=== PATIENT | male | born 1950 | race Caucasian/White ===

== ENCOUNTER → 2016-08-04 | Outpatient (CLI) | payer BC ==
[~2016-08-04] MED LIST: AMLO-110 PO; ASPCH81X PO; ASPI81TA28 PO; ATEN50TA8 PO; ATOR-26 PO; CEPH500C2 PO; EZET10TA47 PO; HYDR-5688 PO; HYDR25TA5 PO; LOSA1TAB PO; NITR0.4S UT; OXYC7.5T65 PO; PANT40TA PO; PRED50TA PO; SULF-183 PO
[2016-08-04 12:58] LABS: BASO % 0.2 %; BASO ABS # 0.02 K/uL (0-0.2); COMPLETE YES; EOS % 2.7 %; HEMATOCRIT 41.7 % (42-52); IG% 0.2 %; LYMPH % 22.4 %; LYMPH ABS # 1.88 K/uL (1.2-3.4); MEAN CELL VOLUME 92.3 fL (80-100); MEAN CORPUSCULAR HEMOGLOBIN 31.4 pg (25-34); MEAN CORPUSCULAR HGB CONC 34.1 g/dl (32-36); MEAN PLATELET VOLUME 10.4 fL (7.4-10.4); MONO % 9.5 %; PLATELET COUNT 196 K/uL (130-400); RED BLOOD COUNT 4.52 M/uL (4.7-6.1); WHITE BLOOD COUNT 8.39 K/uL (4.8-10.8)
[2016-08-04 13:10] LABS: ALT/SGPT 59 U/L (12-78); AST/SGOT 28 U/L (15-37); BLOOD UREA NITROGEN 26 mg/dl (7-18); BUN/CREATININE RATIO 21.4 (10-20); CALCIUM 9.3 mg/dl (8.5-10.1); CARBON DIOXIDE 25 mmol/L (21-32); CHLORIDE 107 mmol/L (98-107); CHOLESTEROL 183 mg/dl (0-200); GLUCOSE 117 mg/dl (70-99); SODIUM 141 mmol/L (136-145)
[2016-08-04 13:12] LABS: ALB/GLOB RATIO 1.1 (0.9-2); ALKALINE PHOSPHATASE 95 U/L (45-117); CHOLESTEROL/HDL RATIO 3.7; HDL CHOLESTEROL 50 mg/dl; TRIGLYCERIDES 87 mg/dl (0-150); VERY LOW DENSITY LIPOPROT CALC 17 mg/dl
[2016-08-04 13:39] LABS: ESTIMATED AVERAGE GLUCOSE 131 mg/dl; HA1C FLAG Normal (Normal)
== END | disposition home or self-care (01) ==
LOC: C.LABSPEC 12:31
PROVIDERS: ATTEND Specialist
DX: I25.10 Atherosclerotic heart disease of native coronary artery without angina pectoris (principal); I10 Essential (primary) hypertension; E78.5 Hyperlipidemia, unspecified; R73.9 Hyperglycemia, unspecified; C67.9 Malignant neoplasm of bladder, unspecified

== ENCOUNTER → 2016-08-16 | Outpatient (CLI) | payer BC | END | disposition home or self-care (01) | LOC: C.LABSPEC 10:31 | PROVIDERS: ATTEND Urology | DX: N39.0 Urinary tract infection, site not specified (principal) ==

== ENCOUNTER → 2016-09-06 | Outpatient (CLI) | payer BC | END | disposition home or self-care (01) | LOC: C.LABSPEC 17:34 | PROVIDERS: ATTEND Nurse Practitioner Family | DX: N39.0 Urinary tract infection, site not specified (principal) ==

== ENCOUNTER 2016-09-11 08:31 | Emergency (ER) | payer BC ==
[~2016-09-11] VITALS: Ht 172.7 cm; Wt 105.5 kg
[~2016-09-11 08:31] MED LIST changes: -ASPCH81X PO; -CEPH500C2 PO; -EZET10TA47 PO; -HYDR-5688 PO; -HYDR25TA5 PO; -PRED50TA PO
[2016-09-11 08:46] VITALS: TEMP 37; Ht 172.7 cm; Wt 105.5 kg
[2016-09-11] MEDS ORDERED: DEXAMETHASONE SOD INJ 10 MG/ML VIAL IV ONE (09:45)
[2016-09-11] MEDS ORDERED: DiphenhydrAMINE HCL 50 MG/ML VIAL IV STA (09:45)
[2016-09-11] MEDS ORDERED: FAMOTIDINE 20MG/102 ML D5W IV STA (09:45)
[2016-09-11] MEDS ORDERED: SODIUM CHLORIDE 0.9% 1000ML 1,000 ML IV STA (09:45)
--- NOTE | 2016-09-11 09:45 | EMERGENCY ROOM VISIT NOTE ---
History Report prepared by Enrrique: Jacob Warner Under the Supervision of: Dr. Huey Szymanski M.D. First contact with patient: 09:21 Chief Complaint: RASH Stated Complaint: RASH History of Present Illness The patient is a 66 year old male who presents to the Emergency Room with complaints of a worsening rash starting last night around midnight. The patient states that he woke up last night after being very itchy. He states that he was scratching, and it got worse. He states that he then went to the bathroom, and took a hot shower and used soap, and it did not work. He additionally states that he put rubbing alcohol on it, and he put some Cortizone on it. The patient states that he has a history of bladder tumors, and he states that he took Bactrim for this, and he states that he has been on it multiple times before. He denies any history of urinary retention. The patient additionally states that he recently started amlodipine a few weeks ago. He additionally states that he is on a BCG treatment. Source of History: patient Onset: last night Position: other (global) Quality: other (rash) Timing: worsening Note: Associated symptoms: itchiness Review of Systems See HPI for pertinent positives & negatives. A total of 6 systems reviewed and were otherwise negative. Past Medical & Surgical Medical Problems: (1) DDD (degenerative disc disease) (2) HTN (hypertension) (3) Hx of renal calculi (4) OBST. L URETERAL STONE, ? BLAD. TUMOR Surgical Problems: (1) H/O knee surgery (2) H/O shoulder surgery (3) History of lumbar surgery (4) Hx of appendectomy (5) S/P wrist surgery Family History Diabetes mellitus Heart disease Hypertension Kidney disease Kidney stones Social History Smoking Status: Former Smoker Alcohol Use: occasionally Drug Use: none Marital Status: Housing Status: lives with family Occupation Status: retired Current/Historical Medications Scheduled Amlodipine (Norvasc), 5 MG PO QAM Aspirin (Aspirin Ec), 81 MG PO QAM Atenolol (Tenormin), 50 MG PO QAM Atorvastatin (Lipitor), 80 MG PO QAM Cephalexin Monohydrate (Keflex), 500 MG PO TID Losartan Potassium (Cozaar), 25 MG PO QAM Pantoprazole (Protonix), 40 MG PO QAM Prednisone (Prednisone), 50 MG PO DAILY Sulfamethoxazole-Trimethoprim (Smz-Tmp Ds), 1 TAB PO BID Scheduled PRN Nitroglycerin (Nitrostat), 0.4 MG UT UD PRN for Chest Pain Allergies Coded Allergies: No Known Allergies (Verified , 09/11/16) POSSIBLE NUT ALLERGY? Physical Exam Vital Signs Date Time Temp Pulse Resp B/P Pulse Ox O2 Delivery O2 Flow Rate FiO2 09/11/16 12:10 63 18 160/93 95 09/11/16 10:17 58 18 142/85 96 Room Air 09/11/16 08:46 37.0 95 17 155/93 94 Room Air Physical Exam GENERAL: Patient is in mild distress HEENT: No acute trauma, normocephalic atraumatic, mucous membranes moist, no nasal congestion, no scleral icterus. NECK: No stridor, no adenopathy, no meningismus, trachea is midline. LUNGS: No dyspnea. Clear to auscultation and equal bilaterally. No wheeze, no rhonchi. HEART: Regular rate and rhythm. No murmurs, rubs, gallops appreciated. EXTREMITIES: Normal motion all extremities, no cyanosis, no edema. NEUROLOGIC: Alert and oriented, no acute motor or sensory deficits, no focal weakness, cranial nerves grossly intact. SKIN: Blotchy, raised, red, lacy hives over the chest, back, and abdomen. Medical Decision & Procedures Laboratory Results 09/11/16 10:00 09/11/16 10:00 Test 09/11/16 10:00 Red Blood Count 4.52 M/uL (4.7-6.1) Mean Corpuscular Volume 90.7 fL (80-100) Mean Corpuscular Hemoglobin 31.4 pg (25-34) Mean Corpuscular Hemoglobin Concent 34.6 g/dl (32-36) RDW Standard Deviation 45.5 fL (36.4-46.3) RDW Coefficient of Variation 13.8 % (11.5-14.5) Mean Platelet Volume 9.7 fL (7.4-10.4) Anion Gap 6.0 mmol/L (3-11) Est Creatinine Clear Calc Drug Dose 69.4 ml/min Estimated GFR () 71.6 Estimated GFR (Non- 61.8 BUN/Creatinine Ratio 16.8 (10-20) Calcium Level 9.2 mg/dl (8.5-10.1) Laboratory results as reviewed by me. Medications Administered Medications (Trade) Dose Ordered Sig/Baljeet Route Start Time Stop Time Status Last Admin Dose Admin Famotidine (Pepcid 20mg/100 ml) 20 mg ONE STAT IV 09/11/16 09:45 09/11/16 09:47 DC 09/11/16 10:12 20 MG Diphenhydramine HCl (Benadryl Inj) 50 mg NOW STAT IV 09/11/16 09:45 09/11/16 09:47 DC 09/11/16 10:12 50 MG Dexamethasone Sodium Phosphate 10 mg 10 mg NOW ONCE IV 09/11/16 09:45 09/11/16 09:47 DC 09/11/16 10:12 10 MG Sodium Chloride (Nss 1000ml) 1,000 ml @ 999 mls/hr Q1H1M STAT IV 09/11/16 09:45 09/11/16 10:45 DC 09/11/16 10:05 999 MLS/HR ED Course 0934: The patient was evaluated in room B5. A complete history and physical exam was performed. 0945: Sodium Chloride 1000 ml @ 999 mls/hr IV, Decadron Inj 10mg IV, Benadryl Inj 50mg IV, Famotidine 20mg IV 1037: I reevaluated the patient, and the rash has mildly improved 1154: Reevaluated the patient. Discussed results and discharge instructions: He verbalized understanding and agreement. The patient is ready for discharge. Medical Decision Differential: Allergic Reaction, Urticaria, Anaphylaxis, Locke-Glen Syndrome, Toxic Epidermal Necrolysis, Erythema Multiforme, Cellulitis, amongst other etiologies entertained. 66 yr old male arrives with complaint of rash over chest/thorax/arms starting this evening after taking Bactrim yesterday for UTI. Denies other significant symptoms. No evidence of anaphylaxis. No skin sloughing and otherwise patient looks well. Feeling better after above with improving rash. Stressed no further scalding showers nor rubbing alcohol on rash as these will make worse. He was prescribed Keflex to take place of bactrim. Follow up with PCP/URO. I discussed fact that his other meds or treatments, or even something he ate might be causing this, but will need to go with most obvious cause to begin with. Stable throughout ED stay and in no distress. Impression Primary Impression: Allergic reaction caused by a drug Scribe Attestation The scribe's documentation has been prepared under my direction and personally reviewed by me in its entirety. I confirm that the note above accurately reflects all work, treatment, procedures, and medical decision making performed by me. Departure Information Dispostion Home / Self-Care Prescriptions Prednisone (PREDNISONE) 50 Mg Tab 50 MG PO DAILY for 4 Days, #4 TAB Prov: Huey Szymanski M.D. 09/11/16 Cephalexin Monohydrate (KEFLEX) 500 Mg Cap 500 MG PO TID, #21 CAP Prov: Huey Szymanski M.D. 09/11/16 Referrals Prabhjot Galaviz M.D. (PCP) Forms HOME CARE DOCUMENTATION FORM, IMPORTANT VISIT INFORMATION, WORK / SCHOOL INSTRUCTIONS Patient Instructions ED Allergic Reaction General Other, My [facility] Health Problem Qualifiers Primary Impression: Allergic reaction caused by a drug Encounter type: initial encounter Qualified Codes: T78.40XA - Allergy, unspecified, initial encounter
[2016-09-11 10:24] LABS: MEAN CELL VOLUME 90.7 fL (80-100); MEAN CORPUSCULAR HEMOGLOBIN 31.4 pg (25-34); MEAN CORPUSCULAR HGB CONC 34.6 g/dl (32-36); MEAN PLATELET VOLUME 9.7 fL (7.4-10.4); PLATELET COUNT 225 K/uL (130-400); RED BLOOD COUNT 4.52 M/uL (4.7-6.1); WHITE BLOOD COUNT 8.74 K/uL (4.8-10.8)
[2016-09-11 10:43] LABS: BUN/CREATININE RATIO 16.8 (10-20); CALCIUM 9.2 mg/dl (8.5-10.1); CREATININE 1.2 mg/dl (0.60-1.40); POTASSIUM 4.1 mmol/L (3.5-5.1)
[2016-09-11] MEDS ORDERED: CEPH500C2 PO (11:55)
[2016-09-11] MEDS ORDERED: PRED50TA PO (11:55)
[2016-09-11 12:10] VITALS: BP 160/93; PULSE 63; O2SAT 95
[2016-12-24] MEDS ORDERED: HYDR25TA5 PO (11:43)
[2016-12-24] MEDS ORDERED: EZET10TA47 PO (11:43)
[2016-12-24] MEDS ORDERED: PANT40TA PO (11:43)
[2016-12-24] MEDS ORDERED: ATOR-26 PO (11:43)
[2016-12-24] MEDS ORDERED: ASPCH81X PO (11:43)
[2017-04-12] MEDS ORDERED: HYDR-5688 PO (06:52)
[2017-04-12] MEDS ORDERED: CEPH500C2 PO (06:52)
== END 2016-09-11 12:10 | disposition home or self-care (01) ==
LOC: C.EDB 08:32
DX: T78.40XA Allergy, unspecified, initial encounter (principal); T37.0X5A Adverse effect of sulfonamides, initial encounter; X58.XXXA Exposure to other specified factors, initial encounter; I10 Essential (primary) hypertension; Z87.442 Personal history of urinary calculi; Z83.3 Family history of diabetes mellitus; Z82.49 Family history of ischemic heart disease and other diseases of the circulatory system; Z84.1 Family history of disorders of kidney and ureter; Z87.891 Personal history of nicotine dependence; Z79.82 Long term (current) use of aspirin; Z79.899 Other long term (current) drug therapy

== ENCOUNTER → 2016-10-21 | Outpatient (CLI) | payer BC ==
[~2016-10-21] MED LIST changes: +ASPCH81X PO; +CEPH500C2 PO; +EZET10TA47 PO; +HYDR-5688 PO; +HYDR25TA5 PO; +OPTIRAY 320 IV PRN; -OXYC7.5T65 PO
--- NOTE | 2016-10-21 10:17 | DIAGNOSTIC IMAGING REPORT ---
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 COMPARISON STUDY: Abdomen and pelvis CT 12/22/2015. FINDINGS: Mild dependent changes seen within the lung bases posteriorly. No suspicious lytic or blastic osseous lesions. Lumbar spine posterior decompression and fusion is again noted. The liver, gallbladder, spleen, adrenal glands, and pancreas are unremarkable. Bilateral nephrolithiasis. No hydronephrosis. Dominant stone is seen within the right kidney and measures 7 mm. Evaluation for a urothelial lesion is essentially nondiagnostic due to the lack of contrast within the urinary systems. There is mild right bladder wall thickening. The bladder is not well-distended. The right anterior aspect of the bladder remains within the right inguinal hernia. The prostate gland is normal in size. No retroperitoneal or pelvic lymphadenopathy. Colonic diverticulosis. No bowel wall thickening or obstruction. IMPRESSION: 1. No evidence for metastatic disease within the abdomen or pelvis. 2. Mild right bladder wall thickening. The right anterior aspect of the bladder remains within the right inguinal hernia. 3. Bilateral nephrolithiasis. No hydronephrosis. 4. Evaluation for a urothelial lesion is essentially nondiagnostic due to the lack of contrast within the urinary system. Electronically signed by: Patrick Cunha M.D. 10/21/2016 10:15 AM Dictated Date/Time: 10/21/2016 10:03 AM
== END | disposition home or self-care (01) ==
LOC: C.CTS 09:16
PROVIDERS: ATTEND Urology
DX: C67.9 Malignant neoplasm of bladder, unspecified (principal); N20.0 Calculus of kidney

== ENCOUNTER → 2016-11-03 | Outpatient (CLI) | payer BC ==
[~2016-11-03] MED LIST changes: -OPTIRAY 320 IV PRN
== END | disposition home or self-care (01) ==
LOC: C.LABSPEC 16:58
PROVIDERS: ATTEND Urology
DX: N39.0 Urinary tract infection, site not specified (principal)

== ENCOUNTER → 2016-12-16 | Outpatient (CLI) | payer BC ==
[2016-12-16 15:53] LABS: ALT/SGPT 50 U/L (12-78); AST/SGOT 32 U/L (15-37); BLOOD UREA NITROGEN 22 mg/dl (7-18); BUN/CREATININE RATIO 15.8 (10-20); CALCIUM 8.9 mg/dl (8.5-10.1); CARBON DIOXIDE 30 mmol/L (21-32); CHLORIDE 103 mmol/L (98-107); GLUCOSE 93 mg/dl (70-99); POTASSIUM 4.1 mmol/L (3.5-5.1); SODIUM 140 mmol/L (136-145)
[2016-12-16 16:04] LABS: ALB/GLOB RATIO 1.1 (0.9-2); ALKALINE PHOSPHATASE 95 U/L (45-117); CHOLESTEROL 114 mg/dl (0-200); CHOLESTEROL/HDL RATIO 3.1; HDL CHOLESTEROL 37 mg/dl; TRIGLYCERIDES 109 mg/dl (0-150); VERY LOW DENSITY LIPOPROT CALC 22 mg/dl
[2016-12-16 17:26] LABS: LYME DISEASE AB IGG NEG (NEG); LYME DISEASE AB IGM NEG (NEG)
[2016-12-17 06:16] LABS: ESTIMATED AVERAGE GLUCOSE 137 mg/dl; HA1C FLAG Normal (Normal)
== END | disposition home or self-care (01) ==
LOC: C.LABSPEC 15:10
PROVIDERS: ATTEND Internal Medicine
DX: I25.10 Atherosclerotic heart disease of native coronary artery without angina pectoris (principal); I10 Essential (primary) hypertension; E78.5 Hyperlipidemia, unspecified; R73.9 Hyperglycemia, unspecified; R53.83 Other fatigue; M25.50 Pain in unspecified joint

== ENCOUNTER → 2016-12-23 | Outpatient (CLI) | payer BC ==
[2016-12-23 10:44] LABS: BASO % 0.4 %; BASO ABS # 0.03 K/uL (0-0.2); COMPLETE YES; EOS % 4.7 %; HEMATOCRIT 45.1 % (42-52); IG% 0.1 %; LYMPH % 24.3 %; LYMPH ABS # 1.87 K/uL (1.2-3.4); MEAN CELL VOLUME 93.2 fL (80-100); MEAN CORPUSCULAR HEMOGLOBIN 30.6 pg (25-34); MEAN CORPUSCULAR HGB CONC 32.8 g/dl (32-36); MONO % 11.3 %; NEUT % 59.2 %; PLATELET COUNT 235 K/uL (130-400); RED BLOOD COUNT 4.84 M/uL (4.7-6.1)
== END ==
LOC: C.LAB 09:53
PROVIDERS: ATTEND Surgery
DX: K40.90 Unilateral inguinal hernia, without obstruction or gangrene, not specified as recurrent (principal); Z01.812 Encounter for preprocedural laboratory examination

== ENCOUNTER → 2016-12-31 | Day surgery (SDC) | payer BC ==
[2016-12-24 11:43] VITALS: Ht 170.2 cm; Wt 104.5 kg
[~2016-12-31] VITALS: Ht 170.2 cm; Wt 104.5 kg
[~2016-12-31] MED LIST changes: -AMLO-110 PO; -ASPI81TA28 PO; -NITR0.4S UT; -SULF-183 PO
== END | disposition home or self-care (01) ==
LOC: EDSTATUS 09:45 → C.PAT 13:41
PROVIDERS: ATTEND Surgery
DX: K40.90 Unilateral inguinal hernia, without obstruction or gangrene, not specified as recurrent (principal)

== ENCOUNTER → 2017-03-25 | Outpatient (CLI) | payer BC ==
[2017-03-25 12:14] LABS: BASO % 0.2 %; BASO ABS # 0.02 K/uL (0-0.2); COMPLETE YES; EOS % 5.1 %; HEMATOCRIT 44.8 % (42-52); IG% 0.2 %; LYMPH % 28.6 %; MEAN CELL VOLUME 93.3 fL (80-100); MEAN CORPUSCULAR HGB CONC 33.3 g/dl (32-36); MEAN PLATELET VOLUME 10.1 fL (7.4-10.4); MONO % 11.2 %; NEUT % 54.7 %; PLATELET COUNT 207 K/uL (130-400); WHITE BLOOD COUNT 8.38 K/uL (4.8-10.8)
[2017-03-25 12:49] LABS: BLOOD UREA NITROGEN 22 mg/dl (7-18); BUN/CREATININE RATIO 16.8 (10-20); CALCIUM 9.2 mg/dl (8.5-10.1); CARBON DIOXIDE 29 mmol/L (21-32); CHLORIDE 106 mmol/L (98-107); GLUCOSE 116 mg/dl (70-99); POTASSIUM 4.2 mmol/L (3.5-5.1); SODIUM 139 mmol/L (136-145)
== END | disposition home or self-care (01) ==
LOC: C.LAB 10:40
PROVIDERS: ATTEND Surgery
DX: Z01.812 Encounter for preprocedural laboratory examination (principal); K40.90 Unilateral inguinal hernia, without obstruction or gangrene, not specified as recurrent

== ENCOUNTER → 2017-04-12 | Day surgery (SDC) | payer BC ==
[2017-03-28 08:50] VITALS: Ht 170.2 cm; Wt 104.5 kg
[~2017-04-12] VITALS: Ht 170.2 cm; Wt 104.5 kg
[~2017-04-12] MED LIST changes: +ATROPINE SULFATE 0.1 MG/ML 5ML SYR IV PRN; +BUPIVACAINE 0.5 % 5 MG/1 ML MPF 30ML VIAL ONE; +CEFAZOLIN 2000 MG/60 ML D5W IV SCH; +CEFAZOLIN SOD 1 GM VIAL ONE; +DEXAMETHASONE SOD INJ 4 MG/ML VIAL ONE; +EpHEDrine SULFATE 50MG/5ML SYR ONE; +EpHEDrine SULFATE INJ 50 MG/ML AMP IV PRN; +FENTANYL CITRATE INJ 50 MCG/1 ML 2 ML VIAL ONE; +FLUMAZENIL 0.1 MG/1 ML 10 ML VIAL IV PRN; +HYDROCODONE/ACETAMOPHEN 5/325MG TAB PO PRN; +HYDROmorphone INJ 0.5 MG/0.5 ML SYR ONE; +LABETALOL HCL IV 5 MG/ML 20ML IV PRN; +LACTATED RINGER'S 1000ML 1,000 ML IV SCH; +LIDOCAINE HCL 2% 2 ML VIAL (20MG/ML) ONE; +MIDAZOLAM HCL 1 MG/ML 2ML VIAL ONE; +NALOXONE HCL 0.4 MG/1 ML VIAL/CARP IV PRN; +ONDANSETRON INJ 2 MG/ML 2 ML VIAL IV PRN; +ONDANSETRON INJ 2 MG/ML 2 ML VIAL ONE; +PROMETHAZINE HCL INJ 12.5 MG in SODIUM CHLORIDE 0.9% 50ML 50 ML IV PRN; +PROPOFOL IV EMULSION 10 MG/ML 20 ML VIAL IV ONE; +SODIUM CHLORIDE 0.9% 1000ML 1,000 ML IV SCH; +SODIUM CHLORIDE 0.9% INJ 10 ML VIAL ONE
--- NOTE | 2017-04-12 06:56 | Discharge Instructions-SurgCtr ---
Discharge Instructions Date of Service Apr 12, 2017. Visit Reason for Visit: Right Inguinal Hernia Discharge Discharge Diagnosis / Problem: inguinal hernia Discharge Goals Goal(s): Decrease discomfort, Improve function, Improve disease control Activity Recommendations Activity Limitations: as noted below Lifting Limitations: no more than 25 pounds (for 4 weeks) Exercise/Sports Limitations: until after follow-up appointment May Resume Sexual Activity: when tolerated Shower/Bathe: keep incision dry (may shower over incision in 2 days) Driving or Machine Use: resume 3 days after discharge SPECIAL CARE INSTRUCTIONS: * Cover incisions and change daily for comfort/drainage. * Leave steri strips in place avoid constipation- may use Senokot S and Milk of magnesia twice daily as directed on the package * May use ibuprofen for pain as tolerated. * Expect some swelling and bruising. Call your doctor if: * Temperature above 101 degrees * Pain not relieved by pain medicine ordered * There is increased drainage or redness from any incision * You have any unanswered questions or concerns [phone]. FOLLOW UP VISIT: If not already scheduled, please call the office for a follow-up visit. for next week- some suture removal OFFICE PHONE NUMBER: Dr. Zhu Office Anesthesia . Post Anesthesia Instructions: If you have had General Anesthesia or IV Sedation: * Do not drive today. * Resume driving when surgeon permits. * Do not make important decisions or sign legal documents today. * Call surgeon for: 1. Temperature elevations greater than 101 degrees F. 2. Uncontrollable pain. 3. Excessive bleeding. 4. Persistent nausea and vomiting. 5. Medication intolerance (nausea, vomiting or rash). * For nausea and vomiting use only clear liquids such as: tea, soda, bouillon until nausea subsides, then gradually increase diet as tolerated. * If you have any concerns or questions, call your surgeon's office. If physician is unavailable and it is an emergency, call 911 or go to the nearest emergency room. . Diet Recommendations Home Diet: resume previous diet Pending Studies Studies pending at discharge: no Medical Emergencies . Who to Call and When: Medical Emergencies: If at any time you feel your situation is an emergency, please call 911 immediately. . Non-Emergent Contact Non-Emergency issues call your: Primary Care Provider, Surgeon . . "Provider Documentation" section prepared by Ryan Zhu. .
--- NOTE | 2017-04-12 07:49 | History & Physical Bridge - SC ---
H&P Re-Evaluation Bridge Note: I have examined the patient, reviewed the History & Physical and in the interval since the performance of the History & Physical I have noted the following changes of clinical significance: No changes noted
--- NOTE | 2017-04-12 09:01 | [facility] Operative Report ---
Operative Report Operative Date Apr 12, 2017. Pre-Operative Diagnosis Right Inguinal Hernia Post-Operative Diagnosis Same Procedure(s) Performed Right Inguinal Hernia Repair with Mesh Surgeon Dr. Albert Zhu Trimming Machine Set Up Operator Surgeon(s) Wade Oden PA-C Findings very large lipoma associated with indirect hernia Anesthesia gen/ LMA Complication(s) None Disposition Recovery Room / PACU I attest to the content of the Intraoperative Record and any orders documented therein. Any exceptions are noted below.
--- NOTE | 2017-04-12 09:20 | OPERATIVE REPORT ---
DATE OF OPERATION: 04/12/2017 NAME OF OPERATION: Open right inguinal hernia repair. PREOPERATIVE DIAGNOSIS: Right inguinal hernia. POSTOPERATIVE DIAGNOSIS: Same with indirect defect and large lipoma. STAFF SURGEON: Ryan Zhu MD MATERIAL MAN: Carolynn Oden PA-C ANESTHESIA: General LMA. FINDINGS: The patient had a very large lipoma associated with indirect inguinal hernia. It was extremely difficult because of the patient's morbid obesity and the size of the hernia which took me almost 30 minutes extra. DESCRIPTION OF PROCEDURE: The patient was brought in the operating room and placed on the operating table in supine position. His right lower quadrant prepped and draped in usual fashion. Incision was made parallel to the inguinal ligament using 0.5% plain Marcaine to anesthetize the skin and subcutaneous tissue. Dissection was carried down through significant adipose tissue, identifying the external oblique fibers incising them along there length to the external ring mobilizing the cord structures. It was apparent that the patient had a very large lipoma associated with a smaller indirect hernia, both of which were dissected away from the cord structures and then reduced. The internal ring was then reinforced using a large mesh plug, secured to surrounding tissue using 2-0 Ethibond suture. Some of the tissue was partially reapproximated using 0 Ethibond suture. A large mesh patch was then placed into the floor of the canal around the cord structures over the plug, secured to surrounding tissue using 2-0 Ethibond suture. The external oblique fibers were then closed over the mesh around the cord structures using 2-0 Ethibond suture. The site was irrigated with antibiotic solution and then also anesthetized using 0.5% plain Marcaine. The deep tissue was reapproximated using 2-0 plain catgut suture and then the skin reapproximated using 4-0 nylon suture and Steri-Strips. The patient was transferred to recovery room in stable condition. I attest to the content of the Intraoperative Record and any orders documented therein. Any exception s are noted below.
[2017-04-12] MEDS: HYDROmorphone INJ 1 MG/ML SYR IV PRN ×4 (09:54→10:26)
--- NOTE | 2017-04-12 10:46 | Anesthesia Progress Nt - [facility] ---
Anesthesia Post Op Note Date & Time Apr 12, 2017 at 10:46 Vital Signs Pain Intensity: 3.0 Vital Signs Past 12 Hours Date Time Temp Pulse Resp B/P (MAP) Pulse Ox O2 Delivery O2 Flow Rate FiO2 04/12/17 10:26 68 18 04/12/17 10:26 69 18 134/90 97 04/12/17 10:21 68 15 134/88 96 04/12/17 10:21 68 15 04/12/17 10:16 69 14 136/90 95 04/12/17 10:16 68 14 04/12/17 10:13 36.7 69 14 136/90 96 Room Air 04/12/17 10:11 68 19 04/12/17 10:11 67 19 131/83 96 04/12/17 10:06 62 16 130/85 98 04/12/17 10:06 63 16 04/12/17 10:01 64 14 132/90 99 04/12/17 10:01 65 14 04/12/17 09:56 64 15 128/86 98 04/12/17 09:56 64 15 04/12/17 09:51 64 20 04/12/17 09:51 65 20 120/85 93 04/12/17 09:46 65 20 04/12/17 09:46 65 20 137/88 93 04/12/17 09:41 61 10 04/12/17 09:41 61 10 128/82 96 04/12/17 09:36 63 5 04/12/17 09:36 63 5 140/91 97 04/12/17 09:31 62 18 04/12/17 09:31 63 18 134/85 96 04/12/17 09:26 63 19 04/12/17 09:26 63 19 142/88 96 04/12/17 09:21 64 16 129/84 97 04/12/17 09:21 65 16 04/12/17 09:16 64 19 141/90 97 04/12/17 09:16 64 19 04/12/17 09:12 134/92 04/12/17 09:11 36.6 70 20 134/92 94 Mask 6 04/12/17 07:05 36.5 60 18 148/94 (112) 97 Notes Mental Status: alert / awake / arousable, participated in evaluation Pt Amnestic to Procedure: Yes Nausea / Vomiting: adequately controlled Pain: adequately controlled Airway Patency, RR, SpO2: stable & adequate BP & HR: stable & adequate Hydration State: stable & adequate Anesthetic Complications: no major complications apparent
[2017-04-12 10:54] VITALS: TEMP 36.6
[2017-04-12 11:38] VITALS: BP 141/80; PULSE 65; O2SAT 97
== END | disposition home or self-care (01) ==
LOC: X.SURG 06:58
PROVIDERS: ATTEND Surgery
DX: K40.90 Unilateral inguinal hernia, without obstruction or gangrene, not specified as recurrent (principal); D17.6 Benign lipomatous neoplasm of spermatic cord; I25.10 Atherosclerotic heart disease of native coronary artery without angina pectoris; I10 Essential (primary) hypertension; E78.5 Hyperlipidemia, unspecified; K21.9 Gastro-esophageal reflux disease without esophagitis; N52.9 Male erectile dysfunction, unspecified; C67.9 Malignant neoplasm of bladder, unspecified; G47.30 Sleep apnea, unspecified; Z79.82 Long term (current) use of aspirin; Z79.899 Other long term (current) drug therapy

== ENCOUNTER → 2017-04-26 | Outpatient (CLI) | payer BC ==
[~2017-04-26] MED LIST changes: -ATROPINE SULFATE 0.1 MG/ML 5ML SYR IV PRN; -BUPIVACAINE 0.5 % 5 MG/1 ML MPF 30ML VIAL ONE; -CEFAZOLIN 2000 MG/60 ML D5W IV SCH; -CEFAZOLIN SOD 1 GM VIAL ONE; -DEXAMETHASONE SOD INJ 4 MG/ML VIAL ONE; -EpHEDrine SULFATE 50MG/5ML SYR ONE; -EpHEDrine SULFATE INJ 50 MG/ML AMP IV PRN; -FENTANYL CITRATE INJ 50 MCG/1 ML 2 ML VIAL ONE; -FLUMAZENIL 0.1 MG/1 ML 10 ML VIAL IV PRN; -HYDROCODONE/ACETAMOPHEN 5/325MG TAB PO PRN; -HYDROmorphone INJ 0.5 MG/0.5 ML SYR ONE; -LABETALOL HCL IV 5 MG/ML 20ML IV PRN; -LACTATED RINGER'S 1000ML 1,000 ML IV SCH; -LIDOCAINE HCL 2% 2 ML VIAL (20MG/ML) ONE; -MIDAZOLAM HCL 1 MG/ML 2ML VIAL ONE; -NALOXONE HCL 0.4 MG/1 ML VIAL/CARP IV PRN; -ONDANSETRON INJ 2 MG/ML 2 ML VIAL IV PRN; -ONDANSETRON INJ 2 MG/ML 2 ML VIAL ONE; -PROMETHAZINE HCL INJ 12.5 MG in SODIUM CHLORIDE 0.9% 50ML 50 ML IV PRN; -PROPOFOL IV EMULSION 10 MG/ML 20 ML VIAL IV ONE; -SODIUM CHLORIDE 0.9% 1000ML 1,000 ML IV SCH; -SODIUM CHLORIDE 0.9% INJ 10 ML VIAL ONE
[2017-04-26 12:48] LABS: ESTIMATED AVERAGE GLUCOSE 146 mg/dl; HA1C FLAG Normal (Normal)
[2017-04-26 13:18] LABS: GLUCOSE,FASTING 119 mg/dl (70-99)
[2017-04-26 13:24] LABS: LYME DISEASE AB IGG NEG (NEG)
[2017-04-26 13:27] LABS: LYME DISEASE AB IGM NEG (NEG)
[2017-04-26 13:32] LABS: CHOLESTEROL 130 mg/dl (0-200); CHOLESTEROL/HDL RATIO 2.8; HDL CHOLESTEROL 47 mg/dl; TRIGLYCERIDES 105 mg/dl (0-150); VERY LOW DENSITY LIPOPROT CALC 21 mg/dl
== END | disposition home or self-care (01) ==
LOC: C.LABSPEC 12:03
PROVIDERS: ATTEND Internal Medicine
DX: R73.9 Hyperglycemia, unspecified (principal); I25.10 Atherosclerotic heart disease of native coronary artery without angina pectoris; E78.5 Hyperlipidemia, unspecified; R53.83 Other fatigue; M79.1 Myalgia

== ENCOUNTER 2017-05-31 08:58 | Emergency (ER) | payer BC ==
[~2017-05-31] VITALS: Ht 172.7 cm; Wt 110.0 kg
[2017-05-31 09:04] VITALS: TEMP 37; Ht 172.7 cm; Wt 110.0 kg
--- NOTE | 2017-05-31 10:20 | DIAGNOSTIC IMAGING REPORT ---
L RIBS UNILATERAL WITH PA CHEST CLINICAL HISTORY: fall. Left-sided rib pain. COMPARISON STUDY: Chest 12/22/2015. FINDINGS: No pneumothorax. No pleural effusions. The heart is normal in size. The lungs are clear. No change in the left lateral seventh through 11th rib deformities consistent with old, healed fractures. No acute rib fractures identified. IMPRESSION: 1. No acute rib fractures. No pneumothorax. 2. No change in the old left seventh through 11th rib fractures. Electronically signed by: Patrick Cunha M.D. 05/31/2017 10:19 AM Dictated Date/Time: 05/31/2017 10:16 AM
--- NOTE | 2017-05-31 10:49 | EMERGENCY ROOM VISIT NOTE ---
History Report prepared by Enrrique: Mary Coates Under the Supervision of: Dr. Skyler Portillo D.O. First contact with patient: 09:41 Chief Complaint: RIB PAIN Stated Complaint: FELL YESTERDAY POSSIBLE BROKEN RIBS History of Present Illness The patient is a 66 year old male who presents to the Emergency Room with complaints of constant left-sided rib pain secondary to a fall occurring yesterday afternoon. The patient was cleaning his garage and fell about 2.5 feet from standing on a "pile of junk." He fell over the wheelbarrow and landed on his left side. He has been experiencing pain since that time. He rates his current pain as a 9/10 in severity. His pain worsens with palpation. He describes his pain as "pinching" and "sore." Source of History: patient Onset: yesterday afternoon Position: other (left ribs) Symptom Intensity: 9/10 Quality: other (pinching; sore) Timing: constant Modifying Factors (Worsening): other (palpation) Review of Systems See HPI for pertinent positives & negatives. A total of 10 systems reviewed and were otherwise negative. Past Medical & Surgical Medical Problems: (1) DDD (degenerative disc disease) (2) HTN (hypertension) (3) Hx of renal calculi (4) OBST. L URETERAL STONE, ? BLAD. TUMOR Surgical Problems: (1) H/O knee surgery (2) H/O shoulder surgery (3) History of lumbar surgery (4) Hx of appendectomy (5) S/P wrist surgery Family History Diabetes mellitus Heart disease Hypertension Kidney disease Kidney stones Social History Smoking Status: Never Smoker Alcohol Use: occasionally Drug Use: none Marital Status: Housing Status: lives with family Occupation Status: retired Current/Historical Medications Scheduled Aspirin (Aspirin Chewable), 81 MG PO QAM Atenolol (Tenormin), 50 MG PO QAM Atorvastatin (Lipitor), 80 MG PO QAM Ezetimibe (Zetia), 10 MG PO QAM Hydrochlorothiazide (Hydrochlorothiazide), 1 TAB PO QAM Losartan Potassium (Cozaar), 25 MG PO QAM Pantoprazole (Protonix), 40 MG PO QAM Scheduled PRN Hydrocodone/Acetaminophen 5MG/325MG ([place] 5MG/325MG), 1-2 TABLET PO q 6 hrs PRN for Pain Allergies Coded Allergies: Sulfa Antibiotics (Verified Allergy, Unknown, RASH, 05/31/17) Physical Exam Vital Signs Date Time Temp Pulse Resp B/P (MAP) Pulse Ox O2 Delivery O2 Flow Rate FiO2 05/31/17 09:04 37.0 70 20 142/83 95 Room Air Physical Exam CONSTITUTIONAL/VITAL SIGNS: Reviewed / noted above. GENERAL: Non-toxic in appearance. INTEGUMENTARY: Warm, dry, and Mart[place]ll. HEAD: Normocephalic. EYES: without scleral icterus or trauma. ENT/OROPHARYNX: clear and moist. LYMPHADENOPATHY/NECK: Is supple without lymphadenopathy or meningismus. RESPIRATORY: Lungs clear and equal. CARDIOVASCULAR: Regular rate and rhythm. GI/ABDOMEN: Soft and nontender. No organomegaly or pulsatile mass. No rebound or guarding. Normal bowel sounds. EXTREMITIES: Warm and well perfused. BACK: No CVA tenderness. NEUROLOGICAL: Intact without focal deficits. PSYCHIATRIC: normal affect. MUSCULOSKELETAL: Normally developed with good muscle tone. Mild TTP of the left mid-thorax. Medical Decision & Procedures ER Provider Diagnostic Interpretation: Radiology results as stated below per my review and radiologist interpretation: L RIBS UNILATERAL WITH PA CHEST CLINICAL HISTORY: fall. Left-sided rib pain. COMPARISON STUDY: Chest 12/22/2015. FINDINGS: No pneumothorax. No pleural effusions. The heart is normal in size. The lungs are clear. No change in the left lateral seventh through 11th rib deformities consistent with old, healed fractures. No acute rib fractures identified. IMPRESSION: 1. No acute rib fractures. No pneumothorax. 2. No change in the old left seventh through 11th rib fractures. Electronically signed by: Patrick Cunha M.D. 05/31/2017 10:19 AM Dictated Date/Time: 05/31/2017 10:16 AM ED Course 0956: Previous medical records were reviewed. The patient was placed in room B9. He was then taken for x-rays. 1034: A complete history and physical examination was performed. At this time I discussed the results and treatment plan with the patient. I answered all pertaining questions that he had. He expressed understanding and verbalized agreement. The patient will be discharged home. Medical Decision Differential diagnoses includes rib fracture, contusion, strain, pulmonary injury. This is a 66-year-old male who presents to the ED with a chief complaint of left -sided rib pain. The patient was working in his garage and fell yesterday. This causes pain. This occurred around 2 PM yesterday. He came in for evaluation here today. Exam reveals some tenderness in the left lower lateral chest wall. X-ray reveals some old rib fractures but nothing new. Lungs were clear. The patient states that he does have hydrocodone at home but does not seem to work very well. He states that it does cause constipation. He will continue this as needed. He was told that symptoms should improve in the next week or so. He is felt to be stable for discharge. Medication Reconcilliation Current Medication List: was personally reviewed by me Blood Pressure Screening Patient's blood pressure: Elevated blood pressure Blood pressure disposition: Elevated BP felt to be situational Impression Primary Impression: Acute chest wall pain Scribe Attestation The scribe's documentation has been prepared under my direction and personally reviewed by me in its entirety. I confirm that the note above accurately reflects all work, treatment, procedures, and medical decision making performed by me. Departure Information Dispostion Home / Self-Care Referrals Prabhjot Galaviz M.D. (PCP) Patient Instructions My [facility] Additional Instructions Anticipate improvement of symptoms over the next 7 days. If symptoms persist, see your doctor for reevaluation. Take [id number] medications for pain or your hydrocodone as needed.
[2017-05-31 10:56] VITALS: BP 119/59; PULSE 61; O2SAT 94
== END 2017-05-31 10:53 | disposition home or self-care (01) ==
LOC: C.EDB 08:58
DX: R07.89 Other chest pain (principal); W17.89XA Other fall from one level to another, initial encounter; I10 Essential (primary) hypertension; Z87.442 Personal history of urinary calculi; Z79.82 Long term (current) use of aspirin; Z79.899 Other long term (current) drug therapy; Z88.2 Allergy status to sulfonamides; Z83.3 Family history of diabetes mellitus; Z82.49 Family history of ischemic heart disease and other diseases of the circulatory system; Z84.1 Family history of disorders of kidney and ureter

== ENCOUNTER → 2017-07-13 | Outpatient (CLI) | payer BC ==
[~2017-07-13] MED LIST changes: -CEPH500C2 PO
[2017-07-13 13:26] LABS: INFLUENZA B ANTIGEN Neg for Influ B (NEG)
== END | disposition home or self-care (01) ==
LOC: C.LAB 12:30
PROVIDERS: ATTEND Internal Medicine
DX: B34.9 Viral infection, unspecified (principal)

== ENCOUNTER → 2017-08-15 | Outpatient (CLI) | payer BC ==
--- NOTE | 2017-08-15 11:49 | DIAGNOSTIC IMAGING REPORT ---
KUB CLINICAL HISTORY: 67 years-old Male presenting with N20.0 Nephrolithiasis1. TECHNIQUE: Single supine view of the abdomen was obtained. COMPARISON: 06/07/[address] from 10/21/2016. FINDINGS: Nonobstructive bowel gas pattern. No gross pneumoperitoneum. Multiple bilateral renal calculi in a similar distribution as on prior exam. Multiple pelvic phleboliths also similar in distribution. Postsurgical changes of posterior lumbar fusion, laminectomies, and interbody spacer placement. Degenerative changes and scoliosis of the mid lumbar spine. IMPRESSION: 1. Bilateral nephrolithiasis unchanged from prior exam. Electronically signed by: Ganesh Wren M.D. 08/15/2017 11:48 AM Dictated Date/Time: 08/15/2017 11:46 AM
[2017-08-15 12:59] LABS: BLOOD UREA NITROGEN 26 mg/dl (7-18); CREATININE 1.27 mg/dl (0.60-1.40)
== END | disposition home or self-care (01) ==
LOC: C.RAD 10:48
PROVIDERS: ATTEND Urology
DX: N20.0 Calculus of kidney (principal)

== ENCOUNTER → 2017-08-19 | Outpatient (CLI) | payer BC ==
--- NOTE | 2017-08-19 14:11 | DIAGNOSTIC IMAGING REPORT ---
IV PYELOGRAM CLINICAL HISTORY: Nephrolithiasis. Reported history of bladder cancer. COMPARISON STUDY: Abdominal CT dated 10/21/2016. TECHNIQUE: An abdominal draw off worker radiograph is performed. IVP pyelogram was then performed following the IV administration of 100 cc of Optiray 300, tomographic images are acquired in the corticomedullary and excretory phases of enhancement. Overhead views of the renal collecting system and bladder were obtained in multiple obliquities both pre and post void. FINDINGS: An abdominal draw off worker radiograph shows a nonobstructed abdominal bowel gas pattern. There are numerous bilateral nonobstructing renal calculi identified. The largest on the left measures 10 mm and the largest on the right measures 9 mm. There is no radiographic evidence of ureteral stone. Numerous phleboliths are seen in the pelvis. The skeletal structures are osteopenic. Lumbosacral spondylosis and scoliosis are noted. There are postoperative changes from L4 -S1 spinal fusion. Following contrast administration there is symmetric renal cortical enhancement and contrast excretion. No hydronephrosis is seen. Ureters are well opacified. No filling defect is seen within the renal pelvis bilaterally or along the course of the ureters to suggest urothelial lesion. The bladder wall appears thickened and trabeculated suggesting chronic obstruction. Contrasted abnormality at the bladder dome may represent postoperative change. No significant post void residual is identified. IMPRESSION: 1. Nonobstructing renal calculi are seen bilaterally. 2. Otherwise unremarkable IV pyelogram. There is no evidence of urothelial lesion within the renal pelvis bilaterally or along the course of the ureters. 3. The appearance of the bladder suggests chronic outlet obstruction. Mild contour abnormality at the bladder dome may represent postoperative change. Clinical correlation will be required. Electronically signed by: Pradeep Wagner M.D. 08/19/2017 2:10 PM Dictated Date/Time: 08/19/2017 2:05 PM
== END | disposition home or self-care (01) ==
LOC: C.RAD 12:29
PROVIDERS: ATTEND Urology
DX: N20.0 Calculus of kidney (principal)

== ENCOUNTER → 2017-09-12 | Outpatient (CLI) | payer BC ==
[2017-09-12 10:03] LABS: BASO % 0.3 %; BASO ABS # 0.02 K/uL (0-0.2); EOS % 5.9 %; HEMATOCRIT 43.4 % (42-52); HEMOGLOBIN 14.6 g/dL (14.0-18.0); LYMPH % 31.2 %; LYMPH ABS # 2.12 K/uL (1.2-3.4); MEAN CELL VOLUME 93.3 fL (80-100); MEAN CORPUSCULAR HEMOGLOBIN 31.4 pg (25-34); MEAN CORPUSCULAR HGB CONC 33.6 g/dl (32-36); MEAN PLATELET VOLUME 10.1 fL (7.4-10.4); MONO % 12.5 %; MONO ABS # 0.85 K/uL (0.11-0.59); NEUT % 50.1 %; NEUT ABS # 3.41 K/uL (1.4-6.5); PLATELET COUNT 194 K/uL (130-400); RED CELL DISTRIBUTION WIDTH SD 47.5 fL (36.4-46.3)
[2017-09-12 10:33] LABS: BLOOD UREA NITROGEN 19 mg/dl (7-18); CARBON DIOXIDE 29 mmol/L (21-32); CREATININE 1.44 mg/dl (0.60-1.40); POTASSIUM 3.9 mmol/L (3.5-5.1); SODIUM 139 mmol/L (136-145)
== END | disposition home or self-care (01) ==
LOC: C.LAB 09:28
PROVIDERS: ATTEND Urology
DX: N20.0 Calculus of kidney (principal)

== ENCOUNTER → 2017-09-22 | Outpatient (CLI) | payer BC ==
--- NOTE | 2017-09-22 17:22 | DIAGNOSTIC IMAGING REPORT ---
KUB HISTORY: Follow-up study in a patient with nephrolithiasis N20.0 Nephrolithiasis COMPARISON: IVP 08/19/2017 FINDINGS: The bowel gas pattern is non-obstructive. There is no organomegaly. Bilateral nephrolithiasis redemonstrated which appears unchanged from comparison. Largest calculi on the left measure up to 9 mm in largest on the right measure up to approximate 7 mm. Renal shadows are partially obscured by bowel gas. No definite ureteral calculi are identified. Phleboliths of the pelvis. No pneumoperitoneum or pneumatosis. No fracture. Dextroscoliosis of the lumbar spine with fusion hardware of the lower lumbar levels. IMPRESSION: Unchanged appearance of bilateral nephrolithiasis without ureteral calculi identified. Electronically signed by: Vamshi Bah M.D. 09/22/2017 5:21 PM Dictated Date/Time: 09/22/2017 5:19 PM
== END | disposition home or self-care (01) ==
LOC: C.RAD 16:53
PROVIDERS: ATTEND Urology
DX: N20.0 Calculus of kidney (principal)

== ENCOUNTER → 2017-09-23 | Day surgery (SDC) | payer BC ==
[2017-09-14 07:57] VITALS: Ht 170.2 cm; Wt 104.5 kg
[~2017-09-23] VITALS: Ht 170.2 cm; Wt 104.5 kg
[~2017-09-23] MED LIST changes: +ACETAMINOPHEN 325 MG TAB PO PRN; +CIPROFLOXACIN 400MG / D5W IV SCH; +EpHEDrine SULFATE INJ 50 MG/ML AMP ONE; +FENTANYL CITRATE INJ 50 MCG/1 ML 2 ML VIAL ONE; +LACTATED RINGER'S 1000ML 1,000 ML IV SCH; +LIDOCAINE HCL 2% 2 ML VIAL (20MG/ML) ONE; +MIDAZOLAM HCL 1 MG/ML 2ML VIAL ONE; +ONDANSETRON INJ 2 MG/ML 2 ML VIAL ONE; +OXYCODONE/ACETAMINOPHEN 5-325 TAB PO PRN; +PROPOFOL IV EMULSION 10 MG/ML 20 ML VIAL IV ONE; +SODIUM CHLORIDE 0.9% 1000ML 1,000 ML IV SCH; +SODIUM CHLORIDE 0.9% INJ 10 ML VIAL ONE
--- NOTE | 2017-09-23 09:07 | Discharge Instructions-SurgCtr ---
Discharge Instructions Date of Service Sep 23, 2017. Visit Reason for Visit: Stones Discharge Discharge Diagnosis / Problem: stones Discharge Goals Goal(s): Decrease discomfort, Improve function, Increase independence, Improve disease control Medications Stopped Medications Name(s): D/C'D ASA x 10 days. Activity Recommendations Activity Limitations: resume your previous activity Lifting Limitations: none Exercise/Sports Limitations: none May Resume Sexual Activity: when tolerated Shower/Bathe: no limitations Driving or Machine Use: resume 1 day after discharge Anesthesia . Post Anesthesia Instructions: If you have had General Anesthesia or IV Sedation: * Do not drive today. * Resume driving when surgeon permits. * Do not make important decisions or sign legal documents today. * Call surgeon for: 1. Temperature elevations greater than 101 degrees F. 2. Uncontrollable pain. 3. Excessive bleeding. 4. Persistent nausea and vomiting. 5. Medication intolerance (nausea, vomiting or rash). * For nausea and vomiting use only clear liquids such as: tea, soda, bouillon until nausea subsides, then gradually increase diet as tolerated. * If you have any concerns or questions, call your surgeon's office. If physician is unavailable and it is an emergency, call 911 or go to the nearest emergency room. . Instructions / Follow-Up Instructions / Follow-Up Please keep your previously scheduled follow up appointment. Diet Recommendations Home Diet: no limitations, resume previous diet Pending Studies Studies pending at discharge: no Medical Emergencies . Who to Call and When: Medical Emergencies: If at any time you feel your situation is an emergency, please call 911 immediately. . Non-Emergent Contact Non-Emergency issues call your: Urologist Call Non-Emergent contact if: you have a fever, temperature is above 101.5, your pain is not controlled, your pain is worsening . . "Provider Documentation" section prepared by Jamaal Walker. . [place] Drug Monitoring Program Search Results: patient reviewed within database, no issues identified
--- NOTE | 2017-09-23 09:20 | [facility] Operative Report ---
Operative Report Operative Date Sep 23, 2017. Pre-Operative Diagnosis nephrolithiasis Post-Operative Diagnosis nephrolithiasis Procedure(s) Performed R ESWL Surgeon Danielle Carrera Estimated Blood Loss 0cc Findings R renal stone Specimens none Drains None Anesthesia Type General Complication(s) none Disposition yes Recovery Room / PACU Indications right renal stone Description of Procedure The patient was identified in the preoperative holding area, appropriate informed consent was reviewed and completed and the patient was transported to the operating suite. Upon arrival appropriate preoperative antibiotics were administered and general anesthesia induced. The patient was placed in supine position and the stone was localized under fluoroscopy. A total of 2500 shocks were delivered to the stone. There appeared to be good fragmentation of the stone. Details of this procedure can be found on the [facility] information sheet. At the conclusion of the case the patient was extubated and taken to the PACU in stable condition. There were no complications. I attest to the content of the Intraoperative Record and any orders documented therein. Any exceptions are noted below.
[2017-09-23 10:29] VITALS: TEMP 36.6
--- NOTE | 2017-09-23 10:43 | Anesthesia Progress Nt - [facility] ---
Anesthesia Post Op Note Date & Time Sep 23, 2017 at 10:43 Vital Signs Pain Intensity: 0 Vital Signs Past 12 Hours Date Time Temp Pulse Resp B/P (MAP) Pulse Ox O2 Delivery O2 Flow Rate FiO2 09/23/17 10:29 36.6 59 16 109/66 (80) 96 Room Air 09/23/17 10:22 36.8 60 14 121/74 95 Room Air 09/23/17 10:20 121/74 09/23/17 10:18 61 17 09/23/17 10:18 61 17 93 09/23/17 10:16 99/63 09/23/17 10:13 58 14 09/23/17 10:13 59 14 97 09/23/17 10:11 101/63 09/23/17 10:08 61 23 98 09/23/17 10:08 60 23 09/23/17 10:05 116/73 09/23/17 10:03 62 17 09/23/17 10:03 61 17 90 09/23/17 10:01 99/63 09/23/17 09:58 59 11 109/66 99 09/23/17 09:58 59 11 09/23/17 09:55 87/49 09/23/17 09:53 61 13 98 09/23/17 09:53 61 13 09/23/17 09:51 91/55 09/23/17 09:48 61 14 99 09/23/17 09:48 63 14 09/23/17 09:46 81/58 09/23/17 09:44 127/74 09/23/17 09:43 36.5 65 14 127/74 99 Mask 6 09/23/17 07:24 36.6 60 20 128/82 (97) 96 Room Air Notes Mental Status: alert / awake / arousable, participated in evaluation Pt Amnestic to Procedure: Yes Nausea / Vomiting: adequately controlled Pain: adequately controlled Airway Patency, RR, SpO2: stable & adequate BP & HR: stable & adequate Hydration State: stable & adequate Anesthetic Complications: no major complications apparent
[2017-09-23 10:49] VITALS: BP 111/73; PULSE 60; O2SAT 94
== END | disposition home or self-care (01) ==
LOC: X.SURG 07:05
PROVIDERS: ATTEND Urology
DX: N20.0 Calculus of kidney (principal); Z88.2 Allergy status to sulfonamides; Z90.89 Acquired absence of other organs; Z98.890 Other specified postprocedural states; G47.33 Obstructive sleep apnea (adult) (pediatric); I25.2 Old myocardial infarction; Z79.82 Long term (current) use of aspirin; Z79.899 Other long term (current) drug therapy

== ENCOUNTER → 2017-10-05 | Outpatient (CLI) | payer BC ==
[~2017-10-05] MED LIST changes: -ACETAMINOPHEN 325 MG TAB PO PRN; -CIPROFLOXACIN 400MG / D5W IV SCH; -EpHEDrine SULFATE INJ 50 MG/ML AMP ONE; -FENTANYL CITRATE INJ 50 MCG/1 ML 2 ML VIAL ONE; -LACTATED RINGER'S 1000ML 1,000 ML IV SCH; -LIDOCAINE HCL 2% 2 ML VIAL (20MG/ML) ONE; -MIDAZOLAM HCL 1 MG/ML 2ML VIAL ONE; -ONDANSETRON INJ 2 MG/ML 2 ML VIAL ONE; -OXYCODONE/ACETAMINOPHEN 5-325 TAB PO PRN; -PROPOFOL IV EMULSION 10 MG/ML 20 ML VIAL IV ONE; -SODIUM CHLORIDE 0.9% 1000ML 1,000 ML IV SCH; -SODIUM CHLORIDE 0.9% INJ 10 ML VIAL ONE
== END | disposition home or self-care (01) ==
LOC: C.LABSPEC 12:33
PROVIDERS: ATTEND Urology
DX: N20.0 Calculus of kidney (principal)

== ENCOUNTER → 2017-10-05 | Outpatient (CLI) | payer BC ==
--- NOTE | 2017-10-05 08:21 | DIAGNOSTIC IMAGING REPORT ---
KUB CLINICAL HISTORY: 67 years-old Male presenting with N20.0 Nephrolithiasis. TECHNIQUE: Single supine view of the abdomen was obtained. COMPARISON: CT from 10/21/2016 and plain radiograph from 09/22/2017. FINDINGS: Mild stool burden throughout the colon. No bowel obstruction. No gross pneumoperitoneum. Allowing for bowel gas and stool, calcifications projecting over the bilateral kidneys are unchanged. No convincing evidence of ureteral calculi. Stable distribution of pelvic phleboliths. Posterior lumbar fusion hardware and laminectomy defects with interbody spacer unchanged. IMPRESSION: 1. Bilateral nephrolithiasis. No radiographic evidence of ureteral calculi. Electronically signed by: Ganesh Wren M.D. 10/05/2017 8:20 AM Dictated Date/Time: 10/05/2017 8:18 AM
== END | disposition home or self-care (01) ==
LOC: C.RAD 08:00
PROVIDERS: ATTEND Urology
DX: N20.0 Calculus of kidney (principal)

== ENCOUNTER → 2017-10-06 | Outpatient (CLI) | payer BC ==
[2017-10-06 13:19] LABS: BASO % 0.3 %; BASO ABS # 0.03 K/uL (0-0.2); EOS % 4.3 %; EOS ABS # 0.37 K/uL (0-0.5); HEMATOCRIT 44.6 % (42-52); IG# 0.01 K/uL (0.00-0.02); LYMPH % 25.8 %; LYMPH ABS # 2.21 K/uL (1.2-3.4); MEAN CELL VOLUME 93.9 fL (80-100); MEAN CORPUSCULAR HEMOGLOBIN 31.6 pg (25-34); MEAN CORPUSCULAR HGB CONC 33.6 g/dl (32-36); MEAN PLATELET VOLUME 10.4 fL (7.4-10.4); MONO % 7.7 %; MONO ABS # 0.66 K/uL (0.11-0.59); NEUT % 61.8 %; PLATELET COUNT 212 K/uL (130-400); RED CELL DISTRIBUTION WIDTH CV 13.8 % (11.5-14.5); RED CELL DISTRIBUTION WIDTH SD 47.3 fL (36.4-46.3); WHITE BLOOD COUNT 8.58 K/uL (4.8-10.8)
[2017-10-06 14:03] LABS: BLOOD UREA NITROGEN 30 mg/dl (7-18); CREATININE 1.51 mg/dl (0.60-1.40)
== END | disposition home or self-care (01) ==
LOC: C.LAB 11:56
PROVIDERS: ATTEND Urology
DX: N20.0 Calculus of kidney (principal)

== ENCOUNTER → 2017-10-21 | Outpatient (CLI) | payer BC ==
[~2017-10-21] MED LIST changes: -HYDR-5688 PO
--- NOTE | 2017-10-21 08:12 | DIAGNOSTIC IMAGING REPORT ---
KUB CLINICAL HISTORY: Nephrolithiasis. COMPARISON STUDY: KUB October 05, 2017. FINDINGS: Pelvic calcifications are unchanged and favor phleboliths. There are multiple bilateral renal calculi, including a 7 mm calculus within the upper pole of the right kidney and a 6 mm calculus within the midpole of the left kidney. This are similar to prior exam. There are postoperative findings within the spine. The bowel gas pattern is normal. IMPRESSION: 1. No significant change in bilateral nephrolithiasis. 2. No ureteral calculi identified. Electronically signed by: Ant Ortega M.D. 10/21/2017 8:10 AM Dictated Date/Time: 10/21/2017 8:06 AM
== END | disposition home or self-care (01) ==
LOC: C.RAD 07:17
PROVIDERS: ATTEND Urology
DX: N20.0 Calculus of kidney (principal)

== ENCOUNTER → 2017-10-21 | Day surgery (SDC) | payer BC ==
[2017-10-07 07:57] VITALS: Ht 170.2 cm; Wt 104.5 kg
[~2017-10-21] VITALS: Ht 170.2 cm; Wt 104.5 kg
[~2017-10-21] MED LIST changes: +ATROPINE SULFATE 0.1 MG/ML 5ML SYR IV PRN; +CIPROFLOXACIN 400MG / D5W IV SCH; +DEXAMETHASONE SOD INJ 4 MG/ML VIAL ONE; +EpHEDrine SULFATE INJ 50 MG/ML AMP IV PRN; +EpHEDrine SULFATE INJ 50 MG/ML AMP ONE; +FENTANYL CITRATE INJ 50 MCG/1 ML 2 ML VIAL IV PRN; +FENTANYL CITRATE INJ 50 MCG/1 ML 2 ML VIAL ONE; +HYDROmorphone INJ 0.5 MG/0.5 ML SYR IV PRN; +LACTATED RINGER'S 1000ML 1,000 ML IV SCH; +LIDOCAINE HCL 2% 2 ML VIAL (20MG/ML) ONE; +MIDAZOLAM HCL 1 MG/ML 2ML VIAL ONE; +ONDANSETRON INJ 2 MG/ML 2 ML VIAL IV PRN; +ONDANSETRON INJ 2 MG/ML 2 ML VIAL ONE; +OXYCODONE/ACETAMINOPHEN 5-325 TAB PO PRN; +PHENYLEPHRINE 100MCG/ML 5ML SYR IV PRN; +PROPOFOL IV EMULSION 10 MG/ML 20 ML VIAL IV ONE
--- NOTE | 2017-10-21 09:26 | Discharge Instructions ---
Discharge Instructions Date of Service Oct 21, 2017. Admission Reason for Admission: Stones Discharge Discharge Diagnosis / Problem: L renal stone s/p ESWL Discharge Goals Goal(s): Improve function, Improve disease control Activity Recommendations Activity Limitations: as noted below Lifting Limitations: no more than 25 pounds, gradually increase as tolerated Exercise/Sports Limitations: rest today, gradually increase as tolerated May Resume Sexual Activity: when tolerated Shower/Bathe: no limitations Driving or Machine Use: resume 1 day after discharge . Instructions / Follow-Up Instructions / Follow-Up Follow-up in office with KUB Xray before visit as scheduled. Strain urine as instructed, bring fragments to postop visit. Current Hospital Diet Patient's current hospital diet: Discharge Diet Recommended Diet: Regular Diet (good fluid intake) Procedures Procedures Performed: Left renal ESWL Pending Studies Studies pending at discharge: yes List of pending studies: Follow-up K[facility] Medical Emergencies . Who to Call and When: Medical Emergencies: If at any time you feel your situation is an emergency, please call 911 immediately. . Non-Emergent Contact Non-Emergency issues call your: Urologist Call Non-Emergent contact if: you have a fever, temperature is above 101, your pain is not controlled, your pain is worsening, your pain is unusual for you, your pain is concerning you, you have any medication questions . . "Provider Documentation" section prepared by Robert Briscoe. .
--- NOTE | 2017-10-21 09:59 | [facility] Operative Report ---
Operative Report Operative Date Oct 21, 2017. Pre-Operative Diagnosis Left Renal Calculi Post-Operative Diagnosis None Procedure(s) Performed Left Extracorporeal Shock Wave Lithotripsy Surgeon Dr. Joanie Briscoe [employer] Equipment Operator Surgeon(s) None Estimated Blood Loss 0 cc Findings Good fragmentation of L [place] stones Specimens None Drains None Anesthesia Type General Complication(s) none Disposition no Recovery Room / PACU Indications 67 yo male with a stone history here for elective ESWL to address his larger left-sided stones. His past notes are reviewed, SCDs used for DVT prophylaxis and Cipro IV for perioperative antibiotics. Please see H&P for further details. Description of Procedure The patient was brought to the litho suite. He was correctly identified and the stone was visualized on her most recent x-rays. After the correct time out was performed the patient was positioned over the therapy head. An adequate level of anesthesia was administered. The extracorporeal shockwave lithotripsy treatment was then commenced. Please see the [facility] sheet for complete treatment summary. After completion of the procedure the patient was taken to the recovery room in stable condition. I attest to the content of the Intraoperative Record and any orders documented therein. Any exceptions are noted below.
[2017-10-21 10:59] VITALS: TEMP 36.4
[2017-10-21 11:32] VITALS: BP 128/84; PULSE 67; O2SAT 98
--- NOTE | 2017-10-21 11:38 | Anesthesia Progress Nt - [facility] ---
Anesthesia Post Op Note Date & Time Oct 21, 2017 at 11:37 Vital Signs Pain Intensity: 0 Vital Signs Past 12 Hours Date Time Temp Pulse Resp B/P (MAP) Pulse Ox O2 Delivery O2 Flow Rate FiO2 10/21/17 11:32 67 16 128/84 (99) 98 Room Air 10/21/17 10:59 36.4 66 18 115/72 (86) 94 Room Air 10/21/17 10:47 36.9 63 12 132/92 97 Room Air 10/21/17 10:47 66 10 92 10/21/17 10:47 66 10 10/21/17 10:46 132/92 10/21/17 10:42 66 19 10/21/17 10:42 67 19 90 10/21/17 10:41 131/87 10/21/17 10:37 69 21 92 10/21/17 10:37 69 21 10/21/17 10:36 149/86 10/21/17 10:32 65 12 10/21/17 10:32 65 12 97 10/21/17 10:31 133/82 10/21/17 10:27 63 18 97 10/21/17 10:27 63 18 10/21/17 10:26 133/84 10/21/17 10:22 65 17 10/21/17 10:22 64 17 96 10/21/17 10:21 140/86 10/21/17 10:17 68 20 96 10/21/17 10:17 68 20 10/21/17 10:16 136/75 10/21/17 10:12 70 16 10/21/17 10:12 70 16 95 10/21/17 10:11 137/79 10/21/17 10:08 123/82 10/21/17 10:07 69 93 10/21/17 10:07 69 10/21/17 10:07 36.4 72 16 123/82 95 Mask 10 10/21/17 07:57 36.7 59 22 125/78 (94) 95 Room Air Notes Mental Status: alert / awake / arousable, participated in evaluation Pt Amnestic to Procedure: Yes Nausea / Vomiting: adequately controlled Pain: adequately controlled Airway Patency, RR, SpO2: stable & adequate BP & HR: stable & adequate Hydration State: stable & adequate Anesthetic Complications: no major complications apparent
== END | disposition home or self-care (01) ==
LOC: X.SURG 07:54
PROVIDERS: ATTEND Urology
DX: N20.0 Calculus of kidney (principal); I10 Essential (primary) hypertension; E78.5 Hyperlipidemia, unspecified; G47.33 Obstructive sleep apnea (adult) (pediatric); I25.2 Old myocardial infarction; I25.10 Atherosclerotic heart disease of native coronary artery without angina pectoris; E66.9 Obesity, unspecified; Z68.36 Body mass index [BMI] 36.0-36.9, adult; Z88.1 Allergy status to other antibiotic agents; Z88.2 Allergy status to sulfonamides; Z90.89 Acquired absence of other organs; Z98.890 Other specified postprocedural states; Z79.899 Other long term (current) drug therapy; Z82.49 Family history of ischemic heart disease and other diseases of the circulatory system; Z84.1 Family history of disorders of kidney and ureter

== ENCOUNTER → 2017-10-31 | Outpatient (CLI) | payer BC ==
[~2017-10-31] MED LIST changes: -ATROPINE SULFATE 0.1 MG/ML 5ML SYR IV PRN; -CIPROFLOXACIN 400MG / D5W IV SCH; -DEXAMETHASONE SOD INJ 4 MG/ML VIAL ONE; -EpHEDrine SULFATE INJ 50 MG/ML AMP IV PRN; -EpHEDrine SULFATE INJ 50 MG/ML AMP ONE; -FENTANYL CITRATE INJ 50 MCG/1 ML 2 ML VIAL IV PRN; -FENTANYL CITRATE INJ 50 MCG/1 ML 2 ML VIAL ONE; -HYDROmorphone INJ 0.5 MG/0.5 ML SYR IV PRN; -LACTATED RINGER'S 1000ML 1,000 ML IV SCH; -LIDOCAINE HCL 2% 2 ML VIAL (20MG/ML) ONE; -MIDAZOLAM HCL 1 MG/ML 2ML VIAL ONE; -ONDANSETRON INJ 2 MG/ML 2 ML VIAL IV PRN; -ONDANSETRON INJ 2 MG/ML 2 ML VIAL ONE; -OXYCODONE/ACETAMINOPHEN 5-325 TAB PO PRN; -PHENYLEPHRINE 100MCG/ML 5ML SYR IV PRN; -PROPOFOL IV EMULSION 10 MG/ML 20 ML VIAL IV ONE
--- NOTE | 2017-10-31 13:13 | DIAGNOSTIC IMAGING REPORT ---
KUB HISTORY: Nephrolithiasis. COMPARISON: KUB 10/21/2017. FINDINGS: The bowel gas pattern is unremarkable. There are no dilated loops of small bowel to suggest an obstruction. Lumbar spinal fusion hardware is again noted. Multiple calcifications in the deep pelvis are not significant changed. These favor phleboliths. Multiple bilateral renal calculi are again noted. The dominant stone within the upper pole the left kidney appears to have been fragmented in the interval. No pneumoperitoneum or pneumatosis. IMPRESSION: 1. Bilateral nephrolithiasis. Dominant stone within the left kidney appears to have been fragmented in the interval. 2. No definite ureteral calculi. 3. Calcifications in the deep pelvis remain stable and likely represent phleboliths. Electronically signed by: Patrick Cunha M.D. 10/31/2017 1:12 PM Dictated Date/Time: 10/31/2017 1:09 PM
== END | disposition home or self-care (01) ==
LOC: C.RAD 12:45
PROVIDERS: ATTEND Internal Medicine
DX: N20.0 Calculus of kidney (principal)

== ENCOUNTER 2017-11-22 10:46 | Emergency (ER) | payer BC ==
[~2017-11-22] VITALS: Ht 172.7 cm; Wt 107.0 kg
[2017-11-22 10:50] VITALS: TEMP 36.7; Ht 172.7 cm; Wt 107.0 kg
--- NOTE | 2017-11-22 11:12 | EMERGENCY ROOM VISIT NOTE ---
ED Visit Note First contact with patient: 10:52 I have seen and examined this patient with Noman Bell and generally agree with the treatment plan as discussed. Problem List Medical Problems: (1) HTN (hypertension) Status: Chronic (2) Hx of renal calculi Status: Chronic Surgical Problems: (1) H/O knee surgery Status: Resolved (2) H/O shoulder surgery Status: Resolved (3) History of lumbar surgery Status: Chronic (4) Hx of appendectomy Status: Resolved (5) S/P wrist surgery Status: Resolved Current/Historical Medications Scheduled Aspirin (Aspirin Chewable), 81 MG PO QAM Atenolol (Tenormin), 50 MG PO QAM Atorvastatin (Lipitor), 80 MG PO QAM Ezetimibe (Zetia), 10 MG PO QAM Hydrochlorothiazide (Hydrochlorothiazide), 25 MG PO QAM Losartan Potassium (Cozaar), 25 MG PO QAM Pantoprazole (Protonix), 40 MG PO QAM Allergies Coded Allergies: Sulfa Antibiotics (Verified Allergy, Unknown, RASH, 10/21/17) Vital Signs Date Time Temp Pulse Resp B/P (MAP) Pulse Ox O2 Delivery O2 Flow Rate FiO2 11/22/17 10:50 36.7 72 18 129/64 96 Room Air Departure Information Referrals Prabhjot Galaviz M.D. (PCP) Patient Instructions My [facility]
--- NOTE | 2017-11-22 11:40 | DIAGNOSTIC IMAGING REPORT ---
R HAND MIN 3 VIEWS ROUTINE, R WRIST W/NAVICULAR MIN 3 VIEWS CLINICAL HISTORY: R thumb pain . Right wrist pain. Injury. COMPARISON STUDY: None. FINDINGS: 3 views the right hand and 5 views the right wrist were submitted. Soft tissue swelling within the base of the thumb and the wrist. Transverse nondisplaced fracture at the base of the first metacarpal. This is located at the proximal metaphysis. This does not clearly demonstrate intra-articular extension. No fracture or dislocation within the right wrist. The scaphoid appears intact. IMPRESSION: 1. Nondisplaced transverse fracture at the base of the first metacarpal. 2. No fracture or dislocation within the right wrist. Electronically signed by: Patrick Cunha M.D. 11/22/2017 11:39 AM Dictated Date/Time: 11/22/2017 11:35 AM
--- NOTE | 2017-11-22 12:06 | EMERGENCY ROOM VISIT NOTE ---
History First contact with patient: 10:52 Chief Complaint: FINGER PAIN Stated Complaint: RT THUMB INJURY History of Present Illness The patient is a 67 year old male who presents to the Emergency Room via private vehicle with complaints of "right thumb injury". The patient states that he torqued his right thumb Tuesday while using a drill. He states that the drill caught, causing the handle of this to move fast in one direction injuring his right thumb. He denies any numbness or tingling but notes pain rated as a 5/10 with movement in 11/10 if it is bumped. No pain at rest. No previous history of fracture or surgery. He is right-hand dominant. Review of Systems A complete 6-point Review of Systems was discussed with the patient, with pertinent positives and negatives listed in the History of Present Illness. All remaining Review of Systems questions can be considered negative unless otherwise specified. Past Medical/Surgical History Medical Problems: (1) DDD (degenerative disc disease) (2) HTN (hypertension) (3) Hx of renal calculi (4) OBST. L URETERAL STONE, ? BLAD. TUMOR Surgical Problems: (1) H/O knee surgery (2) H/O shoulder surgery (3) History of lumbar surgery (4) Hx of appendectomy (5) S/P wrist surgery Family History Diabetes mellitus Heart disease Hypertension Kidney disease Kidney stones Social History Smoking Status: Never Smoker Alcohol Use: occasionally Drug Use: none Marital Status: Housing Status: lives with family Occupation Status: retired Current/Historical Medications Scheduled Aspirin (Aspirin Chewable), 81 MG PO QAM Atenolol (Tenormin), 50 MG PO QAM Atorvastatin (Lipitor), 80 MG PO QAM Ezetimibe (Zetia), 10 MG PO QAM Hydrochlorothiazide (Hydrochlorothiazide), 25 MG PO QAM Losartan Potassium (Cozaar), 25 MG PO QAM Pantoprazole (Protonix), 40 MG PO QAM Physical Exam Vital Signs Date Time Temp Pulse Resp B/P (MAP) Pulse Ox O2 Delivery O2 Flow Rate FiO2 11/22/17 12:19 72 18 129/64 96 11/22/17 10:50 36.7 72 18 129/64 96 Room Air Physical Exam VITAL SIGNS - Vital signs and nursing notes were reviewed. Stable. GENERAL - 67-year-old male appearing his stated age who is in no acute distress. Communicates well with provider and answers questions appropriately. SKIN - there is edema overlying the patient's right thumb region and hand. EXTREMITIES -there is diffuse edema overlying the patient's right hand, greatest around the base of the right first digit. There is tenderness to palpation as well as eliciting range of motion of the right thumb. There is a crepitus at the base of the right thumb. He was neurovascularly intact in this region. Medical Decision & Procedures ER Provider Diagnostic Interpretation: R HAND MIN 3 VIEWS ROUTINE, R WRIST W/NAVICULAR MIN 3 VIEWS CLINICAL HISTORY: R thumb pain . Right wrist pain. Injury. COMPARISON STUDY: None. FINDINGS: 3 views the right hand and 5 views the right wrist were submitted. Soft tissue swelling within the base of the thumb and the wrist. Transverse nondisplaced fracture at the base of the first metacarpal. This is located at the proximal metaphysis. This does not clearly demonstrate intra-articular extension. No fracture or dislocation within the right wrist. The scaphoid appears intact. IMPRESSION: 1. Nondisplaced transverse fracture at the base of the first metacarpal. 2. No fracture or dislocation within the right wrist. Electronically signed by: Patrick Cunha M.D. 11/22/2017 11:39 AM Dictated Date/Time: 11/22/2017 11:35 AM Medical Decision Patient was seen and evaluated as above in room D5. Review was performed of nursing notes and vital signs. After obtaining a thorough history and physical examination the above work up was performed. X-rays as above. He does have a nondisplaced fracture of the right first digit proximally. This will be splinted with a thumb spica Ortho-Glass splint secondary to the amount of edema , as well as patient's presentation. The concern is that a simple metal splint will not provide adequate immobilization. He is to follow with orthopedics. He is to return with worsening. The patient was educated upon management, had questions answered prior to discharge, and was discharged home in good condition. Case was discussed with the attending physician. I attest that I have personally reviewed the patient medication list. I attest that I have reviewed the patient's blood pressure and it was found to be slightly elevated likely secondary to situation. In the evaluation and treatment of this patient, the following differential diagnoses were considered: Finger Fracture, Finger Dislocation, Finger Sprain, Finger Contusion, Jersey Finger, or Mallet Finger. Impression Primary Impression: Finger fracture, right Departure Information Dispostion Home / Self-Care Condition GOOD Referrals Prabhjot Galaviz M.D. (PCP) Zhen Darden MD Patient Instructions My [facility] Additional Instructions You have been treated in the Emergency Department for finger Pain. For pain control, you can use the following [id number] medicines (if >12 yo): - Regular strength (325mg/tab) Tylenol (acetaminophen) 2 tabs every 4-6 hours as needed. Do not exceed 12 tablets in a 24 hour period. Avoid taking more than 3 grams (3000 mg) of Tylenol per day. This includes any other sources of acetaminophen you may take on a regular basis. - Regular strength (200 mg/tab) Advil (ibuprofen) 1-2 tabs every 4-6 hours as needed. Do not exceed a dose of 3200 mg per day. If this is a recent injury (<24 hrs), ice can be applied to the area of pain for the first 3 days to help decrease pain and inflammation. You have been provided the number for an Orthopaedic Surgeon. You should call this number as soon as possible to establish a follow-up visit from today's Emergency Department visit. Keep the brace/splint in place until evaluated by Orthopedics. Return to the Emergency Department if your current symptoms worsen despite treatment course outlined above, or if you develop any of the following symptoms : intractable pain despite aforementioned treatment course or new onset of numbness or tingling of the fingers. R HAND MIN 3 VIEWS ROUTINE, R WRIST W/NAVICULAR MIN 3 VIEWS CLINICAL HISTORY: R thumb pain . Right wrist pain. Injury. COMPARISON STUDY: None. FINDINGS: 3 views the right hand and 5 views the right wrist were submitted. Soft tissue swelling within the base of the thumb and the wrist. Transverse nondisplaced fracture at the base of the first metacarpal. This is located at the proximal metaphysis. This does not clearly demonstrate intra-articular extension. No fracture or dislocation within the right wrist. The scaphoid appears intact.
[2017-11-22 12:19] VITALS: BP 129/64; PULSE 72; O2SAT 96
== END 2017-11-22 12:19 | disposition home or self-care (01) ==
LOC: C.EDD 11:07
DX: S62.234A Other nondisplaced fracture of base of first metacarpal bone, right hand, initial encounter for closed fracture (principal); W29.8XXA Contact with other powered hand tools and household machinery, initial encounter; I10 Essential (primary) hypertension; Z79.82 Long term (current) use of aspirin; Z79.899 Other long term (current) drug therapy

== ENCOUNTER 2022-11-30 13:59 | Inpatient (IN) ==
--- NOTE | 2022-11-30 14:13 | ED Triage Note ---
Date of Service November 30, 2022 History of Present Illness This patient was briefly evaluated while in triage. An abbreviated physical exam was performed. This patient is a 72-year-old Male who presents to the ED for evaluation of dizziness/lightheadedness for 1 month. Reports starting Ozempic in July as w ell as had increase in his BP medications. Denies chest pain, SOB, abdominal pain. States he had a syncopal episode earlier this afternoon. Denies injury. Physical Exam Vital signs demonstrate hypotensive 71/47 Constitutional: alert and oriented x3. no acute distress. HEENT: normocephalic, atraumatic. normal conjunctiva.EOM's grossly intact. Pharynx pink without exudate. Tonsils nonenlarged. Mucus membranes moist Respiratory: lungs are clear to auscultation without wheezes, rhonchi, or rales bilaterally. equal chest rise. normal respiratory effort, no accessory muscle use. Cardiovascular: normal heart sounds without murmur. regular rate and rhythm. GI: abdomen is soft, nontender. No palpable masses. No rebound tenderness or guarding. No CVA tenderness MSK: moves all 4 extremities spontaneously Peripheral vascular: extremities warm and well perfused Neuro: without focal neuro deficits. Speech clear, tongue midline, without fa cial droop. Strength equal throughout all for extremities. Psych:appropriate mood and affect. Initial orders for labs and / or imaging were placed and patient was placed in the waiting area until a bed is available. Please see further documentation for the full ED course.
[2022-11-30] MEDS ORDERED: SODIUM CHLORIDE 0.9% 1000ML 1,000 ML IV ONE ×2 (14:36→16:04)
--- NOTE | 2022-11-30 14:38 | Emergency Department Note ---
Impression & Plan Acute hypotension, PARKER (acute kidney injury) ED Provider Note NAME: POP MCRAE AGE: 72 SEX: M : 1950 ARRIVES VIA: Walk-In INFORMANT: Patient ED PROVIDER(S): Donte White DO CHIEF COMPLAINT: lightheaded HPI: Patient is a 72-year-old male who presents to the ER for lightheadedness and near syncope. He notes he has been getting these episodes off and on for past several months. They occur about once a week. He notes they are generally worse with changing in positions. Today he was getting the battery checked on his car and was lowered to the ground but does not remember it. He did not fall. He denies hitting his head or neck pain. No chest pain or shortness of breath preceding or following the incident. No belly pain, nausea, vomiting, or diarrhea. He notes he did have his right pupil dilated today as he had cataract surgery several weeks ago. Denies any dysuria urgency or frequency. PAST MEDICAL HISTORY:See Below PAST SURGICAL HISTORY:See Below FAMILY HISTORY:See Below SOCIAL HISTORY:See Below HOME MEDICATIONS:See Below ALLERGIES:See Below VITALS:See Below PHYSICAL EXAMINATION: GENERAL: Sitting up in bed, alert, well appearing, well nourished, no distress, non-toxic EYE EXAM: normal conjunctiva. Left pupil slightly larger than right but both are reactive (right eye was dilated today at office office ) and EOM's intact. OROPHARYNX: no exudate, no erythema, lips, buccal mucosa, and tongue normal and mucous membranes are moist NECK: supple, no nuchal rigidity, no adenopathy, non-tender LUNGS: Clear to auscultation. Normal chest wall mechanics HEART: no murmurs, S1 normal and S2 normal ABDOMEN: abdomen soft, non-tender, normo-active bowel sounds, no masses, no rebound or guarding. UPPER EXTREMITIES: upper extremities are grossly normal. LOWER EXTREMITIES: No pitting edema. NEURO EXAM: Normal sensorium, cranial nerves II-XII intact, normal speech, no weakness of arms, no weakness of legs. No drift. Finger to nose intact. Gross sensation intact. MEDICAL DECISION MAKING: Patient is a 72-year-old male who presents ER for above-stated complaint. IV was established blood work was obtained. External records were reviewed. He was found to be hypotensive with systolic pressures in the 60s. IVs were established and he was given 2 L of IV fluids. Labs show no significant leukocytosis or anemia. INR unremarkable. BMP with mild hypokalemia. Creatinine was elevated at 2 oh from baseline of 1 which I favor secondary to the hypotension. T. bili LFTs and troponin were negative. COVID was negative. No urinary symptoms. No chest pain or shortness of breath. Portable AP upright 1 view of the chest was unremarkable. Patient was updated bedside. Pressures improved to the 90s to low 100s. Discussed with the hospitalist for further evaluation management and treatment. No new changes to medications. Triage Nursing notes reviewed. Limited review of prior medical records performed Vital Signs: reviewed and remarkable for hypotension Differential diagnosis: Differential diagnosis includes etiologies such as benign positional vertigo, dehydration, hypovolemia, anemia, tumor, infection, hypoglycemia, electrolyte abnormalities, cardiac sources, intracerebral event, toxicologic, neurological, as well as others were entertained. ER treatment provided: See below Diagnostics interpreted by me include EKG and cardiac monitoring as listed below: -Cardiac Monitoring: An order was placed for continuous cardiac monitoring. The monitor shows a rate of 80 with sinus rhythm. -ECG: Sinus rhythm rate of 73 Normal axis No PVCs QTc 407 -Laboratory studies:Interpreted by me as stated above in MDM and shown below. Imaging studies: Xrays: As interpreted by me: Portable AP upright 1 view of the chest shows no pneumonia CTs show: none Consultation(s): As described in MDM Procedures:none Critical Care: None Past Med/Surg History Medical History (Updated 11/30/22 @ 19:58 by Donte White DO) Borderline diabetes CAD (coronary atherosclerotic disease) Chronic back pain Dyslipidemia Esophageal reflux History of colon polyps ? IN HX / MINOR THINGS History of malignant neoplasm of bladder HX REMOVED/NO PROBLEMS FOR YRS Hypertension Myocardial infarction 2014 - CATH/STENT X 1 - [facility] Nephrolithiasis HX Sleep apnea CPAP Syncope Surgical History H/O arthroscopic knee surgery H/O hernia repair H/O shoulder surgery History of cardiac cath STENT X1 /HX /2013 History of cataract surgery rt/left History of colonoscopy History of cystoscopy with resection of bladder tumor History of lumbar surgery Hx of appendectomy S/P wrist surgery Family History Mother Coronary heart disease Hypertension Nephrolithiasis Father Coronary heart disease Hypertension Social History Smoking Status: Never smoker Second Hand Exposure: No; Do You Dip or Chew Tobacco: No; Hx Alcohol Use: No Preferred Language: Lithuanian Communication Ability: Effective Talent Engineer Required: No Beliefs That Will Affect Care: None marital status: Current Living Situation: Spouse current occupational status: retired Feels Safe at Home: Yes Assistive Devices: CPAP and Glasses Allergies Allergies Allergy/AdvReac Type Severity Reaction Status Date / Time Sulfa (Sulfonamide Allergy Mild RASH Verified 11/17/22 06:06 Antibiotics) Home Meds Home Medications Medication Instructions Recorded Confirmed atorvastatin 80 mg tablet 80 mg PO QAM 03/13/19 11/30/22 aspirin 81 mg tablet,delayed 81 mg PO QAM 04/12/19 11/30/22 release atenolol 50 mg tablet 50 mg PO QAM #30 tabs 04/12/19 11/30/22 ezetimibe 10 mg tablet 10 mg PO QAM 04/12/19 11/30/22 hydrochlorothiazide 25 mg tablet 25 mg PO QAM 04/12/19 11/30/22 pantoprazole 40 mg tablet,delayed 40 mg PO QAM 04/12/19 11/30/22 release amlodipine 2.5 mg tablet 2.5 mg PO QAM 04/14/21 11/30/22 duloxetine 60 mg capsule,delayed 60 mg PO QAM 10/13/22 11/30/22 release empagliflozin 10 mg tablet 10 mg PO QAM 10/13/22 11/30/22 (Jardiance) terazosin 2 mg capsule 2 mg PO HS 10/13/22 11/30/22 dexamethasone 4 mg tablet 4 mg PO BID PRN pain,severe 11/30/22 11/30/22 losartan 50 mg tablet 50 mg PO AMHS 11/30/22 11/30/22 meclizine 25 mg tablet 25 mg PO TID PRN Dizziness 11/30/22 11/30/22 nitroglycerin 0.4 mg sublingual 0.4 mg sublingual UD PRN Chest Pain 11/30/22 11/30/22 tablet (Nitrostat) semaglutide 0.25 mg or 0.5 mg (2 0.5 mg subcut WK 11/30/22 11/30/22 mg/3 mL) subcutaneous pen injector (Ozempic) topiramate 25 mg tablet 25 mg PO AMHS 11/30/22 11/30/22 Results & Data (ED) Vital Signs Vital Signs - 24 hr 11/30/22 14:05 11/30/22 14:42 11/30/22 14:44 Temperature 36.5 C Temperature Source Skin Pulse Rate 81 75 71 Pulse Rate from SpO2 Sensor Respiratory Rate 18 12 16 Blood Pressure 68/47 L Blood Pressure Mean 54 Pulse Oximetry 96 Sepsis Recent Fever Within 48 Hours No Sepsis New/Unexplained Change in Mental Status No Sepsis Action Taken by Nursing No Action Required 11/30/22 14:44 11/30/22 14:45 11/30/22 14:45 Temperature Temperature Source Pulse Rate 75 Pulse Rate from SpO2 Sensor Respiratory Rate 13 Blood Pressure 68/43 L 73/56 L Blood Pressure Mean 51 61 Pulse Oximetry Sepsis Recent Fever Within 48 Hours Sepsis New/Unexplained Change in Mental Status Sepsis Action Taken by Nursing 11/30/22 15:08 11/30/22 15:00 11/30/22 15:00 Temperature Temperature Source Pulse Rate 86 70 Pulse Rate from SpO2 Sensor 70 Respiratory Rate 9 L Blood Pressure 91/57 L Blood Pressure Mean 68 Pulse Oximetry 95 Sepsis Recent Fever Within 48 Hours Sepsis New/Unexplained Change in Mental Status Sepsis Action Taken by Nursing 11/30/22 15:15 11/30/22 15:15 11/30/22 15:30 Temperature Temperature Source Pulse Rate 69 68 Pulse Rate from SpO2 Sensor 68 69 Respiratory Rate 12 14 Blood Pressure 97/55 L Blood Pressure Mean 69 Pulse Oximetry 97 Sepsis Recent Fever Within 48 Hours Sepsis New/Unexplained Change in Mental Status Sepsis Action Taken by Nursing 11/30/22 15:43 11/30/22 15:43 11/30/22 15:45 Temperature Temperature Source Pulse Rate 67 Pulse Rate from SpO2 Sensor 67 Respiratory Rate 13 Blood Pressure 90/54 L 102/59 L Blood Pressure Mean 66 73 Pulse Oximetry 94 Sepsis Recent Fever Within 48 Hours Sepsis New/Unexplained Change in Mental Status Sepsis Action Taken by Nursing 11/30/22 15:45 11/30/22 16:00 11/30/22 16:00 Temperature Temperature Source Pulse Rate 67 63 Pulse Rate from SpO2 Sensor 67 63 Respiratory Rate 15 16 Blood Pressure 97/63 L Blood Pressure Mean 74 Pulse Oximetry 96 Sepsis Recent Fever Within 48 Hours Sepsis New/Unexplained Change in Mental Status Sepsis Action Taken by Nursing 11/30/22 16:15 11/30/22 16:15 11/30/22 16:30 Temperature Temperature Source Pulse Rate 63 Pulse Rate from SpO2 Sensor 63 Respiratory Rate 14 Blood Pressure 93/61 L 99/68 L Blood Pressure Mean 71 78 Pulse Oximetry 96 Sepsis Recent Fever Within 48 Hours Sepsis New/Unexplained Change in Mental Status Sepsis Action Taken by Nursing 11/30/22 16:30 Temperature Temperature Source Pulse Rate 67 Pulse Rate from SpO2 Sensor 68 Respiratory Rate 19 Blood Pressure Blood Pressure Mean Pulse Oximetry 93 Sepsis Recent Fever Within 48 Hours Sepsis New/Unexplained Change in Mental Status Sepsis Action Taken by Nursing Laboratory Data 11/30/22 14:31 11/30/22 14:31 Lab Results 11/30/22 11/30/22 11/30/22 Range/Units 14:31 14:31 14:31 WBC 8.54 (4.8-10.8) K/ul RBC 4.93 (4.70-6.10) M/uL Hgb 15.3 (14.0-18.0) g/dl Hct 45.1 (42.0-52.0) % MCV 91.5 (80.0-100.0) fL MCH 31.0 (25.0-34.0) pg MCHC 33.9 (32.0-36.0) g/dL RDW Std Deviation 47.4 H (36.4-46.3) fL RDW Coeff of Jose 13.9 (11.5-14.5) % Plt Count 197 (130-400) K/uL MPV 10.8 (9.4-12.4) fL Immature Gran % (Auto) 0.2 % Neut % (Auto) 72.4 % Lymph % (Auto) 15.3 % [place] % (Auto) 8.2 % Eos % (Auto) 3.4 % Baso % (Auto) 0.5 % Neut # (Auto) 6.18 (1.40-6.50) K/uL Lymph # (Auto) 1.31 (1.2-3.4) K/uL [place] # (Auto) 0.70 H (0.11-0.59) K/uL Eos # (Auto) 0.29 (0-0.50) K/uL Baso # (Auto) 0.04 (0-0.2) K/uL Immature Gran # (Auto) 0.02 (0.01-0.20) K/uL PT 10.9 (9.0-12.0) Seconds INR 1.0 (0.9-1.1) APTT 22.6 (21.0-31.0) Seconds PTT Ratio 0.8 Sodium 135 L (136-145) mmol/L Potassium TNP Chloride 100 (98-107) mmol/L Carbon Dioxide 25 (21-32) mmol/L Anion Gap 10 (3-11) BUN 33 H (6-23) mg/dl Creatinine 2.05 H (0.6-1.4) mg/dl Est Cr Clr Drug Dosing 36.0 ml/min Est GFR ( Amer) 35.9 ml/min Est GFR (Non-Af Amer) 31.0 ml/min BUN/Creatinine Ratio 16.1 (10-20) Glucose 107 H (70-99(Fasting)) mg/dl Calcium 10.0 (8.6-10.3) mg/dl Total Bilirubin 1.4 H (0.2-1.0) mg/dl AST TNP ALT 37 (7-52) U/L Alkaline Phosphatase 68 (34-104) U/L Troponin I High Sens 13.4 (0-20) pg/ml Total Protein 7.4 (6.0-8.3) gm/dl Albumin 4.4 (3.4-5.0) gm/dl Globulin 3.0 (2.5-4.0) gm/dl Albumin/Globulin Ratio 1.5 (0.9-2) SARS-CoV-2, RNA, NAAT (NEGATIVE) 11/30/22 11/30/22 Range/Units 15:29 16:24 WBC (4.8-10.8) K/ul RBC (4.70-6.10) M/uL Hgb (14.0-18.0) g/dl Hct (42.0-52.0) % MCV (80.0-100.0) fL MCH (25.0-34.0) pg MCHC (32.0-36.0) g/dL RDW Std Deviation (36.4-46.3) fL RDW Coeff of Jose (11.5-14.5) % Plt Count (130-400) K/uL MPV (9.4-12.4) fL Immature Gran % (Auto) % Neut % (Auto) % Lymph % (Auto) % [place] % (Auto) % Eos % (Auto) % Baso % (Auto) % Neut # (Auto) (1.40-6.50) K/uL Lymph # (Auto) (1.2-3.4) K/uL [place] # (Auto) (0.11-0.59) K/uL Eos # (Auto) (0-0.50) K/uL Baso # (Auto) (0-0.2) K/uL Immature Gran # (Auto) (0.01-0.20) K/uL PT (9.0-12.0) Seconds INR (0.9-1.1) APTT (21.0-31.0) Seconds PTT Ratio Sodium (136-145) mmol/L Potassium 3.4 L Chloride (98-107) mmol/L Carbon Dioxide (21-32) mmol/L Anion Gap (3-11) BUN (6-23) mg/dl Creatinine (0.6-1.4) mg/dl Est Cr Clr Drug Dosing ml/min Est GFR ( Amer) ml/min Est GFR (Non-Af Amer) ml/min BUN/Creatinine Ratio (10-20) Glucose (70-99(Fasting)) mg/dl Calcium (8.6-10.3) mg/dl Total Bilirubin (0.2-1.0) mg/dl AST 22 ALT (7-52) U/L Alkaline Phosphatase (34-104) U/L Troponin I High Sens (0-20) pg/ml Total Protein (6.0-8.3) gm/dl Albumin (3.4-5.0) gm/dl Globulin (2.5-4.0) gm/dl Albumin/Globulin Ratio (0.9-2) SARS-CoV-2, RNA, NAAT NEGATIVE (NEGATIVE) Administered Medications Discontinued Medications Sodium Chloride (Nss 1000ml) 1,000 mls @ 999 mls/hr IV .Q1H1M ONE Stop: 11/30/22 15:36 Last Infusion: 11/30/22 15:44 Dose: 0 mls/hr Documented By: Admin: 11/30/22 14:40 Dose: 999 mls/hr Documented By: AY Sodium Chloride (Nss 1000ml) 1,000 mls @ 999 mls/hr IV .Q1H1M ONE Stop: 11/30/22 17:04 Last Infusion: 11/30/22 18:11 Dose: 0 mls/hr Documented By: Admin: 11/30/22 16:10 Dose: 999 mls/hr Documented By: HS Potassium Chloride (Potassium Chloride Crtab 20 Meq Tabcr) 20 meq PO NOW STA Stop: 11/30/22 17:37 Last Admin: 11/30/22 18:14 Dose: 20 meq Documented By: AMS Imaging Data Radiologist's Impression: Chest X-Ray 11/30/22 14:37 XR chest 1V portable CLINICAL HISTORY: cp TECHNIQUE: Single frontal radiograph of the chest was obtained. Comparison: Comparison is made to chest radiograph 05/31/2017 FINDINGS: No lines and tubes are seen. Calcified aortic knob is seen. The lungs are clear. No evidence of pleural effusion or pneumothorax. IMPRESSION: No acute chest disease. ACT 112: Negative or not required by law. Electronically signed by: Joao Andrade M.D. 11/30/2022 3:13 PM Discharge Plan Visit Data Chief Complaint: Syncope Stated Complaint: FAINTING SPELLS ED Provider: Donte White Discharge Problem: Acute hypotension, PARKER (acute kidney injury) Patient Disposition: Admitted As Inpatient Discharge Instructions Interventions: ED Discharge Assessment Last Done: 11/30/22 17:33
[2022-11-30 15:02] LABS: Basophils # (auto) 0.04 K/uL (0-0.2); Basophils % (auto) 0.5 %; Eosinophils # (auto) 0.29 K/uL (0-0.50); Eosinophils % (auto) 3.4 %; Hematocrit (blood only) 45.1 % (42.0-52.0); Hemoglobin 15.3 g/dl (14.0-18.0); Immature Granulocytes # (auto) 0.02 K/uL (0.01-0.20); Immature Granulocytes % (auto) 0.2 %; Lymphocytes # (auto) 1.31 K/uL (1.2-3.4); Lymphocytes % (auto) 15.3 %; Mean Corpuscular Hgb Conc 33.9 g/dL (32.0-36.0); Mean Corpuscular Volume 91.5 fL (80.0-100.0); Mean Platelet Volume 10.8 fL (9.4-12.4); Monocytes % (auto) 8.2 %; Neutrophils # (auto) 6.18 K/uL (1.40-6.50); Neutrophils % (auto) 72.4 %; Platelet Count 197 K/uL (130-400); RDW Coefficient of Variation 13.9 % (11.5-14.5); RDW Standard Deviation 47.4 fL (36.4-46.3); Red Blood Count 4.93 M/uL (4.70-6.10); White Blood Count 8.54 K/ul (4.8-10.8)
[2022-11-30 15:09] LABS: Alanine Aminotransferase 37 U/L (7-52); Albumin Globulin Ratio 1.5 (0.9-2); Albumin Level 4.4 gm/dl (3.4-5.0); Alkaline Phosphatase 68 U/L (34-104); Anion Gap 10 (3-11); BUN Creatinine Ratio 16.1 (10-20); Bilirubin,Total 1.4 mg/dl (0.2-1.0); Blood Urea Nitrogen 33 mg/dl (6-23); Carbon Dioxide 25 mmol/L (21-32); Chloride 100 mmol/L (98-107); Est GFR (African American) 35.9 ml/min; Glucose 107 mg/dl (70-99(Fasting)); Sodium 135 mmol/L (136-145); Total Protein 7.4 gm/dl (6.0-8.3)
--- NOTE | 2022-11-30 15:14 | XRay Report ---
XR chest 1V portable CLINICAL HISTORY: cp TECHNIQUE: Single frontal radiograph of the chest was obtained. Comparison: Comparison is made to chest radiograph 05/31/2017 FINDINGS: No lines and tubes are seen. Calcified aortic knob is seen. The lungs are clear. No evidence of pleur al effusion or pneumothorax. IMPRESSION: No acute chest disease. ACT 112: Negative or not required by law. Electronically signed by: Joao Andrade M.D. 11/30/2022 3:13 PM
[2022-11-30 15:22] LABS: Partial Thromboplastin Ratio 0.8; Partial Thromboplastin Time 22.6 Seconds (21.0-31.0); Prothrombin Time 10.9 Seconds (9.0-12.0)
[2022-11-30] MEDS ORDERED: ONDANSETRON INJ 2 MG/ML 2 ML VIAL IV PRN (16:33)
[2022-11-30] MEDS ORDERED: ACETAMINOPHEN 325 MG TAB PO PRN (16:33)
[2022-11-30] MEDS ORDERED: POLYETHYLENE (MIRALAX) 17 GM PACK PO PRN (16:33)
[2022-11-30] MEDS ORDERED: MAGNESIUM HYDROXIDE SUSP 30 ML UDC PO PRN (16:33)
[2022-11-30] MEDS ORDERED: ALUMINUM/MAGNESIUM SUSP 30 ML UDC PO PRN (16:33)
[2022-11-30 16:34] LABS: Troponin I High Sensitivity 13.4 pg/ml (0-20)
[2022-11-30 16:34] LABS: Potassium 3.4 mmol/L (3.5-5.1)
--- NOTE | 2022-11-30 16:47 | History & Physical Report ---
Date of Service November 30, 2022 Assessment & Plan (1) Syncope: (2) HTN (hypertension): (3) Coronary artery disease: (4) GERD (gastroesophageal reflux disease): (5) Diabetes mellitus: (6) Severe obstructive sleep apnea: Plan 72 year old presents with syncope that occured today. He has felt dizziness over past few weeks. Anti-HTN medications have been adjusted recently, along with starting Ozempic for diabetes management and weight loss. He has lost a total of 55 pounds over past few months. Syncope: CAD: HTN: Takes Amlodipine, HCTZ, Losartan, and Atenolol; hold for now due to hypotension; reassess in AM Check Ortho BP's Last ECHO: 07/2021: EF 55-59%. moderate aortic stenosis, LV wall thickness mildly increased; repeat ECHO pending PARKER: Baseline creatinine 1.2-1.3; today 2.05 Received 2L NSB in ED; SBP responded 98/71 Hypokalemia: K+3.4; replace with KcL 20mEq; recheck BMP in AM DM2: Takes jardiance, Ozempic, and Zetia; hold and place on SSI Last A1C: 08/09: 7.4; will recheck while here ACHS FSBS SSI while in patient HLD: Takes Atorvastatin; continue Last lipid panel 08/09: TG 110, HDL 45, LDL 73; recheck while here MINA: CPAP at home; will order for machine use here GERD: Takes Protonix; continue Depression: takes Duloxetine; continue Disposition: PCP: Dr. Karl Madrigal Code Status: Full Code VTE Prophylaxis: Heparin SQ I spent a total of 87 minutes coordinating, documenting, and providing care for this patient excluding time spent in the performance of separately billed services. All of the aforementioned completed while collaborating with the assigned attending physician for a full treatment plan. Please see their addendum for further details. History of Present Illness Chief Complaint: syncope Primary Care Provider: Karl Madrigal DO Mr. Ruiz presented to the [facility] today after experiencing dizziness over the past few months. He reports having medication changes with his anti-hypertensive and diabetic medications, including Ozempic. Today, he was with someone who was checking his car battery. He recalls hearing someone saying ' Did you call 911'. He realized that he nearly passed out. He was assisted down to the ground and skinned his knee. When he came to, he did not have any confusion and knew where he was. He has never had syncope before. His Losartan was recently increased. Patient reports weight loss over past few months. In July, when he was seen by his PCP, there was discussion regarding weight loss and he was started on Ozempic for which he then lost 20 pounds, then lost another 25 pounds. He took his medications this morning. He usually takes them all in the morning. Patient follows with Dr. Alvarez as an outpatient. Pt denies STANLEY, dizziness, chest pain, palpitations, N/V/D, recent falls or trauma. Patient sitting in his hospital bed in no apparent distress. Additional PMH includes COPD (wears CPAP at night), HTN, DM2, GERD, H/O NSTEMI s/p cath and stent 2014, malignant neoplasm of the bladder. Patient will be admitted for further evaluation and management. Please see A/P for further details. Allergies Allergy/AdvReac Type Severity Reaction Status Date / Time Sulfa (Sulfonamide Allergy Mild RASH Verified 11/17/22 06:06 Antibiotics) Home Medications Medication Instructions Recorded Confirmed Type atorvastatin 80 mg tablet 80 mg PO QAM 03/13/19 11/30/22 History aspirin 81 mg tablet,delayed 81 mg PO QAM 04/12/19 11/30/22 History release atenolol 50 mg tablet 50 mg PO QAM #30 tabs 04/12/19 11/30/22 History ezetimibe 10 mg tablet 10 mg PO QAM 04/12/19 11/30/22 History hydrochlorothiazide 25 mg tablet 25 mg PO QAM 04/12/19 11/30/22 History pantoprazole 40 mg tablet,delayed 40 mg PO QAM 04/12/19 11/30/22 History release amlodipine 2.5 mg tablet 2.5 mg PO QAM 04/14/21 11/30/22 History duloxetine 60 mg capsule,delayed 60 mg PO QAM 10/13/22 11/30/22 History release empagliflozin 10 mg tablet 10 mg PO QAM 10/13/22 11/30/22 History (Jardiance) terazosin 2 mg capsule 2 mg PO HS 10/13/22 11/30/22 History dexamethasone 4 mg tablet 4 mg PO BID PRN pain,severe 11/30/22 11/30/22 History losartan 50 mg tablet 50 mg PO AMHS 11/30/22 11/30/22 History meclizine 25 mg tablet 25 mg PO TID PRN Dizziness 11/30/22 11/30/22 History nitroglycerin 0.4 mg sublingual 0.4 mg sublingual UD PRN Chest Pain 11/30/22 11/30/22 History tablet (Nitrostat) semaglutide 0.25 mg or 0.5 mg (2 0.5 mg subcut WK 11/30/22 11/30/22 History mg/3 mL) subcutaneous pen injector (Ozempic) topiramate 25 mg tablet 25 mg PO AMHS 11/30/22 11/30/22 History Past Med/Surg History Medical History (Updated 11/30/22 @ 17:58 by OLEGARIO Campos) Borderline diabetes CAD (coronary atherosclerotic disease) Chronic back pain Dyslipidemia Esophageal reflux History of colon polyps ? IN HX / MINOR THINGS History of malignant neoplasm of bladder HX REMOVED/NO PROBLEMS FOR YRS Hypertension Myocardial infarction 2014 - CATH/STENT X 1 - [facility] Nephrolithiasis HX Sleep apnea CPAP Syncope Surgical History H/O arthroscopic knee surgery H/O hernia repair H/O shoulder surgery History of cardiac cath STENT X1 /HX /2013 History of cataract surgery rt/left History of colonoscopy History of cystoscopy with resection of bladder tumor History of lumbar surgery Hx of appendectomy S/P wrist surgery Family History Mother Coronary heart disease Hypertension Nephrolithiasis Father Coronary heart disease Hypertension Social History Smoking Status: Never smoker Second Hand Exposure: No; Do You Dip or Chew Tobacco: No; Hx Alcohol Use: No Preferred Language: Ukrainian Communication Ability: Effective Director Diversity Required: No Beliefs That Will Affect Care: None marital status: Current Living Situation: Spouse current occupational status: retired Feels Safe at Home: Yes Assistive Devices: CPAP and Glasses Review of Systems Review of Systems: Neuro: (-) Falls, trauma, slurred speech HEENT: (-) STANLEY, dizziness, dysphagia, visual or auditory changes CV: (-) CP, palpitations, swelling Resp: (-) SOB GI: (-) appetite changes, N/V/D, bowel changes (+) weight loss : (-) urinary changes Skin: (-) rashes Psych: (-) anxiety, depression Physical Exam Physical Exam: See Dr. Suarez's addendum for physical examination Results & Data Results & Data Vital Signs (Past 12 Hours) Vital Signs Temp Pulse Resp BP Pulse Ox 11/30/22 15:43 67 13 94 11/30/22 15:43 90/54 L 11/30/22 15:30 68 14 97 11/30/22 15:15 69 12 11/30/22 15:15 97/55 L 11/30/22 15:00 70 9 L 95 11/30/22 15:00 91/57 L 11/30/22 15:08 86 11/30/22 14:45 75 13 11/30/22 14:45 73/56 L 11/30/22 14:44 68/43 L 11/30/22 14:44 71 16 11/30/22 14:42 75 12 11/30/22 14:05 36.5 C 81 18 68/47 L 96 Laboratory Results Short CBC 11/30/22 Range/Units 14:31 WBC 8.54 (4.8-10.8) K/ul Hgb 15.3 (14.0-18.0) g/dl Hct 45.1 (42.0-52.0) % Plt Count 197 (130-400) K/uL BMP 11/30/22 11/30/22 14:31 15:29 Sodium 135 L Potassium TNP 3.4 L Chloride 100 Carbon Dioxide 25 BUN 33 H Creatinine 2.05 H Glucose 107 H Calcium 10.0 Liver Function 11/30/22 11/30/22 Range/Units 14:31 15:29 Total Bilirubin 1.4 H (0.2-1.0) mg/dl AST TNP 22 ALT 37 (7-52) U/L Alkaline Phosphatase 68 (34-104) U/L Albumin 4.4 (3.4-5.0) gm/dl Diagnostic Findings Chest X-Ray 11/30/22 14:37 XR chest 1V portable CLINICAL HISTORY: cp TECHNIQUE: Single frontal radiograph of the chest was obtained. Comparison: Comparison is made to chest radiograph 05/31/2017 FINDINGS: No lines and tubes are seen. Calcified aortic knob is seen. The lungs are clear. No evidence of pleural effusion or pneumothorax. IMPRESSION: No acute chest disease. ACT 112: Negative or not required by law. Electronically signed by: Joao Andrade M.D. 11/30/2022 3:13 PM Code Status & VTE Plan Code Status Full Code in the event of cardiac or respiratory arrest VTE Prophylaxis Plan VTE Prophylaxis will be ordered: Yes Supervising Physician Co-Signing Physician Notes Pt is a 72 y/o M with hx of DMII, CAD s/p stent, HTN, HLD, BPH, MINA on CPAP admitted for syncope and hypotension. 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
[2022-11-30] MEDS ORDERED: GLUCAGON FOR INJ 1 MG VIAL SQ PRN (17:04)
[2022-11-30] MEDS ORDERED: CARBOHYDRATES FOR HYPOGLYCEMIA PO PRN (17:04)
[2022-11-30] MEDS ORDERED: GLUCOSE 40% GEL 15 GM TUBE PO PRN (17:04)
[2022-11-30] MEDS ORDERED: GLUCOSE 10 TAB/TUBE PO PRN (17:04)
[2022-11-30] MEDS ORDERED: DEXTROSE 50% 50 ML SYRINGE IV PRN (17:04)
[2022-11-30] MEDS ORDERED: PHARMACY GLYCEMIC MGMT CONSULT PRN (17:04)
[2022-11-30] MEDS ORDERED: POTASSIUM CHLORIDE CRTAB 20 MEQ TABCR PO STA (17:36)
--- NOTE | 2022-11-30 20:31 | Electrocardiogram Report ---
Test Reason : Blood Pressure : / mmHG Vent. Rate : 073 BPM Atrial Rate : 073 BPM P-R Int : 198 ms QRS Dur : 090 ms QT Int : 370 ms P-R-T Axes : 003 012 018 degrees QTc Int : 407 ms Normal sinus rhythm Low voltage QRS possible old inferior IL Abnormal ECG When compared with ECG of 02-AUG-2018 10:21, No significant change was found Confirmed by Zhen Allen ([id number]) on 11/30/2022 8:30:25 PM Referred By: Confirmed By:Ricky Allen
[2022-11-30] MEDS ORDERED: TERAZOSIN HCL 1 MG CAP PO SCH (21:00)
[2022-11-30] MEDS ORDERED: LANTUS PER UNIT CHARGE SQ SCH (21:00)
[2022-11-30] MEDS: INSULIN ASPART PER UNIT CHARGE SC SCH (22:14)
[2022-11-30] MEDS: TOPIRAMATE 25 MG TAB PO SCH (22:18)
[2022-11-30 22:59] LABS: Appearance Urine Clear (Clear); Bacteria Urine Automated Negative (Negative); Bilirubin Urine Negative (Negative); Blood Urine Negative (Negative); Cast Urine Automated 0 /lpf (0-5); Color Urine Yellow; Epithelial Cell Urine Auto 20-30 /lpf (0-5); Glucose Urine UA 2+ (Negative); Ketones Urine Negative (Negative); Leukocyte Esterase Urine Negative (Negative); Nitrite Urine Negative (Negative); Protein Urine Trace (Negative); RBC Urine Automated 0-4 /hpf (0-4); Specific Gravity Urine 1.012 (1.000-1.030); Urobilinogen Urine Negative (Negative); pH Urine 5.5 (4.5-7.5)
[2022-12-01 08:10] LABS: Hematocrit (blood only) 40.7 % (42.0-52.0); Hemoglobin 13.7 g/dl (14.0-18.0); Mean Corpuscular Hgb Conc 33.7 g/dL (32.0-36.0); Mean Corpuscular Volume 92.1 fL (80.0-100.0); Mean Platelet Volume 9.7 fL (9.4-12.4); Platelet Count 160 K/uL (130-400); RDW Coefficient of Variation 13.8 % (11.5-14.5); RDW Standard Deviation 46.7 fL (36.4-46.3); Red Blood Count 4.42 M/uL (4.70-6.10); White Blood Count 6.97 K/ul (4.8-10.8)
--- NOTE | 2022-12-01 08:19 | Pharmacy Report ---
Pharmacy Glycemic Short Note 2 - Date of Service December 01, 2022 - Glycemic Short BSG Results (Last 24 hours): 11/30/22 11/30/22 11/30/22 14:31 17:53 22:12 Glucose 107 H POC Glucose 95 94 12/01/22 07:26 Glucose POC Glucose 103 H OUTPATIENT ANTIDIABETIC REGIMEN: * Jardiance 10 mg PO daily * Ozempic 0.5 mg SC weekly () HbA1c: pending (12/01/22) ASSESSMENT: * AR is a 72 year old male presented to ED yesterday following syncopal episode w/ several months of dizziness reported * Pharmacy consulted for glycemic management, patient with seemingly good outpatient glycemic control on Jardiance and Ozempic * BSGs well-controlled so far while inpatient with no insulin administered - will be conservative with initial insulin doses * Diet ordered PLAN FOR INPATIENT GLYCEMIC CONTROL: * Hold outpatient oral diabetes medications * Basal insulin * Lantus 0-5 units SC HS (see EHR for details) * Bolus insulin * NovoLog per scale ACHS or Q6hrs while NPO * Goal Range: Low 120 mg/dL - High 150 mg/dL * Correction Factor: 30 mg/dL/unit * Nutritional / Prandial insulin per carb ratio of 1 unit per 10 grams CHO consumed
[2022-12-01 08:20] LABS: Albumin Globulin Ratio 1.5 (0.9-2); Albumin Level 3.8 gm/dl (3.4-5.0); BUN Creatinine Ratio 19.3 (10-20); Bilirubin,Total 1.2 mg/dl (0.2-1.0); Calcium 9.6 mg/dl (8.6-10.3); Creatinine Clr Calc Pharmacy 45.3 ml/min; Est GFR (African American) 48.1 ml/min; Est GFR (Non-African American) 41.5 ml/min; Globulin 2.5 gm/dl (2.5-4.0); Phosphorus 3.2 mg/dl (2.5-4.9); Potassium 3.7 mmol/L (3.5-5.1); Total Protein 6.3 gm/dl (6.0-8.3)
[2022-12-01] MEDS: INSULIN ASPART PER UNIT CHARGE SC SCH ×2 (08:27→12:25)
[2022-12-01] MEDS: TOPIRAMATE 25 MG TAB PO SCH (08:28)
[2022-12-01 08:38] LABS: Estimated Average Glucose 134 mg/dl; Hemoglobin A1C 6.3 % (4.5-5.6)
[2022-12-01] MEDS ORDERED: PANTOprazole 40 MG TAB PO SCH (09:00)
[2022-12-01] MEDS ORDERED: ATORVASTATIN 40 MG TAB PO SCH (09:00)
[2022-12-01] MEDS ORDERED: ASPIRIN 81 MG ECTAB PO SCH (09:00)
[2022-12-01] MEDS ORDERED: DULoxetine HCL 60 MG CAP PO SCH (09:00)
--- NOTE | 2022-12-01 09:03 | Hospitalist Progress Note ---
Date of Service December 01, 2022 Assessment & Plan (1) Syncope: (2) HTN (hypertension): (3) Coronary artery disease: (4) GERD (gastroesophageal reflux disease): (5) Diabetes mellitus: (6) Severe obstructive sleep apnea: Plan 72 year old presents with syncope that occured today. He has felt dizziness over past few weeks. Anti-HTN medications have been adjusted recently, along with starting Ozempic for diabetes management and weight loss. He has lost a total of 55 pounds over past few months. Syncope: CAD: HTN: Takes Amlodipine, HCTZ, Losartan, and Atenolol; hold for now due to hypotension; reassess in AM Check Ortho BP's Last ECHO: 07/2021: EF 55-59%. moderate aortic stenosis, LV wall thickness mildly increased; repeat ECHO pending PARKER: Baseline creatinine 1.2-1.3; today 2.05 Received 2L NSB in ED; SBP responded 98/71 Hypokalemia: K+3.4; replace with KcL 20mEq; recheck BMP in AM DM2: Takes jardiance, Ozempic, and Zetia; hold and place on SSI Last A1C: 08/09: 7.4; will recheck while here ACHS FSBS SSI while in patient HLD: Takes Atorvastatin; continue Last lipid panel 08/09: TG 110, HDL 45, LDL 73; recheck while here MINA: CPAP at home; will order for machine use here GERD: Takes Protonix; continue Depression: takes Duloxetine; continue Disposition: PCP: Dr. Karl Madrigal Code Status: Full Code VTE Prophylaxis: Heparin SQ I spent a total of 87 minutes coordinating, documenting, and providing care for this patient excluding time spent in the performance of separately billed services. All of the aforementioned completed while collaborating with the assigned attending physician for a full treatment plan. Please see their addendum for further details. Admission and Anticipated Discharge Date Admission Date: November 30, 2022 Results & Data Results & Data Vital Signs (Past 12 Hours) Vital Signs Temp Pulse Pulse Resp BP Pulse Ox O2 Del Method 12/01/22 08:00 37.1 C 75 20 87/58 L 94 11/30/22 22:00 58 L 12/01/22 03:55 37.0 C 69 18 87/56 L 93 Room Air Laboratory Results Short CBC 11/30/22 12/01/22 Range/Units 14:31 07:48 WBC 8.54 6.97 (4.8-10.8) K/ul Hgb 15.3 13.7 L (14.0-18.0) g/dl Hct 45.1 40.7 L (42.0-52.0) % Plt Count 197 160 (130-400) K/uL BMP 11/30/22 11/30/22 12/01/22 14:31 15:29 07:48 Sodium 135 L 140 Potassium TNP 3.4 L 3.7 Chloride 100 104 Carbon Dioxide 25 28 BUN 33 H 31 H Creatinine 2.05 H 1.61 H D Glucose 107 H 111 H Calcium 10.0 9.6 Liver Function 11/30/22 11/30/22 12/01/22 Range/Units 14:31 15:29 07:48 Total Bilirubin 1.4 H 1.2 H (0.2-1.0) mg/dl AST TNP 22 23 ALT 37 29 (7-52) U/L Alkaline Phosphatase 68 64 (34-104) U/L Albumin 4.4 3.8 (3.4-5.0) gm/dl Urine 11/30/22 Range/Units 22:30 Urine Color Yellow Urine Appearance Clear (Clear) Urine pH 5.5 (4.5-7.5) Ur Specific [place] 1.012 (1.000-1.030) Urine Protein Trace H (Negative) Urine Glucose (UA) 2+ H (Negative) Medications Administered Current Inpatient Medications Acetaminophen (Acetaminophen 325 Mg Tab) 650 mg PO Q4H PRN PRN Reason: Pain or Fever Stop: 12/30/22 16:32 Al Hydrox/Mg Hydrox/Simethicone (Aluminum/Magnesium Susp 30 Ml Udc) 15 ml PO Q4H PRN PRN Reason: Dyspepsia Stop: 12/30/22 16:32 Aspirin (Aspirin 81 Mg Ectab) 81 mg PO [facility] Stop: 12/31/22 08:59 Last Admin: 12/01/22 08:28 Dose: 81 mg Atorvastatin Calcium (Atorvastatin 40 Mg Tab) 80 mg PO [facility] Stop: 12/31/22 08:59 Last Admin: 12/01/22 08:28 Dose: 80 mg Dextrose (Dextrose 50% 50 Ml Syringe) 25 - 50 ml IV UD PRN; Protocol PRN Reason: Hypoglycemia Protocol Stop: 12/30/22 17:03 Duloxetine HCl (Duloxetine Hcl 60 Mg Cap) 60 mg PO QAM [facility] Stop: 12/31/22 08:59 Last Admin: 12/01/22 08:28 Dose: 60 mg Glucagon (Glucagon For Inj 1 Mg Vial) 1 mg SQ UD PRN; Protocol PRN Reason: Hypoglycemia Protocol Stop: 12/30/22 17:03 Glucose (Glucose 10 Tab/Tube) 4 - 8 tab PO UD PRN; Protocol PRN Reason: Hypoglycemia Treatment Stop: 12/30/22 17:03 Glucose (Glucose 40% Gel 15 Gm Tube) 15 - 30 gm PO UD PRN; Protocol PRN Reason: Hypoglycemia Protocol Stop: 12/30/22 17:03 Insulin Aspart (Insulin Aspart Per Unit Charge) 0 units SC [facility] Stop: 12/30/22 20:59 Last Admin: 12/01/22 08:27 Dose: 2 units Magnesium Hydroxide (Magnesium Hydroxide Susp 30 Ml Udc) 30 ml PO Q12H PRN PRN Reason: Constipation Stop: 12/30/22 16:32 Miscellaneous (Carbohydrates For Hypoglycemia ) 15 - 30 gm PO UD PRN PRN Reason: Hypoglycemia Protocol Stop: 12/30/22 17:03 Miscellaneous Information (Pharmacy Glycemic Mgmt Consult) 1 each N/A UD PRN PRN Reason: Consult Stop: 12/30/22 17:03 Ondansetron HCl (Ondansetron Inj 2 Mg/Ml 2 Ml Vial) 4 mg IV Q6H PRN PRN Reason: Nausea Stop: 12/30/22 16:32 Pantoprazole Sodium (Pantoprazole 40 Mg Tab) 40 mg PO QAM [facility] Stop: 12/31/22 08:59 Last Admin: 12/01/22 08:28 Dose: 40 mg Polyethylene Glycol (Polyethylene (Miralax) 17 Gm Pack) 17 gm PO DAILY PRN PRN Reason: Constipation Stop: 12/30/22 16:32 Terazosin HCl (Terazosin Hcl 1 Mg Cap) 2 mg PO HS [facility] Stop: 12/30/22 20:59 Last Admin: 11/30/22 22:19 Dose: 2 mg Topiramate (Topiramate 25 Mg Tab) 25 mg PO AMHS [facility] Stop: 12/30/22 20:59 Last Admin: 12/01/22 08:28 Dose: 25 mg
[2022-12-01] MEDS ORDERED: LANTUS PER UNIT CHARGE SC SCH (21:00)
--- NOTE | 2022-12-03 13:57 | Discharge Summary ---
Discharge Summary Date of Service December 01, 2022 Notes For Next Care Provider Repeat blood pressure measurement and titrate medications Repeat BMP at followup-discharge Creat was 1.6 with normal baseline. Medication Changes From Visit STOP amlodipine 2.5mg daily CHANGE Atenolol to 25mg daily STOP HCTZ 25mg Po daily STOP Losartan 50mg PO daily Admission HPI Per Admitting Provider Mr. Ruiz presented to the [facility] today after experiencing dizziness over the past few months. He reports having medication changes with his anti-hypertensive and diabetic medications, including Ozempic. Today, he was with someone who was checking his car battery. He recalls hearing someone saying ' Did you call 911'. He realized that he nearly passed out. He was assisted down to the ground and skinned his knee. When he came to, he did not have any confusion and knew where he was. He has never had syncope before. His Losartan was recently increased. Patient reports weight loss over past few months. In July, when he was seen by his PCP, there was discussion regarding weight loss and he was started on Ozempic for which he then lost 20 pounds, then lost another 25 pounds. He took his medications this morning. He usually takes them all in the morning. Patient follows with Dr. Alvarez as an outpatient. Pt denies STANLEY, dizziness, chest pain, palpitations, N/V/D, recent falls or trauma. Patient sitting in his hospital bed in no apparent distress. Additional PMH includes COPD (wears CPAP at night), HTN, DM2, GERD, H/O NSTEMI s/p cath and stent 2014, malignant neoplasm of the bladder. Patient will be admitted for further evaluation and management. Please see A/P for further details. Principal Dx & Hospital Course #1 = Principal Diagnosis (1) Syncope: (2) PARKER (acute kidney injury): (3) HTN (hypertension): (4) Coronary artery disease: (5) GERD (gastroesophageal reflux disease): (6) Diabetes mellitus: (7) Severe obstructive sleep apnea: Plan 72 yo M presented to the ER for lightheadedness and syncope. In the ER he was given 2L of IVF. Labs revealed no significant leukocytosis or anemia, and INR was unremarkable. BMP with mild hypokalemia. Creatinine was elevated at 2.0 from a baseline of 1.0. Total bilirubin, LFTs, and troponin were negative. COVID screen was negative. He had no urinary symptoms, denied chest pain or shortness of breath. A portable AP upright one view of the chest was unremarkable. His blood pressure improved with the intravenous fluids from the 60s systolic to the low 100s. He was admitted to the medicine team on telemetry overnight. Through the history, it became apparent that he had recently lost a significant amount of weight in the past few months, however, his regular antihypertensive medications had not been adjusted. Along with starting Ozempic for diabetes management and weight loss, he had lost 55 pounds. He typically takes amlodipine, HCTZ, losartan and atenolol which were held for hypotension. Creatinine improved to 1.6 the following day and his blood pressure remained stable with original symptoms resolved. Echo revealed an EF 60-65%, mild LVH, aortic valve sclerosis that is mild, without significant aortic valve stenosis. Grade I diastolic dysfunction noted. He was eager to be discharged home, and his creatinine was expected to make a complete recovery with improvement of blood pressure and continuing to hold some of his antihypertensives at discharge. He was discharged in stable condition with close primary care visit recommended. Discharge Exam hemodynamically stable and afebrile and tolerating PO ambulating and mentating at baseline. Updated Medication List Medication Instructions Recorded Confirmed Type atorvastatin 80 mg tablet 80 mg PO QAM 03/13/19 11/30/22 History aspirin 81 mg tablet,delayed 81 mg PO QAM 04/12/19 11/30/22 History release ezetimibe 10 mg tablet 10 mg PO QAM 04/12/19 11/30/22 History pantoprazole 40 mg tablet,delayed 40 mg PO QAM 04/12/19 11/30/22 History release duloxetine 60 mg capsule,delayed 60 mg PO QAM 10/13/22 11/30/22 History release empagliflozin 10 mg tablet 10 mg PO QAM 10/13/22 11/30/22 History (Jardiance) terazosin 2 mg capsule 2 mg PO HS 10/13/22 11/30/22 History dexamethasone 4 mg tablet 4 mg PO BID PRN pain,severe 11/30/22 11/30/22 History meclizine 25 mg tablet 25 mg PO TID PRN Dizziness 11/30/22 11/30/22 History nitroglycerin 0.4 mg sublingual 0.4 mg sublingual UD PRN Chest Pain 11/30/22 11/30/22 History tablet (Nitrostat) semaglutide 0.25 mg or 0.5 mg (2 0.5 mg subcut WK 11/30/22 11/30/22 History mg/3 mL) subcutaneous pen injector (Ozempic) topiramate 25 mg tablet 25 mg PO AMHS 11/30/22 11/30/22 History atenolol 25 mg tablet 25 mg PO DAILY #30 tabs 12/01/22 Rx Hospital Stay Data Consultations 11/30/22 16:15 ED Decision to Admit Stat Pending Results Patient Have Any Pending Studies at Discharge: No Discharge Instructions Given to Patient (Per Discharging Provider) You had persistently low blood pressure during this hospital stay, which is likely what lead to you losing consciousness prior to arrival. With your weight loss, and new medications, you may be overmedicated. Please change medications as noted on discharge list below. A close follow-up in one week is recommended with your primary care provider to recheck your blood pressure. Please stay hydrated and bring all pill bottles to your followup visit wtih your primary care physician. It was a pleasure taking care of you! Please call if you have any questions or problems. You can reach a [facility] hospitalist on duty at [facility] 24 hours a day by calling [phone]. Take care of yourself. Martita Bradford DO [facility] Hospitalist Total Time Total Time Spent Total Time Spent (In Minutes): 60
--- NOTE | 2022-12-15 14:22 | Coding Query ---
CODING QUERY To promote full compliance with coding requirements relating to patient care, provider participation is requested in all cases of foxing painter uncertainty. Please assist us with the question(s) below: Coding Question(s): Pt admitted with syncope prior to arrival. Discharge Summary mentions persistent low blood pressures during this brief Inpatient stay. Please document below, if known or suspected, the etiology of the patient's syncope. Thanks for your help! Chucho Crooks [facility] Physician's Response(s): Hypotension is the suspected etiology of the syncope ,thanks. sms Principal Diagnosis: "that condition established after study, to be chiefly responsible for occasioning the admission of the patient to the hospital for care." Co-Existing Principal Diagnosis: "when two or more diagnoses equally meet the criteria for principal diagnosis as determined by the circumstances of admission, diagnostic work up, and/or therapy provided, and the Alphabetic Index, Tabular List, or another coding guideline does not provide sequencing direction, any one of the diagnoses may be sequenced first." "When the physician has documented what appears to be a current diagnosis in the body of the record, but has not included the diagnosis in the final diagnostic statement, the physician should be asked whether the diagnosis should be added." (Source Coding Clinic 2 QTR90. p3-4) CYRUS
== END 2022-12-01 16:30 | disposition home or self-care (01) | DRG 315 ==
LOC: ED 13:59 → 2N 16:33 → SUATTDRO 16:33 → 2N 17:33

== ENCOUNTER 2024-06-06 10:44 | Inpatient (IN) ==
[2024-06-06] MEDS: MoRPHine SULFATE 4 MG/ML 1 ML CARP\\VIAL IV STA (11:25)
[2024-06-06] MEDS: ONDANSETRON INJ 2 MG/ML 2 ML VIAL IV STA (11:27)
--- NOTE | 2024-06-06 12:15 | XRay Report ---
XR lumbar spine 2-3V CLINICAL HISTORY: lumbar back pain COMPARISON STUDY: Lumbar spine MRI May 30, 2024. Lumbar spine CT July 21, 2022. Lumbar spine radiographs March 26, 2024. FINDINGS: Right hip arthroplasty and intracanalicular stimulator devices are partially imaged. L4-L5 discectomy with L3-L5 decompression and fusion is noted. The hardware is intact. There are no acute l umbar spine fractures. There is moderate multilevel disc space narrowing with endplate osteophytosis and facet arthrosis. IMPRESSION: 1. No acute lumbar spine fractures. 2. Stable postoperative findings following L3-L5 decompression and fusion. 3. Multilevel degenerative disc disease and facet arthrosis, as described above. ACT 112: Negative or not required by law. Electronically signed by: Ant Ortega M.D. 06/06/2024 12:14 PM
[2024-06-06] MEDS: fentaNYL citrate PF 100 MCG/2 ML VIAL IV ONE (12:46)
[2024-06-06] MEDS: fentaNYL citrate PF 100 MCG/2 ML VIAL IV STA (13:57)
[2024-06-06] MEDS: CYCLOBENZAPRINE HCL 10 MG TAB PO STA (14:41)
[2024-06-06 14:47] LABS: Albumin Globulin Ratio 1.3 (0.9-2); Albumin Level 3.7 gm/dl (3.4-5.0); BUN Creatinine Ratio 13.7 (10-20); Bilirubin,Total 1.1 mg/dl (0.2-1.0); Calcium 9.2 mg/dl (8.6-10.3); Globulin 2.8 gm/dl (2.5-4.0); Potassium 4.3 mmol/L (3.5-5.1); Total Protein 6.5 gm/dl (6.0-8.3)
[2024-06-06 15:03] LABS: Basophils # (auto) 0.03 K/uL (0.00-0.20); Basophils % (auto) 0.3 %; Eosinophils # (auto) 0.27 K/uL (0.00-0.50); Eosinophils % (auto) 3.1 %; Hematocrit (blood only) 35.6 % (42.0-52.0); Hemoglobin 11.7 g/dl (14.0-18.0); Immature Granulocytes # (auto) 0.02 K/uL (0.01-0.20); Immature Granulocytes % (auto) 0.2 %; Lymphocytes # (auto) 1.38 K/uL (1.20-3.40); Lymphocytes % (auto) 15.8 %; Mean Corpuscular Hemoglobin 30.2 pg (25.0-34.0); Mean Corpuscular Hgb Conc 32.9 g/dL (32.0-36.0); Mean Platelet Volume 9.9 fL (9.4-12.4); Monocytes # (auto) 0.56 K/uL (0.11-0.59); Monocytes % (auto) 6.4 %; Neutrophils % (auto) 74.2 %; Platelet Count 242 K/uL (130-400); Polychromasia 1+; RDW Coefficient of Variation 13.5 % (11.5-14.5); RDW Standard Deviation 45.7 fL (36.4-46.3); Red Blood Count 3.87 M/uL (4.70-6.10); White Blood Count 8.76 K/ul (4.8-10.8)
--- NOTE | 2024-06-06 15:29 | XRay Report ---
XR hip LT 2V w pelvis CLINICAL HISTORY: Left hip pain. COMPARISON: CT of the abdomen and pelvis September 24, 2021. Pelvis radiograph May 08, 2024. FINDINGS: Postoperative findings within the spine are partially imaged. Right hip arthroplasty is in tact. Alignment of the left hip is anatomic. There is no fracture or lesion within the left hip. Ther e is mild joint space narrowing and osteophytosis of the left hip. There is no evidence for avascular necrosis of the left femoral head. IMPRESSION: 1. No fractures within the left hip. 2. Mild left hip osteoarthritis. 3. Intact right hip arthroplasty. ACT 112: Negative or not required by law. Electronically signed by: Ant Ortega M.D. 06/06/2024 3:28 PM
--- NOTE | 2024-06-06 17:37 | History & Physical Report ---
Date of Service June 06, 2024 Assessment & Plan (1) Lumbosacral radiculopathy: (2) Ambulatory dysfunction: Plan: Patient is 73-year-old male with PMH HTN, HLD, GERD, DM II, CAD, MINA, obesity, lumbar disc disease presented to ER with complaint of ongoing low back pain with radiation to left buttock and down left leg. Most recent MRI L-spine reported 05/30/2024 at [facility] 04/19/2024 lumbar spine: s/p L3-L5 decompression and fusion. Stable postoperative findings. No significant change in appearance of the lumbar spine since MRI of August 06, 2022. Moderate to severe central canal stenosis at L1-L2 and severe left neural foraminal stenosis at L2-L3. No lumbar spine fractures. Mild lumbar spine dextroscoliosis. In ER given Total fentanyl 100 mcg, morphine 4 mg, Zofran, p.o. Flexeril with continued reported pain with ambulation and difficulty ambulating Pain control with scheduled Tylenol, lidocaine patch, oxycodone, Dilaudid as needed Continue home baclofen, meloxicam Fall precautions Will hold on steroids as pt with recent hip replacement surgery Orthospine consult PT/OT eval CBC, BMP in am (3) Diabetes mellitus, type II: Plan: A1c: 6.2 on 05/15/24 Hold home Jardiance, Ozempic Novolog sliding scale per protocol (4) HTN (hypertension): (5) Dyslipidemia: (6) CAD (coronary atherosclerotic disease): Plan: Continue atenolol, atorvastatin, zetia (7) BPH associated with nocturia: Plan: Continue tamsulosin, terazosin (8) GERD (gastroesophageal reflux disease): Plan: Continue PPI DVT Prophylaxis Lovenox SQ Admit med surg Follows with Dr Madrigal for routine care Pt was seen and care coordinated with Dr Baker. See addendum I spent a total of 75 minutes reviewing notes, outpatient records, labs, medication, coordinating, documenting and providing care for this patient excluding time spent in the performance of separately billed services. History of Present Illness Chief Complaint: back pain Primary Care Provider: Karl Madrigal DO Patient is 73-year-old male with PMH HTN, HLD, GERD, DM II, CAD, MINA, obesity, lumbar disc disease presented to ER with complaint of low back pain with radiation to left buttock and down left leg. States has been ongoing issue and following with ortho spine. Denies any new injury or trauma. Last seen by orthospine, Dr. Salas yesterday 06/05/2024. States taking tramadol, oxycodone without relief. Pain aggravated with movement and states is having trouble ambulating secondary to pain. Has some tingling to left upper leg intermittently. Patient reports recent hip replacement by Dr. Iniguez on . He reports following with Ortho this week and they did not want him on any steroids given his recent surgery. Denies fever/chills, diaphoresis, N/V/D/C, STANLEY, dizziness, CP, SOB, palpitations, cough, rhinorrhea, abdominal pain, extremity weakness, extremity edema, loss control of bowel or bladder, saddle paresthesias, rashes, urinary symptoms. Allergies Allergy/AdvReac Type Severity Reaction Status Date / Time Sulfa (Sulfonamide Allergy Mild RASH Verified 05/17/24 10:46 Antibiotics) Home Medications Medication Instructions Recorded Confirmed Type atorvastatin 80 mg tablet 80 mg PO QAM 03/13/19 06/06/24 History ezetimibe 10 mg tablet 10 mg PO QAM 04/12/19 06/06/24 History pantoprazole 40 mg tablet,delayed 40 mg PO QAM 04/12/19 06/06/24 History release empagliflozin 10 mg tablet 10 mg PO QAM 10/13/22 06/06/24 History (Jardiance) nitroglycerin 0.4 mg sublingual 0.4 mg sublingual UD PRN Chest Pain 11/30/22 06/06/24 History tablet (Nitrostat) tizanidine 4 mg tablet 4 mg PO BID PRN muscle spasticity 06/05/24 06/06/24 Rx #30 tabs aspirin 81 mg tablet,delayed 81 mg PO BID 06/06/24 06/06/24 History release atenolol 25 mg tablet 25 mg PO QAM 06/06/24 06/06/24 History baclofen 10 mg tablet 10 mg PO Q8 06/06/24 06/06/24 History meloxicam 7.5 mg tablet 7.5 mg PO QAM 06/06/24 06/06/24 History oxycodone 5 mg tablet 10 mg PO Q6 PRN Pain 06/06/24 06/06/24 History pregabalin 100 mg capsule 100 mg PO BID 06/06/24 06/06/24 History semaglutide 2 mg/dose (8 mg/3 mL) 2 mg subcut WK 06/06/24 06/06/24 History subcutaneous pen injector (Ozempic) tamsulosin 0.4 mg capsule 0.4 mg PO QAM 06/06/24 06/06/24 History terazosin 2 mg capsule 2 mg PO HS 06/06/24 06/06/24 History tramadol 50 mg tablet 100 mg PO Q8 06/06/24 06/06/24 History Past Med/Surg History Problem List (Updated 06/06/24 @ 19:15 by Jennifer Solis PA-C) CAD (coronary atherosclerotic disease) Dyslipidemia Diabetes mellitus, type II Ambulatory dysfunction Lumbosacral radiculopathy Adjacent segment disease of lumbar spine with history of fusion procedure Scoliosis of lumbar region due to degenerative disease of spine in adult Obesity, Class II, BMI 35-39.9 Osteoarthritis of right hip Right hip pain Low back pain History of lumbar spinal fusion BPH associated with nocturia PARKER (acute kidney injury) (Acute) Syncope HTN (hypertension) (Chronic) Hx of renal calculi (Chronic) Coronary artery disease (Chronic) Non-ST elevated myocardial infarction (non-STEMI) (Acute) Impotence (Chronic) Malignant neoplasm of bladder Diabetes mellitus (Acute) GERD (gastroesophageal reflux disease) (Acute) Rash Nocturnal hypoxemia Urinary symptom or sign Nocturia Severe obstructive sleep apnea Encounter for pre-operative examination Medical History Acute hypotension Borderline diabetes History of colon polyps ? IN HX / MINOR THINGS History of malignant neoplasm of bladder HX REMOVED/NO PROBLEMS FOR YRS Sleep apnea CPAP Myocardial infarction 2014 - CATH/STENT X 1 - [facility] Chronic back pain Nephrolithiasis HX Hypertension Dyslipidemia Esophageal reflux CAD (coronary atherosclerotic disease) Surgical History History of cataract surgery rt/left History of colonoscopy History of cardiac cath STENT X1 /HX /2013 History of cystoscopy with resection of bladder tumor H/O hernia repair H/O arthroscopic knee surgery H/O shoulder surgery Hx of appendectomy History of lumbar surgery S/P wrist surgery Family History Mother Coronary heart disease Hypertension Nephrolithiasis Father Coronary heart disease Hypertension Social History Smoking Status: Never smoker Second Hand Exposure: No; Do You Dip or Chew Tobacco: No; Hx Alcohol Use: No Hx Substance Use: No Preferred Language: Mexican Communication Ability: Effective Disease Case Manager Rn Required: No Beliefs That Will Affect Care: None marital status: Current Living Situation: Spouse current occupational status: retired Feels Safe at Home: Yes Assistive Devices: Glasses Review of Systems Review of Systems: All systems reviewed & are unremarkable except as noted in HPI & below Physical Exam Physical Exam: General: mild distress secondary to buttock discomfort, obese elderly male Head: normocephalic, atraumatic Eyes: conjunctiva non-injected, anicteric ENT: normal inspection external ears, nose, mucous membranes moist Neck: supple, trachea midline Lungs: clear, no respiratory distress, no wheezing/rhonchi/rales CV: RRR, no murmur, no pretibial edema Abd: normal BS, soft, non-tender Back: +left lower back and left buttock tenderness to palpation, +straight leg raise to approx 45 degrees, sensation to light touch intact Ext: no cyanosis, no calf tenderness Neuro: A&O x 3, no focal deficits noted, normal affect Skin: warm, dry Results & Data Results & Data Vital Signs (Past 12 Hours) Vital Signs Temp Pulse Pulse Resp BP BP Pulse Ox 06/06/24 15:53 65 18 150/95 H 94 06/06/24 14:40 66 20 107/70 94 06/06/24 10:58 73 22 97 06/06/24 10:48 36.1 C L 76 18 159/72 H 97 O2 Del Method 06/06/24 15:53 Room Air 06/06/24 14:40 Room Air 06/06/24 10:58 Room Air 06/06/24 10:48 Room Air Laboratory Results Short CBC 06/06/24 Range/Units 14:15 WBC 8.76 (4.8-10.8) K/ul Hgb 11.7 L (14.0-18.0) g/dl Hct 35.6 L (42.0-52.0) % Plt Count 242 (130-400) K/uL BMP 06/06/24 14:15 Sodium 138 Potassium 4.3 Chloride 107 Carbon Dioxide 25 BUN 14 Creatinine 1.02 Glucose 108 H Calcium 9.2 Liver Function 06/06/24 Range/Units 14:15 Total Bilirubin 1.1 H (0.2-1.0) mg/dl AST 17 (13-39) U/L ALT 17 (7-52) U/L Alkaline Phosphatase 115 H (34-104) U/L Albumin 3.7 (3.4-5.0) gm/dl Diagnostic Findings Lumbar Spine X-Ray 06/06/24 11:13 XR lumbar spine 2-3V CLINICAL HISTORY: lumbar back pain COMPARISON STUDY: Lumbar spine MRI May 30, 2024. Lumbar spine CT July 21, 2022. Lumbar spine radiographs March 26, 2024. FINDINGS: Right hip arthroplasty and intracanalicular stimulator devices are partially imaged. L4-L5 discectomy with L3-L5 decompression and fusion is noted. The hardware is intact. There are no acute lumbar spine fractures. There is moderate multilevel disc space narrowing with endplate osteophytosis and facet arthrosis. IMPRESSION: 1. No acute lumbar spine fractures. 2. Stable postoperative findings following L3-L5 decompression and fusion. 3. Multilevel degenerative disc disease and facet arthrosis, as described above. ACT 112: Negative or not required by law. Electronically signed by: Ant Ortega M.D. 06/06/2024 12:14 PM Hip/Pelvis X-Ray 06/06/24 14:34 XR hip LT 2V w pelvis CLINICAL HISTORY: Left hip pain. COMPARISON: CT of the abdomen and pelvis September 24, 2021. Pelvis radiograph May 08, 2024. FINDINGS: Postoperative findings within the spine are partially imaged. Right hip arthroplasty is intact. Alignment of the left hip is anatomic. There is no fracture or lesion within the left hip. There is mild joint space narrowing and osteophytosis of the left hip. There is no evidence for avascular necrosis of the left femoral head. IMPRESSION: 1. No fractures within the left hip. 2. Mild left hip osteoarthritis. 3. Intact right hip arthroplasty. ACT 112: Negative or not required by law. Electronically signed by: Atn Ortega M.D. 06/06/2024 3:28 PM Supervising Physician Co-Signing Physician Notes 06/06/2024 Attending addendum: The patient was seen and examined in the emergency room He has been complaining of severe low back pain with radiation to the left leg for some time Denies any problem with urine or bowel habit He denies any other significant symptoms On examination Remains stable hemodynamically with some pain at the back which is exacerbated with certain movements Chestclear to auscultate bilaterally HeartS1-S2, regular Abdomenbenign Extremities no edema CNSalert, awake and oriented x 3 and no focal sensory or motor deficit appreciated His admission labs, EKG and imaging studies reviewed X-ray showed stable postoperative changes involving L3 L5 decompression and fusion with multilevel degenerative disc disease and facet arthrosis Will be seen by orthospine tomorrow for further management of the problem Agree with assessment and plan as outlined above by Jennifer Solis PA-C and tach the full responsibility of care in the hospital DR Nik Baker
[2024-06-06] MEDS: HYDROmorphone INJ 0.5 MG/0.5 ML SYR IV STA (18:56)
--- NOTE | 2024-06-06 19:04 | Emergency Department Note ---
ED Provider Note History of Present Illness Chief Complaint: Back Injury/Pain Stated Complaint: LT BACK/FLANK PAIN, RECENT HIP REPLACEMENT Time Seen by Provider: 06/06/24 10:58 Source: patient Mode of arrival: ambulatory Limitations: no limitations Patient is a 73-year-old male who presents to the emergency department with complaints of back pain. Patient states that he has been having left-sided back pain chronically for quite some time now. Patient states that he has episodes where he has a flareup of his pain and typically he is able to take steroids for it however he recently had his right hip replaced and was told that he could not take steroids for 2 weeks. Patient presented to the emergency room writhing in pain stating that the p.o. medications that he was given for home is not helping with his pain. Patient was seen by Dr. Morgan yesterday. Home Medications Medication Instructions Recorded Confirmed Type atorvastatin 80 mg tablet 80 mg PO QAM 03/13/19 06/06/24 History ezetimibe 10 mg tablet 10 mg PO QAM 04/12/19 06/06/24 History pantoprazole 40 mg tablet,delayed 40 mg PO QAM 04/12/19 06/06/24 History release empagliflozin 10 mg tablet 10 mg PO QAM 10/13/22 06/06/24 History (Jardiance) nitroglycerin 0.4 mg sublingual 0.4 mg sublingual UD PRN Chest Pain 11/30/22 06/06/24 History tablet (Nitrostat) tizanidine 4 mg tablet 4 mg PO BID PRN muscle spasticity 06/05/24 06/06/24 Rx #30 tabs aspirin 81 mg tablet,delayed 81 mg PO BID 06/06/24 06/06/24 History release atenolol 25 mg tablet 25 mg PO QAM 06/06/24 06/06/24 History baclofen 10 mg tablet 10 mg PO Q8 06/06/24 06/06/24 History meloxicam 7.5 mg tablet 7.5 mg PO QAM 06/06/24 06/06/24 History oxycodone 5 mg tablet 10 mg PO Q6 PRN Pain 06/06/24 06/06/24 History pregabalin 100 mg capsule 100 mg PO BID 06/06/24 06/06/24 History semaglutide 2 mg/dose (8 mg/3 mL) 2 mg subcut WK 06/06/24 06/06/24 History subcutaneous pen injector (Ozempic) tamsulosin 0.4 mg capsule 0.4 mg PO QAM 06/06/24 06/06/24 History terazosin 2 mg capsule 2 mg PO HS 06/06/24 06/06/24 History tramadol 50 mg tablet 100 mg PO Q8 06/06/24 06/06/24 History Allergies Allergy/AdvReac Type Severity Reaction Status Date / Time Sulfa (Sulfonamide Allergy Mild RASH Verified 05/17/24 10:46 Antibiotics) Past Med/Surg History Problem List (Updated 06/07/24 @ 11:36 by OLEGARIO Alcaraz) Lumbar radiculopathy (Acute) CAD (coronary atherosclerotic disease) Dyslipidemia Diabetes mellitus, type II Ambulatory dysfunction Lumbosacral radiculopathy Adjacent segment disease of lumbar spine with history of fusion procedure Scoliosis of lumbar region due to degenerative disease of spine in adult Obesity, Class II, BMI 35-39.9 Osteoarthritis of right hip Right hip pain Low back pain (Acute) History of lumbar spinal fusion BPH associated with nocturia PARKER (acute kidney injury) (Acute) Syncope HTN (hypertension) (Chronic) Hx of renal calculi (Chronic) Coronary artery disease (Chronic) Non-ST elevated myocardial infarction (non-STEMI) (Acute) Impotence (Chronic) Malignant neoplasm of bladder Diabetes mellitus (Acute) GERD (gastroesophageal reflux disease) (Acute) Rash Nocturnal hypoxemia Urinary symptom or sign Nocturia Severe obstructive sleep apnea Encounter for pre-operative examination Medical History Acute hypotension Borderline diabetes History of colon polyps ? IN HX / MINOR THINGS History of malignant neoplasm of bladder HX REMOVED/NO PROBLEMS FOR YRS Sleep apnea CPAP Myocardial infarction 2014 - CATH/STENT X 1 - [facility] Chronic back pain Nephrolithiasis HX Hypertension Dyslipidemia Esophageal reflux CAD (coronary atherosclerotic disease) Surgical History History of cataract surgery rt/left History of colonoscopy History of cardiac cath STENT X1 /HX /2013 History of cystoscopy with resection of bladder tumor H/O hernia repair H/O arthroscopic knee surgery H/O shoulder surgery Hx of appendectomy History of lumbar surgery S/P wrist surgery Family History Mother Coronary heart disease Hypertension Nephrolithiasis Father Coronary heart disease Hypertension Social History Smoking Status: Former smoker Tobacco Type: Cigarettes Second Hand Exposure: No; Do You Dip or Chew Tobacco: No; Tobacco Cessation Education Requested by Patient: No Hx Alcohol Use: Yes Hx Substance Use: No Preferred Language: Kazakh Communication Ability: Effective Supervisor Coating Required: No Beliefs That Will Affect Care: None marital status: Current Living Situation: Spouse current occupational status: retired Other Information That Helps Us Care for You: No Feels Safe at Home: Yes Assistive Devices: None Physical Exam Vital Signs Vital Signs - 24 hr 06/06/24 14:40 06/06/24 15:53 Temperature Source Axillary Pulse Rate [Finger] 66 65 Pulse Strength [Finger] Normal Respiratory Rate 20 18 Respiratory Effort / Characteristics Non-Labored Spontaneous Respiratory Depth Normal Normal Respiratory Pattern Regular Blood Pressure [Left Arm] 107/70 150/95 H Blood Pressure Mean [Left Arm] 82 113 Blood Pressure Position [Left Arm] Semi-fowlers Pulse Oximetry 94 94 Oxygen Delivery Method Room Air Room Air VITAL SIGNS - Vital signs and nursing notes were reviewed. GENERAL -73-year-old male appearing his stated age and in noticeable discomfort throughout the exam. Patient is writhing in bed upon presentation to the ED. NECK - FROM of the cervical spine. ABDOMEN - Abdominal contour without pulsations or visible masses. BS normoactive all four quadrants. MUSCULOSKELETAL - ROM of the lumbar spine region was limited due to the patient's discomfort. No step-off deformities were palpated down the cervical, thoracic, or lumbar spines. Increased tenderness to Palpation experienced at the level of the lumbar spine and paraspinal muscle distribution. NEUROLOGIC - REFLEXES: +3/4 patellar reflexes B/L, +3/4 Achilles reflexes B/L. SENSORY: Spinothalamic tract was found to be intact with ability to discriminate sharp versus dull sensation at the level of hip joint down do the great toe. No sensory defects of the dorsal column were appreciated utilizing light touch for evaluation. CEREBELLAR: Pt able to perform rapid alternating movements of the feet. VASCULAR - Capillary refill of the great toe was brisk. No mottling or blanching of the extremities present. +3/5 dorsalis pedis pulses palpated bilaterally. Course Administered Medications Acetaminophen (Acetaminophen 500 Mg Tab) 1,000 mg PO Q8H [facility] Stop: 07/06/24 22:59 Last Admin: 06/07/24 08:18 Dose: 1,000 mg Documented By: Admin: 06/06/24 23:47 Dose: 1,000 mg Documented By: DALY Atenolol (Atenolol 25 Mg Tablet) [address] [facility] Stop: 07/07/24 08:59 Last Admin: 06/07/24 08:15 Dose: 25 mg Documented By: INA Atorvastatin Calcium (Atorvastatin 40 Mg Tab) [address] [facility] Stop: 07/07/24 08:59 Last Admin: 06/07/24 08:15 Dose: 80 mg Documented By: INA Baclofen (Baclofen 10 Mg Tab) 10 mg PO Q8 [facility] Stop: 07/06/24 22:56 Last Admin: 06/07/24 08:14 Dose: 10 mg Documented By: Admin: 06/06/24 23:47 Dose: 10 mg Documented By: DALY Ezetimibe (Ezetimibe 10 Mg Tab) [address] [facility] Stop: 07/07/24 08:59 Last Admin: 06/07/24 08:14 Dose: 10 mg Documented By: INA Enoxaparin Sodium (Enoxaparin Inj 40 Mg/0.4 Ml Syr) 40 mg SQ PM [facility] Stop: 07/06/24 22:56 Last Admin: 06/07/24 00:26 Dose: 40 mg Documented By: DALY Hydromorphone HCl (Hydromorphone Inj 0.5 Mg/0.5 Ml Syr) 0.5 mg IV Q6H PRN PRN Reason: Severe Pain (Scale 7, 8, 9,10) Stop: 06/20/24 22:56 Last Admin: 06/07/24 09:27 Dose: 0.5 mg Documented By: Admin: 06/06/24 23:50 Dose: 0.5 mg Documented By: DALY Insulin Aspart (Insulin Aspart Per Unit Charge) 0 units SC ACHS [facility] Stop: 07/06/24 22:56 Last Admin: 06/07/24 09:09 Dose: Not Given Documented By: Admin: 06/06/24 23:55 Dose: Not Given Documented By: DALY Co-signed By: WANG Meloxicam (Meloxicam 7.5 Mg Tab) 7.[address] [facility] Stop: 07/07/24 08:59 Last Admin: 06/07/24 08:14 Dose: 7.5 mg Documented By: INA Miscellaneous (Remove Lidoderm Patch) 1 each N/A DAILY@2100 [facility] Stop: 07/06/24 22:56 Last Admin: 06/07/24 00:31 Dose: Not Given Documented By: DALY Oxycodone HCl (Oxycodone Hcl Ir 5 Mg Tab (Immediate Release)) 5 mg PO Q4H PRN PRN Reason: Moderate Pain (Scale 4, 5, 6) Stop: 06/20/24 22:56 Last Admin: 06/07/24 10:48 Dose: 5 mg Documented By: INA Pantoprazole Sodium (Pantoprazole 40 Mg Tab) [address] [facility] Stop: 07/07/24 08:59 Last Admin: 06/07/24 08:14 Dose: 40 mg Documented By: INA Pregabalin (Pregabalin 100 Mg Cap) 100 mg PO BID [facility] Stop: 07/06/24 22:56 Last Admin: 06/07/24 09:24 Dose: 100 mg Documented By: Admin: 06/06/24 23:47 Dose: 100 mg Documented By: DALY Tamsulosin HCl (Tamsulosin Hcl 0.4 Mg Cap) 0.[address] [facility] Stop: 07/07/24 08:59 Last Admin: 06/07/24 08:15 Dose: 0.4 mg Documented By: INA Terazosin HCl (Terazosin Hcl 1 Mg Cap) 2 mg PO [facility] Stop: 07/06/24 22:56 Last Admin: 06/07/24 00:22 Dose: 2 mg Documented By: DALY Discontinued Medications Cyclobenzaprine HCl (Cyclobenzaprine Hcl 10 Mg Tab) 10 mg PO NOW STA Stop: 06/06/24 14:35 Last Admin: 06/06/24 14:41 Dose: 10 mg Documented By: WING Fentanyl Citrate (Fentanyl Citrate Pf 100 Mcg/2 Ml Vial) 50 mcg IV NOW ONE Stop: 06/06/24 12:22 Last Admin: 06/06/24 12:46 Dose: 50 mcg Documented By: MYKE Fentanyl Citrate (Fentanyl Citrate Pf 100 Mcg/2 Ml Vial) 50 mcg IV NOW STA Stop: 06/06/24 13:45 Last Admin: 06/06/24 13:57 Dose: 50 mcg Documented By: MYKE Hydromorphone HCl (Hydromorphone Inj 0.5 Mg/0.5 Ml Syr) 0.5 mg IV NOW STA Stop: 06/06/24 17:59 Last Admin: 06/06/24 18:56 Dose: 0.5 mg Documented By: MARCELLE Lidocaine (Lidocaine 5% 1 Patch) 1 patch TD NOW STA Stop: 06/06/24 22:58 Last Admin: 06/07/24 00:25 Dose: 1 patch Documented By: DALY Morphine Sulfate (Morphine Sulfate 4 Mg/Ml 1 Ml Carp\Vial) 4 mg IV NOW STA Stop: 06/06/24 11:14 Last Admin: 06/06/24 11:25 Dose: 4 mg Documented By: WING Ondansetron HCl (Ondansetron Inj 2 Mg/Ml 2 Ml Vial) 4 mg IV NOW STA Stop: 06/06/24 11:14 Last Admin: 06/06/24 11:27 Dose: 4 mg Documented By: WING Medical Decision Making Differential Diagnosis In the evaluation and treatment of this patient the following differential diagnoses were considered: Cauda equina syndrome, discitis, HNP, sciatica, epidural abscess, psoas abscess, musculoskeletal strain, lumbar fracture, lumbar dislocation, lumbar subluxation, spondylolisthesis, spondylosis, or compression fracture. Medical Records Attestation: I reviewed the patient's medical records. Home Medications was personally reviewed by me Laboratory Data Attestation: I reviewed the patient's lab results. 06/07/24 07:09 06/07/24 07:09 Lab Results 06/06/24 Range/Units 14:15 WBC 8.76 (4.8-10.8) K/ul RBC 3.87 L (4.70-6.10) M/uL Hgb 11.7 L (14.0-18.0) g/dl Hct 35.6 L (42.0-52.0) % MCV 92.0 (80.0-100.0) fL MCH 30.2 (25.0-34.0) pg MCHC 32.9 (32.0-36.0) g/dL RDW Std Deviation 45.7 (36.4-46.3) fL RDW Coeff of Jose 13.5 (11.5-14.5) % Plt Count 242 (130-400) K/uL MPV 9.9 (9.4-12.4) fL Immature Gran % (Auto) 0.2 % Neut % (Auto) 74.2 % Lymph % (Auto) 15.8 % [place] % (Auto) 6.4 % Eos % (Auto) 3.1 % Baso % (Auto) 0.3 % Neut # (Auto) 6.50 (1.40-6.50) K/uL Lymph # (Auto) 1.38 (1.20-3.40) K/uL [place] # (Auto) 0.56 (0.11-0.59) K/uL Eos # (Auto) 0.27 (0.00-0.50) K/uL Baso # (Auto) 0.03 (0.00-0.20) K/uL Immature Gran # (Auto) 0.02 (0.01-0.20) K/uL Polychromasia 1+ Sodium 138 (136-145) mmol/L Potassium 4.3 (3.5-5.1) mmol/L Chloride 107 (98-107) mmol/L Carbon Dioxide 25 (21-32) mmol/L Anion Gap 6 (3-11) BUN 14 (6-23) mg/dl Creatinine 1.02 (0.6-1.4) mg/dl Est Cr Clr Drug Dosing 74.0 ml/min eGFR 76.65 BUN/Creatinine Ratio 13.7 (10-20) Glucose 108 H (70-99(Fasting)) mg/dl Calcium 9.2 (8.6-10.3) mg/dl Total Bilirubin 1.1 H (0.2-1.0) mg/dl AST 17 (13-39) U/L ALT 17 (7-52) U/L Alkaline Phosphatase 115 H (34-104) U/L Total Protein 6.5 (6.0-8.3) gm/dl Albumin 3.7 (3.4-5.0) gm/dl Globulin 2.8 (2.5-4.0) gm/dl Albumin/Globulin Ratio 1.3 (0.9-2) Imaging Data Radiologist's Impression: Lumbar Spine X-Ray 06/06/24 11:13 XR lumbar spine 2-3V CLINICAL HISTORY: lumbar back pain COMPARISON STUDY: Lumbar spine MRI May 30, 2024. Lumbar spine CT July 21, 2022. Lumbar spine radiographs March 26, 2024. FINDINGS: Right hip arthroplasty and intracanalicular stimulator devices are partially imaged. L4-L5 discectomy with L3-L5 decompression and fusion is noted. The hardware is intact. There are no acute lumbar spine fractures. There is moderate multilevel disc space narrowing with endplate osteophytosis and facet arthrosis. IMPRESSION: 1. No acute lumbar spine fractures. 2. Stable postoperative findings following L3-L5 decompression and fusion. 3. Multilevel degenerative disc disease and facet arthrosis, as described above. ACT 112: Negative or not required by law. Electronically signed by: Atn Ortega M.D. 06/06/2024 12:14 PM Hip/Pelvis X-Ray 06/06/24 14:34 XR hip LT 2V w pelvis CLINICAL HISTORY: Left hip pain. COMPARISON: CT of the abdomen and pelvis September 24, 2021. Pelvis radiograph May 08, 2024. FINDINGS: Postoperative findings within the spine are partially imaged. Right hip arthroplasty is intact. Alignment of the left hip is anatomic. There is no fracture or lesion within the left hip. There is mild joint space narrowing and osteophytosis of the left hip. There is no evidence for avascular necrosis of the left femoral head. IMPRESSION: 1. No fractures within the left hip. 2. Mild left hip osteoarthritis. 3. Intact right hip arthroplasty. ACT 112: Negative or not required by law. Electronically signed by: Ant Ortega M.D. 06/06/2024 3:28 PM MDM Narrative Patient is a 73-year-old male who presents to the emergency department with complaints of back pain. Patient states that he has been having left-sided back pain chronically for quite some time now. Patient states that he has episodes where he has a flareup of his pain and typically he is able to take steroids for it however he recently had his right hip replaced and was told that he could not take steroids for 2 weeks. Patient presented to the emergency room writhing in pain stating that the p.o. medications that he was given for home is not helping with his pain. Patient was seen by Dr. Morgan yesterday. Patient was evaluated by myself and findings were noted in the physical exam above. Patient was ordered a lumbar spine x-ray as well as IV placement and morphine and Zofran for his symptoms. Upon reevaluation the patient states that the morphine did not help with his pain and was ordered a dose of fentanyl. Patient's x-ray resulted and was interpreted by radiology to show no acute lumbar spine fractures and some postop findings after a fusion of L3-L5. I discussed these findings with the patient and the patient states that his pain was still significant and he was unable to ambulate to the bathroom without significant discomfort. The patient was ordered a second dose of IV morphine as well as a dose of Flexeril and a hip and pelvis x-ray. Patient's hip and pelvis x-ray were interpreted by radiology to show no acute fractures within the left hip and intact right hip arthroplasty and no significant acute bony findings. Because the patient saw Dr. Salas yesterday I attempted to reach out to Dr. Salas but was unsuccessful. So I reached out to Dr. Coy who is client solutions specialist for orthospine. Dr. Coy stated that the patient's back pain is chronic and surgical intervention is not recommended in this case, the patient needs to follow-up with pain management however with the patient's inability to ambulate without significant pain it would be reasonable to keep the patient in the hospital. I told Dr. Coy that I would reach out to the hospitalist group to have him admitted under the medical service, which she agreed to. I spoke with the [facility] hospitalist group and gave them a full report on the patient's chief complaint, current status, current vitals and results. The [facility] hospitalist group agreed to admit the patient under their service. Please refer to the [facility] hospitalist group documentation for further management evaluation of this patient. Impression Lumbar radiculopathy, Low back pain Discharge Plan Visit Data Chief Complaint: Back Injury/Pain Stated Complaint: LT BACK/FLANK PAIN, RECENT HIP REPLACEMENT ED Provider: Juan Herring ED Midlevel Provider: Saba Nick Discharge Problem: Lumbar radiculopathy, Low back pain Patient Disposition: Admitted As Inpatient Discharge Instructions Interventions: ED Discharge Assessment Last Done: 06/06/24 22:46 Discharge Problem: Low back pain Qualifiers: Chronicity: chronic Back pain laterality: unspecified Sciatica presence: with sciatica Sciatica laterality: sciatica of left side Qualified Code(s): M54.42 - Lumbago with sciatica, left side; G89.29 - Other chronic pain
[2024-06-06] MEDS ORDERED: GLUCOSE 40% GEL 15 GM TUBE PO PRN (22:57)
[2024-06-06] MEDS ORDERED: GLUCAGON FOR INJ 1 MG VIAL SQ PRN (22:57)
[2024-06-06] MEDS ORDERED: GLUCOSE 10 TAB/TUBE PO PRN (22:57)
[2024-06-06] MEDS ORDERED: CARBOHYDRATES FOR HYPOGLYCEMIA PO PRN (22:57)
[2024-06-06] MEDS ORDERED: ONDANSETRON INJ 2 MG/ML 2 ML VIAL IV PRN (22:57)
[2024-06-06] MEDS ORDERED: DEXTROSE 50% 50 ML SYRINGE IV PRN (22:57)
[2024-06-06 23:28] LABS: Hematocrit (blood only) 36.7 % (42.0-52.0); Mean Corpuscular Hemoglobin 30.5 pg (25.0-34.0); Mean Corpuscular Hgb Conc 32.7 g/dL (32.0-36.0); Mean Corpuscular Volume 93.1 fL (80.0-100.0); Mean Platelet Volume 9.4 fL (9.4-12.4); Platelet Count 266 K/uL (130-400); RDW Coefficient of Variation 13.5 % (11.5-14.5); RDW Standard Deviation 46.1 fL (36.4-46.3); Red Blood Count 3.94 M/uL (4.70-6.10); White Blood Count 7.35 K/ul (4.8-10.8)
[2024-06-06] MEDS: ACETAMINOPHEN 500 MG TAB PO SCH (23:47)
[2024-06-06] MEDS: PREGABALIN 100 MG CAP PO SCH (23:47)
[2024-06-06] MEDS: BACLOFEN 10 MG TAB PO SCH (23:47)
[2024-06-06] MEDS: HYDROmorphone INJ 0.5 MG/0.5 ML SYR IV PRN (23:50)
[2024-06-06] MEDS: INSULIN ASPART PER UNIT CHARGE SC SCH (23:55)
[2024-06-07] MEDS: TERAZOSIN HCL 1 MG CAP PO SCH (00:22)
[2024-06-07] MEDS: LIDOCAINE 5% 1 PATCH TD STA (00:25)
[2024-06-07] MEDS: ENOXAPARIN INJ 40 MG/0.4 ML SYR SQ SCH (00:26)
[2024-06-07 08:04] LABS: Hemoglobin 10.9 g/dl (14.0-18.0); Mean Corpuscular Hemoglobin 29.9 pg (25.0-34.0); Mean Corpuscular Hgb Conc 32.1 g/dL (32.0-36.0); Mean Corpuscular Volume 93.4 fL (80.0-100.0); Mean Platelet Volume 9.6 fL (9.4-12.4); Platelet Count 247 K/uL (130-400); RDW Coefficient of Variation 13.6 % (11.5-14.5); RDW Standard Deviation 46.5 fL (36.4-46.3); Red Blood Count 3.64 M/uL (4.70-6.10); White Blood Count 6.89 K/ul (4.8-10.8)
[2024-06-07] MEDS: PANTOprazole 40 MG TAB PO SCH (08:14)
[2024-06-07] MEDS: MELOXICAM 7.5 MG TAB PO SCH (08:14)
[2024-06-07] MEDS: EZETIMIBE 10 MG TAB PO SCH (08:14)
[2024-06-07] MEDS: ATORVASTATIN 40 MG TAB PO SCH (08:15)
[2024-06-07] MEDS: ATENOLOL 25 MG TABLET PO SCH (08:15)
[2024-06-07] MEDS: TAMSULOSIN HCL 0.4 MG CAP PO SCH (08:15)
--- NOTE | 2024-06-07 08:22 | Hospitalist Progress Note ---
Date of Service June 07, 2024 Assessment & Plan (1) Lumbosacral radiculopathy: (2) Ambulatory dysfunction: (3) Diabetes mellitus, type II: (4) HTN (hypertension): (5) Dyslipidemia: (6) CAD (coronary atherosclerotic disease): (7) BPH associated with nocturia: (8) GERD (gastroesophageal reflux disease): Plan: Lumbosacral radiculopathy: Ambulatory dysfunction: Acute -Most recent MRI L-spine reported 05/30/2024 at [facility] -04/19/2024 lumbar spine: s/p L3-L5 decompression and fusion. Stable postoperative findings. No significant change in appearance of the lumbar spine since MRI of August 06, 2022. Moderate to severe central canal stenosis at L1- L2 and severe left neural foraminal stenosis at L2-L3. No lumbar spine fractures. Mild lumbar spine dextroscoliosis. -Patient reports worsening sciatic type pain after his hip was replaced on May [address] Iniguez. Patient also has a history of L3-L5 decompression and fusion surgery was performed on 04/19/2024 under the care of Dr. Salas -He was seen as an outpatient on June 05 and previously has had relief with steroid injections however this is not recommended given his recent hip replacement surgery. -Patient in the ER was given a total of fentanyl 100 mcg, morphine 4 mg, and Flexeril with continued reported pain while ambulating. -He was started on scheduled Tylenol, lidocaine patch, oxycodone (utilized ONE dose/24 hour period), Dilaudid PRN (He utilized ONE dose/24 hour period) -He is home pain medication regimen includes: * Meloxicam 7.5 mg p.o. every morning; will hold this while trialing ketorolac * Baclofen 10 mg p.o. Q8 * Oxycodone 10 mg p.o. every 6 as needed * Tramadol 100 mg p.o. Q8 * Lyrica 100 mg p.o. twice daily -Will ADD the following medications to his pain regimen: * Lidocaine patch * Scheduled Tylenol 1G Q8 * Voltaren gel * Ketorolac 15 mg Q6h PRN -On examination patient with no difficulty with SLR, tenderness at upper aspect of lateral piriformis muscle. He continues to deny loss of bowel or bladder function. He was up ambulating with physical therapy which went well however as he continues to ambulate his main complaint is that he stiffens up -During the examination it appeared that some of his pain was inflammatory. Will consult pain management for further guidance. In the meantime we will continue lidocaine patch, scheduled Tylenol, add Voltaren gel and trial ketorolac Appreciate Orthospine consult Will await further guidance from PT/OT evaluation Monitor labs in a.m. Diabetes mellitus, type II: Chronic A1c: 6.2 on 05/15/24 Hold home Jardiance, Ozempic Novolog sliding scale per protocol CAD: HTN: HLD: chronic Continue atenolol, atorvastatin, zetia BPH: chronic Continue tamsulosin, terazosin Disposition: DVT Prophylaxis: Lovenox SQ Admit med surg Follows with Dr Madrigal for routine care I spent a total of 62 minutes coordinating, documenting, and providing care for this patient excluding time spent in the performance of separately billed services. All of the aforementioned completed while collaborating with the assigned attending physician for a full treatment plan. Please see their addendum for further details. Admission and Anticipated Discharge Date Admission Date: June 06, 2024 Supervising Physician Co-Signing Physician Notes Patient seen and examined Agree with findings and plans as detailed by Riri MELVIN Subjective Pt lying in his hospital bed on his right side. Review of Systems Review of Systems: Neuro: (-) Falls, trauma, slurred speech HEENT: (-) [place], dizziness, dysphagia, visual or auditory changes CV: (-) CP, palpitations, swelling Resp: (-) SOB GI: (-) appetite changes, N/V/D, bowel changes : (-) urinary changes Skin: (-) rashes Psych: (-) anxiety, depression Physical Exam Physical Exam: Neuro: AAOx4, PERRLA, no aphagia, memory changes, CNII-XII grossly intact HEENT: head normocephalic, moist mucus membranes CV: S1/S2, (-) M/G/R, (-) edema, cap refill < 3 seconds Resp: Lungs CTA in all yan. On RA GI: Abdomen S/NT/ND, Ax4 bowel sounds, (-) CVA tenderness Musculoskeletal: 5/5 B/L UE strength, 5/5 B/L LE strength. No gait disturbance Skin: (-) rashes , (-) erythema. Psych: euthymic mood Results & Data Results & Data Vital Signs (Past 12 Hours) Vital Signs Temp Pulse Pulse Resp BP BP Pulse Ox 06/07/24 07:46 36.5 C 68 18 114/67 95 06/06/24 23:15 06/06/24 22:57 36.4 C L 85 20 138/77 95 06/06/24 22:46 36.5 C 06/06/24 22:33 69 15 180/95 H 94 06/06/24 22:30 74 17 180/95 H 95 06/06/24 22:02 95 06/06/24 22:00 72 19 166/130 H 87 L 06/06/24 21:30 72 21 153/90 H 91 06/06/24 20:33 68 16 92 06/06/24 20:30 67 18 175/95 H 96 O2 Del Method O2 Flow Rate 06/07/24 07:46 CPAP 06/06/24 23:15 Room Air 06/06/24 22:57 Room Air 06/06/24 22:46 06/06/24 22:33 Nasal Cannula 2 06/06/24 22:30 Nasal Cannula 2 06/06/24 22:02 Nasal Cannula 2 06/06/24 22:00 Room Air 06/06/24 21:30 Room Air 06/06/24 20:33 06/06/24 20:30 Room Air Laboratory Results Short CBC 06/06/24 06/06/24 06/07/24 Range/Units 14:15 23:08 07:09 WBC 8.76 7.35 6.89 (4.8-10.8) K/ul Hgb 11.7 L 12.0 L 10.9 L (14.0-18.0) g/dl Hct 35.6 L 36.7 L 34.0 L (42.0-52.0) % Plt Count 242 266 247 (130-400) K/uL BMP 06/06/24 14:15 Sodium 138 Potassium 4.3 Chloride 107 Carbon Dioxide 25 BUN 14 Creatinine 1.02 Glucose 108 H Calcium 9.2 Liver Function 06/06/24 Range/Units 14:15 Total Bilirubin 1.1 H (0.2-1.0) mg/dl AST 17 (13-39) U/L ALT 17 (7-52) U/L Alkaline Phosphatase 115 H (34-104) U/L Albumin 3.7 (3.4-5.0) gm/dl
[2024-06-07 08:23] LABS: BUN Creatinine Ratio 15.1 (10-20); Calcium 8.8 mg/dl (8.6-10.3); Creatinine Clr Calc Pharmacy 70.4 ml/min
[2024-06-07] MEDS: oxyCODONE HCL IR 5 MG TAB (IMMEDIATE RELEASE) PO PRN (10:48)
[2024-06-07] MEDS: KETOROLAC TROMETHAMINE 15 MG/ML VIAL IV PRN (13:54)
[2024-06-07] MEDS: DICLOFENAC SOD 1% GEL 100 GM TUBE EXT SCH (14:26)
--- NOTE | 2024-06-07 16:45 | Orthopedic Consultation ---
Date of Service June 07, 2024 History of Present Illness Reason for Consultation: Low back pain Requesting Physician: . Attending Physician: Anahy Wells MD 73-year-old gentleman known to me, was in the office 2 days previous. He is status post right hip replacement on May 22 at [facility] with improvement of his right hip pain. He is complete his physical therapy and is now ambulating using a cane. He notes that shortly after the procedure and the subsequent days he was having a fair amount of pain, first indicating this was more in the mid lumbar spine but then also noting it was more in the lumbosacral spine on either side. He will get spasms that would wrap around the sides in the lower abdomen. The symptoms were intermittent, he was evaluated in the emergency room and underwent a new lumbar MRI on May 30, 2024. He was also treated with some baclofen and tramadol. Yesterday he had similar episodes of back pain only, as it was not relieved by him riding in the car which has worked for him in the past, he presented to the emergency room for additional medication. Exam reveals and indicate pain in the mid lumbar spine more so on the left, and also lumbosacral junction. He has intact strength in lower extremities, no other new findings. Review of MRI images of the lumbar spine from [facility] from May 30, 2024, this my separate interpretation and was also compared to the previous MRI from April 20,, this reveals the patient to have similar findings with notable degenerative changes involving L2-3 and L1-2 then slightly less degenerative changes moving into the thoracolumbar junction, he has moderate canal stenosis at L1-2, the foramina and are narrowed on the left at L2-3 severe, and to a lesser degree at L1-2. Prior CT scan evaluation in 2022 reveals the patient not to have a fusion extending from L5-S1. Impression: Recent flareup of back pain after total hip replacement from 2 weeks previous, previous surgery L3-L5 with adjacent segment degeneration both at L5- S1 and also cephalad going into the lower thoracolumbar junction. Plan: I discussed with the patient the conversation that we had on June 05, 2 days ago relative to the overall plan of him continuing with conservative measures including injections as he does not have any findings relative to jess nges in the MRIs, he does have multilevel degenerative changes going into the thoracic spine, but operative intervention is not indicated at this time. I recommended the patient continue working with pain management, he notes that he is improved this morning, and continue with mobilization and weight reduction. Physical therapy should be employed along with pain management but the patient has been able to mobilize with some additional time as it seems his operative intervention for his hip is aggravated some of his axial symptoms, he is in agreement to this plan. Allergies Allergy/AdvReac Type Severity Reaction Status Date / Time Sulfa (Sulfonamide Allergy Mild RASH Verified 05/17/24 10:46 Antibiotics) Home Medications Medication Instructions Recorded Confirmed Type atorvastatin 80 mg tablet 80 mg PO QAM 03/13/19 06/06/24 History ezetimibe 10 mg tablet 10 mg PO QAM 04/12/19 06/06/24 History pantoprazole 40 mg tablet,delayed 40 mg PO QAM 04/12/19 06/06/24 History release empagliflozin 10 mg tablet 10 mg PO QAM 10/13/22 06/06/24 History (Jardiance) nitroglycerin 0.4 mg sublingual 0.4 mg sublingual UD PRN Chest Pain 11/30/22 06/06/24 History tablet (Nitrostat) tizanidine 4 mg tablet 4 mg PO BID PRN muscle spasticity 06/05/24 06/06/24 Rx #30 tabs aspirin 81 mg tablet,delayed 81 mg PO BID 06/06/24 06/06/24 History release atenolol 25 mg tablet 25 mg PO QAM 06/06/24 06/06/24 History baclofen 10 mg tablet 10 mg PO Q8 06/06/24 06/06/24 History meloxicam 7.5 mg tablet 7.5 mg PO QAM 06/06/24 06/06/24 History oxycodone 5 mg tablet 10 mg PO Q6 PRN Pain 06/06/24 06/06/24 History pregabalin 100 mg capsule 100 mg PO BID 06/06/24 06/06/24 History semaglutide 2 mg/dose (8 mg/3 mL) 2 mg subcut WK 06/06/24 06/06/24 History subcutaneous pen injector (Ozempic) tamsulosin 0.4 mg capsule 0.4 mg PO QAM 06/06/24 06/06/24 History terazosin 2 mg capsule 2 mg PO HS 06/06/24 06/06/24 History tramadol 50 mg tablet 100 mg PO Q8 06/06/24 06/06/24 History Past Med/Surg History Problem List (Updated 06/07/24 @ 11:36 by OLEGARIO Alcaraz) Lumbar radiculopathy (Acute) CAD (coronary atherosclerotic disease) Dyslipidemia Diabetes mellitus, type II Ambulatory dysfunction Lumbosacral radiculopathy Adjacent segment disease of lumbar spine with history of fusion procedure Scoliosis of lumbar region due to degenerative disease of spine in adult Obesity, Class II, BMI 35-39.9 Osteoarthritis of right hip Right hip pain Low back pain (Acute) History of lumbar spinal fusion BPH associated with nocturia PARKER (acute kidney injury) (Acute) Syncope HTN (hypertension) (Chronic) Hx of renal calculi (Chronic) Coronary artery disease (Chronic) Non-ST elevated myocardial infarction (non-STEMI) (Acute) Impotence (Chronic) Malignant neoplasm of bladder Diabetes mellitus (Acute) GERD (gastroesophageal reflux disease) (Acute) Rash Nocturnal hypoxemia Urinary symptom or sign Nocturia Severe obstructive sleep apnea Encounter for pre-operative examination Medical History Acute hypotension Borderline diabetes History of colon polyps ? IN HX / MINOR THINGS History of malignant neoplasm of bladder HX REMOVED/NO PROBLEMS FOR YRS Sleep apnea CPAP Myocardial infarction 2013 - CATH/STENT X 1 - [facility] Chronic back pain Nephrolithiasis HX Hypertension Dyslipidemia Esophageal reflux CAD (coronary atherosclerotic disease) Surgical History History of cataract surgery rt/left History of colonoscopy History of cardiac cath STENT X1 /HX /2013 History of cystoscopy with resection of bladder tumor H/O hernia repair H/O arthroscopic knee surgery H/O shoulder surgery Hx of appendectomy History of lumbar surgery S/P wrist surgery Family History Mother Coronary heart disease Hypertension Nephrolithiasis Father Coronary heart disease Hypertension Social History Smoking Status: Former smoker Tobacco Type: Cigarettes Second Hand Exposure: No; Do You Dip or Chew Tobacco: No; Tobacco Cessation Education Requested by Patient: No Hx Alcohol Use: Yes Hx Substance Use: No Preferred Language: Iranian Communication Ability: Effective Cotton 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 Physical Exam . Results & Data Results & Data Laboratory Results . Diagnostic Findings . PG Care Time/CCT Total # of Minutes Spent Total Time Spent with Patient: Total time spent is greater than 50% in coordination of care (as documented) at patient's floor/unit and/or counseling patient: Coding Level of Care Code 42561 IN/OBS CONSULT LVL 2,35M
[2024-06-08] MEDS: bisacodyL 5 MG TABEC PO PRN (06:01)
--- NOTE | 2024-06-08 07:30 | Hospitalist Progress Note ---
Date of Service June 08, 2024 Assessment & Plan (1) Lumbosacral radiculopathy: (2) Ambulatory dysfunction: (3) Diabetes mellitus, type II: (4) HTN (hypertension): (5) Dyslipidemia: (6) CAD (coronary atherosclerotic disease): (7) BPH associated with nocturia: (8) GERD (gastroesophageal reflux disease): Plan: Lumbosacral radiculopathy: Ambulatory dysfunction: Acute -Most recent MRI L-spine reported 05/30/2024 at [facility] -04/19/2024 lumbar spine: s/p L3-L5 decompression and fusion. Stable postoperative findings. No significant change in appearance of the lumbar spine since MRI of August 06, 2022. Moderate to severe central canal stenosis at L1- L2 and severe left neural foraminal stenosis at L2-L3. No lumbar spine fractures. Mild lumbar spine dextroscoliosis. -Patient reports worsening sciatic type pain after his hip was replaced on May [address] Iniguez. Patient also has a history of L3-L5 decompression and fusion surgery was performed on 04/19/2024 under the care of Dr. Salas -He was seen as an outpatient on June 05 and previously has had relief with steroid injections however this is not recommended given his recent hip replacement surgery. -Patient in the ER was given a total of fentanyl 100 mcg, morphine 4 mg, and Flexeril with continued reported pain while ambulating. -He was started on scheduled Tylenol, lidocaine patch, oxycodone (utilized ONE dose/24 hour period), Dilaudid PRN (He utilized ONE dose/24 hour period) -He is home pain medication regimen includes: * Meloxicam 7.5 mg p.o. every morning; will hold this while trialing ketorolac * Baclofen 10 mg p.o. Q8 * Oxycodone 10 mg p.o. every 6 as needed * Tramadol 100 mg p.o. Q8 * Lyrica 100 mg p.o. twice daily -Will ADD the following medications to his pain regimen: * Lidocaine patch * Scheduled Tylenol 1G Q8 * Voltaren gel * Ketorolac 15 mg Q6h PRN -On examination patient with no difficulty with SLR, tenderness at upper aspect of lateral piriformis muscle. He continues to deny loss of bowel or bladder function. He was up ambulating with physical therapy which went well however as he continues to ambulate his main complaint is that he stiffens up -During the examination it appeared that some of his pain was inflammatory. Will consult pain management for further guidance. In the meantime we will continue lidocaine patch, scheduled Tylenol, add Voltaren gel and trial ketorolac Appreciate [facility] consult Will await further guidance from PT/OT evaluation Monitor labs in a.m. Constipation: Acute Likely secondary to sedentary state and opioid use Started Senna and Colace (+) flatulance Monitor Diabetes mellitus, type II: Chronic A1c: 6.2 on 05/15/24 Hold home Jardiance, Ozempic Novolog sliding scale per protocol CAD: HTN: HLD: chronic Continue atenolol, atorvastatin, zetia BPH: chronic Continue tamsulosin, terazosin Disposition: DVT Prophylaxis: Lovenox SQ Admit med surg Follows with Dr Madrigal for routine care I spent a total of 62 minutes coordinating, documenting, and providing care for this patient excluding time spent in the performance of separately billed services. All of the aforementioned completed while collaborating with the assigned attending physician for a full treatment plan. Please see their addendum for further details. Admission and Anticipated Discharge Date Admission Date: June 06, 2024 Subjective Pt sitting upright in his hospital bed in no apparent distress. Pt c/o sciatic type pain in LLE; worse with prolonged ambulation/getting into bed. Has been working with PT - see below for note Pt denies STANLEY, dizziness, chest pain, SOB, palpitations, N/V/D C/o constipation; LBM 06/04; ordered Colace Review of Systems Review of Systems: Neuro: (-) Falls, trauma, slurred speech HEENT: (-) STANLEY, dizziness, dysphagia, visual or auditory changes CV: (-) CP, palpitations, swelling Resp: (-) SOB GI: (-) appetite changes, N/V/D, bowel changes : (-) urinary changes Skin: (-) rashes Psych: (-) anxiety, depression Physical Exam Physical Exam: Neuro: AAOx4, PERRLA, no aphagia, memory changes, CNII-XII grossly intact HEENT: head normocephalic, moist mucus membranes CV: S1/S2, (-) M/G/R, (-) edema, cap refill < 3 seconds Resp: Lungs CTA in all yan. On RA GI: Abdomen S/NT/ND, Ax4 bowel sounds, (-) CVA tenderness Musculoskeletal: 5/5 B/L UE strength, 5/5 B/L LE strength. (+) tenderness at left periformis muscle. No gait disturbance; uses a walker with PT. Skin: (-) rashes , (-) erythema. Psych: euthymic mood Results & Data Results & Data Vital Signs (Past 12 Hours) Vital Signs Temp Pulse Resp BP Pulse Ox O2 Del Method 06/07/24 23:53 36.4 C L 66 18 154/80 H 95 Room Air
[2024-06-08 07:51] VITALS: PULSE 75
[2024-06-08] MEDS: POLYETHYLENE (MIRALAX) 17 GM PACK PO PRN (07:52)
[2024-06-08] MEDS: DOCUSATE SODIUM 100 MG CAP PO SCH (08:34)
[2024-06-08] MEDS: SENNA 8.6 MG TAB PO SCH (08:34)
--- NOTE | 2024-06-08 13:46 | Pain Management Consultation ---
Date of Consultation June 08, 2024 Assessment & Plan (1) Lumbar radiculopathy: (2) Obesity, Class II, BMI 35-39.9: (3) History of lumbar spinal fusion: Plan 1. When patient has a typical flareup of pain he typically uses oral dexamethasone which helps alleviate the pain. As the patient is not allowed to take oral dexamethasone due to recent right hip replacement, we have discussed alternatives. I have ordered ketorolac pills that he can take on days that he does have the pain. He is not to take meloxicam on the days he takes this medication. 2. Recommend continuation of Lyrica 100 mg twice daily. 3. Recommend discontinuation of oral narcotics and oral muscle relaxers due to lack of efficacy. 4. Nothing to offer interventionally. Patient states that he is pain-free currently and exam is unremarkable. 5. He does consider discharge to home today. He can discuss this with hospitalist. 6. Continue the use of spinal cord stimulator as he does find it moderately efficacious towards diminishing his chronic back pain. History of Present Illness Reason for Consultation: back pain Attending Physician: Anahy Wells MD History of Present Illness This is a 73-year-old male with a significant history of lumbar postlaminectomy syndrome, chronic low back pain. He does have a significant history of an L3-L5 fusion by Dr. Ba. He does have chronic low back pain for which he has previously received greater trochanteric bursa injections, lumbar GALLITO's, L5-S1 medial branch radiofrequency ablations with [facility] pain management without any significant improvement. He is scheduled for a right SI joint injection on 08/03/[address] Lamar. This pain along the right low back/hip pain that he was experiencing was found to be of the right hip so he underwent a replacement by Dr. Iniguze on 05/22/2024 which did alleviate the pain in the right hip. He states that there is an intermittent sharp jabbing pain along the left low back typically with prolonged standing, twisting. Sitting and driving in a car typically alleviate the pain. Typically whenever he has this flareup he will take oral dexamethasone to prevent him from going to the emergency department for treatment which typically works. Since he has had the right hip replaced he was told to avoid oral steroids, unsure on how long to avoid them for. Pain is located along the left low back/buttock region and there is intermittent pains down the left leg and nondermatomal pattern. Currently he is receiving Lyrica 100 mg twice daily and baclofen 10 mg every 8 hours. He does not find oxycodone effective towards diminishing his pain. IV Dilaudid 0.5 mg sparingly does provide mild relief. He is also tried tramadol, tizanidine. No bowel/bladder incontinence, saddle anesthesia, foot drop, falls. He does have a [place] [employer] spinal cord stimulator that was implanted in October 2023 but he does find moderately efficacious towards diminishing his pain. Case discussed with Dr. Jania Orozco Allergies Allergy/AdvReac Type Severity Reaction Status Date / Time Sulfa (Sulfonamide Allergy Mild RASH Verified 05/17/24 10:46 Antibiotics) Home Medications Medication Instructions Recorded Confirmed Type atorvastatin 80 mg tablet 80 mg PO QAM 03/13/19 06/06/24 History ezetimibe 10 mg tablet 10 mg PO QAM 04/12/19 06/06/24 History pantoprazole 40 mg tablet,delayed 40 mg PO QAM 04/12/19 06/06/24 History release empagliflozin 10 mg tablet 10 mg PO QAM 10/13/22 06/06/24 History (Jardiance) nitroglycerin 0.4 mg sublingual 0.4 mg sublingual UD PRN Chest Pain 11/30/22 06/06/24 History tablet (Nitrostat) tizanidine 4 mg tablet 4 mg PO BID PRN muscle spasticity 06/05/24 06/06/24 Rx #30 tabs aspirin 81 mg tablet,delayed 81 mg PO BID 06/06/24 06/06/24 History release atenolol 25 mg tablet 25 mg PO QAM 06/06/24 06/06/24 History baclofen 10 mg tablet 10 mg PO Q8 06/06/24 06/06/24 History meloxicam 7.5 mg tablet 7.5 mg PO QAM 06/06/24 06/06/24 History oxycodone 5 mg tablet 10 mg PO Q6 PRN Pain 06/06/24 06/06/24 History pregabalin 100 mg capsule 100 mg PO BID 06/06/24 06/06/24 History semaglutide 2 mg/dose (8 mg/3 mL) 2 mg subcut WK 06/06/24 06/06/24 History subcutaneous pen injector (Ozempic) tamsulosin 0.4 mg capsule 0.4 mg PO QAM 06/06/24 06/06/24 History terazosin 2 mg capsule 2 mg PO HS 06/06/24 06/06/24 History tramadol 50 mg tablet 100 mg PO Q8 06/06/24 06/06/24 History Patient History Medical History Acute hypotension Borderline diabetes History of colon polyps ? IN HX / MINOR THINGS History of malignant neoplasm of bladder HX REMOVED/NO PROBLEMS FOR YRS Sleep apnea CPAP Myocardial infarction 2014 - CATH/STENT X 1 - [facility] Chronic back pain Nephrolithiasis HX Hypertension Esophageal reflux Surgical History History of cataract surgery rt/left History of colonoscopy History of cardiac cath STENT X1 /HX /2013 History of cystoscopy with resection of bladder tumor H/O hernia repair H/O arthroscopic knee surgery H/O shoulder surgery Hx of appendectomy History of lumbar surgery S/P wrist surgery Family History Mother Coronary heart disease Hypertension Nephrolithiasis Father Coronary heart disease Hypertension Social History Smoking Status: Former smoker Tobacco Type: Cigarettes Second Hand Exposure: No; Do You Dip or Chew Tobacco: No; Tobacco Cessation Education Requested by Patient: No Hx Alcohol Use: Yes Hx Substance Use: No Preferred Language: Arabic Communication Ability: Effective Tube Tester Required: No Beliefs That Will Affect Care: None marital status: Current Living Situation: Spouse current occupational status: retired Other Information That Helps Us Care for You: No Feels Safe at Home: Yes Assistive Devices: Cane, CPAP and Walker Physical Exam Physical Exam: GENERAL: This is a 73-year-old male but does not appear in any acute distress. HEAD/FACE: Normocephalic and atraumatic. EYES: No drainage or conjunctival injection. ENT: Nose without bleeding or discharge. Oral mucosa moist. NECK: Full ROM without apparent pain. No swelling or masses noted. RESPIRATORY: Patient with unlabored breathing. No signs of respiratory distress. CHEST/AXILLA: Chest movement symmetrical. No deformities noted. ABDOMEN well-healed surgical incision along the lumbar midline. Mild diffuse lumbosacral tenderness. No SI joint tenderness. No myofascial spasm or trigger points noted. SKIN: [place], warm and dry. No rash noted. MS/EXTREMITY: Bilateral 3+ pitting edema of the feet. 4/5 strength of the bilateral lower extremities. NEURO: Alert and appears oriented. Speech is fluent. Cranial Nerves are grossly intact. PSYCH: Alert, pleasant, affect is calm Results (Pain Clinic) Diagnostic Review MRI Findings: MRI OF THE LUMBAR SPINE WITHOUT CONTRAST CLINICAL HISTORY: Back pain. COMPARISON STUDY: Lumbar spine radiographs April 05, 2024. Lumbar spine MRI August 06, 2022. Lumbar spine CT July 21, 2022. TECHNIQUE: Utilizing a 1.5 Roz magnet and dedicated coil, multiplanar, multiecho imaging of the lumbar spine was performed without IV contrast. FINDINGS: For purposes of numbering on this exam, the L5-S1 disc space is assigned to axial image 23 of 25. There is mild dextroscoliosis of the lumbar spine. Vertebral body heights are maintained. There are no fractures. Discogenic changes are noted at multiple levels. There are several hemangiomas within the lower thoracic spine. There is no intracanalicular mass or fluid collection. Conus terminates at the mid L1 level. A small laminectomy bed fluid collection is unchanged. There are postoperative findings consistent with L3-L5 decompression and fusion. There is an L4-L5 spacer. Postoperative appearance is unchanged since MRI August 06, 2022. T12-L1: There is disc bulge. This results in mild to moderate central canal stenosis, unchanged L1-2: Severe disc space narrowing is noted with facet arthrosis and ligamentous hypertrophy. There is disc bulge. The findings result in moderate to severe central canal stenosis, unchanged. Patent AP diameter canal is 5.8 mm. There is moderate bilateral neural foraminal stenosis. L2-3: Severe disc space narrowing is noted. There is no separate central canal stenosis. Severe left neural foraminal stenosis due to osteophyte formation and facet arthrosis is unchanged. Moderate right neural foraminal stenosis is also unchanged. L3-4: No central canal stenosis is present. Neural foramen are patent. Postoperative findings are unchanged. L4-5: No central canal stenosis is noted. There is mild to moderate bilateral neural foraminal stenosis which is unchanged. L5-S1: Central canal and neural foramen are patent. IMPRESSION: 1. Status post L3-L5 decompression and fusion. Stable postoperative findings. 2. No significant change in appearance of the lumbar spine since MRI of August 06, 2022. Moderate to severe central canal stenosis at L1-L2 and severe left neural foraminal stenosis at L2-L3. 3. No lumbar spine fractures. 4. Mild lumbar spine dextroscoliosis. ACT 112: Negative or not required by law. Electronically signed by: Ant Ortega M.D. 04/20/2024 7:35 AM
--- NOTE | 2024-06-08 14:46 | Discharge Summary ---
Date of Service June 08, 2024 Admission HPI Per Admitting Provider Patient is 73-year-old male with PMH HTN, HLD, GERD, DM II, CAD, MINA, obesity, lumbar disc disease presented to ER with complaint of low back pain with radiation to left buttock and down left leg. States has been ongoing issue and following with ortho spine. Denies any new injury or trauma. Last seen by orthospine, Dr. Salas yesterday 06/05/2024. States taking tramadol, oxycodone without relief. Pain aggravated with movement and states is having trouble ambulating secondary to pain. Has some tingling to left upper leg intermittently. Patient reports recent hip replacement by Dr. Iniguez on 05/22/2024. He reports following with Ortho this week and they did not want him on any steroids given his recent surgery. Denies fever/chills, diaphoresis, N/V/D/C, STANLEY, dizziness, CP, SOB, palpitations, cough, rhinorrhea, abdominal pain, extremity weakness, extremity edema, loss control of bowel or bladder, saddle paresthesias, rashes, urinary symptoms. No leukocytosis was noted during admission and two imaging studies were performed: 06/06: Lumbar spine x-ray: 1. No acute lumbar spine fractures. 2. Stable postoperative findings following L3-L5 decompression and fusion. 06/06: Hip/pelvis x-ray: 1. No fractures within the left hip. 2. Mild left hip osteoarthritis. 3. Intact right hip arthroplasty. At home he was given a Lidocaine patch, scheduled Tylenol, Voltaren gel, and Ketorolac as needed. Prior to coming into the hospital you were prescribed Meloxicam, Baclofen, Oxycodone, Lyrica and Tramadol. Pain management evaluated the patient and recommended the followin. When patient has a typical flareup of pain he typically uses oral dexamethasone which helps alleviate the pain. As the patient is not allowed to take oral dexamethasone due to recent right hip replacement, we have discussed alternatives. I have ordered ketorolac pills that he can take on days that he does have the pain. He is not to take meloxicam on the days he takes this medication. 2. Recommend continuation of Lyrica 100 mg twice daily. 3. Recommend discontinuation of oral narcotics and oral muscle relaxers due to lack of efficacy. 4. Nothing to offer interventionally. Patient states that he is pain-free currently and exam is unremarkable. 5. He does consider discharge to home today. He can discuss this with hospitalist. 6. Continue the use of spinal cord stimulator as he does find it moderately efficacious towards diminishing his chronic back pain. Patient stable upon discharge after attending discussion with the patient. Admission Exam Per Admitting Provider General: mild distress secondary to buttock discomfort, obese elderly male Head: normocephalic, atraumatic Eyes: conjunctiva non-injected, anicteric ENT: normal inspection external ears, nose, mucous membranes moist Neck: supple, trachea midline Lungs: clear, no respiratory distress, no wheezing/rhonchi/rales CV: RRR, no murmur, no pretibial edema Abd: normal BS, soft, non-tender Back: +left lower back and left buttock tenderness to palpation, +straight leg raise to approx 45 degrees, sensation to light touch intact Ext: no cyanosis, no calf tenderness Neuro: A&O x 3, no focal deficits noted, normal affect Skin: warm, dry Principal Diagnosis back pain Discharge Exam Neuro: AAOx4, PERRLA, no aphagia, memory changes, CNII-XII grossly intact HEENT: head normocephalic, moist mucus membranes CV: S1/S2, (-) M/G/R, (-) edema, cap refill < 3 seconds Resp: Lungs CTA in all yan. On RA GI: Abdomen S/NT/ND, Ax4 bowel sounds, (-) CVA tenderness Musculoskeletal: 5/5 B/L UE strength, 5/5 B/L LE strength. uses a walker for ambulation intermittently Skin: (-) rashes , (-) erythema. Psych: euthymic mood Discharge Data Allergies Allergy/AdvReac Type Severity Reaction Status Date / Time Sulfa (Sulfonamide Allergy Mild RASH Verified 05/17/24 10:46 Antibiotics) Consultations 06/06/24 16:33 ED Decision to Admit Stat 06/07/24 08:00 Consult Orthopedic Spine Surgery Routine 06/07/24 08:52 Consult Pain Management Routine Hospital Course (1) Lumbar radiculopathy: (2) Ambulatory dysfunction: (3) Dyslipidemia: (4) CAD (coronary atherosclerotic disease): Plan Patient is 73-year-old male with PMH HTN, HLD, GERD, DM II, CAD, MINA, obesity, lumbar disc disease presented to ER with complaint of low back pain with radiation to left buttock and down left leg. States has been ongoing issue and following with ortho spine. Denies any new injury or trauma. Last seen by orthospine, Dr. Salas yesterday 06/05/2024. States taking tramadol, oxycodone without relief. Pain aggravated with movement and states is having trouble ambulating secondary to pain. Has some tingling to left upper leg intermittently. Patient reports recent hip replacement by Dr. Iniguez on 05/22/2024. He reports following with Ortho this week and they did not want him on any steroids given his recent surgery. Denies fever/chills, diaphoresis, N/V/D/C, STANLEY, dizziness, CP, SOB, palpitations, cough, rhinorrhea, abdominal pain, extremity weakness, extremity edema, loss control of bowel or bladder, saddle paresthesias, rashes, urinary symptoms. Total Time Total Time Spent Total Time Spent (In Minutes): I spent a total of 56 minutes coordinating, documenting, and providing care for this patient excluding time spent in the performance of separately billed services. All of the aforementioned completed while collaborating with the assigned attending physician for a full treatment plan. Please see their addendum for further details. Discharge Plan Discharge Items Patient Disposition: Home - Self-Care Reason For Visit: BACK PAIN Discharge Diagnosis: back pain Condition on Discharge: Good Activity: Resume your previous activity Non-emergency contact: Primary Care Provider Call non-emergency contact if: you have any medication questions, your pain is worsening, your pain is unusual for you and your temperature is above 101 Follow-up/Referrals: Karl Madrigal DO [Primary Care Provider] - 06/12/24 7:00 am ([address] in [facility] ) Diet: Heart Healthy Addtl Attending Provider Instructions: Paolo, Ruiz were admitted to the [facility] with back pain. You have explained to us about your history of an L3-L5 fusion with Dr. Ortega Robbins and your recurrent joint injections that have given you relief. You explained that you did have a right hip replacement on 05/22/2024 which has helped however now you are unable to receive your steroid injections postop. At home you were given a Lidocaine patch, scheduled Tylenol, Voltaren gel, and Ketorolac as needed. Prior to coming into the hospital you were prescribed Meloxicam, Baclofen, Oxycodone, Lyrica and Tramadol. MEDICATION CHANGES: Your evaluated by pain management who prescribed you with ketorolac to use as prescribed, this is anew prescription. Continue taking your previously prescribed Lyrica 100 mg by mouth twice daily. STOP taking oxycodone, tramadol, meloxicam, and Baclofen that you were prescribed prior to admission as they appear not to be effective. Continue the use of your spinal cord stimulator SUMMARY OF TEST RESULTS: 06/06: Lumbar spine x-ray: 1. No acute lumbar spine fractures. 2. Stable postoperative findings following L3-L5 decompression and fusion. 06/06: Hip/pelvis x-ray: 1. No fractures within the left hip. 2. Mild left hip osteoarthritis. 3. Intact right hip arthroplasty. RECOMMENDATIONS FOR FOLLOW-UP: 1. Follow up with your PCP office Dr. Jeevan Mckenzie on Tuesday 06/12 @ 7:00 AM at [address] [facility] in [facility]. This is the same office as Karl Madrigal PA-C 2. Arrange for outpatient PT/OT with the script provided OTHER INSTRUCTIONS: Seek medical attention if you have: * temperature above 101 * chest pain or trouble breathing * abdominal pain, nausea, vomiting * diarrhea, dark stools or bloody stools * any unanswered questions or concerns Call 911 if symptoms are severe. Please take good care of yourself. It has been a pleasure taking care of you. Please take care of yourself. If you have any questions regarding your recent hospitalization please contact [facility] and [facility] @ [phone]. History of Present Illness Reason for Consultation: back pain Attending Physician: Anahy Wells MD History of Present Illness This is a 73-year-old male with a significant history of lumbar postlaminectomy syndrome, chronic low back pain. He does have a significant history of an L3-L5 fusion by Dr. Ba. He does have chronic low back pain for which he has previously received greater trochanteric bursa injections, lumbar GALLITO's, L5-S1 medial branch radiofrequency ablations with [facility] pain management without any significant improvement. He is scheduled for a right SI joint injection on 08/03/[address] Lamar. This pain along the right low back/hip pain that he was experiencing was found to be of the right hip so he underwent a replacement by Dr. Iniguez on 05/22/2024 which did alleviate the pain in the right hip. He states that there is an intermittent sharp jabbing pain along the left low back typically with prolonged standing, twisting. Sitting and driving in a car typically alleviate the pain. Typically whenever he has this flareup he will take oral dexamethasone to prevent him from going to the emergency department for treatment which typically works. Since he has had the right hip replaced he was told to avoid oral steroids, unsure on how long to avoid them for. Pain is located along the left low back/buttock region and there is intermittent pains down the left leg and nondermatomal pattern. Currently he is receiving Lyrica 100 mg twice daily and baclofen 10 mg every 8 hours. He does not find oxycodone effective towards diminishing his pain. IV Dilaudid 0.5 mg sparingly does provide mild relief. He is also tried tramadol, tizanidine. No bowel/bladder incontinence, saddle anesthesia, foot drop, falls. Pending Studies at Discharge: No Stand-Alone Forms: My [facility], Smoking Cessation Medications and DC Order Prescriptions: New docusate sodium 100 mg Capsule 100 mg PO BID Qty: 7 0RF diclofenac sodium [Voltaren Arthritis Pain] 1 % Gel 2 g EXT Q8H Qty: 100 0RF ketorolac 10 mg tablet 10 mg PO Q6H PRN (Reason: pain) 5 Days Qty: 20 0RF Continued atorvastatin 80 mg tablet 80 mg PO QAM ezetimibe 10 mg tablet 10 mg PO QAM pantoprazole 40 mg tablet,delayed release (DR/EC) 40 mg PO QAM Jardiance 10 mg Tablet 10 mg PO QAM nitroglycerin [Nitrostat] 0.4 mg Tablet, Sublingual 0.4 mg sublingual UD PRN (Reason: Chest Pain) Rx Instructions: take 1 tablet under tongue every 5 minutes as needed for chest pain for 3 doses. call 911 ig chest pain not relieved after 1st dose Ozempic 2 mg/dose (8 mg/3 mL) pen injector 2 mg SUBCUT WK Rx Instructions: THURSDAYS aspirin 81 mg tablet,delayed release (DR/EC) 81 mg PO BID pregabalin 100 mg capsule 100 mg PO BID atenolol 25 mg tablet 25 mg PO QAM terazosin 2 mg capsule 2 mg PO HS tamsulosin 0.4 mg capsule 0.4 mg PO QAM Discontinued tizanidine 4 mg tablet 4 mg PO BID PRN (Reason: muscle spasticity) Qty: 30 1RF tramadol 50 mg tablet 100 mg PO Q8 Rx Instructions: TAKE FOR 7 DAYS meloxicam 7.5 mg tablet 7.5 mg PO QAM baclofen 10 mg tablet 10 mg PO Q8 Rx Instructions: TAKE FOR 14 DAYS oxycodone 5 mg tablet 10 mg PO Q6 PRN (Reason: Pain) Discharge Orders: Discharge Order (Routine); Ordered 06/08/24 Ordered By: Riri Ortiz/Other Patient Handouts: Anatomy of a Normal Spine Admission Data Admit Date/Time: 06/06/24 17:42 Attending Provider: Anahy Wells I. Admit Provider: Mary Lou Baker Primary Care Provider: Karl Madrigal Other Providers: Mary Lou Baker; Donte Dahl; Cliff Salas; Mohsen Boyd; Aye Levine; Blayne Ash; Pradeep Coy; Jania Orozco Other Interventions: Discharge Summary Assessment (RN) Last Done: 06/08/24 15:35 Supervising Physician Co-Signing Physician Notes Patient seen and examined Agree with plans as detailed by Riri MELVIN
[2024-06-08 15:45] VITALS: BP 111/73; RESP 18; TEMP 97.9; O2SAT 96
[2024-06-08] MEDS: KETOROLAC TROMETHAMINE 10 MG TABLET PO PRN (15:45)
== END 2024-06-08 16:17 | disposition home or self-care (01) | DRG 552 ==
LOC: ED 10:44 → 3N 17:42 → SUATTDRO 17:42 → 3N 22:46
DX: R35.1 Nocturia; Z98.890 Other specified postprocedural states; E78.5 Hyperlipidemia, unspecified; Z79.85 Long-term (current) use of injectable non-insulin antidiabetic drugs; M54.17 Radiculopathy, lumbosacral region; I25.10 Atherosclerotic heart disease of native coronary artery without angina pectoris; N40.0 Benign prostatic hyperplasia without lower urinary tract symptoms; Z87.891 Personal history of nicotine dependence; Z88.2 Allergy status to sulfonamides; E11.9 Type 2 diabetes mellitus without complications; M41.9 Scoliosis, unspecified; K21.9 Gastro-esophageal reflux disease without esophagitis; G47.33 Obstructive sleep apnea (adult) (pediatric); I10 Essential (primary) hypertension

== ENCOUNTER 2024-08-15 06:58 | Inpatient (IN) ==
--- NOTE | 2024-07-30 14:41 | PAT Medication Instructions ---
Medication Instructions Date of Service July 30, 2024 Home Medications atorvastatin 80 mg tablet 80 mg PO QAM ezetimibe 10 mg tablet 10 mg PO QAM pantoprazole 40 mg tablet,delayed release 40 mg PO QAM empagliflozin 10 mg tablet (Jardiance) 10 mg PO QAM nitroglycerin 0.4 mg sublingual tablet (Nitrostat) 0.4 mg sublingual UD PRN Chest Pain aspirin 81 mg tablet,delayed release 81 mg PO QAM atenolol 25 mg tablet 25 mg PO QAM semaglutide 2 mg/dose (8 mg/3 mL) subcutaneous pen injector (Ozempic) 2 mg subcut Q7D tamsulosin 0.4 mg capsule 0.4 mg PO QAM terazosin 2 mg capsule 2 mg PO QAM dexamethasone 4 mg tablet 4 mg PO UD PRN Pain diclofenac sodium 1 % topical gel (Voltaren Arthritis Pain) 2 g EXT Q8H PRN Pain pregabalin 150 mg capsule 150 mg PO BID MEDICATION INSTRUCTIONS: Continue as directed nitroglycerin 0.4 mg sublingual tablet (Nitrostat) 0.4 mg sublingual UD PRN Chest Pain diclofenac sodium 1 % topical gel (Voltaren Arthritis Pain) 2 g EXT Q8H PRN Pain (do not apply after bathing prior to surgery) ASK your prescriber and surgeon aspirin 81 mg tablet,delayed release 81 mg PO QAM Take morning of surgery With a small sip of water, OTHERWISE NOTHING TO EAT OR DRINK AFTER MIDNIGHT: atorvastatin 80 mg tablet 80 mg PO QAM ezetimibe 10 mg tablet 10 mg PO QAM pantoprazole 40 mg tablet,delayed release 40 mg PO QAM atenolol 25 mg tablet 25 mg PO QAM tamsulosin 0.4 mg capsule 0.4 mg PO QAM terazosin 2 mg capsule 2 mg PO QAM dexamethasone 4 mg tablet 4 mg PO UD PRN Pain pregabalin 150 mg capsule 150 mg PO BID Take evening before surgery pregabalin 150 mg capsule 150 mg PO BID Other Notes As per RN phone call, last dose to be 08/02/24 of: semaglutide 2 mg/dose (8 mg/3 mL) subcutaneous pen injector (Ozempic) 2 mg subcut Q7D STOP 3 DAYS BEFORE SURGERY: empagliflozin 10 mg tablet (Jardiance) 10 mg PO QAM If you have any questions please call us at [phone] or [phone] or [phone] or [phone]
--- NOTE | 2024-08-02 10:44 | Anesthesiology Consultation ---
Date of Service August 02, 2024 Assessment & Plan (1) Encounter for pre-operative examination: - Check BSG DOS - Infectious disease screening: Per assessment on 08/02/24- No known recent infectious disease contacts or current infectious disease symptoms. - Semaglutide instructions: Patient informed by PAT to stop 7 days prior to surgery- voiced understanding. DOS 08/15/24. Advised last dose to be 08/02/24. - Cardiology visit (05/17/24): "Coronary artery disease.. Stable, no anginal symptoms.. Blood pressure mildly elevated today, will monitor.. Patient scheduled for right hip replacement.. He is asymptomatic and euvolemic on exam.. Stable cardiac symptoms, no further cardiac testing indicated at this time.. He is low risk for perioperative cardiac complications per [facility]CRI.." - Patient acceptable risk for surgery pending surgeon-ordered PCP preop evaluation (MONIE Morgan, appt 08/02). Chart Review Chart Review: Patient seen in Pre Admission Testing Teaching & Discussion Pre-Anesthesia Teaching/Discussion Notes: Instructed NPO after midnight before surgery,except medications with 15 cc of water. Medication instructions provided according to the PAT guidelines. History Surgery Operation Date: 08/15/24 13:15 Proposed Procedures p L2-L3 Decompression and Fusion, L3-L5 Hardware Removal, with Spinal Cord Monitoring - Walter Reyes, Height/Weight Height: 5 ft 7 in Weight: 110.9 kg Allergies Allergy/AdvReac Type Severity Reaction Status Date / Time Sulfa (Sulfonamide Allergy Mild Rash Verified 07/30/24 14:49 Antibiotics) Medications Home Medications Medication Instructions Recorded Confirmed Last Taken atorvastatin 80 mg tablet 80 mg PO QAM 03/13/19 07/30/24 11/17/22 04:00 ezetimibe 10 mg tablet 10 mg PO QAM 04/12/19 07/30/24 11/17/22 04:00 pantoprazole 40 mg tablet,delayed 40 mg PO QAM 04/12/19 07/30/24 11/17/22 04:00 release empagliflozin 10 mg tablet 10 mg PO QAM 10/13/22 07/30/24 10/19/22 (Jardiance) nitroglycerin 0.4 mg sublingual 0.4 mg sublingual UD PRN Chest Pain 11/30/22 07/30/24 Unknown tablet (Nitrostat) aspirin 81 mg tablet,delayed 81 mg PO QAM 06/06/24 07/30/24 Unknown release atenolol 25 mg tablet 25 mg PO QAM 06/06/24 07/30/24 Unknown semaglutide 2 mg/dose (8 mg/3 mL) 2 mg subcut Q7D 06/06/24 07/30/24 Unknown subcutaneous pen injector (Ozempic) tamsulosin 0.4 mg capsule 0.4 mg PO QAM 06/06/24 07/30/24 Unknown terazosin 2 mg capsule 2 mg PO QAM 06/06/24 07/30/24 Unknown dexamethasone 4 mg tablet 4 mg PO UD PRN Pain 07/30/24 07/30/24 Unknown diclofenac sodium 1 % topical gel 2 g EXT Q8H PRN Pain 07/30/24 07/30/24 Unknown (Voltaren Arthritis Pain) pregabalin 150 mg capsule 150 mg PO BID 07/30/24 07/30/24 Unknown Past Medical History Medical History Ambulatory dysfunction R/t back pain Bladder cancer Hx "years ago" Continues to have follow-up cystos BPH associated with nocturia CAD (coronary artery disease) 2013 > stent x1 Chronic back pain Diabetes mellitus, type 2 NIDDM Dyslipidemia Esophageal reflux History of colon polyps Hypertension Lumbar radiculopathy Myocardial infarction 2013 > stent x1 Follows with Dr. Alvarez Nephrolithiasis Hx Nocturnal hypoxemia Per records Obesity, Class II, BMI 35-39.9 Sleep apnea CPAP (compliant) Exercise / Class Metabolic Activity III < 4 Walking/Shop/Light housework Past Family History Family History Mother Coronary heart disease Hypertension Nephrolithiasis Father Coronary heart disease Hypertension Past Surgical History Surgical History H/O arthroscopic knee surgery R/L H/O hernia repair Umbilical H/O shoulder surgery Arthroscopic, right History of cardiac cath 2013 > stent x1 History of carpal tunnel release of both wrists History of cataract surgery R/L History of colonoscopy History of cystoscopy with resection of bladder tumor History of lumbar spinal fusion History of lumbar surgery ~2016, L3-L5 History of total right hip arthroplasty [facility], Dr. Iniguez (05/22/24) Hx of appendectomy ~age 10 Hx of lithotripsy Multiple Nausea and vomiting after administration of anesthetic agent Single episode years ago Past Anesthesia History No Hx of Anesthesia Complications and No Family Hx of Anesthesia Complications History of PONV No Hx of Motion Sickness and History of PONV (Single episode) Social History Smoking Status: Never smoker Do You Dip or Chew Tobacco: No Hx Alcohol Use: Yes (very rare) Hx Substance Use: No substance use type: does not use Review of Systems Patient denies chest pain, shortness of breath, fever, chills, cough, wheezing, palpitations. Physical Exam Vital Signs BP 129/77 P 77 TEMP 98.4 SP02 94%RA RESP 16 Physical Full cervical extension range of motion. Full TMJ range of motion. TMD > 3.5 finger breaths Mallampati Score II Dentition: intact, + cap/crowns Lungs: clear throughout to auscultation Cardiac: regular rate and rhythm, no murmurs noted Spine: normal Carotid arteries: negative bruit Extremities: no LE edema Short, thick neck Lab Results Anesthesia Preop Results Results Anesthesia Widget: Glucose Level 79 mg/dl (70-99(Fasting)) 06/07/24 PT 9.8 Seconds (9.0-12.0) 08/02/24 PTT 23 Seconds (21-31) 08/02/24 INR 0.9 (0.9-1.1) 08/02/24 Urine Color Yellow 08/02/24 Urine Appearance Clear (Clear) 08/02/24 Urine pH 5.0 (4.5-7.5) 08/02/24 Urine Specific [place] 1.040 (1.000-1.030) H 08/02/24 Urine Protein Negative (Negative) 08/02/24 Urine Glucose (UA) 2+ (Negative) H 08/02/24 Urine Ketones Trace (Negative) H 08/02/24 Urine Blood Negative (Negative) 08/02/24 Urine Nitrite Negative (Negative) 08/02/24 Urine Bilirubin Negative (Negative) 08/02/24 Urine Urobilinogen Negative (Negative) 08/02/24 Urine Leukocyte Esterase Negative (Negative) 08/02/24 Blood Type O Positive 08/02/24 Antibody Screen NEGATIVE 08/02/24 Testing Laboratory Results 07/26/24 WBC 13.82 H/H 14.2/44.8 PLATELETS 206 SODIUM 139 POTASSIUM 4.0 CHLORIDE 99 CO2 28 BUN 27 CREATININE 1.0 GLUCOSE 116 HGBA1C 6.6% Electrocardiogram Date: 05/17/24 Findings: + NSR @ (67) Chest X-Ray Date: 10/10/23 FINDINGS: No lines and tubes are seen. Calcified aortic knob is seen. The lungs are clear. No evidence of pleural effusion or pneumothorax. IMPRESSION: No acute chest disease. Echocardiogram Date: 12/01/22 EF 60-65%. LV wall motion is normal. Mild concentric LVH. Mild AV sclerosis. Grade 1 diastolic dysfunction. Trace MR/TR. Stress Test Date: 07/23/21 Type: DSE Stress echo negative for inducible ischemia. Occasional PVCs. LVEF 55-59%. Mild AV sclerosis. Mildly enlarged aortic root and proximal ascending aorta (4.0/4.0 cm).
--- OUTSIDE RECORDS SUMMARY | 2024-08-15 07:13 | External Medical Summary | Summary of Care ---
Author Name Unknown Organization [facility] Address [address] [facility] [place] [address] Phone [phone] Care Team Providers Care Rod Buster Name Role Phone Wilmer Mckenzie MD Primary Care Provider Encounter Details Date Type Department Care Team (Late st Contact Info) Description 08/04/2024 Orders Only PATIENT PORTAL DO NOT DELETE THIS DEPT USED BY [place] [phone] Allergies Active Allergy Reactions Criticality Noted Date Comments Sulfa Antibiotics Rash 10/08/2016 Severe, itching rash, arms and torso documented as of this encounter (statuses as of 08/04/2024) Medications NASIM CHILDRENS ASPIRIN 81 MG PO CHEW daily Active ONETOUCH DELICA LANCETS FINE MISC 10/25/19 19 Active ONETOUCH VERIO STRP 10/25/19 19 Active Sildenafil Citrate 100 MG Oral Tablet TAKE 1 TABLET BY MOUTH ONCE DAILY NEEDED FOR SEXUAL ACTIVITY, TAKE 30 MINUTES TO 4 HOURS BEFORE ACTIVITY, DO NOT TAKE NITROGLYCERIN AFTER TAKING THIS MEDICATION 06/20/20 22 Active Tamsulosin HCl 0.4 MG Oral Capsule (Flomax) Take 1 Capsule by mouth in the morning. Active Nitroglycerin 0.4 MG Sublingual Tablet Sublingual (Nitrostat)Indica tions:Chest pain Place 1 Tablet under the tongue every 5 minutes as needed for Pain, Chest. Max dose 3 tablets in 15 minutes. Do not take within 48 hours of sildenafil. 25 Tablet 11 06/07/20 23 Active Additional Information Patient not taking.Reported on 08/02/2024 CPAP every night at bedtime. Active Ezetimibe 10 MG Oral Tablet (Zetia)Indication s:Dyslipidemia, goal LDL below 70 Take 1 Tablet by mouth in the morning. 90 Tablet 3 09/22/19 24 Active Atorvastatin Calcium 80 MG Oral Tablet (Lipitor)Indicati ons:Dyslipidemia, goal LDL below 70,ST elevation myocardial infarction (STEMI) involving other coronary artery (HCC),Encounter for management of intra-aortic balloon pump Take 1 Tablet by mouth in the morning. 90 Tablet 2 11/14/19 24 Active Terazosin HCl 2 MG Oral CapsuleIndication s:Essential hypertension with goal blood pressure less than 130/80 Take 1 Capsule by mouth at bedtime. 90 Capsule 3 11/14/19 24 Active Fluticasone Propionate 50 MCG/ACT Nasal Suspension (Flonase)Indicati ons:Non-seasonal allergic rhinitis due to pollen Administer 2 Sprays into each nostril in the morning. 48 g 3 01/31/20 24 Active Additional Information Patient not taking.Reported on 08/02/2024 Pantoprazole Sodium 40 MG Oral Tablet Delayed Release (Protonix)Indicat ions:GERD (gastroesophageal reflux disease) Take 1 Tablet by mouth in the morning. 90 Tablet 3 05/11/20 24 Active Ozempic (2 MG/DOSE) 8 MG/3ML Subcutaneous Solution Pen-injector (Semaglutide (2 MG/DOSE))Indicati ons:Diabetes mellitus due to underlying condition with stage 3a chronic kidney disease, without long-term current use of insulin ([facility]) Inject 2 mg subcutaneously once a week 3 mL 5 05/24/20 24 Active Atenolol 25 MG Oral Tablet (Tenormin) TAKE 1 TABLET BY MOUTH IN THE MORNING 90 Tablet 2 06/10/20 24 Active Diclofenac Sodium 1 % External Gel (Voltaren) Apply 2 g topically to affected area 3 times a day as needed. 06/08/20 24 Active Docusate Sodium 100 MG Oral Capsule (Colace) Take 1 Capsule by mouth in the morning and 1 Capsule before bedtime. 06/08/20 24 Active Jardiance 10 MG Oral Tablet (Empagliflozin) TAKE 1 TABLET BY MOUTH IN THE MORNING 90 Tablet 3 06/18/20 24 Active Pregabalin 150 MG Oral Capsule (Lyrica) Take 1 Capsule by mouth in the morning and 1 Capsule before bedtime. 60 Capsule 5 06/25/20 24 Active Amoxicillin 500 MG Oral Tablet Take 1 Tablet by mouth. 07/04/20 24 Active dexAMETHasone 4 MG Oral Tablet (Decadron)Indicat ions:Lumbar radiculopathy Take 2.5 Tablets by mouth 3 times a day as needed for Pain, Severe. 20 Tablet 3 07/31/19 25 Active documented as of this encounter (statuses as of 08/04/2024) Active Problems Problem Noted Date Diagnosed Date Severe obesity with body mas s index (BMI) of 35.0 to 39.9 with serious comorbidity 08/02/2023 Benign hypertension with stage 3a chronic kidney disease 02/22/2022 Overview: Per CKD protocol Sacroiliitis 01/14/2022 Diabetes mellitus without complication 2 Diabetes mellitus due to und erlying condition with stage 3a chronic kidney disease, without long-term current use of insulin 01/14/2022 Lumbar radiculopathy 01/14/2022 BPH without obstruction/lower urinary tract symp toms 01/14/2022 HTN, goal below 130/80 01/14/2022 MINA on CPAP 01/14/2022 Coronary artery disease invo lving [place] coronary artery of [place] heart without angina pectoris 04/24/2015 GERD (gastroesophageal reflux disease) 4 Dry cough 10/08/2013 Headache 09/24/2013 Overview (10/08/2015): ICD-10 update of inactive term ST elevation myocardial infarction (STEMI) of in ferior wall 09/23/2013 CAD S/P percutaneous coronary angioplasty 2013 Essential hypertension with goal blood pressure less than 130/80 09/23/2013 Dyslipidemia, goal LDL below 70 09/23/2013 documented as of this encounter (statuses as of 08/04/2024) Resolved Problems Problem Noted Date Diagnosed Date Resolved Date Chronic kidney disease, stage 3a 02/22/2022 07/26/2022 Overview: Per CKD protocol Benign hypertension with CKD (chronic kidney disease) stage III 01/14/2022 02/25/2022 Overview: Per CKD protocol Coronary atherosclerosis of [place] coronary artery 05/14/2014 04/24/2015 Right ventricular systolic dysfunction 05/14/2014 02/18/2016 Encounter for management of intra-aortic balloon pump 09/23/2013 04/24/2015 ADVANCE DIRECTIVE INFORMATION 03/14/2008 05/21/2024 Overview (03/14/2008): No, Advance Directive brochure offered , patient declined. documented as of this encounter (statuses as of 08/04/2024) Immunizations Name Administration Dates Next Due COVID-19 mRNA, LNP-s, No Pre serve, 2-Dose Series (Pfizer) 10/31/2020,10/10/2020 DTaP Dipth/Tet/Acell Pertussis (Infanrix), Peds 03/19/2014 Pneumococcal Conjugate Vacci ne, 20-valent ([id number]) 02/15/2023 Seasonal Influenza Vac., MDV , IM, 0.5 mL (Fluzone) 04/17/2015,04/17/2013 Seasonal Influenza Virus Vac cine, Unspecified Formulation 04/17/2015,04/03/2015,05/22/2014,2012 Seasonal Influenza, High Dos e, Trivalent, PF, IM (Fluzone HD) 04/03/2024 Seasonal Influenza, Quadriva lent Hd (Fluzone Hd) 04/25/2023,04/16/2022 TDAP (age 10 and older)(Boostrix) 03/19/2014 TDAP, Age 7 and older, IM (Adacel) 06/12/2024 Zoster Vaccine Recombinant (Shingrix) 04/26/2023 ,02/15/2023 documented as of this encounter Social History Tobacco Use Types Packs/Day Years Used Date Smoking Tobacco: Former Cigars Passive Smoke Exposure: Never Smokeless Tobacco: Never Comments:rare cigar, once ye sam Alcohol Use Standard Drinks/Week Comments Yes 0 (1 standard drink = 0.6 oz pure alcohol) occ beer, 1 beer every few months PHQ-2 Answer Date Recorded PHQ Adult Total Score 1 01/31/2024 Hunger Vital Sign Answer Date Recorded Within the past 12 months, y ou worried that your food would run out before you got the money to buy more. Never true 05/17/20 24 Within the past 12 months, t he food you bought just didn't last and you didn't have money to get more. Never true 05/17/2024 Childcare Answer Date Recorded Do you feel overwhelmed with taking care of a child, family member or friend? No 05/17/2024 Does your family need help f inding childcare? (Household - for ages 0-17 years) Not on file 05/17/2024 Clothing Answer Date Recorded Have you been unable to get clothing when it was really needed? No 05/17/2024 Is your family able to get c lothes or diapers when needed? (Household - for ages 0-17 years) Not on file 05/17/2024 Personal Safety Answer Date Recorded Do you feel unsafe or have concerns for your saf ety? No 05/17/2024 Do you have concerns for you r family's safety? (Household - for ages 0-17 years) Not on file 05/17/2024 Utilities Answer Date Recorded Do you have trouble paying y our heating, water, or electric bill? No 05/17/2024 Is your family able to pay t he heat, water, or electric bill? (Household - for ages 0-17 years) Not on file 05/17/2024 Does your family have access to good internet? (Household - for ages 0-17 years) Not on file 05/17/2024 Employment Status Answer Date Recorded Are you unemployed or without regular income? No 05/17/2024 Does the household have a re gular source of income? (Household - for ages 0-17 years) Not on file 05/17/2024 Social Connections Answer Date Recorded How often do you feel lonely or isolated from th ose around you? Never 05/17/2024 Financial Resource Strain Answer Date R ecorded Do you have any trouble payi ng for your medications, or do you think you might in the future? No 05/17/2024 Does your family have troubl e paying for medicine? (Household - for ages 0-17 years) Not on file 05/17/2024 Transportation Needs Answer Date Record ed Do you have trouble getting a ride to medical visits or work? (Adult - for ages 18 years and over) Not on file 05/17/2024 Does your family have a hard time getting a ride to doctors visits? (Household - for ages 0-17 years) Not on file 05/17/2024 Has lack of transportation k ept you from medical appointments, meetings, work, or from getting things needed for daily living? Check all that apply. No 05/17/2024 Do you (or your family) have trouble finding or paying for a ride (transportation)? (Household - for ages 0-17 years) Not on file 05/17/2024 Housing Stability Answer Date Recorded Do you currently live in a s helter or have no steady place to sleep at night? No 05/17/2024 Do you think you are at risk of becoming homeless? (Adult - for ages 18 years and over) Not on file 05/17/2024 Does your family worry about paying for your home or becoming homeless? (Household - for ages 0-17 years) Not on file 1 Are you homeless or worried that you might be in the future? No 05/17/2024 Are you (or your family) brad eless or worried that you might be in the future? (Household - for ages 0-17 years) Not on file Food Insecurity Answer Date Recorded Do you need food for this week? No 05/17/2024 Are you able to get enough f ood for your family? (Household - for ages 0-17 years) Not on file 05/17/2024 Does your family need food t his week? (Household - for ages 0-17 years) Not on file 05/17/2024 Do you always have enough fo od for your family? (Household - for ages 0-17 years) Not on file 05/17/2024 Sex and Gender Information Value Date Recorded Sex Assigned at Male 12/29/2021 6:34 AM EDT Legal Sex Male 5:05 AM EST Gender Identity Male 12/29/2021 6:34 AM EDT Sexual Orientation Straight 12/29/2021 6: 34 AM EDT documented as of this encounter Functional Status * Are you deaf or do you have serious difficulty hearing? Answer Date of Assessment Author No 09/23/2013 4:21 PM EDT Nia Robbins RN * Are you blind or do you have serious difficulty seeing, even when wearing glasses? Answer Date of Assessment Author No 09/23/2013 4:21 PM EDT Nia Robbins RN * Do you have serious difficulty walking or climbing stairs? (5 years old or older) Answer Date of Assessment Author No 09/23/2013 4:21 PM EDT Nia Robbins RN * Do you have difficulty dressing or bathing? (5 years old or older) Answer Date of Assessment Author No 09/23/2013 4:21 PM EDT Nia Robbins RN * Because of a physical, mental, or emotional condition, do you have difficulty doing errands alone such as visiting a doctors office or shopping? (15 years old or older) Answer Date of Assessment Author No 09/23/2013 4:21 PM EDT Nia Robbins RN documented as of this encounter Mental Status * Because of a physical, mental, or emotional condition, do you have serious difficulty concentrating, remembering, or making decisions? (5 years old or older) Answer Entry Date Author No 09/23/2013 4:21 PM EDT Nia Robbins RN documented in this encounter Plan of Treatment Upcoming Encounters Date Type Department Care Team (Late st Contact Info) Description 09/04/2024 8:00 AM EST Office Visit Pharmacy, [facility] [address] [place] [id number] [facility] [address] [place] [phone] 09/11/2024 9:00 AM EST Office Visit Family Practice [facility] [address] [place] [phone] Karl Madrigal, DO [address] [place] [phone] 10/09/2024 3:00 PM EDT Office Visit Interventional Pain Center [facility] [address] [place] [phone] Pedro Lamar, DO [address] [place] [phone] 11/07/2024 9:00 AM EDT Office Visit Nutrition & Weight Management, [facility] [address] [place] [address] Izabel Wilde PA-C [address] [place] [address] 11/21/2024 8:00 AM EDT Office Visit Cardiology, [facility] [address] [place] [address] Matilde Valerio PA-C [address] [place] [address] 02/04/2025 8:00 AM EDT Office Visit Family Practice [facility] [address] [place] [address] Karl Madrigal DO [address] [place] [address] Scheduled Procedures Name Priority Associated Diagnoses Date/Ti me COLONOSCOPY FLEXIBLE PROXIMA L DIAGNOSTIC Recall History of colonic polyps Health Maintenance Due Date Last Done Comments Adult Wellness Visit 2014 GFR 01/23/2025 07/26/2024, 04/18, 01/23/2024, Additional history exists HbA1c 01/23/2025 07/26/2024, 04/18, 01/23/2024, Additional history exists Depression Screening 01/30/2025 01/31/2024 Diabetic Eye Exam 04/04/2025 04/04/2024, , 03/30/2023, Additional history exists Albumin/Creatinine Ratio 07/26/2025 025, 08/02/2023, 07/28/2022, Additional history exists CKD HGB USE SMARTSET 88200 07/26/202507/26, 07/26/2024, 05/15/2024, Additional history exists CKD PHOS USE SMARTSET 53781 07/26/2025 01/0 03/2025, 08/02/2023, 01/19/2023, Additional history exists Diabetic Foot Exam 08/02/2025 08/02/2024, 0 08/02/2023, 02/18/2022 Colonoscopy 12/06/2025 12/06/2022, 12/06/2022 DTap/Tdap Vaccines (4 - Td or Tdap) 06/12/2034 06/12/2024, 03/19/2014, 03/19/2014 Fecal Occult Blood Test Discontinued 2019 COVID-19 Vaccine Discontinued 10/31/2020, 10/10/2020 Pneumococcal Vaccine: 50+ Years Completed 02/15/2023 Zoster Vaccines Completed 04/26/2023, 02/15/2023 Influenza Vaccine (FLU shot) Completed 04/03/2024, 04/25/2023, 04/16/2022, Additional history exists HPV (Gardasil) Vaccine Aged Out No lo nger eligible based on patient's age to complete this topic Hepatitis B Vaccine Aged Out No longe r eligible based on patient's age to complete this topic MENINGOCOCCAL (MENACTRA/MENVEO) Aged Out No longer eligible based on patient's age to complete this topic documented as of this encounter Medical Devices Implanted Type Area Payroll Bookkeeper Device Identifier Shelf Expiration Date Model / Serial / Lot Lead Kit Trial [id number] 50cm - [id number] - [id number] Implanted:Qty: 1 on 09/15/2023 by Pedro Lamar DO at [facility] N/A: Back Trendslide : PAIN MGMT 08/02/2025 [id number] / [id number] / Lead Kit Trial [id number] 50cm - [id number] - [id number] Implanted:Qty: 1 on 09/15/2023 by Pedro Lamar DO at OR [facility] N/A: Back Trendslide : PAIN MGMT 08/02/2025 [id number] / [id number] / documented as of this encounter Advance Directives * Full Code (Latest Code Status on File) Date Activated Date Inactivated Comments 09/23/2013 3:51 PM 09/25/2013 5:04 PM This order re flects the patients wishes and were consensually agreed upon. Question Answer Comments Discussion of Advance Directives occurred with: Patient Does the patient have a Living Will? No Does the patient have Health Care Power of Attor pato? No Care Teams Rod Buster Relationship Specialty Start Date End Date Wilmer Mckenzie MD [address] [place] [phone] PCP - General Family Medicine 07/25/24 documented as of this encounter
--- OUTSIDE RECORDS SUMMARY | 2024-08-15 07:13 | External Medical Summary | Summary of Care ---
Author Name Unknown Organization [facility] Address [address] [place] [address] Phone [phone] Care Team Providers Care Final Touch Up Painter Name Role Phone Wilmer Mckenzie MD Primary Care Provider Reason for Referral * Evaluate & Treat - Unlimited Visits (Within 30 days (routine)) - Authorized Specialty Diagnoses / Procedures Referred By Christina marmolejo Referred To Contact Podiatry Diagnoses Type 2 diabetes mellitus with other specified complication, without long-term current use of insulin (HCC) Keturah Wilson CRNP [address] [place] [address] Phone: tel: fax: Referral ID Status Reason Start Date Expiration Date Visits Requested Visits Authorized [id number] Authorized Specialty Services Required 08/02/[phone] Question Answer Referral Priority Within 30 days (routine) Where should this appointment be scheduled? [facility] Which condition are you referring this patient for? Diabetic foot care/pain Specific condition? Diabetic Nail trimming Medicare Patient? Yes Can Patient perform routine footcare without assistance? No Does patient have a chronic condition? Yes Has patient been seen in the past 6 months? Yes Date last seen for chronic condition: 07/31/2024 Who saw patient for chronic condition? Dr. Karl Madrigal Reason for Visit * Reason Comments pre-op exam Pre-op for lumbar mehta rgery 08/15. Encounter Details Date Type Department Care Team ([facility] st Contact Info) Description 08/02/2024 1:40 PM EST Office Visit Family Practice [facility] [address] [place] [address] Keturah Wilson CRNP [address] [place] [address] Preop examination*; Lumbar radiculopathy; Type 2 diabetes mellitus with other specified complication, without long-term current use of insulin (HCC); CAD S/P percutaneous coronary angioplasty; Sacroiliitis (HCC); MINA on CPAP; Severe obesity with body mass index (BMI) of 35.0 to 39.9 with serious comorbidity (HCC); Dyslipidemia, goal LDL below 100; BPH without obstruction/lower urinary tract symptoms; HTN, goal below 130/80; History of total hip replacement, unspecified laterality Allergies Active Allergy Reactions Criticality Noted Date Comments Sulfa Antibiotics Rash 10/08/2016 Severe, itching rash, arms and torso documented as of this encounter (statuses as of 08/02/2024) Medications NASIM CHILDRENS ASPIRIN 81 MG PO [...] disease, without long-term current use of insulin ([facility]) Inject 2 mg subcutaneously once a week [...] as of this encounter (statuses as of 08/02/2024) Active Problems Problem Noted Date Diagnosed Date [...] CPAP 01/14/2022 Coronary artery disease invo lving [place] coronary artery of [place] heart without angina pectoris 04/24/2015 GERD (gastroesophageal reflux disease) 4 Dry cough 10/08/2013 Headache 09/24/2013 Overview (10/08/2015): ICD-10 update of inactive term ST elevation myocardial infarction (STEMI) of in [place] wall 09/23/2013 CAD S/P percutaneous coronary angioplasty 2013 Essential hypertension with goal blood pressure less than 130/80 09/23/2013 Dyslipidemia, goal LDL below 70 09/23/2013 documented as of this encounter (statuses as of 08/02/2024) Resolved Problems Problem Noted Date Diagnosed Date Resolved Date Chronic kidney disease, stage 3a 02/22/2022 07/26/2022 Overview: Per CKD protocol Benign hypertension with CKD (chronic kidney disease) stage III 01/14/2022 02/25/2022 Overview: Per CKD protocol Coronary atherosclerosis of [place] coronary artery 05/14/2014 04/24/2015 Right ventricular systolic dysfunction 05/14/2014 02/18/2016 Encounter for management of intra-aortic balloon pump 09/23/2013 04/24/2015 ADVANCE DIRECTIVE INFORMATION 03/14/2008 05/21/2024 Overview (03/14/2008): No, Advance Directive brochure offered , patient declined. documented as of this encounter (statuses as of 08/02/2024) Immunizations Name Administration Dates Next Due COVID-19 mRNA, LNP-s, No Pre serve, 2-Dose Series (Pfizer) 10/31/2020,10/10/2020 DTaP Dipth/Tet/Acell Pertussis (Infanrix), Peds 03/19/2014 Pneumococcal Conjugate Vacci ne, 20-valent ([id number]) 02/15/2023 Seasonal Influenza Vac., MDV , IM, [...] No 05/17/2024 Does the household have a [facility] source of income? (Household - for ages [...] AM EDT documented as of this encounter Last Filed Vital Signs Vital Sign Reading Time Taken Comments Blood Pressure 110/64 08/02/2024 1:04 PM EST Pulse 80 08/02/2024 1:04 PM EST Temperature - - Respiratory Rate - - Oxygen Saturation 95% 08/02/2024 1:04 PM EST Inhaled Oxygen Concentration - - Weight 110.3 kg (243 lb 3.2 oz) 08/02/2024 1:04 PM EST Height 170.2 cm (5' 7.01") 08/02/2024 1:04 PM ES T Body Mass Index 38.08 08/02/2024 1:04 PM EST documented in this encounter Functional Status * Are you deaf or do you have serious difficulty hearing? Answer Date of Assessment Author No 09/23/2013 4:21 PM Nia Urban RN * Are you blind or do you have serious difficulty seeing, even when wearing glasses? Answer Date of Assessment Author No 09/23/2013 4:21 PM Nia Urban RN * Do you have serious difficulty walking or climbing stairs? (5 years old or older) Answer Date of Assessment Author No 09/23/2013 4:21 PM Nia Urban RN * Do you have difficulty dressing or bathing? (5 years old or older) Answer Date of Assessment Author No 09/23/2013 4:21 PM Nia Urban RN * Because of a physical, mental, or emotional condition, do you have difficulty doing errands alone such as visiting a doctors office or shopping? (15 years old or older) Answer Date of Assessment Author No 09/23/2013 4:21 PM Nia Urban RN documented as of this encounter Mental Status * Because of a physical, mental, or emotional condition, do you have serious difficulty concentrating, remembering, or making decisions? (5 years old or older) Answer Entry Date Author No 09/23/2013 4:21 PM Nia Urban RN documented in this encounter Patient Instructions * Patient Instructions* Kelsey Briseno, WELLNESS RN - 08/02/2024 1:07 PM EST Diabetes: Keeping Feet Healthy Inspect your feet every day for signs of a problem. Diabetes can damage nerves in your feet and cause neuropathy. This condition makes it hard for you to feel injuries or sore spots. Diabetes can also change blood flow, making it harder for small problems, like a blister, to heal properly. In fact, minor injuries can quickly become serious infections that send you to the hospital. Practice self-care to protect your feet and keep them healthy. Take Special Care Inspect your feet daily for problems such as redness, blisters, cracks, dry skin, or numbness. Use a mirror to see the bottoms of your feet. Or, ask for help. Manage your diabetes. Monitor and control your blood sugar. Take all your medications as prescribed. Avoid walking barefoot, even indoors. Wash your feet with warm water and mild soap. Dry well, especially between toes. Dont treat corns or calluses yourself. Talk to your doctor or director process (a doctor who specializes in foot care) if you need assistance trimming your toenails. Use moisturizing cream or lotion if you have dry skin, but dont use it between toes. Dont use heating pads on your feet. If you have neuropathy, you could get a burn and not feel it. Stop smoking. Smoking restricts blood flow and can make it harder for wounds to heal. Have Regular Checkups Foot problems can develop quickly. So be sure to follow your healthcare teams schedule for regular checkups. During office visits, take off your shoes and socks as soon as you get in the exam room. Ask your healthcare provider to examine your feet for problems. This will make it easier to find and treat small skin irritations before they get worse. Regular checkups can also help keep track of the blood flow and feeling in your feet. If you have neuropathy, you may need to have checkups more often. Wear Proper Footwear Wearing proper footwear is very important. If areas of your feet have been damaged by too much pressure, your healthcare provider may recommend changing your footwear. In some cases, avoiding high heels or tight work boots may be all thats needed. Or, your healthcare provider may recommend special shoes or custom inserts. These help protect your feet and keep existing irritations from getting worse. If you need special footwear, ask your healthcare provider if you qualify for [employer] diabetic shoe program. Make Sure Shoes and Socks Fit Any pair of shoes--new or old--should feel comfortable as soon as you put them on. There shouldnt be any rubbing when you walk. Wear the right shoe for any activity. For instance, a running shoe is designed to keep your feet injury-free while jogging. Buy shoes at the end of the day, when your feet are larger. Make sure they provide support without feeling too loose. Make sure your socks fit, t oo. Wear soft, seamless, well-padded socks for activity. Cotton or microfiber socks are best to help to absorb sweat. To protect your feet, avoid shoes that are open-toed or open-heeled. If you have questions about what kinds of shoes and socks are best, talk to your healthcare team. Get Regular Exercise Regular exercise improves blood flow in your feet. It also increases foot strength and flexibility.Gentle exercises, like walking or riding a stationary bicycle, are best. You can also do special foot exercises. Just be sure to talk with your healthcare provider before starting any exercise program. Also mention if any exercise causes pain, redness, or other signs of foot problems. Note: If you have any kind of break in the skin of your foot or ankle, keep the area clean. Then call your doctor--especially if the area doesnt appear to be healing. [id number] [employer], [address] [place] [address], [place] [id number]. All rights reserved. This information is not intended as a substitute for professional medical care. Always follow your healthcare professional's instructions. documented in this encounter Progress Notes * Kelsey Briseno CMA - 08/02/2024 1:07 PM EST Socks and Shoes Removed for Annual Diabetic Foot Screening RIGHT FOOT: No Reddened, Cracking, Or Open Areas Noted. RIGHT Dorsalis Pedis Pulse: Palpable RIGHT Posterior Tibial Pulse: Palpable RIGHT Monofilament:Patient reports feeling monofilament pressure on plantar surface of foot LEFT FOOT: No Reddened, Cracking or Open Areas Noted. LEFT Dorsalis Pedis Pulse: Palpable LEFT Posterior Tibial Pulse: Palpable LEFT Monofilament:Patient reports feeling monofilament pressure on plantar surface of foot Do you need diabetic shoes: No DM Foot Exam completed today. Provider aware. Kelsey Briseno CMA documented in this encounter Nursing Notes * Kelsey Briseno CMA - 08/02/2024 1:04 PM EST The patient has been properly identified by confirmation of name and date of . Chief Complaint Patient presents with pre-op exam Pre-op for lumbar surgery 08/15. documented in this encounter Plan of Treatment Upcoming Encounters Date Type Department Care Team (Late st Contact Info) Description 09/04/2024 8:00 AM EST Office Visit Pharmacy, [facility] [address] [place] [address] [facility] [address] [place] [address] 09/11/2024 9:00 AM EST Office Visit Family Practice [facility] [address] [place] [address] Karl Madrigal, DO [address] [place] [address] 10/09/2024 3:00 PM EDT Office Visit Interventional Pain Center [facility] [address] [place] [id number] Pedro Lamar, DO [address] [place] [phone] 11/07/2024 9:00 AM EDT Office Visit Nutrition & Weight Management, [facility] [address] [place] [address] Izabel Wilde PA-C [address] [place] [address] 11/21/2024 8:00 AM EDT Office Visit Cardiology, [facility] [address] [place] [address] Matilde Valerio PA-C [address] [place] [address] 02/04/2025 8:00 AM EDT Office Visit Family Practice [facility] [address] [place] [address] Karl Madrigal DO [address] [place] [address] Scheduled Procedures Name Priority Associated Diagnoses Date/Ti me COLONOSCOPY FLEXIBLE PROXIMA L DIAGNOSTIC Recall History of colonic polyps Scheduled Referrals Name Type Priority Associated Diagnoses Orde r Schedule PODIATRY REFERRAL OP Referral Within 30 days (routine) Type 2 diabetes mellitus with other specified complication, without long-term current use of insulin (HCC) Ordered: 08/02/2024 Health Maintenance Due Date Last Done Comments Adult Wellness Visit 2014 GFR 01/23/2025 07/26/2024, 04/18, 01/23/2024, Additional history exists HbA1c 01/23/2025 07/26/2024, 04/18, 01/23/2024, Additional history exists Depression Screening 01/30/2025 01/31/2024 Diabetic Eye Exam 04/04/2025 04/04/2024, , 03/30/2023, Additional history exists Albumin/Creatinine Ratio 07/26/2025 025, 08/02/2023, 07/28/2022, Additional history exists CKD HGB USE SMARTSET 42223 07/26/202507/26, 07/26/2024, 05/15/2024, Additional history exists CKD PHOS USE SMARTSET 82500 07/26/202503/2025, 08/02/2023, 01/19/2023, Additional history exists Diabetic Foot [...] this encounter Medical Devices Implanted Type Area Transportation Associate Device Identifier Shelf Expiration Date Model / Serial / Lot Lead Kit Trial [id number] 50cm - [id number] - [id number] Implanted:Qty: 1 on 09/15/2023 by Pedro Lamar DO at [facility] N/A: Back Rosterbot : PAIN MGMT 08/02/2025 [id number] / [id number] / Lead Kit Trial [id number] 50cm - [id number] - [id number] Implanted:Qty: 1 on 09/15/2023 by Pedro Lamar DO at [facility] N/A: Back Plix [employer]IFIC : PAIN MGMT 08/02/2025 [id number] / [id number] / documented as of this encounter Visit Diagnoses Diagnosis Preop examination- Primary Preoperative examination, unspecified Lumbar radiculopathy Thoracic or lumbosacral neuritis or radiculitis, unspecified Type 2 diabetes mellitus with other specified complication, without long-term current use of insulin (HCC) CAD S/P percutaneous coronary angioplasty Coronary atherosclerosis of [place] coronary artery Sacroiliitis (HCC) Sacroiliitis, not elsewhere classified MINA on CPAP Obstructive sleep apnea (adult) (pediatric) Severe obesity with body mass index (BMI) of 35.0 to 39.9 with serious comorbidity (HCC) Dyslipidemia, goal LDL below 100 Other and unspecified hyperlipidemia BPH without obstruction/lower urinary tract symptoms Hypertrophy of prostate without urinary obstruction and other lower urinary tract symptoms (LUTS) HTN, goal below 130/80 Unspecified essential hypertension History of total hip replacement, unspecified laterality documented in this encounter Advance Directives * Full Code [...] Power of Attor pato? No Care Teams Final Touch Up Painter Relationship Specialty Start Date End Date Wilmer Mckenzie MD [address] [facility] [place] [address] PCP - General Family Medicine 07/25/24 documented as of this encounter
[2024-08-15] MEDS ORDERED: ONDANSETRON INJ 2 MG/ML 2 ML VIAL ONE (07:15)
[2024-08-15] MEDS ORDERED: fentaNYL citrate PF 100 MCG/2 ML VIAL ONE ×2 (07:15→10:07)
[2024-08-15] MEDS ORDERED: DEXAMETHASONE SOD INJ 4 MG/ML VIAL ONE (07:15)
[2024-08-15] MEDS ORDERED: GLYCOPYRROLATE 0.2 MG/ML VIAL ONE (07:15)
[2024-08-15] MEDS ORDERED: PROPOFOL IV EMULSION 10 MG/ML 20 ML VIAL IV ONE (07:15)
[2024-08-15] MEDS ORDERED: MIDAZOLAM HCL 1 MG/ML 2ML VIAL ONE (07:15)
[2024-08-15] MEDS ORDERED: ROCURONIUM BROMIDE 10 MG/ML 5 ML VIAL IV ONE (07:15)
[2024-08-15] MEDS ORDERED: LIDOCAINE 2% 2 ML VIAL/AMP(20MG/ML) INFIL ONE (07:15)
[2024-08-15] MEDS ORDERED: SUGAMMADEX SODIUM 200 MG/2 ML VIAL IV ONE (07:18)
[2024-08-15] MEDS: LR 15ML/HR IV SCH (07:40)
[2024-08-15] MEDS: VANCOMYCIN IV SCH (07:41)
[2024-08-15] MEDS: SODIUM CHLORIDE IV SCH (07:41)
[2024-08-15] MEDS: ACETAMINOPHEN 500 MG TAB PO SCH (07:50)
[2024-08-15] MEDS: GABAPENTIN 300 MG CAP PO SCH (07:50)
[2024-08-15] MEDS: CeleBREX 200 MG CAP PO SCH (07:51)
[2024-08-15] MEDS: LR 60ML/HR IV SCH (07:53)
--- NOTE | 2024-08-15 09:28 | History & Physical Bridge Note ---
Date of Service August 15, 2024 History & Physical Bridge Note I have examined the patient, reviewed the History & Physical and in the interval since the performance of the History & Physical I have noted the following changes of clinical significance: no changes noted
--- NOTE | 2024-08-15 09:29 | History & Physical Report ---
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 Allergies Allergy/AdvReac Type Severity Reaction Status Date / Time Sulfa (Sulfonamide Allergy Mild Rash Verified 08/15/24 07:36 Antibiotics) Home Medications Medication Instructions Recorded Confirmed Type atorvastatin 80 mg tablet 80 mg PO QAM 03/13/19 08/15/24 History ezetimibe 10 mg tablet 10 mg PO QAM 04/12/19 08/15/24 History pantoprazole 40 mg tablet,delayed 40 mg PO QAM 04/12/19 08/15/24 History release empagliflozin 10 mg tablet 10 mg PO QAM 10/13/22 08/15/24 History (Jardiance) nitroglycerin 0.4 mg sublingual 0.4 mg sublingual UD PRN Chest Pain 11/30/22 08/15/24 History tablet (Nitrostat) aspirin 81 mg tablet,delayed 81 mg PO QAM 06/06/24 08/15/24 History release atenolol 25 mg tablet 25 mg PO QAM 06/06/24 08/15/24 History semaglutide 2 mg/dose (8 mg/3 mL) 2 mg subcut Q7D 06/06/24 08/15/24 History subcutaneous pen injector (Ozempic) tamsulosin 0.4 mg capsule 0.4 mg PO QAM 06/06/24 08/15/24 History terazosin 2 mg capsule 2 mg PO QAM 06/06/24 08/15/24 History dexamethasone 4 mg tablet 4 mg PO UD PRN Pain 07/30/24 08/15/24 History diclofenac sodium 1 % topical gel 2 g EXT Q8H PRN Pain 07/30/24 08/15/24 History (Voltaren Arthritis Pain) pregabalin 150 mg capsule 150 mg PO BID 07/30/24 08/15/24 History Past Med/Surg History Problem List (Updated 08/15/24 @ 09:29 by Walter M Amy, DO) 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 Lumbar radiculopathy (Acute) Diabetes mellitus, type II Ambulatory dysfunction Lumbosacral radiculopathy Adjacent segment disease of lumbar spine with history of fusion procedure Scoliosis of lumbar region due to degenerative disease of spine in adult BPH associated with nocturia Encounter for pre-operative examination Nocturia GERD (gastroesophageal reflux disease) (Acute) Dyslipidemia CAD (coronary atherosclerotic disease) Impotence (Chronic) HTN (hypertension) (Chronic) Medical History Ambulatory dysfunction R/t back pain Bladder cancer Hx "years ago" Continues to have follow-up cystos BPH associated with nocturia CAD (coronary artery disease) 2013 > stent x1 Chronic back pain Diabetes mellitus, type 2 NIDDM Dyslipidemia Esophageal reflux History of colon polyps Hypertension Lumbar radiculopathy Myocardial infarction 2013 > stent x1 Follows with Dr. Alvarez Nephrolithiasis Hx Nocturnal hypoxemia Per records Obesity, Class II, BMI 35-39.9 Sleep apnea CPAP (compliant) Surgical History H/O arthroscopic knee surgery R/L H/O hernia repair Umbilical H/O shoulder surgery Arthroscopic, right History of cardiac cath 2013 > stent x1 History of carpal tunnel release of both wrists History of cataract surgery R/L History of colonoscopy History of cystoscopy with resection of bladder tumor History of lumbar spinal fusion History of lumbar surgery ~2016, L3-L5 History of total right hip arthroplasty [facility], Dr. Iniguez (05/22/24) Hx of appendectomy ~age 10 Hx of lithotripsy Multiple Nausea and vomiting after administration of anesthetic agent Single episode years ago Family History Mother Coronary heart disease Hypertension Nephrolithiasis Father Coronary heart disease Hypertension Social History Smoking Status: Never smoker Tobacco Type: Cigarettes Second Hand Exposure: Yes (hx growing up); Do You Dip or Chew Tobacco: No; Tobacco Cessation Education Requested by Patient: No Hx Alcohol Use: Yes (very rare) Hx Substance Use: No Preferred Language: Ugandan Communication Ability: Effective District Court Justice Required: No Beliefs That Will Affect Care: None marital status: Current Living Situation: Spouse current occupational status: retired Other Information That Helps Us Care for You: No Feels Safe at Home: Yes Safety Concerns: Feels Safe At This Time Assistive Devices: None Physical Exam Physical Exam: Patient is alert and oriented heart regular rhythm lungs clear Results & Data Results & Data Vital Signs (Past 12 Hours) Vital Signs Temp Pulse Resp BP Pulse Ox O2 Del Method 08/15/24 07:53 Room Air 08/15/24 07:28 37.3 C 72 20 144/80 H 96 Room Air
[2024-08-15] MEDS ORDERED: ATROPINE SULFATE 0.1 MG/ML 10ML SYR IV PRN (09:35)
[2024-08-15] MEDS ORDERED: HYDROmorphone INJ 1 MG/ML SYRINGE IV PRN ×2 (09:35→14:34)
[2024-08-15] MEDS ORDERED: ONDANSETRON INJ 2 MG/ML 2 ML VIAL IV PRN ×2 (09:35→14:34)
[2024-08-15] MEDS: BUPIVACAINE/EPINEPHRINE 0.25% 1:200,000 30 ML VIAL ONE (10:28)
[2024-08-15] MEDS: ceFAZolin 330 MG/ML 1 GM VIAL ONE (10:29)
[2024-08-15] MEDS ORDERED: PHENYLEPHRINE HCL 10 MG/ML VIAL ONE (10:41)
[2024-08-15] MEDS: FLOSEAL HEMOSTATIC MATRIX 10ML TOP ONE (11:39)
--- NOTE | 2024-08-15 11:58 | Operative Report ---
Post Operative Report Pre & Post Diagnosis Operation Date: 08/15/24 09:55 Pre-Op Diagnosis: Spondylosis of Lumbosacral Spine at Single Level with Radiculopathy Post-Op Diagnosis: Spondylosis of Lumbosacral Spine at Single Level with Radiculopathy I identified the patient and participated in the time-out.: Yes Procedure Operation Date: 08/15/24 09:55 Actual Procedures #1 removal of instrumentation L3-L5 and Rods. #2 Exploration of Fusion L3-L5. #3 Revision Decompression with Bilateral Medial Facetectomies and Foraminotomies L1-L2 L2-L3. #4 Posterior Spinal Fusion L2-L3. #5 Placed Posterior Instrumentation L2-L5. #6 Interbody Fusion L2-L3. #7 Placement of Spira 12 x 26 Mm at L2-L3. #8 Placement Infuse Collagen Sponge, with Koros in the Bridge Manager ior Lateral Gutters and Os Design Interbody Space. #9 Application of Versa Wrap of the Exposed Dura. Surgeon Walter Reyes, DO Network Pricing Consultant Kristen Lebron Estimated Blood Loss 450 Findings See Below The patient is 5 foot 7 weighing over 113 kg with a BMI in excess of 39. Patient's body was did contribute to significant technical difficulty with positioning and exposure and requiring our deepest retractors longer instruments in order perform his procedure. This at least 50% increased operative time. Specimens None Indications This is a 74-year-old male who presents with severe spinal stenosis foraminal disease and radiculopathy. Failing course of nonoperative care is here for surgical invention. Description of Procedure Patient was met with identified informed consent obtained. Patient was then taken to the operative suite underwent intubation placed in prone position on the Johnnie table atop the Tommy frame. All bony promises well-padded eyes inspected to ensure no external precipice spinal. This point lumbar spine was prepped and draped no sterile fashion. Sharp dissection with the assistance of Bovie cautery performed down to and exposing the lamina and transverse processes of L2 and instrumentation at L3 L4-5 bilaterally. Then proceeded with that end caps and rods bilaterally explored the fusion mass at 3 4 and 5 but noting it to be mature and intact. And then performed a complete laminectomy of L2 with bilateral male facetectomies and foraminotomies addressing severe foraminal disease. Followed by partial laminectomy of L1 with bilateral medial facetectomies. Pedicle screws were then placed in L2. Pro size thierno was then placed connecting L2 to the previous instrumentation. By way of a transforaminal approach on the left a discectomy of L to L3 was performed endplates guarded to subcortical being bone and a 12 x 26 mm Spira cage filled with os design bone graft tapped in position. The rods then locked in final position bilaterally. The transverse processes of L2-L3 burred to subcortical bleeding bone. Infuse collagen sponge, with Koros and local autograft placed in the posterior gutters. Versa wrap placed with exposed dura. 15 round ROBERTO drain inserted. The incision was then closed with 1 Vicryl the fascia 2-0 Vicryl subcutaneously and 4 Monocryl for final skin closure. Steri-Strips sterile dressing placed. Patient waken taken to PACU stable condition. Please note spinal cord monitoring was utilized at the procedure no changes noted. Kristen Lebron was present out the entire surgery involved the patient positioning complex portion of the surgery and final skin closure. I attest to the content of the Intraoperative Record and any orders documented therein. Any exceptions are noted below.
--- NOTE | 2024-08-15 12:29 | Fluoroscopy Report ---
FL lumbar spine 2-3V CLINICAL HISTORY: L2-L3 DECOMPRESSION AND FUSION L3-L5 HW REMOVAL COMPARISON STUDY: None FLUOROSCOPY TIME: 16.2 seconds FLUOROSCOPY IMAGES: 2 EXPOSURE DOSE: 12.61 mGy FINDINGS: Fluoroscopic image guidance was provided to the surgeon for a multisegmental lumbar spine f usion. Please refer to the fluoroscopic guidance and operative report. 2 C-arm images were submitted demonstrating a multilevel lower lumbar fusion with pedicle screws and posterior rods. IMPRESSION: As above ACT 112: Negative or not required by law. Electronically signed by: Ciera Rodriguez M.D. 08/15/2024 12:28 PM
[2024-08-15] MEDS: fentaNYL citrate PF 100 MCG/2 ML VIAL IV PRN (12:34)
[2024-08-15] MEDS: ePHEDrine sulfate 50 MG/ML AMP IV PRN (13:40)
[2024-08-15] MEDS ORDERED: NITROGLYCERIN SL 0.4 MG/TAB TAB SL PRN (14:34)
[2024-08-15] MEDS ORDERED: diphenhydrAMINE Capsule 25 MG CAP PO PRN (14:34)
[2024-08-15] MEDS ORDERED: oxyCODONE HCL IR 5 MG TAB (IMMEDIATE RELEASE) PO PRN (14:34)
[2024-08-15] MEDS ORDERED: hydrOXYzine HCl 25 MG TAB PO PRN (14:34)
[2024-08-15] MEDS ORDERED: ONDANSETRON 4 MG OD TAB PO PRN (14:34)
[2024-08-15] MEDS ORDERED: MAGNESIUM HYDROXIDE SUSP 30 ML UDC PO PRN (14:34)
[2024-08-15] MEDS ORDERED: bisacodyL 10 MG SUPP PR PRN (14:34)
[2024-08-15] MEDS ORDERED: SOD PHOSPHATE/SOD BIPHOSPHATE ENEMA 132 ML BTL PR PRN (14:34)
[2024-08-15] MEDS ORDERED: FAMOTIDINE 20 MG TAB PO PRN (14:34)
[2024-08-15] MEDS ORDERED: LORazepam 0.5 MG TAB PO PRN (14:34)
[2024-08-15] MEDS ORDERED: PROMETHAZINE 12.5 MG/50.5 ML BAG IV PRN (14:34)
[2024-08-15] MEDS ORDERED: HYDROmorphone INJ 0.5 MG/0.5 ML SYR IV PRN (14:34)
[2024-08-15] MEDS ORDERED: DO NOT ADMINISTER FLU VACCINE PRN (14:34)
[2024-08-15] MEDS ORDERED: LORazepam 2 MG/1 ML VIAL IV PRN (14:34)
[2024-08-15] MEDS ORDERED: DO NOT ADMINISTER PNEUMOCOCCAL VACCINE PRN (14:34)
[2024-08-15] MEDS ORDERED: NALOXONE HCL 0.4 MG/1 ML VIAL/CARP IV PRN (14:34)
[2024-08-15] MEDS ORDERED: ACETAMINOPHEN 1,000 MG/100 ML VIAL IV PRN (14:34)
[2024-08-15] MEDS ORDERED: ALUMINUM/MAGNESIUM SUSP 30 ML UDC PO PRN (14:34)
[2024-08-15] MEDS ORDERED: METOCLOPRAMIDE HCL INJ 5 MG/ML 2 ML VIAL IV PRN (14:34)
[2024-08-15] MEDS ORDERED: ACETAMINOPHEN 500 MG TAB PO PRN (14:34)
[2024-08-15] MEDS ORDERED: PHARMACY GLYCEMIC MGMT CONSULT PRN (14:34)
--- NOTE | 2024-08-15 14:47 | Anesthesiology Progress Note ---
Date of Service August 15, 2024 Anesthesia Post Procedure Vital Signs Vital Signs: Temp Pulse Pulse Resp BP Pulse Ox O2 Del Method 08/15/24 14:10 70 12 101/63 96 Nasal Cannula 08/15/24 14:00 68 17 105/60 96 Nasal Cannula 08/15/24 13:50 70 18 95/58 L 94 Nasal Cannula 08/15/24 13:40 63 14 94/56 L 94 Nasal Cannula 08/15/24 13:30 36.4 C L 68 12 86/55 L 92 Oxymask 08/15/24 13:20 65 14 88/55 L 94 Oxymask 08/15/24 13:10 64 12 88/58 L 96 Oxymask 08/15/24 13:00 64 14 88/54 L 96 Oxymask 08/15/24 12:50 64 13 100/60 96 Oxymask 08/15/24 12:40 65 12 99/69 L 98 Oxymask 08/15/24 12:30 68 12 93/59 L 97 Oxymask 08/15/24 12:20 67 15 103/64 92 Oxymask 08/15/24 12:12 36.5 C 67 16 105/63 93 Oxymask 08/15/24 07:53 Room Air 08/15/24 07:28 37.3 C 72 20 144/80 H 96 Room Air O2 Flow Rate 08/15/24 14:10 3 08/15/24 14:00 4 08/15/24 13:50 4 08/15/24 13:40 4 08/15/24 13:30 3 08/15/24 13:20 3 08/15/24 13:10 5 08/15/24 13:00 5 08/15/24 12:50 5 08/15/24 12:40 5 08/15/24 12:30 5 08/15/24 12:20 5 08/15/24 12:12 5 08/15/24 07:53 08/15/24 07:28 Pain Intensity Right Hip: Pain Intensity: 5 Back: Pain Intensity: 4 Transfer of Care Handoff Completed per policy Notes Mental Status: alert / awake / arousable Patient Amnestic to Procedure: Yes Nausea / Vomiting: adequately controlled Pain: adequately controlled Airway Patency, RR, SpO2: stable & adequate BP & HR: stable & adequate Hydration State: stable & adequate Anesthetic Complications: no major complications apparent and Pt Satisfied with anesthetic care
--- NOTE | 2024-08-15 15:02 | Consultation ---
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: (2) S/P spinal surgery: (3) Diabetes mellitus, type II: (4) HTN (hypertension): (5) CAD (coronary atherosclerotic disease): (6) Dyslipidemia: (7) GERD (gastroesophageal reflux disease): (8) BPH associated with nocturia: (9) Sleep apnea: S/P Spinal surgery Radicuopathy Post op day# 0 S/P revision decompression fusion L2-L5 by Dr Reyes EBL#450ml Pain management per ortho Wound management per ortho PT/OT as appropriate DVT prophylaxis per ortho Incentive spirometry Monitor H&H for acute blood loss anemia, pre-op Hgb: 14 per outpatient chart review Diabetes mellitus, type II: A1c: 6.6 on 07/26/24 per outpatient chart review Hold home Jardiance, Ozempic Basal bolus insulin per glycemic pharmacist HTN: Dyslipidemia: CAD (coronary atherosclerotic disease): Continue atenolol, atorvastatin, Zetia Resume aspirin when ortho spine comfortable BPH associated with nocturia: Continue tamsulosin, terazosin GERD: Continue PPI MINA: CPAP HS DVT Prophylaxis SCDs Disposition per primary service Follows with Dr Mckenzie for routine care Pt was seen and care coordinated with Dr Eid. See addendum Thank you for this consultation. We will follow the patient with you during their hospital stay. You can reach a member of the [facility] Team 07/02 via [facility] Supervising Physician Co-Signing Physician Notes Patient seen and examined independently. Discussed with above provider. Patient underwent L2-L3 decompression and fusion today. He is awake, alert oriented x 3. He denies any discomfort or pain. Continue pain control, PT OT eval tomorrow. I have reviewed the advanced practitioner's documentation, and I agree with, and take responsibility for the plan of care I spent a total of 20 minutes coordinating, documenting, and providing care for this patient excluding time spent in the performance of separately billed services. All of the aforementioned completed while collaborating with the assigned advanced practitioner for a full treatment plan History of Present Illness Requesting Physician: Dr Reyes Reason for Consultation: Post op medical management Attending Physician: Walter Reyes, DO History of Present Illness Patient is 74 year old male with PMH PMH HTN, HLD, GERD, DM II, CAD, MINA, obesity, lumbar disc disease seen in medical consultation s/p revision decompression fusion L2-L5 today by Dr Reyes. Post op patient reports back pain is controlled. He reports ongoing pain with his right hip that he has been dealing with for couple of months. Last BM this morning. Has Pope cath in place. Denies nausea or vomiting. Ate liquid diet without issues. Denies fever/ chills, diaphoresis, N/V/D/C, STANLEY, dizziness, CP, SOB, cough, abdominal pain, paresthesias, extremity edema, rashes, urinary symptoms. Allergies Allergy/AdvReac Type Severity Reaction Status Date / Time Sulfa (Sulfonamide Allergy Mild Rash Verified 08/15/24 07:36 Antibiotics) Home Medications Medication Instructions Recorded Confirmed Type atorvastatin 80 mg tablet 80 mg PO QAM 03/13/19 08/15/24 History ezetimibe 10 mg tablet 10 mg PO QAM 04/12/19 08/15/24 History pantoprazole 40 mg tablet,delayed 40 mg PO QAM 04/12/19 08/15/24 History release empagliflozin 10 mg tablet 10 mg PO QAM 10/13/22 08/15/24 History (Jardiance) nitroglycerin 0.4 mg sublingual 0.4 mg sublingual UD PRN Chest Pain 11/30/22 08/15/24 History tablet (Nitrostat) aspirin 81 mg tablet,delayed 81 mg PO QAM 06/06/24 08/15/24 History release atenolol 25 mg tablet 25 mg PO QAM 06/06/24 08/15/24 History semaglutide 2 mg/dose (8 mg/3 mL) 2 mg subcut Q7D 06/06/24 08/15/24 History subcutaneous pen injector (Ozempic) tamsulosin 0.4 mg capsule 0.4 mg PO QAM 06/06/24 08/15/24 History terazosin 2 mg capsule 2 mg PO QAM 06/06/24 08/15/24 History dexamethasone 4 mg tablet 4 mg PO UD PRN Pain 07/30/24 08/15/24 History diclofenac sodium 1 % topical gel 2 g EXT Q8H PRN Pain 07/30/24 08/15/24 History (Voltaren Arthritis Pain) pregabalin 150 mg capsule 150 mg PO BID 07/30/24 08/15/24 History oxycodone 5 mg tablet 5 mg PO Q6H PRN pain #30 tabs 08/15/24 08/15/24 Rx tramadol 50 mg tablet 50 mg PO Q6H PRN pain, moderate 08/15/24 08/15/24 Rx #30 tabs Patient History Medical History Obesity, Class II, BMI 35-39.9 Nocturnal hypoxemia Per records Lumbar radiculopathy Dyslipidemia CAD (coronary artery disease) 2013 > stent x1 Ambulatory dysfunction R/t back pain BPH associated with nocturia Bladder cancer Hx "years ago" Continues to have follow-up cystos Diabetes mellitus, type 2 NIDDM History of colon polyps Sleep apnea CPAP (compliant) Myocardial infarction 2013 > stent x1 Follows with Dr. Alvarez Chronic back pain Nephrolithiasis Hx Hypertension Esophageal reflux Surgical History Nausea and vomiting after administration of anesthetic agent Single episode years ago History of lumbar spinal fusion History of carpal tunnel release of both wrists Hx of lithotripsy Multiple History of total right hip arthroplasty [facility], Dr. Iniguez (05/22/24) History of cataract surgery R/L History of colonoscopy History of cardiac cath 2013 > stent x1 History of cystoscopy with resection of bladder tumor H/O hernia repair Umbilical H/O arthroscopic knee surgery R/L H/O shoulder surgery Arthroscopic, right Hx of appendectomy ~age 10 History of lumbar surgery ~2016, L3-L5 Family History Mother Coronary heart disease Hypertension Nephrolithiasis Father Coronary heart disease Hypertension Social History Smoking Status: Never smoker Tobacco Type: Cigarettes Second Hand Exposure: Yes (hx growing up); Do You Dip or Chew Tobacco: No; Tobacco Cessation Education Requested by Patient: No Hx Alcohol Use: Yes (very rare) Hx Substance Use: No Preferred Language: Samoan Communication Ability: Effective Criminal Profiler Required: No Beliefs That Will Affect Care: None marital status: Current Living Situation: Spouse current occupational status: retired Other Information That Helps Us Care for You: No Feels Safe at Home: Yes Safety Concerns: Feels Safe At This Time Assistive Devices: None Review of Systems Review of Systems: All systems reviewed & are unremarkable except as noted in HPI & below Physical Exam Physical Exam: General: no distress, obese Head: normocephalic, atraumatic Eyes: conjunctiva non-injected, anicteric ENT: normal inspection external ears, nose, mucous membranes moist Neck: supple, trachea midline Lungs: clear, no respiratory distress, no wheezing/rhonchi/rales CV: RRR, no pretibial edema Abd: normal BS, soft, non-tender Back: ROBERTO drain with serosanguineous drainage, bilateral pedal pushes and pulls intact Ext: no cyanosis, no calf tenderness Neuro: A&O x 3, no focal deficits noted, normal affect Skin: warm, dry Results & Data Vital Signs (Past 12 Hours) Vital Signs Temp Pulse Pulse Resp BP Pulse Ox O2 Del Method 08/15/24 14:50 36.3 C L 71 16 125/75 94 Room Air 08/15/24 14:34 36.4 C L 72 16 109/69 95 Nasal Cannula 08/15/24 14:10 70 12 101/63 96 Nasal Cannula 08/15/24 14:00 68 17 105/60 96 Nasal Cannula 08/15/24 13:50 70 18 95/58 L 94 Nasal Cannula 08/15/24 13:40 63 14 94/56 L 94 Nasal Cannula 08/15/24 13:30 36.4 C L 68 12 86/55 L 92 Oxymask 08/15/24 13:20 65 14 88/55 L 94 Oxymask 08/15/24 13:10 64 12 88/58 L 96 Oxymask 08/15/24 13:00 64 14 88/54 L 96 Oxymask 08/15/24 12:50 64 13 100/60 96 Oxymask 08/15/24 12:40 65 12 99/69 L 98 Oxymask 08/15/24 12:30 68 12 93/59 L 97 Oxymask 08/15/24 12:20 67 15 103/64 92 Oxymask 08/15/24 12:12 36.5 C 67 16 105/63 93 Oxymask 08/15/24 07:53 Room Air 08/15/24 07:28 37.3 C 72 20 144/80 H 96 Room Air O2 Flow Rate 08/15/24 14:50 2 08/15/24 14:34 2 08/15/24 14:10 3 08/15/24 14:00 4 08/15/24 13:50 4 08/15/24 13:40 4 08/15/24 13:30 3 08/15/24 13:20 3 08/15/24 13:10 5 08/15/24 13:00 5 08/15/24 12:50 5 08/15/24 12:40 5 08/15/24 12:30 5 08/15/24 12:20 5 08/15/24 12:12 5 08/15/24 07:53 08/15/24 07:28
[2024-08-15] MEDS: INSULIN ASPART PER UNIT CHARGE SC SCH (17:12)
[2024-08-15] MEDS: traMADol HCL 50 MG TABLET PO PRN (17:13)
[2024-08-15] MEDS: LANTUS PER UNIT CHARGE SC SCH (17:18)
[2024-08-15] MEDS: ceFAZolin 2000MG 2,000 MG/15 ML SYR IV SCH (17:53)
[2024-08-15] MEDS: PREGABALIN 150 MG CAP PO SCH (20:11)
[2024-08-15] MEDS: DOCUSATE SODIUM/SENNA 50/8.6MG TAB PO SCH (20:11)
[2024-08-16] MEDS: POLYETHYLENE (MIRALAX) 17 GM PACK PO SCH (05:40)
[2024-08-16 07:13] LABS: Basophils # (auto) 0.01 K/uL (0.00-0.20); Basophils % (auto) 0.1 %; Eosinophils # (auto) 0.03 K/uL (0.00-0.50); Eosinophils % (auto) 0.3 %; Hematocrit (blood only) 34.8 % (42.0-52.0); Hemoglobin 11.4 g/dl (14.0-18.0); Immature Granulocytes # (auto) 0.04 K/uL (0.01-0.20); Immature Granulocytes % (auto) 0.4 %; Lymphocytes # (auto) 1.06 K/uL (1.20-3.40); Lymphocytes % (auto) 11.9 %; Mean Corpuscular Hemoglobin 27.7 pg (25.0-34.0); Mean Corpuscular Hgb Conc 32.8 g/dL (32.0-36.0); Mean Corpuscular Volume 84.7 fL (80.0-100.0); Mean Platelet Volume 10.2 fL (9.4-12.4); Monocytes # (auto) 0.99 K/uL (0.11-0.59); Monocytes % (auto) 11.1 %; Neutrophils % (auto) 76.2 %; Platelet Count 265 K/uL (130-400); RDW Standard Deviation 45.7 fL (36.4-46.3); Red Blood Count 4.11 M/uL (4.70-6.10); White Blood Count 8.93 K/ul (4.8-10.8)
[2024-08-16 07:28] LABS: BUN Creatinine Ratio 23.7 (10-20); Calcium 8.9 mg/dl (8.6-10.3); Creatinine Clr Calc Pharmacy 81.5 ml/min; Potassium 4.1 mmol/L (3.5-5.1)
--- NOTE | 2024-08-16 07:38 | Hospitalist Progress Note ---
<Statement entered by Chandler Casiano DO - 08/16/24 16:28> I have seen and examined the patient and have discussed the case with the advance practice provider. I have reviewed the advanced practitioner's documentation, and I agree with, and take responsibility for that plan of care. Suspect patient's right hip pain may be related to his back and recent surgery. Defer pain management to attending Medical issues stable continue current plan of care As outlined below I spent a total of 15 minutes coordinating, documenting, and providing care for this patient excluding time spent by another provider/QHP. 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 Reyes on 08/15/2024. Spondylosis of Lumbosacral Spine with Radiculopathy S/P Surgery: POD #1 s/p L2-L3 decompression and fusion + L3-L5 hardware removal with Dr. Reyes. EBL: 450mL & Preoperative Hgb: 14.2 [as of 07/26/2024] Per ortho for pain control, wound care, anticoagulation and activities. Monitor ROBERTO drain output. Continue incentive spirometry, PT/OT when appropriate as per ortho team. Remove Pope catheter as able. Acute Blood Loss Anemia: Preoperative Hgb 14.2 --> Hgb 11.4 today 2/2 surgical blood loss + dilutional component. No indication to transfuse at this time, continue to monitor Hgb. R Hip Pain S/P Total Hip Arthroplasty in 05/2024: Patient endorsing worsening R hip pain over the past few weeks. Recently underwent R PORSCHE performed by Dr. Iniguez in 05/2024. R hip CT obtained and reviewed - no acute findings. Pain management consulted to assist with better pain control given negative hip CT. Encouraged patient to utilize lidocaine patches, topical Voltaren gel and K-pad over R hip region. Can continue PRN pain control as directed by primary service. DMII: Hgb A1c 6.6% on 07/26/2024. Hold home medications. Basal/bolus insulin regimen while inpatient - glycemic pharmacy assisting with management. HTN, HLD & CAD: BP stable. Continue atenolol, atorvastatin and Zetia. Resume ASA as directed per primary service. Other Chronic Medical Conditions: BPH/GERD --> Continue home meds for these conditions. Continue CPAP HS for MINA. DVT Prophylaxis: SCDs/TEDs as per primary service. Code Status: FULL CODE PCP: Karl Madrigal, Disposition: Plans to return home on discharge according to CM. Discharge planning as per primary service. Thank you for this consultation. We will follow the patient with you during their hospital stay. You can reach a member of the [facility]ist Team 07/02 via [employer]. Patient seen in collaboration with Dr. Casiano. Please see addendum. I spent a total of 45 minutes coordinating, documenting, and providing care for this patient excluding time spent in the performance of separately billed services or time spent by another provider/QHP. This included personally reviewing all current laboratories and imaging studies, medical reconciliation, outpatient chart review and discussion with specialists. This chart was completed in part utilizing Speech Voice Recognition Software. Grammatical errors, random word insertions, pronoun errors, and incomplete sentences are an occasional consequence of this system due to software limitations, ambient noise, and hardware issues. Any formal questions or concerns about the content, text, or information contained within the body of this dictation should be directly addressed to the provider for clarification. Admission and Anticipated Discharge Date Admission Date: August 15, 2024 Subjective Patient seen and examined at bedside this morning in room E301-1. Endorses good pain control in his back/surgical site. ROBERTO drain x 1 intact with serosanguineous output. He has not yet been out of bed although expect PT to see him shortly. He mentions that his mobility has been limited over the past few weeks secondary to pain in his R hip. Had R hip replacement back in May [address] Iniguez. He uses a walker and cane as needed to help with ambulation. No recent falls or trauma. Otherwise he offers no additional complaints. Denies any chest pain or SOB. Ate breakfast this morning without issue. Review of Systems Review of Systems: At least ten systems reviewed and negative, except as noted in the subjective section. Physical Exam Physical Exam: General: Obese M, NAD, sitting up in bed, very pleasant, conversing appropriately. A+Ox3, euthymic affect. HEENT: Normocephalic, atraumatic. Conjunctivae normal. External ear and nose normal, oropharynx normal. Respiratory: Normal respiratory effort, lungs clear to auscultation bilaterally. No accessory muscle use. Cardiovascular: Regular rate/rhythm, normal peripheral pulses, no BLE edema. : Pope catheter intact and draining clear yellow urine without issue. Extremities/Musculoskeletal: ROBERTO drain x 1 intact and draining serosanguineous output. Surgical bandaging C/D/I. Results & Data Results & Data Vital Signs (Past 12 Hours) Vital Signs Temp Pulse Resp BP Pulse Ox O2 Del Method O2 Flow Rate 08/16/24 07:23 36.7 C 85 16 122/69 92 Room Air 08/16/24 03:00 36.5 C 80 16 101/64 93 Room Air 08/15/24 23:05 36.5 C 76 16 95/59 L 93 Room Air 08/15/24 20:00 Nasal Cannula 2 Laboratory Results Short CBC 08/16/24 Range/Units 05:35 WBC 8.93 (4.8-10.8) K/ul Hgb 11.4 L (14.0-18.0) g/dl Hct 34.8 L (42.0-52.0) % Plt Count 265 (130-400) K/uL BMP 08/16/24 05:35 Sodium 138 Potassium 4.1 Chloride 105 Carbon Dioxide 27 BUN 22 Creatinine 0.93 Glucose 122 H Calcium 8.9 Diagnostic Findings Lumbar Spine X-Ray 08/15/24 09:55 FL lumbar spine 2-3V CLINICAL HISTORY: L2-L3 DECOMPRESSION AND FUSION L3-L5 HW REMOVAL COMPARISON STUDY: None FLUOROSCOPY TIME: 16.2 seconds FLUOROSCOPY IMAGES: 2 EXPOSURE DOSE: 12.61 mGy FINDINGS: Fluoroscopic image guidance was provided to the surgeon for a multisegmental lumbar spine fusion. Please refer to the fluoroscopic guidance and operative report. 2 C-arm images were submitted demonstrating a multilevel lower lumbar fusion with pedicle screws and posterior rods. IMPRESSION: As above ACT 112: Negative or not required by law. Electronically signed by: Ciera Rodriguez M.D. 08/15/2024 12:[address] 08/16/24 09:48 CT hip RT wo con CLINICAL HISTORY: R hip pain s/p previous PORSCHE COMPARISON STUDY: X-ray of 06/06/2024 FINDINGS: There is interval right hip prosthesis. No hardware complications seen. There is metallic spray artifact. There is a small amount of mild heterotopic ossification anterior to the proximal femur. There is a small chronic calcification posterior to the proximal femur, likely heterotopic ossification or old calcified hematoma. There is a small vascular channel at the medial cortex near the tip of the prosthesis. No acute fracture or dislocation seen. No soft tissue hematoma seen. No evidence of osteomyelitis seen. IMPRESSION: No acute findings seen. ACT 112: Negative or not required by law. Electronically signed by: Cruz Monique M.D. 08/16/2024 12:11 PM
[2024-08-16] MEDS: dexAMETHasone 6 MG in SYRINGE 0 ML IV SCH (08:12)
[2024-08-16] MEDS: TERAZOSIN HCL 1 MG CAP PO SCH (08:13)
[2024-08-16] MEDS: TAMSULOSIN HCL 0.4 MG CAP PO SCH (08:13)
[2024-08-16] MEDS: ATORVASTATIN 40 MG TAB PO SCH (08:13)
[2024-08-16] MEDS: EZETIMIBE 10 MG TAB PO SCH (08:13)
[2024-08-16] MEDS: ASPIRIN 81 MG ECTAB PO SCH (08:13)
[2024-08-16] MEDS: PANTOprazole 40 MG TAB PO SCH (08:13)
[2024-08-16] MEDS: ATENOLOL 25 MG TABLET PO SCH (08:13)
--- NOTE | 2024-08-16 08:35 | Orthopedic Progress Note ---
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 Will monitor his ROBERTO output. Hopefully discharge home next few days. Admission and Anticipated Discharge Date Admission Date: August 15, 2024 Subjective Back pain controlled leg pain improved Physical Exam Physical Exam: Patient is currently bed. Is comfortable. Good strength testing. Results & Data Vital Signs (Past 12 Hours) Vital Signs Temp Pulse Resp BP Pulse Ox O2 Del Method 08/16/24 07:23 36.7 C 85 16 122/69 92 Room Air 08/16/24 03:00 36.5 C 80 16 101/64 93 Room Air 08/15/24 23:05 36.5 C 76 16 95/59 L 93 Room Air Queries Orthopedic Spine Obesity: Yes
[2024-08-16 09:23] LABS: Estimated Average Glucose 148 mg/dl; Hemoglobin A1C 6.8 % (4.5-5.6)
--- NOTE | 2024-08-16 12:03 | Pharmacy Report ---
Pharmacy Glycemic Short Note 2 - Date of Service August 16, 2024 - Glycemic Short BSG Results (Last 24 hours): 08/15/24 08/15/24 08/15/24 12:13 16:42 20:04 Glucose POC Glucose 127 H 143 H 130 H 08/16/24 08/16/24 08/16/24 05:35 07:27 11:53 Glucose 122 H POC Glucose 110 H 146 H OUTPATIENT ANTIDIABETIC REGIMEN: * Jardiance * Ozempic * A1c = 6.8% ASSESSMENT: * Paolo is a 74 yo T2DM POD # 1 s/p spine surgery * Patient required no basal insulin yesterday and fasting BSG is at goal today, 110 mg/dL. Will hold basal insulin. * Post prandial BSGs are near goal with Novolog based on weight + stress 2. Will continue this as patient remains on dexamethasone 6 mg IV daily. PLAN FOR INPATIENT GLYCEMIC CONTROL: * Hold outpatient oral diabetes medications * Basal insulin * none * Bolus insulin * NovoLog per scale ACHS or Q6hrs while NPO * Goal Range: Low 110 mg/dL - High 140 mg/dL * Correction Factor: 20 mg/dL/unit * Nutritional / Prandial insulin per carb ratio of 1 unit per 7 grams CHO consumed
--- NOTE | 2024-08-16 12:13 | CT Scan Report ---
CT hip RT wo con CLINICAL HISTORY: R hip pain s/p previous PORSCHE COMPARISON STUDY: X-ray of 06/06/2024 FINDINGS: There is interval right hip prosthesis. No hardware complications seen. There is metallic s pray artifact. There is a small amount of mild heterotopic ossification anterior to the proximal femu r. There is a small chronic calcification posterior to the proximal femur, likely heterotopic ossific ation or old calcified hematoma. There is a small vascular channel at the medial cortex near the tip of the prosthesis. No acute fracture or dislocation seen. No soft tissue hematoma seen. No evidence o f osteomyelitis seen. IMPRESSION: No acute findings seen. ACT 112: Negative or not required by law. Electronically signed by: Cruz Monique M.D. 08/16/2024 12:11 PM
[2024-08-16] MEDS: LIDOCAINE 5% 1 PATCH TD SCH (14:30)
[2024-08-16] MEDS: DICLOFENAC SOD 1% GEL 100 GM TUBE EXT SCH (14:30)
[2024-08-16 19:28] VITALS: O2SAT 94
--- NOTE | 2024-08-17 07:05 | Hospitalist Progress Note ---
<Statement entered by Chandler Casiano DO - 08/17/24 11:29> I have seen and examined the patient and have discussed the case with the advance practice provider. I have reviewed the advanced practitioner's documentation, and I agree with, and take responsibility for that plan of care. Patient reported that he was told that he might have some intermittent right hip and leg pain after his hip replacement due to the fact that they really had to pull his leg muscle over to reattach to the hip. His pain really is described as muscle spasm and tension. Imaging was unremarkable for acute findings Patient can follow-up with orthopedics outpatient, no need for inpatient orthopedic evaluation. Discharge plans as coordinated by attending. I spent a total of 20 minutes coordinating, documenting, and providing care for this patient excluding time spent by another provider/QHP. 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 Reyes on 08/15/2024. Spondylosis of Lumbosacral Spine with Radiculopathy S/P Surgery: POD #2 s/p L2-L3 decompression and fusion + L3-L5 hardware removal with Dr. Reyes. EBL: 450mL & Preoperative Hgb: 14.2 [as of 07/26/2024] Per ortho for pain control, wound care, anticoagulation and activities. Continue incentive spirometry. Anticipate patient to be discharged home today. Acute Blood Loss Anemia: Noted drop in Hgb to ~11 postoperatively 2/2 expected surgical blood loss + dilutional component. No indication to transfuse. R Hip Pain S/P Total Hip Arthroplasty in 05/2024: Patient endorsing intermittent R hip pain over the past few weeks. Recently underwent R PORSCHE performed by Dr. Iniguez in 05/2024. No an acute issue however R hip CT obtained to further assess this which ultimately came back unremarkable. Patient previously educated by Dr. Iniguez that he is expected to have some intermittent pain in R hip 2/2 how his muscles were manipulated during his PORSCHE. No indication for inpatient orthopedic surgery consult; patient initially wanted inpatient evaluation but is agreeable now with doing this as an outpatient. Encouraged patient to utilize lidocaine patches, topical Voltaren gel and K-pad over R hip region. Can continue PRN pain control as directed by primary service. DMII: Hgb A1c 6.6% on 07/26/2024. Holding home medications. Basal/bolus insulin regimen while inpatient - glycemic pharmacy assisting with management. HTN, HLD & CAD: BP stable. Continue atenolol, atorvastatin and Zetia. Resume ASA as directed per primary service. Other Chronic Medical Conditions: BPH/GERD --> Continue home meds for these conditions. Continue CPAP HS for MINA. DVT Prophylaxis: SCDs/TEDs as per primary service. Code Status: FULL CODE PCP: Karl Madrigal, Disposition: Plans to return home on discharge according to CM. Discharge planning as per primary service. Thank you for this consultation. We will follow the patient with you during their hospital stay. You can reach a member of the [facility]ist Team 07/02 via [employer]. Patient seen in collaboration with Dr. Casiano. Please see addendum. I spent a total of 40 minutes coordinating, documenting, and providing care for this patient excluding time spent in the performance of separately billed services or time spent by another provider/QHP. This included personally reviewing all current laboratories and imaging studies, medical reconciliation, outpatient chart review and discussion with specialists. This chart was completed in part utilizing Speech Voice Recognition Software. Grammatical errors, random word insertions, pronoun errors, and incomplete sentences are an occasional consequence of this system due to software limitations, ambient noise, and hardware issues. Any formal questions or concerns about the content, text, or information contained within the body of this dictation should be directly addressed to the provider for clarification. Admission and Anticipated Discharge Date Admission Date: August 15, 2024 Subjective Patient seen and examined at bedside this morning in room E301-1. Endorses good pain control in his back/surgical site. ROBERTO drain x 1 intact with serosanguineous output. Surgical dressing C/D/I. Patient initially wanted to have orthopedic surgery evaluate him while he was inpatient regarding his R hip pain however he is now agreeable to having this addressed as an outpatient. This is not an acute issue. CT R hip reassuring. Patient has been dealing with R hip pain for past several weeks. Recently underwent R PORSCHE in May last year performed by Dr. Iniguez. Was told he'd have residual R hip pain for a few months after surgery due to how his muscles were manipulated during the procedure. R hip pain is actually somewhat improved today. Encouraged patient to continue with topical pain control/management in addition to oral narcotic pain medications PRN. Review of Systems Review of Systems: At least ten systems reviewed and negative, except as noted in the subjective section. Physical Exam Physical Exam: General: Obese M, NAD, sitting up in chair at bedside, very pleasant, conversing appropriately. A+Ox3, euthymic affect. HEENT: Normocephalic, atraumatic. Conjunctivae normal. External ear and nose normal, oropharynx normal. Respiratory: Normal respiratory effort, lungs clear to auscultation bilaterally. No accessory muscle use. Cardiovascular: Regular rate/rhythm, normal peripheral pulses, no BLE edema. Extremities/Musculoskeletal: ROBERTO drain x 1 intact and draining serosanguineous output. Surgical bandaging C/D/I. Results & Data Results & Data Vital Signs (Past 12 Hours) Vital Signs Temp Pulse Resp BP Pulse Ox O2 Del Method 08/16/24 21:30 Room Air 08/16/24 19:27 36.8 C 80 18 105/69 94 Room Air Laboratory Results Short CBC 08/17/24 Range/Units 05:46 WBC 9.40 (4.8-10.8) K/ul Hgb 11.7 L (14.0-18.0) g/dl Hct 35.9 L (42.0-52.0) % Plt Count 285 (130-400) K/uL BMP 08/17/24 05:46 Sodium 141 Potassium 4.2 Chloride 105 Carbon Dioxide 31 BUN 29 H Creatinine 1.05 Glucose 103 H Calcium 9.2
[2024-08-17 07:26] LABS: BUN Creatinine Ratio 27.6 (10-20); Calcium 9.2 mg/dl (8.6-10.3); Creatinine Clr Calc Pharmacy 72.1 ml/min; Magnesium 2.3 mg/dl (1.7-2.4); Potassium 4.2 mmol/L (3.5-5.1)
[2024-08-17 07:32] LABS: Hematocrit (blood only) 35.9 % (42.0-52.0); Hemoglobin 11.7 g/dl (14.0-18.0); Mean Corpuscular Hemoglobin 28.2 pg (25.0-34.0); Mean Corpuscular Hgb Conc 32.6 g/dL (32.0-36.0); Mean Corpuscular Volume 86.5 fL (80.0-100.0); Mean Platelet Volume 10.3 fL (9.4-12.4); Platelet Count 285 K/uL (130-400); RDW Coefficient of Variation 15.3 % (11.5-14.5); RDW Standard Deviation 48.3 fL (36.4-46.3); Red Blood Count 4.15 M/uL (4.70-6.10)
[2024-08-17 07:59] VITALS: BP 170/82; PULSE 75; RESP 17; TEMP 98.1
--- NOTE | 2024-08-17 09:36 | Discharge Summary ---
Date of Service August 17, 2024 Admission HPI Per Admitting Provider This is a 74-year-old male presents for chronic persistent back and leg pain after failing course of nonoperative care is here for surgical invention. Principal Diagnosis Lumbar spondylosis with radiculopathy Discharge Data Allergies Allergy/AdvReac Type Severity Reaction Status Date / Time Sulfa (Sulfonamide Allergy Mild Rash Verified 08/15/24 07:36 Antibiotics) Consultations 08/15/24 14:34 Consult Hospitalist Routine 08/16/24 15:35 Consult Pain Management Routine 08/17/24 08:11 Consult Orthopedic Surgery Routine Procedures Performed Operation Date: 08/15/24 09:55 Actual Procedures p L2-L3 Decompression and Fusion, Spinal Cord Monitoring(Not Applicable) - Walter Reyes DO s L3-L5 Hardware Removal,(Not Applicable) - Walter Reyes DO Ordered Studies 08/15/24 09:55 FL lumbar spine 2-3V Routine 08/16/24 09:48 CT hip RT wo con Routine Hospital Course (1) 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 Marked improvement of his left leg pain. Tolerating physical therapy. ROBERTO drain decreasing. Extra strength testing. Subsidy discharged home. Discharge orders instructions from the chart for further review. Total Time Total Time Spent Total Time Spent (In Minutes): 20 minutes Discharge Plan Discharge Items Patient Disposition: Home - Self-Care Reason For Visit: Lumbar Radicular Pain, Lumbar Disc Herniation with Discharge Diagnosis: Lumbar spondylosis with radiculopathy Activity: As commented below Non-emergency contact: Primary Care Provider Call non-emergency contact if: you have any medication questions Follow-up/Referrals: Karl Madrigal DO [Primary Care Provider] - Diet: Regular Addtl Attending Provider Instructions: ACTIVITY RECOMMENDATIONS: SELF CARE INSTRUCTIONS AFTER THORACIC/LUMBAR FUSIONS 1. You may walk to your tolerance. It is good exercise for your legs and back. Expect some back and intermittent leg aches and pains. 2. You may perform "counter-top" level activities (make a sandwich, sasha with a project, etc.). 3. No bending or lifting of more than 10 pounds or back twisting of any nature (roll like a log when turning in bed). 4. You may ride in a car for 20-30 minutes at a time. No driving until after your first visit with your doctor. 5. Frequent changes of position and restricting sitting to 30 minutes at a time will help limit the amount of back spasms and stiffness you may experience. 6. You may discontinue the use of ambulatory aids (cane, crutches, etc.) once your strength and confidence allow. 7. You may vinyl installer the shower and let water strike your incision when you arrive home at least once daily. Do not take a tub bath, sit in a hot tub or go into a swimming pool until after your first recheck in the office. 8. You may resume previous diet. SPECIAL CARE INSTRUCTIONS: VERY IMPORTANT TO READ AND REVIEW A. Your surgical incision has been closed with a cosmetic suture under the skin that will dissolve in about 6 weeks. In 14 days, you can use a pair of clean scissors and cut the suture that is left outside of the skin at the ends of your incision. 1. The small skin tapes can be removed 7 days after surgery if they have not fallen off by that point. 2. You may keep the wound open to air as much as possible to promote healing after post-op day number 5 unless told otherwise by your doctor. 3. If you think the wound looks like it is becoming infected (redness or worsening drainage) and/or you are experiencing fever, chill or worsening back pain and muscle spasms, contact the office so that we may evaluate you as soon as possible. B. Complications are uncommon, but please contact us if you have any signs or symptoms of: 1. wound infection (fever higher than 102.5 degrees F, redness, separation of wound, drainage, or increasing pain from the incision) 2. blood clots in legs (pain, swelling, redness and warmth in legs) 3. urinary tract infection (fever higher than 102.5 degrees F, burning upon urination or increased frequency of urination) 4. nerve problems (inability to walk on your toes or heels, numbness, loss of bowel or bladder control) 5. any other symptoms that concern you C. Please call the office at if you have any concerns or questions about your operation or recovery. D. No smoking! Smoking drastically decreases the chance of a solid fusion. E. Do not take any anti-inflammatory medications (Indocin, Advil, Motrin, Aspirin, Naprosyn, etc.) as these may inhibit the chance of a solid fusion. Tylenol is okay to take for pain. MANAGING PAIN AFTER SPINAL SURGERY 1. Narcotic medication is intended for short-term use and will be provided for surgical pain. Surgical pain usually lasts for a period of 4-6 weeks. Narcotic medication includes Percocet, Vicodin, Darvocet, Tylenol #3 or Lortab. 2. Longer-term pain is more appropriately treated with non-narcotic medication such as Tylenol ES. 3. Muscle spasm is not appropriately treated with narcotics. Muscle relaxers such as Soma, Flexeril or Skelaxin can be used along with Tylenol ES. 4. Remember that we all live with some "aches and pains". This is not unusual or uncommon after an injury or as we get older. a. Back pain is expected and may include muscle spasms for 4 to 6 weeks after surgery. The pain should gradually improve. If the pain worsens for no apparent reason, please contact the office. b. Intermittent leg pain may also be experienced and should not be concerned about unless it worsens for no apparent reason. If so, please contact the office. 5. We will provide appropriate medication within the normal guidelines of their prescribed use. We will also be very cautious and aware of potential abuse and extended duration of patients' medication needs. a. Pain medications are for your comfort and to assist with sleep and rest so that the tissue can heal. They are not provided in order to return to normal activity and should not be used through the day. To do so or worsening pain at night can result from ongoing tissue damage and development of tolerance to the prescribed medicine. 6. Please allow 2-3 days to process refills. Prescriptions will not be mailed but must be picked up at the office. FOLLOW UP VISIT: Keep your scheduled follow-up appointment. Any questions, please call the office at . Pending Studies at Discharge: No Stand-Alone Forms: [employer], Smoking Cessation Medications and DC Order Prescriptions: New tramadol 50 mg tablet 50 mg PO Q6H PRN (Reason: pain, moderate) Qty: 30 0RF oxycodone 5 mg tablet 5 mg PO Q6H PRN (Reason: pain) Qty: 30 0RF Continued atorvastatin 80 mg tablet 80 mg PO QAM ezetimibe 10 mg tablet 10 mg PO QAM pantoprazole 40 mg tablet,delayed release (DR/EC) 40 mg PO QAM Jardiance 10 mg Tablet 10 mg PO QAM nitroglycerin [Nitrostat] 0.4 mg Tablet, Sublingual 0.4 mg sublingual UD PRN (Reason: Chest Pain) Rx Instructions: take 1 tablet under tongue every 5 minutes as needed for chest pain for 3 doses. call 911 ig chest pain not relieved after 1st dose Ozempic 2 mg/dose (8 mg/3 mL) pen injector 2 mg SUBCUT Q7D Rx Instructions: THURSDAYS aspirin 81 mg tablet,delayed release (DR/EC) 81 mg PO QAM atenolol 25 mg tablet 25 mg PO QAM terazosin 2 mg capsule 2 mg PO QAM tamsulosin 0.4 mg capsule 0.4 mg PO QAM dexamethasone 4 mg tablet 4 mg PO UD PRN (Reason: Pain) Patient Comments: only takes if his pain is severe pregabalin 150 mg Capsule 150 mg PO BID diclofenac sodium [Voltaren Arthritis Pain] 1 % gel 2 g EXT Q8H PRN (Reason: Pain) Discharge Orders: Discharge Order (Routine); Ordered 08/17/24 Ordered By: Walter Ortiz/Other Patient Handouts: Managing Type 2 Diabetes Admission Data Admit Date/Time: 08/15/24 12:02 Attending Provider: Walter Reyes Admit Provider: Walter Reyes Primary Care Provider: Karl Madrigal Other Providers: Martita Bradford; Chandler Casiano; Randal Noel; Walter Reyes; Bharat Moya; Luis Iniguez; Cesar Ponce Thomas J; Kristen Howard; Jamie Carson; Zhen Darden; Gato Patterson Andrew J.; Zhen Brewster; Stan Davenport; Matt Mcfadden; Adam Easley; Gianni Locke; Kristen Batres; Ajay Giraldo; Chris Walton; Dexter Guillermo; Carmela Ritchie; Nicanor Schrader; Pedro Salazar; Keely Murrieta; Blayne Banuelos; Melissa Paz; Dexter Pineda
== END 2024-08-17 12:52 | disposition home or self-care (01) | DRG 402 ==
LOC: ASU 06:58 → 3E 12:02
DX: I25.10 Atherosclerotic heart disease of native coronary artery without angina pectoris; I12.9 Hypertensive chronic kidney disease with stage 1 through stage 4 chronic kidney disease, or unspecified chronic kidney disease; E66.812 Obesity, class 2; E11.9 Type 2 diabetes mellitus without complications; E78.5 Hyperlipidemia, unspecified; Z95.5 Presence of coronary angioplasty implant and graft; Z98.1 Arthrodesis status; Z79.82 Long term (current) use of aspirin; D62 Acute posthemorrhagic anemia; R35.1 Nocturia; Z68.39 Body mass index [BMI] 39.0-39.9, adult; Z96.641 Presence of right artificial hip joint; Z79.84 Long term (current) use of oral hypoglycemic drugs; G47.33 Obstructive sleep apnea (adult) (pediatric); K21.9 Gastro-esophageal reflux disease without esophagitis; M25.551 Pain in right hip; N18.31 Chronic kidney disease, stage 3a; Z88.2 Allergy status to sulfonamides; M47.27 Other spondylosis with radiculopathy, lumbosacral region; Z79.85 Long-term (current) use of injectable non-insulin antidiabetic drugs; I25.2 Old myocardial infarction; N40.1 Benign prostatic hyperplasia with lower urinary tract symptoms; M54.9 Dorsalgia, unspecified

== ENCOUNTER 2024-09-10 11:32 | Inpatient (IN) ==
[2024-09-10 13:07] LABS: Basophils # (auto) 0.01 K/uL (0.00-0.20); Basophils % (auto) 0.1 %; Eosinophils # (auto) 0.17 K/uL (0.00-0.50); Eosinophils % (auto) 1.3 %; Hematocrit (blood only) 38.8 % (42.0-52.0); Hemoglobin 12.6 g/dl (14.0-18.0); Immature Granulocytes # (auto) 0.07 K/uL (0.01-0.20); Immature Granulocytes % (auto) 0.5 %; Lymphocytes # (auto) 1.26 K/uL (1.20-3.40); Lymphocytes % (auto) 9.7 %; Mean Corpuscular Hemoglobin 27.5 pg (25.0-34.0); Mean Corpuscular Hgb Conc 32.5 g/dL (32.0-36.0); Mean Corpuscular Volume 84.7 fL (80.0-100.0); Mean Platelet Volume 10.6 fL (9.4-12.4); Monocytes # (auto) 0.62 K/uL (0.11-0.59); Monocytes % (auto) 4.8 %; Neutrophils # (auto) 10.92 K/uL (1.40-6.50); Neutrophils % (auto) 83.6 %; Platelet Count 132 K/uL (130-400); RDW Coefficient of Variation 17.6 % (11.5-14.5); RDW Standard Deviation 52.9 fL (36.4-46.3); Red Blood Count 4.58 M/uL (4.70-6.10); White Blood Count 13.05 K/ul (4.8-10.8)
[2024-09-10 13:30] LABS: Albumin Globulin Ratio 1.1 (0.9-2); Albumin Level 3.3 gm/dl (3.4-5.0); BUN Creatinine Ratio 17.7 (10-20); Calcium 8.8 mg/dl (8.6-10.3); Creatinine Clr Calc Pharmacy 56.1 ml/min; Potassium 3.7 mmol/L (3.5-5.1); Total Protein 6.3 gm/dl (6.0-8.3)
--- NOTE | 2024-09-10 13:51 | Emergency Department Note ---
Impression & Plan Intractable back pain, Urinary tract infection, Hip pain ED Provider Note CHIEF COMPLAINT: Back pain, hip pain HISTORY OF PRESENTING ILLNESS: The patient is a 74-year-old male who arrives to the emergency department for evaluation of mid to low back pain, with right hip pain. The patient reports he was seen by Dr. Reyes, a few months ago and had an L2-L3 spinal fusion, which resolved the pain in his left lower extremity. He states since that time he has noted increasing pain in his right hip, and right leg with worsening pain in the mid to low back. He reports pain is worse upon sitting. He states he initially had no pain for weeks after the procedure, now however pain is severe. He states pain is so severe at this time that he "needs help, and is really considering ending his own life." He reports the pain in the right hip, has been since the right hip replacement performed by Dr. Iniguez. He states the pain is at the lateral aspect of the hip, radiating down the right lateral leg and terminating at the right anterior thigh. He reports he did receive multiple injections into the right hip joint, with minimal relief, and return of severe pain. He reports he is currently only taking Lyrica at home for pain, and is in need of more pain control. He denies loss of bowel or bladder, loss of strength, or numbness or tingling of the groin. He is neurovascularly intact. REVIEW OF SYSTEMS: See HPI for pertinent positives and pertinent negatives. ALLERGIES: Sulfa MEDICATIONS: See below PAST MEDICAL HISTORY: See below PHYSICAL EXAM: VITALS: Vitals are noted on the nurse's note and reviewed by myself. Vital signs stable. GENERAL: 74-year-old male, in no acute distress, nondiaphoretic, well-developed well-nourished. SKIN: The skin was without rashes, erythema, edema, or bruising. HEAD: Normocephalic atraumatic. HEART: Regular rate and rhythm without murmurs gallops or rubs. LUNGS: Clear to auscultation bilaterally without wheezes, rales or rhonchi. No retractions or accessory muscle use. ABDOMEN: Positive bowel sounds x 4. Soft, nontender, without masses or organomegaly. Faustin sign negative. No guarding or rebound tenderness. MUSCULOSKELETAL: TTP, right hip, lateral aspect. Full ROM, right hip, right knee, right ankle. DP pulse intact. Sensation intact to dull and sharp bilateral lower extremities. TTP, right upper lumbar paraspinous region, no palpable spasm present. NEURO: Patient was alert and oriented to person place and time. No focal neurological deficits. DIFFERENTIAL DIAGNOSIS: Musculoskeletal, disc herniation, fracture, metastatic disease, cord compression, discitis, sciatica, cauda equina, infection, aortic disease, renal colic, gastrointestinal, as well as other pathologies. MEDICATIONS GIVEN: 15 mg IV Toradol, 2 doses of 4 mg IV morphine, 10 mg IV dexamethasone, 2 g IV Rocephin, 1 L normal saline. MONITOR: Continuous youth nutritional monitor: Order was placed for continuous youth nutritional monitor. Patient was placed on the youth nutritional monitor and continuous pulse ox. Patient was noted to be in normal sinus rhythm at an initial rate of 79 bpm per my interpretation. EKG: EKG was interpreted by myself as sinus rhythm with premature supraventricular complexes, no concerning signs of ischemia present. Previous for comparison from September 2023 shows new premature supraventricular complexes. INTERPRETATION OF LABS: I interpreted the labs with full lab results as below in the lab section of this note. Pertinent lab results discussed in the MDM section below. INTERPRETATION OF IMAGING: Imaging studies were interpreted by myself and read by radiology as per the imaging section of this note. CONSULTATIONS: I spoke with Dr. Reyes, from orthopedic spine, who stated he will review CT imaging, and we will evaluate a plan of care from that point. MDM SUMMARY: The patient is a pleasant 74-year-old male who arrives to the emergency department for evaluation of the above-stated complaint. The patient arrived during a time of high acuity, and high-volume. Initial workup was performed in triage including a saline lock, CBC, CMP, troponin, urinalysis were obtained. CBC showed leukocytosis 13.05, with a stable anemia. CMP shows elevated alkaline phosphatase at 122, initial troponin 30.0, with repeat 24.4. Urinalysis shows 2+ blood, 1+ ketones, 3+ glucose, positive nitrites,. 1+ bilirubin, 2+ leukocyte esterase, greater than 50 WBCs, 4+ bacteria. The patient was provided 2 g of IV Rocephin. He was also provided 1 L normal saline, 15 mg IV Toradol, 10 mg of IV dexamethasone, and 2 doses of [address] imaging of the thoracic spine, lumbar spine, and hip shows moderate to severe multilevel postoperative and degenerative changes of the lumbar spine and diffuse moderate thoracic degenerative changes. No acute spinal abnormality. There also dependent patchy infiltrates in both lung bases which could reflect atelectasis versus pneumonia, no pleural effusion is present. Hip CT shows increasing heterotopic bone formation anterior to the proximal right femoral shaft, with satisfactory appearance of right hip arthroplasty. Chest x-ray imaging was obtained which per my interpretation shows no acute cardiopulmonary process. Based on the patient's positive urinalysis for infection, and concern for pyelonephritis as the patient's cause of pain, CT imaging of the abdomen and pelvis with IV contrast was obtained. CT imaging per my interpretation shows no evidence of pyelonephritis, with no other concerning intra-abdominal findings. I spoke with Dr. Reyes, from orthopedic spine who agreed to evaluate the patient and recommended admission for pain control to medicine. Contact was made with the disability case manager [facility] with Dr[facility] Casiano, from the [facility] hospitalist group, who agreed to evaluate the patient and admit him under his care with orthopedic spine consult. Orders were placed by myself for routine orthopedic spine consultation by Dr. Reyes. Please refer to Dr. Casiano and Dr. Reyes's documentation for further patient workup and care. DIAGNOSIS: Low back pain, right hip pain, urinary tract infection The patient's case was discussed with Dr. Blevins, who agreed with my evaluation and treatment plan. The chart was completed utilizing [employer] Speech voice recognition software. Grammatical errors, random word insertions, pronoun errors, and incomplete sentences are an occasional consequence of this system due to software limitations, ambient noise, and hardware issues. Any formal questions or concerns about the content, text, or information contained within the body of this dictation should be directly addressed to the provider for clarification. 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 Lumbar radiculopathy (Acute) Diabetes mellitus, type II Ambulatory dysfunction Lumbosacral radiculopathy Adjacent segment disease of lumbar spine with history of fusion procedure Scoliosis of lumbar region due to degenerative disease of spine in adult BPH associated with nocturia Encounter for pre-operative examination Nocturia GERD (gastroesophageal reflux disease) (Acute) Dyslipidemia CAD (coronary atherosclerotic disease) Impotence (Chronic) HTN (hypertension) (Chronic) Medical History Obesity, Class II, BMI 35-39.9 Nocturnal hypoxemia Per records Lumbar radiculopathy Dyslipidemia CAD (coronary artery disease) 2013 > stent x1 Ambulatory dysfunction R/t back pain BPH associated with nocturia Bladder cancer Hx "years ago" Continues to have follow-up cystos Diabetes mellitus, type 2 NIDDM History of colon polyps Sleep apnea CPAP (compliant) Myocardial infarction 2013 > stent x1 Follows with Dr. Alvarez Chronic back pain Nephrolithiasis Hx Hypertension Esophageal reflux Surgical History Nausea and vomiting after administration of anesthetic agent Single episode years ago History of lumbar spinal fusion History of carpal tunnel release of both wrists Hx of lithotripsy Multiple History of total right hip arthroplasty [facility], Dr. Iniguez (05/22/24) History of cataract surgery R/L History of colonoscopy History of cardiac cath 2013 > stent x1 History of cystoscopy with resection of bladder tumor H/O hernia repair Umbilical H/O arthroscopic knee surgery R/L H/O shoulder surgery Arthroscopic, right Hx of appendectomy ~age 10 History of lumbar surgery ~2016, L3-L5 Family History Mother Coronary heart disease Hypertension Nephrolithiasis Father Coronary heart disease Hypertension Social History Smoking Status: Never smoker Tobacco Type: Cigarettes Second Hand Exposure: Yes (hx growing up); Do You Dip or Chew Tobacco: No; Hx Alcohol Use: Yes (very rare) Hx Substance Use: No Preferred Language: Yi Communication Ability: Effective C 40A Crew Chief Required: No Beliefs That Will Affect Care: None marital status: Current Living Situation: Spouse current occupational status: retired Feels Safe at Home: Yes Assistive Devices: Walker Allergies Allergies Allergy/AdvReac Type Severity Reaction Status Date / Time Sulfa (Sulfonamide Allergy Mild Rash Verified 08/15/24 07:36 Antibiotics) Home Meds Home Medications Medication Instructions Recorded Confirmed atorvastatin 80 mg tablet 80 mg PO QAM 03/13/19 09/10/24 ezetimibe 10 mg tablet 10 mg PO QAM 04/12/19 09/10/24 pantoprazole 40 mg tablet,delayed 40 mg PO QAM 04/12/19 09/10/24 release empagliflozin 10 mg tablet 10 mg PO QAM 10/13/22 09/10/24 (Jardiance) nitroglycerin 0.4 mg sublingual 0.4 mg sublingual UD PRN Chest Pain 11/30/22 09/10/24 tablet (Nitrostat) aspirin 81 mg tablet,delayed 81 mg PO QAM 06/06/24 09/10/24 release atenolol 25 mg tablet 25 mg PO QAM 06/06/24 09/10/24 semaglutide 2 mg/dose (8 mg/3 mL) 2 mg subcut Q7D 06/06/24 09/10/24 subcutaneous pen injector (Ozempic) tamsulosin 0.4 mg capsule 0.4 mg PO QAM 06/06/24 09/10/24 terazosin 2 mg capsule 2 mg PO QAM 06/06/24 09/10/24 dexamethasone 4 mg tablet 4 mg PO UD PRN Pain 07/30/24 09/10/24 diclofenac sodium 1 % topical gel 2 g EXT Q8H PRN Pain 07/30/24 09/10/24 (Voltaren Arthritis Pain) pregabalin 150 mg capsule 150 mg PO BID 07/30/24 09/10/24 Previous Rx's Medication Instructions Recorded oxycodone 5 mg tablet 5 mg PO Q6H PRN pain #30 tabs 08/15/24 tramadol 50 mg tablet 50 mg PO Q6H PRN pain, moderate 08/15/24 #30 tabs Results & Data (ED) Vital Signs Vital Signs - 24 hr 09/10/24 11:45 09/10/24 15:21 09/10/24 17:00 Temperature 36.1 C L Temperature Source Temporal Artery Scan Pulse Rate 88 Pulse Rate [Apical] 79 81 Pulse Rhythm [Apical] Regular Pulse Strength [Apical] Normal Respiratory Rate 18 20 20 Respiratory Effort / Characteristics Non-Labored Respiratory Depth Normal Normal Respiratory Pattern Regular Blood Pressure 94/58 L Blood Pressure [Right Arm] 126/81 174/107 H Blood Pressure Mean 70 Blood Pressure Mean [Right Arm] 96 129 Blood Pressure Position [Right Arm] Lying Pulse Oximetry 95 96 97 Oxygen Delivery Method Room Air Room Air Room Air Sepsis Recent Fever Within 48 Hours No Sepsis New/Unexplained Change in Mental Status N/A Sepsis Action Taken by Nursing No Action Required 09/10/24 18:14 Temperature Temperature Source Pulse Rate 83 Pulse Rate [Apical] Pulse Rhythm [Apical] Pulse Strength [Apical] Respiratory Rate Respiratory Effort / Characteristics Respiratory Depth Respiratory Pattern Blood Pressure Blood Pressure [Right Arm] Blood Pressure Mean Blood Pressure Mean [Right Arm] Blood Pressure Position [Right Arm] Pulse Oximetry Oxygen Delivery Method Sepsis Recent Fever Within 48 Hours Sepsis New/Unexplained Change in Mental Status Sepsis Action Taken by [facility] Medications Current Medication List: was personally reviewed by me Laboratory Data Attestation: I reviewed the patient's lab results. 09/10/24 12:30 09/10/24 12:30 Lab Results 09/10/24 09/10/24 09/10/24 Range/Units 12:30 15:14 15:20 WBC 13.05 H (4.8-10.8) K/ul RBC 4.58 L (4.70-6.10) M/uL Hgb 12.6 L (14.0-18.0) g/dl Hct 38.8 L (42.0-52.0) % MCV 84.7 (80.0-100.0) fL MCH 27.5 (25.0-34.0) pg MCHC 32.5 (32.0-36.0) g/dL RDW Std Deviation 52.9 H (36.4-46.3) fL RDW Coeff of Jose 17.6 H (11.5-14.5) % Plt Count 132 (130-400) K/uL MPV 10.6 (9.4-12.4) fL Immature Gran % (Auto) 0.5 % Neut % (Auto) 83.6 % Lymph % (Auto) 9.7 % [place] % (Auto) 4.8 % Eos % (Auto) 1.3 % Baso % (Auto) 0.1 % Neut # (Auto) 10.92 H (1.40-6.50) K/uL Lymph # (Auto) 1.26 (1.20-3.40) K/uL [place] # (Auto) 0.62 H (0.11-0.59) K/uL Eos # (Auto) 0.17 (0.00-0.50) K/uL Baso # (Auto) 0.01 (0.00-0.20) K/uL Immature Gran # (Auto) 0.07 (0.01-0.20) K/uL Sodium 137 (136-145) mmol/L Potassium 3.7 (3.5-5.1) mmol/L Chloride 106 (98-107) mmol/L Carbon Dioxide 23 (21-32) mmol/L Anion Gap 8 (3-11) BUN 23 (6-23) mg/dl Creatinine 1.30 (0.6-1.4) mg/dl Est Cr Clr Drug Dosing 56.1 ml/min eGFR 56.93 BUN/Creatinine Ratio 17.7 (10-20) Glucose 162 H (70-99(Fasting)) mg/dl Calcium 8.8 (8.6-10.3) mg/dl Total Bilirubin 2.0 H (0.2-1.0) mg/dl AST 14 (13-39) U/L ALT 21 (7-52) U/L Alkaline Phosphatase 122 H (34-104) U/L Troponin I High Sens 30.0 H 24.4 H (0-20) pg/ml Total Protein 6.3 (6.0-8.3) gm/dl Albumin 3.3 L (3.4-5.0) gm/dl Globulin 3.0 (2.5-4.0) gm/dl Albumin/Globulin Ratio 1.1 (0.9-2) Urine Color Dark Yellow Urine Appearance Turbid A (Clear) Urine pH 5.0 (4.5-7.5) Ur Specific [place] 1.028 (1.000-1.030) Urine Protein 2+ H (Negative) Urine Glucose (UA) 3+ H (Negative) Urine Ketones 1+ H (Negative) Urine Blood 2+ H (Negative) Urine Nitrite Positive A (Negative) Urine Bilirubin 1+ H (Negative) Urine Urobilinogen Negative (Negative) Ur Leukocyte Esterase 2+ H (Negative) Urine WBC (Auto) >50 H (0-5) /hpf Urine RBC (Auto) 3-5 H (0-2) /hpf U Hyaline Cast (Auto) >20 H (0-2) /lpf U Epithel Cells (Auto) 3-5 H (0-2) /hpf Urine Bacteria (Auto) 4+ H (None Seen) Administered Medications Acetaminophen (Acetaminophen 500 Mg Tab) 1,000 mg PO TID LASHON Stop: 10/10/24 20:59 Last Admin: 09/10/24 20:45 Dose: 1,000 mg Documented By: ZACHERY Dexamethasone (Dexamethasone 1 Mg Tab) 6 mg PO BID LASHON Stop: 10/10/24 20:59 Last Admin: 09/10/24 21:12 Dose: 6 mg Documented By: ZACHERY Insulin Aspart (Insulin Aspart Per Unit Charge) 0 units SC ACHS LASHON Stop: 10/10/24 20:59 Last Admin: 09/10/24 21:10 Dose: 6 units Documented By: ZACHERY Co-signed By: ALICE Miscellaneous (Empagliflozin 10 Mg Tab - Order Awaiting Action) 1 each N/A QS LASHON Stop: 10/11/24 00:00 Last Admin: 09/10/24 23:23 Dose: Not Given Documented By: PIERCE Pregabalin (Pregabalin 150 Mg Cap) 150 mg PO TID LASHON Stop: 10/10/24 19:58 Last Admin: 09/10/24 22:23 Dose: Not Given Documented By: Admin: 09/10/24 20:45 Dose: 150 mg Documented By: ZACHERY Discontinued Medications Dexamethasone Sodium Phosphate (DexamethasonePf 10 Mg/Ml Vial) 10 mg IV NOW ONE Stop: 09/10/24 14:05 Last Admin: 09/10/24 15:22 Dose: 10 mg Documented By: KAUSHIK Ceftriaxone Sodium (Rocephin) 2,000 mg in 50 mls @ 100 mls/hr IV NOW STA Stop: 09/10/24 16:43 Last Infusion: 09/10/24 16:57 Dose: Infused Documented By: Admin: 09/10/24 16:27 Dose: 100 mls/hr Documented By: ZACHERY Sodium Chloride (Nss) 1,000 mls @ 999 mls/hr IV .Q1H1M ONE Stop: 09/10/24 17:20 Last Infusion: 09/10/24 17:28 Dose: Infused Documented By: Admin: 09/10/24 16:27 Dose: 999 mls/hr Documented By: ZACHERY Ioversol (Optiray 320 100ml) 90 ml IV ONCE ONE Stop: 09/10/24 16:59 Last Admin: 09/10/24 16:59 Dose: 90 ml Documented By: TIARA Ketorolac Tromethamine (Ketorolac Tromethamine 15 Mg/Ml Vial) 15 mg IV NOW ONE Stop: 09/10/24 14:05 Last Admin: 09/10/24 15:22 Dose: 15 mg Documented By: KAUSHIK Morphine Sulfate (Morphine Sulfate 4 Mg/Ml 1 Ml Carp\\Vial) 4 mg IV NOW STA Stop: 09/10/24 14:05 Last Admin: 09/10/24 15:22 Dose: 4 mg Documented By: KAUSHIK Morphine Sulfate (Morphine Sulfate 4 Mg/Ml 1 Ml Carp\\Vial) 4 mg IV NOW STA Stop: 09/10/24 17:28 Last Admin: 09/10/24 17:32 Dose: 4 mg Documented By: ZACHERY Imaging Data Attestation: I personally reviewed and interpreted this imaging study as follows: Radiologist's Impression: Hip CT 09/10/24 14:46 EXAM: CT Right Hip without Intravenous Contrast INDICATION: Chronic pain. TECHNIQUE: Axial computed tomography images of the right hip without intravenous contrast. Sagittal and coronal reformatted images were created and reviewed. This CT exam was performed using one or more of the following dose reduction techniques: automated exposure control, adjustment of the mA and/or kV according to patient size, and/or use of iterative reconstruction technique. COMPARISON: 08/16/2024. FINDINGS: Limitations: Metallic artifact from right hip prosthesis limits assessment of surrounding structures. Bones/joints: Noncemented hip arthroplasty well-seated and intact. No fracture, subluxation or dislocation. Increased heterotopic bone formation anterior to the proximal femoral shaft. Stable arthritic change of the included right sacroiliac joint. Soft tissues: No significant abnormality noted. Bladder: Appears normal for the degree of filling. No stones or inflammation. No large mass. Masses may not be detected in the absence of opacification. IMPRESSION: Increasing heterotopic bone formation anterior to the proximal right femoral shaft. Satisfactory appearance of hip arthroplasty. No acute change. ACT 112: Negative or not required by law. Electronically signed by Jen Asif 09-10-2024 4:[address] 09/10/24 14:46 EXAM: CT Thoracic and Lumbar Spine Without Intravenous Contrast INDICATION: Chronic pain. TECHNIQUE: Axial computed tomography images of the thoracic and lumbar spine without intravenous contrast. Sagittal and coronal reformatted images were created and reviewed. This CT exam was performed using one or more of the following dose reduction techniques: automated exposure control, adjustment of the mA and/or kV according to patient size, and/or use of iterative reconstruction technique. COMPARISON: No relevant prior studies available. FINDINGS: Vertebrae: There are 12 rib-bearing thoracic and. There is transitional first sacral vertebra. Diffuse moderate thoracic spondylosis. There is moderate to severe L2-L3 with large L2-L3 uncal spurs and grade 1 retrolisthesis of L2 on L3. No acute thoracolumbar fracture. No traumatic subluxation noted. Discs/spinal canal/neural foramina: Posterior L3-S1 fusion hardware with bilateral pedicle screws and posterior rods. Hardware intact and well-seated. Symmetrical degenerative change of the sacroiliac joints without erosion. There is diffuse mild to moderate thoracic disc space narrowing. There is severe narrowing at L2-L3. Moderate narrowing L3-L4. Metallic intervertebral disc spacer L2-L3 well-contained. Moderate narrowing L1-L2. Th there is diffuse disc bulge with mild to moderate ventral and bilateral foraminal stenosis at L1-L2. Slightly greater stenoses noted at L2-L3 with subarticular bilateral nerve root impingement. Limited assessment of the canal at the fusion levels due to metallic streak artifact. Widely patent laminectomy defects L3 and L4. There is canal and bilateral foraminal stenosis L5-S1 with bilateral S1 central nerve root impingement. Soft tissues: No significant abnormality noted. Vasculature: Atherosclerotic calcification of the aorta and branches. No aneurysm. Lungs and pleural spaces: Patchy parenchymal opacities present in the dependent portion of each lung. Kidneys and ureters: Multiple stones noted in the right kidney measuring up to 7 mm. Tubes, lines and devices: There is an intrathecal catheter in the posterior canal tip at T7-T8. Other findings: Postoperative scarring noted at the lumbar operative levels. IMPRESSION: 1. Moderate to severe multilevel postoperative and degenerative changes of the lumbar spine and diffuse moderate thoracic degenerative change. No acute spinal abnormality. 2. Dependent patchy infiltrates in both lung bases could reflect atelectasis or pneumonia. No pleural effusion. ACT 112: Negative or not required by law. Electronically signed by Jen Asif 09-10-2024 4:[address] 09/10/24 14:46 EXAM: CT Thoracic and Lumbar Spine Without Intravenous Contrast INDICATION: Chronic pain. TECHNIQUE: Axial computed tomography images of the thoracic and lumbar spine without intravenous contrast. Sagittal and coronal reformatted images were created and reviewed. This CT exam was performed using one or more of the following dose reduction techniques: automated exposure control, adjustment of the mA and/or kV according to patient size, and/or use of iterative reconstruction technique. COMPARISON: No relevant prior studies available. FINDINGS: Vertebrae: There are 12 rib-bearing thoracic and. There is transitional first sacral vertebra. Diffuse moderate thoracic spondylosis. There is moderate to severe L2-L3 with large L2-L3 uncal spurs and grade 1 retrolisthesis of L2 on L3. No acute thoracolumbar fracture. No traumatic subluxation noted. Discs/spinal canal/neural foramina: Posterior L3-S1 fusion hardware with bilateral pedicle screws and posterior rods. Hardware intact and well-seated. Symmetrical degenerative change of the sacroiliac joints without erosion. There is diffuse mild to moderate thoracic disc space narrowing. There is severe narrowing at L2-L3. Moderate narrowing L3-L4. Metallic intervertebral disc spacer L2-L3 well-contained. Moderate narrowing L1-L2. Th there is diffuse disc bulge with mild to moderate ventral and bilateral foraminal stenosis at L1-L2. Slightly greater stenoses noted at L2-L3 with subarticular bilateral nerve root impingement. Limited assessment of the canal at the fusion levels due to metallic streak artifact. Widely patent laminectomy defects L3 and L4. There is canal and bilateral foraminal stenosis L5-S1 with bilateral S1 central nerve root impingement. Soft tissues: No significant abnormality noted. Vasculature: Atherosclerotic calcification of the aorta and branches. No aneurysm. Lungs and pleural spaces: Patchy parenchymal opacities present in the dependent portion of each lung. Kidneys and ureters: Multiple stones noted in the right kidney measuring up to 7 mm. Tubes, lines and devices: There is an intrathecal catheter in the posterior canal tip at T7-T8. Other findings: Postoperative scarring noted at the lumbar operative levels. IMPRESSION: 1. Moderate to severe multilevel postoperative and degenerative changes of the lumbar spine and diffuse moderate thoracic degenerative change. No acute spinal abnormality. 2. Dependent patchy infiltrates in both lung bases could reflect atelectasis or pneumonia. No pleural effusion. ACT 112: Negative or not required by law. Electronically signed by Jen Asif 09-10-2024 4:39 PM Chest X-Ray 09/10/24 14:47 XR chest 1V portable CLINICAL HISTORY: elevated troponin COMPARISON STUDY: 11/30/2022 FINDINGS: Lower thoracic neurostimulator is present. There is mild cardiomegaly without pulmonary vascular congestion. No effusion, consolidation, or pneumothorax. IMPRESSION: No acute findings. ACT 112: Negative or not required by law. Electronically signed by: Cruz Monique M.D. 09/10/2024 3:19 PM Abdomen/Pelvis CT 09/10/24 16:20 INDICATION: Abdominal pain. Concern for pyelonephritis. COMPARISON: CT from 09/24/2021. TECHNIQUE: Axial CT images of the abdomen and pelvis were obtained following IV contrast administration. Coronal and sagittal reformations were reviewed. FINDINGS: Subsegmental atelectasis in the lung bases. The liver, gallbladder, spleen, pancreas and adrenal glands appear unremarkable. The kidneys enhance symmetrically. Nonobstructing bilateral renal calculi measuring up to 6 mm in the right kidney and 4 mm in the left kidney. No hydronephrosis. No evidence of bowel obstruction/colitis/appendicitis. Colonic diverticula noted. No free air. No drainable fluid collection. Atheromatous plaquing of the abdominal aorta without evidence of aneurysm. The urinary bladder is not completely distended. Phleboliths in the pelvis. Right hip prosthesis. Degenerative changes in the spine. No acute osseous abnormality evident. IMPRESSION: Nonobstructing bilateral renal calculi. No evidence of pyelonephritis. Electronically signed by Justino Encarnacion 09-10-2024 5:37 PM Discharge Plan Visit Data Chief Complaint: Pain (Generalized) Stated Complaint: BACK OF LEGS/BACK/SOME CHEST PAIN ED Provider: Pradeep Blevins ED Midlevel Provider: Erin Springer Discharge Problem: Intractable back pain, Urinary tract infection, Hip pain Patient Disposition: Admitted As Inpatient Discharge Instructions Interventions: ED Discharge Assessment Last Done: 09/10/24 19:59
--- NOTE | 2024-09-10 15:21 | XRay Report ---
XR chest 1V portable CLINICAL HISTORY: elevated troponin COMPARISON STUDY: 11/30/2022 FINDINGS: Lower thoracic neurostimulator is present. There is mild cardiomegaly without pulmonary vas cular congestion. No effusion, consolidation, or pneumothorax. IMPRESSION: No acute findings. ACT 112: Negative or not required by law. Electronically signed by: Cruz Monique M.D. 09/10/2024 3:19 PM
[2024-09-10] MEDS: KETOROLAC TROMETHAMINE 15 MG/ML VIAL IV ONE (15:22)
[2024-09-10] MEDS: dexAMETHasone**PF** 10 MG/ML VIAL IV ONE (15:22)
[2024-09-10] MEDS: MoRPHine SULFATE 4 MG/ML 1 ML CARP\\VIAL IV STA ×2 (15:22→17:32)
[2024-09-10 15:46] LABS: Appearance Urine Turbid (Clear); Bacteria Urine Automated 4+ (None Seen); Bilirubin Urine 1+ (Negative); Blood Urine 2+ (Negative); Cast Urine Automated >20 /lpf (0-2); Color Urine Dark Yellow; Glucose Urine UA 3+ (Negative); Ketones Urine 1+ (Negative); Leukocyte Esterase Urine 2+ (Negative); Nitrite Urine Positive (Negative); Protein Urine 2+ (Negative); Specific Gravity Urine 1.028 (1.000-1.030); Urobilinogen Urine Negative (Negative); WBC Urine Automated >50 /hpf (0-5)
--- NOTE | 2024-09-10 15:49 | Electrocardiogram Report ---
Test Reason : Blood Pressure : */* mmHG Vent. Rate : 86 BPM Atrial Rate : 86 BPM P-R Int : 170 ms QRS Dur : 88 ms QT Int : 342 ms P-R-T Axes : 10 19 31 degrees QTcB Int : 409 ms Sinus rhythm with Premature supraventricular complexes Poor R wave progression, consider anterior OR vs. lead placement vs. LVH Abnormal ECG When compared with ECG of 10-Oct-2023 12:35, Premature supraventricular complexes are now Present Confirmed by Goran Pineda ([id number]) on 09/10/2024 3:49:05 PM Referred By: Confirmed By: Goran Pineda
[2024-09-10] MEDS: SODIUM CHLORIDE 0.9% 1,000 ML IV ONE (16:27)
[2024-09-10] MEDS: cefTRIAXone SODIUM 2,000 MG/50 ML BAG IV STA (16:27)
--- NOTE | 2024-09-10 16:31 | CT Scan Report ---
EXAM: CT Right Hip without Intravenous Contrast INDICATION: Chronic pain. TECHNIQUE: Axial computed tomography images of the right hip without intravenous contrast. Sagittal and coronal reformatted images were created and reviewed. This CT exam was performed using one or more of the following dose reduction techniques: automated exposure control, adjustment of the mA and/or kV according to patient size, and/or use of iterative reconstruction technique. COMPARISON: 08/16/2024. FINDINGS: Limitations: Metallic artifact from right hip prosthesis limits assessment of surrounding structures. Bones/joints: Noncemented hip arthroplasty well-seated and intact. No fracture, subluxation or dislocation. Increased heterotopic bone formation anterior to the proximal femoral shaft. Stable arthritic change of the included right sacroiliac joint. Soft tissues: No significant abnormality noted. Bladder: Appears normal for the degree of filling. No stones or inflammation. No large mass. Masses may not be detected in the absence of opacification. IMPRESSION: Increasing heterotopic bone formation anterior to the proximal right femoral shaft. Satisfactory appearance of hip arthroplasty. No acute change. ACT 112: Negative or not required by law. Electronically signed by Jen Asfi 09-10-2024 4:30 PM
--- NOTE | 2024-09-10 16:39 | CT Scan Report ---
EXAM: CT Thoracic and Lumbar Spine Without Intravenous Contrast INDICATION: Chronic pain. TECHNIQUE: Axial computed tomography images of the thoracic and lumbar spine without intravenous contrast. Sagittal and coronal reformatted images were created and reviewed. This CT exam was performed using one or more of the following dose reduction techniques: automated exposure control, adjustment of the mA and/or kV according to patient size, and/or use of iterative reconstruction technique. COMPARISON: No relevant prior studies available. FINDINGS: Vertebrae: There are 12 rib-bearing thoracic and. There is transitional first sacral vertebra. Diffuse moderate thoracic spondylosis. There is moderate to severe L2-L3 with large L2-L3 uncal spurs and grade 1 retrolisthesis of L2 on L3. No acute thoracolumbar fracture. No traumatic subluxation noted. Discs/spinal canal/neural foramina: Posterior L3-S1 fusion hardware with bilateral pedicle screws and posterior rods. Hardware intact and well-seated. Symmetrical degenerative change of the sacroiliac joints without erosion. There is diffuse mild to moderate thoracic disc space narrowing. There is severe narrowing at L2-L3. Moderate narrowing L3-L4. Metallic intervertebral disc spacer L2-L3 well-contained. Moderate narrowing L1-L2. Th there is diffuse disc bulge with mild to moderate ventral and bilateral foraminal stenosis at L1-L2. Slightly greater stenoses noted at L2-L3 with subarticular bilateral nerve root impingement. Limited assessment of the canal at the fusion levels due to metallic streak artifact. Widely patent laminectomy defects L3 and L4. There is canal and bilateral foraminal stenosis L5-S1 with bilateral S1 central nerve root impingement. Soft tissues: No significant abnormality noted. Vasculature: Atherosclerotic calcification of the aorta and branches. No aneurysm. Lungs and pleural spaces: Patchy parenchymal opacities present in the dependent portion of each lung. Kidneys and ureters: Multiple stones noted in the right kidney measuring up to 7 mm. Tubes, lines and devices: There is an intrathecal catheter in the posterior canal tip at T7-T8. Other findings: Postoperative scarring noted at the lumbar operative levels. IMPRESSION: 1. Moderate to severe multilevel postoperative and degenerative changes of the lumbar spine and diffuse moderate thoracic degenerative change. No acute spinal abnormality. 2. Dependent patchy infiltrates in both lung bases could reflect atelectasis or pneumonia. No pleural effusion. ACT 112: Negative or not required by law. Electronically signed by Jen Asif 09-10-2024 4:39 PM
[2024-09-10] MEDS: OPTIRAY 320 100ml IV ONE (16:59)
--- NOTE | 2024-09-10 17:39 | CT Scan Report ---
INDICATION: Abdominal pain. Concern for pyelonephritis. COMPARISON: CT from 09/24/2021. TECHNIQUE: Axial CT images of the abdomen and pelvis were obtained following IV contrast administration. Coronal and sagittal reformations were reviewed. FINDINGS: Subsegmental atelectasis in the lung bases. The liver, gallbladder, spleen, pancreas and adrenal glands appear unremarkable. The kidneys enhance symmetrically. Nonobstructing bilateral renal calculi measuring up to 6 mm in the right kidney and 4 mm in the left kidney. No hydronephrosis. No evidence of bowel obstruction/colitis/appendicitis. Colonic diverticula noted. No free air. No drainable fluid collection. Atheromatous plaquing of the abdominal aorta without evidence of aneurysm. The urinary bladder is not completely distended. Phleboliths in the pelvis. Right hip prosthesis. Degenerative changes in the spine. No acute osseous abnormality evident. IMPRESSION: Nonobstructing bilateral renal calculi. No evidence of pyelonephritis. Electronically signed by Justino Encarnacion 09-10-2024 5:37 PM
--- NOTE | 2024-09-10 18:46 | History & Physical Report ---
Date of Service September 10, 2024 Assessment & Plan (1) Intractable back pain: (2) Ambulatory dysfunction: (3) Lumbosacral radiculopathy: (4) Adjacent segment disease of lumbar spine with history of fusion procedure: (5) S/P lumbar spine operation: (6) UTI (urinary tract infection): (7) BPH associated with nocturia: (8) Diabetes mellitus, type II: Plan Patient 74-year-old gentleman who can intractable back pain, hip pain and ambulatory dysfunction despite hip replacement and lumbar spine surgery. Requires hospital level care to manage his pain and evaluation by orthopedic spine. Admit to the hospital Scheduled Tylenol for pain control, increase his Lyrica to 3 times daily for neuropathic pain. As needed oxycodone and morphine for pain Consult orthopedic spine PT/OT Rocephin for suspected UTI, follow urine culture Monitor glucose with insulin coverage for his diabetes Home medications as ordered Case management History of Present Illness Chief Complaint: Severe buttock and hip pain. Primary Care Provider: Karl Madrigal DO Patient is a 74-year-old gentleman who has undergone extensive lumbar spine surgery as well as recent hip surgery. He continues to have significant jelly of pain in his pelvic area, lumbar area and lateral thigh/hip area. Came to the emergency room with this pain essentially at the point where he cannot ambulate without severe discomfort. In the emergency room required multiple doses of IV medications for any type of pain control. Patient not feel like he could return home. Imaging did not show any acute abnormalities other than what was supposedly expected to be seen postoperatively. Was referred for evaluation and care in the hospital so he could not get further specialty evaluation by orthopedic spine. Patient is been seen by Dr. Reyes and [facility] for his spine and hip respectively. Patient was actually in [facility] office a week ago. Thought he had a significant right hip bursitis and had an injection in the bursa last week it lasted a couple days but then pain returned and seem to even flare more so over the week. Also here in the emergency room, urinalysis concerning for possible UTI. Imaging shows some nonobstructing renal calculi but no evidence of pyelonephritis. Patient did not really even report significant urinary symptoms. He is more concerned about back and hip pain. Denies any fever or chills. No cough or cold symptoms. No chest pain or shortness of breath. Patient has also been to [facility] [place] since his back surgery the end of July. They stated that they would have done the same procedure as he had already received and recommended him to follow up locally here with Dr. Reyes. Allergies Allergy/AdvReac Type Severity Reaction Status Date / Time Sulfa (Sulfonamide Allergy Mild Rash Verified 08/15/24 07:36 Antibiotics) Home Medications Medication Instructions Recorded Confirmed Type atorvastatin 80 mg tablet 80 mg PO QAM 03/13/19 09/10/24 History ezetimibe 10 mg tablet 10 mg PO QAM 04/12/19 09/10/24 History pantoprazole 40 mg tablet,delayed 40 mg PO QAM 04/12/19 09/10/24 History release empagliflozin 10 mg tablet 10 mg PO QAM 10/13/22 09/10/24 History (Jardiance) nitroglycerin 0.4 mg sublingual 0.4 mg sublingual UD PRN Chest Pain 11/30/22 09/10/24 History tablet (Nitrostat) aspirin 81 mg tablet,delayed 81 mg PO QAM 06/06/24 09/10/24 History release atenolol 25 mg tablet 25 mg PO QAM 06/06/24 09/10/24 History semaglutide 2 mg/dose (8 mg/3 mL) 2 mg subcut Q7D 06/06/24 09/10/24 History subcutaneous pen injector (Ozempic) tamsulosin 0.4 mg capsule 0.4 mg PO QAM 06/06/24 09/10/24 History terazosin 2 mg capsule 2 mg PO QAM 06/06/24 09/10/24 History dexamethasone 4 mg tablet 4 mg PO UD PRN Pain 07/30/24 09/10/24 History diclofenac sodium 1 % topical gel 2 g EXT Q8H PRN Pain 07/30/24 09/10/24 History (Voltaren Arthritis Pain) pregabalin 150 mg capsule 150 mg PO BID 07/30/24 09/10/24 History oxycodone 5 mg tablet 5 mg PO Q6H PRN pain #30 tabs 08/15/24 09/10/24 Rx tramadol 50 mg tablet 50 mg PO Q6H PRN pain, moderate 08/15/24 09/10/24 Rx #30 tabs Past Med/Surg History Problem List (Updated 09/10/24 @ 18:44 by Chandler Casiano DO) Intractable back pain UTI (urinary tract infection) Acute blood loss anemia S/P lumbar spine operation S/P spinal surgery 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 Lumbar radiculopathy (Acute) Diabetes mellitus, type II Ambulatory dysfunction Lumbosacral radiculopathy Adjacent segment disease of lumbar spine with history of fusion procedure Scoliosis of lumbar region due to degenerative disease of spine in adult BPH associated with nocturia Encounter for pre-operative examination Nocturia GERD (gastroesophageal reflux disease) (Acute) Dyslipidemia CAD (coronary atherosclerotic disease) Impotence (Chronic) HTN (hypertension) (Chronic) Medical History Obesity, Class II, BMI 35-39.9 Nocturnal hypoxemia Per records Lumbar radiculopathy Dyslipidemia CAD (coronary artery disease) 2013 > stent x1 Ambulatory dysfunction R/t back pain BPH associated with nocturia Bladder cancer Hx "years ago" Continues to have follow-up cystos Diabetes mellitus, type 2 NIDDM History of colon polyps Sleep apnea CPAP (compliant) Myocardial infarction 2014 > stent x1 Follows with Dr. Alvarez Chronic back pain Nephrolithiasis Hx Hypertension Esophageal reflux Surgical History Nausea and vomiting after administration of anesthetic agent Single episode years ago History of lumbar spinal fusion History of carpal tunnel release of both wrists Hx of lithotripsy Multiple History of total right hip arthroplasty [facility], Dr. Iniguez (05/22/24) History of cataract surgery R/L History of colonoscopy History of cardiac cath 2014 > stent x1 History of cystoscopy with resection of bladder tumor H/O hernia repair Umbilical H/O arthroscopic knee surgery R/L H/O shoulder surgery Arthroscopic, right Hx of appendectomy ~age 10 History of lumbar surgery ~2016, L3-L5 Family History Mother Coronary heart disease Hypertension Nephrolithiasis Father Coronary heart disease Hypertension Social History Smoking Status: Never smoker Tobacco Type: Cigarettes Second Hand Exposure: Yes (hx growing up); Do You Dip or Chew Tobacco: No; Hx Alcohol Use: Yes (very rare) Hx Substance Use: No Preferred Language: Sinhala Communication Ability: Effective [employer] Required: No Beliefs That Will Affect Care: None marital status: Current Living Situation: Spouse current occupational status: retired Feels Safe at Home: Yes Assistive Devices: Walker Review of Systems Review of Systems: Pertinent positive and negative review of systems as mentioned in the HPI Physical Exam Physical Exam: Constitutional: Alert, nontoxic, moderate distress due to pain HEENT: Mucous membranes moist. Lungs: Clear to auscultation, decreased, no wheezes rales or rhonchi CV: S1-S2, regular Abdomen: Soft, nontender, nondistended Extremities: No significant edema Musculoskeletal: Pain in hip area, thighs, lumbar spine Neuro: No focal deficits, does move both lower extremities Psych: Cooperative, normal mood Results & Data Results & Data Vital Signs (Past 12 Hours) Vital Signs Temp Pulse Pulse Resp BP BP Pulse Ox 09/10/24 18:14 83 09/10/24 17:00 81 20 174/107 H 97 09/10/24 15:21 79 20 126/81 96 09/10/24 11:45 36.1 C L 88 18 94/58 L 95 O2 Del Method 09/10/24 18:14 09/10/24 17:00 Room Air 09/10/24 15:21 Room Air 09/10/24 11:45 Room Air Diagnostic Findings Reviewed imaging, laboratory and diagnostic studies. Pertinent findings as below. WBCs 13.0 Hemoglobin 12.6 Troponin 30.0, 24.4, no evidence of acute coronary syndrome Urinalysis positive nitrates positive leukocyte esterase, 4+ bacteria Personally reviewed chest x-ray no acute abnormalities Reviewed CT reports of thoracic, lumbar, hip, expected postoperative changes. CT of the abdomen and pelvis shows nonobstructing bilateral renal calculi, no evidence of pyelonephritis, no other acute findingsBMP within normal range Code Status & VTE Plan VTE Prophylaxis Plan VTE Prophylaxis will be ordered: Yes
--- OUTSIDE RECORDS SUMMARY | 2024-09-10 18:47 | External Medical Summary | Summary of Care ---
Author Name Unknown Organization [facility] Address [address] [facility] [address] Phone [phone] Care Team Providers Care Home Advisor Name Role Phone Wilmer Mckenzie MD Primary Care Provider Reason for Visit * Reason Comments Outpatient Testing Encounter Details Date Type Department Care Team (Late st Contact Info) Description 08/30/2024 1:00 PM EST Laboratory Laboratory, [facility] [address] [place] [address] [facility] [address] [place] [address] [employer] Other*[id number]; ST elevation myocardial infarction (STEMI) of inferior wall (HCC); Dyslipidemia, goal LDL below 100; Type 2 diabetes mellitus without complication, without long-term current use of insulin (HCC); BPH without obstruction/lower urinary tract symptoms Allergies Active Allergy Reactions Criticality Noted Date Comments Sulfa Antibiotics Rash 10/08/2016 Severe, itching rash, arms and torso documented as of this encounter (statuses as of 08/30/2024) Medications NASIM CHILDRENS ASPIRIN 81 MG PO CHEW daily Active ONETOUCH DELICA LANCETS FINE MISC 10/25/19 19 Active ONETOUCH VERIO STRP 10/25/19 19 Active Sildenafil Citrate 100 MG Oral Tablet TAKE 1 TABLET BY MOUTH ONCE DAILY NEEDED FOR SEXUAL ACTIVITY, TAKE 30 MINUTES TO 4 HOURS BEFORE ACTIVITY, DO NOT TAKE NITROGLYCERIN AFTER TAKING THIS MEDICATION 06/20/20 Active Tamsulosin HCl 0.4 MG Oral Capsule [...] disease, without long-term current use of insulin (HCC) Inject 2 mg subcutaneously once a week [...] as of this encounter (statuses as of 08/30/2024) Active Problems Problem Noted Date Diagnosed Date [...] CPAP 01/14/2022 Coronary artery disease invo lving tangirnaq coronary artery of tangirnaq heart without angina pectoris 04/24/2015 GERD (gastroesophageal reflux disease) 4 Dry cough 10/08/2013 Headache 09/24/2013 Overview (10/08/2015): ICD-10 update of inactive term ST elevation myocardial infarction (STEMI) of in ferior wall 09/23/2013 CAD S/P percutaneous coronary angioplasty 2013 Essential hypertension with goal blood pressure less than 130/80 09/23/2013 Dyslipidemia, goal LDL below 70 09/23/2013 documented as of this encounter (statuses as of 08/30/2024) Resolved Problems Problem Noted Date Diagnosed Date Resolved Date Chronic kidney disease, stage 3a 02/22/2022 07/26/2022 Overview: Per CKD protocol Benign hypertension with CKD (chronic kidney disease) stage III 01/14/2022 02/25/2022 Overview: Per CKD protocol Coronary atherosclerosis of tangirnaq coronary artery 05/14/2014 04/24/2015 Right ventricular systolic dysfunction 05/14/2014 02/18/2016 Encounter for management of intra-aortic balloon pump 09/23/2013 04/24/2015 ADVANCE DIRECTIVE INFORMATION 03/14/2008 05/21/2024 Overview (03/14/2008): No, Advance Directive brochure offered , patient declined. documented as of this encounter (statuses as of 08/30/2024) Immunizations Name Administration Dates Next Due COVID-19 mRNA, LNP-s, No Pre serve, 2-Dose Series (Pfizer) 10/31/2020,10/10/2020 DTaP Dipth/Tet/Acell Pertussis (Infanrix), Peds 03/19/2014 Pneumococcal Conjugate Vacci ne, 20-valent ([id number]) 02/15/2023 Seasonal Influenza Vac., MDV , IM, [...] ages 0-17 years) Not on file 05/17/2024 Food Insecurity Answer Date Recorded Within the past 12 months, y ou worried that your food would run out before you got the money to buy more. Never true 05/17/20 24 Within the past 12 months, t he food you bought just didn't last and you didn't have money to get more. Never true 05/17/2024 Do you need food for this week? No 05/17/2024 Sex and Gender Information Value Date [...] 09/04/2024 8:00 AM EST Office Visit Pharmacy, [address] [place] [address] [facility] [address] [place], [place] [address] 09/11/2024 9:00 AM EST Office Visit [facility] [address] [place], [place] [address] Karl Madrigal, DO [address] [place] [address] 10/09/2024 3:00 PM EDT Office Visit Interventional Pain Center [facility] [address] [place] [phone] Pedro Lamar DO [address] [place] [phone] 11/07/2024 9:00 AM EDT Office Visit Nutrition & Weight Management, [facility] [address] [place] [address] Izabel Wilde PA-C [address] [place] [address] 11/21/2024 8:00 AM EDT Office Visit Cardiology, [facility] [address] [place] [address] Matilde Valerio PA-C [address] [place] [address] 02/04/2025 8:00 AM EDT Office Visit [facility] [address] [place] [address] Karl Madrigal, DO [address] [place] [address] Pending Results Name Type Priority Associated Diagnoses Date /Time MYCODE INITIAL ADULT Lab Routine [employer] Other*[id number] 08/30/2024 12:57 PM EST HEMOGLOBIN A1C Lab Routine Type 2 diabetes mellitus without complication, without long-term current use of insulin ([facility]) 08/30/2024 12:57 PM EST LIPID PANEL WITH DIRECT LDL IF TG IS HIGH Lab Routine Dyslipidemia, goal LDL below 100 08/30/2024 12:57 PM EST PSA WITH FREE PSA IF INDICATED Lab Routine BPH without obstruction/lower urinary tract symptoms 08/30/2024 12:57 PM EST MYCODE INITIAL ADULT-PINK Lab Routine [employer] Other*[id number] 08/30/2024 12:57 PM EST MYCODE SST1 Lab Routine [employer] Other*[id number] 08/30/2024 12:57 PM EST MYCODE SST2 Lab Routine [employer] Other*[id number] 08/30/2024 12:57 PM EST ALBUMIN / CREATININE RATIO, URINE Lab Routine Type 2 diabetes mellitus without complication, without long-term current use of insulin ([facility]) 08/30/2024 12:59 PM EST Scheduled Procedures Name Priority Associated Diagnoses Date/Ti me COLONOSCOPY FLEXIBLE PROXIMA L DIAGNOSTIC Recall History of colonic polyps Health Maintenance Due Date Last Done Comments Adult Wellness Visit 2014 GFR 01/23/2025 08/30/2024, 03/2025, 05/15/2024, Additional history exists HbA1c 01/23/2025 07/26/2024, 04/18, 01/23/2024, Additional history exists Depression Screening 01/30/2025 01/31/2024 Diabetic Eye Exam 04/04/2025 04/04/2024, , 03/30/2023, Additional history exists Albumin/Creatinine Ratio 07/26/2025 025, 08/02/2023, 07/28/2022, Additional history exists CKD HGB USE SMARTSET 08669 07/26/202508/30, 08/30/2024, 07/26/2024, Additional history exists CKD PHOS USE SMARTSET 32602 07/26/20250 03/2025, 08/02/2023, 01/19/2023, Additional history exists Diabetic [...] this encounter Medical Devices Implanted Type Area Sand Wheeler Device Identifier Shelf Expiration Date Model / Serial / Lot Lead Kit Trial [id number] 50cm - [id number] - [id number] Implanted:Qty: 1 on 09/15/2023 by Pedro Lamar DO at [facility] N/A: Back [employer] : PAIN MGMT 08/02/2025 [id number] 50E0 / [id number] / Lead Kit Trial [id number] 50cm - [id number] - [id number] Implanted:Qty: 1 on 09/15/2023 by Pedro Lamar DO at OR [facility] N/A: Back [employer] : PAIN MGMT 08/02/2025 [id number] 50E0 / [id number] / documented as of this encounter Procedures Procedure Name Priority Date/Time Associated Diagnosis Comments DIFFERENTIAL, AUTOMATED Routine 08/30/2024 12:[address] elevation myocardial infarction (STEMI) of inferior wall (HCC) COMPREHENSIVE METABOLIC PANEL Routine 08/30/2024 12:57 PM EST Dyslipidemia, goal LDL below 100 Type 2 diabetes mellitus without complication, without long-term current use of insulin (HCC) CBC Routine 08/30/2024 12:[address] elevation myocardial infarction (STEMI) of inferior wall (HCC) CBC Routine 08/30/2024 12:[address] elevation myocardial infarction (STEMI) of inferior wall (HCC) DIFFERENTIAL, TECHNOLOGIST REVIEW Routine 08/30/2024 12:[address] elevation myocardial infarction (STEMI) of inferior wall (HCC) documented in this encounter Results * (ABNORMAL) DIFFERENTIAL, TECHNOLOGIST REVIEW (08/30/2024 12:57 PM EST) WBC 17.63(H) 4.00 - 10.80 K/uL 08/30/2024 2:20 PM EST [facility] [place] [facility] Neutrophils % 92.0(H) 40.0 - 75.0 % 08/30/2024 2:20 PM EST [facility] [place] [facility] Lymphocytes % 5.0(L) 18.0 - 42.0 % 08/30/2024 2:20 PM EST [facility] [place] [facility] Monocytes % 2.0 1.0 - 11.0 % 08/30/2024 2:20 PM EST [facility] [place] [facility] Metamyelocytes % 1.0(H) <=0.0 % 08/30/19 2:20 PM EST [facility] [place] [facility] Absolute Neutrophils 16.22(H) 1.80 - 7.70 K/uL 08/30/2024 2:20 PM EST [facility] [place] [facility] Absolute Lymphocytes 0.88(L) 1.00 - 4.80 K/uL 08/30/2024 2:20 PM EST [facility] [place] [facility] Absolute Monocytes 0.35 0.00 - 1.10 K/uL 08/30/2024 2:20 PM EST [facility] [place] [facility] Absolute Metamyelocytes 0.18(H) <=0.00 K/uL 08/30/2024 2:20 PM EST [facility] [place] [facility] nRBCs 08/30/2024 2:20 PM EST [facility] [place] [facility] Blood Venous blood specimen / Unknown Venipuncture / Unknown 08/30/2024 12:57 PM EST 08/30/2024 12:57 PM EST Karl Madrigal DO LAB BLOOD ORDERABLES Fi nal Result Performing Organization Address City/[facility]/ZIP Co de Phone Number [facility] [place] [phone] [place] [address] * DIFFERENTIAL, AUTOMATED (08/30/2024 12:57 PM EST) Blood Venous blood specimen / Unknown Venipuncture / Unknown 08/30/2024 12:57 PM EST 08/30/2024 12:57 PM EST Karl Madrigal DO LAB BLOOD ORDERABLES Fi nal Result Performing Organization Address [facility]/ZIP Co de Phone Number [phone] [facility] [place] [address] * (ABNORMAL) CBC (08/30/2024 12:57 PM EST) [facility] WBC 17.63(H) 4.00 - 10.80 K/uL 08/30/2024 2:20 PM EST [facility] [place] [facility]10 RBC 4.77 4.50 - 5.25 M/uL 08/30/2024 2:20 PM EST [facility] [place] [facility]10 HGB 13.2(L) 14.0 - 16.8 g/dL 08/30/2024 2:20 PM EST [facility] [place] [facility] HCT 41.0 40.0 - 48.4 % 08/30/2024 2:20 PM EST [facility] [place] [facility] MCV 86.0 82.0 - 99.5 fL 08/30/2024 2:20 PM EST [facility] [place] [facility] MCH 27.7 27.0 - 34.0 pg 08/30/2024 2:20 PM EST [facility] [place] [facility] MCHC 32.2 32.0 - 36.0 g/dL 08/30/2024 2:20 PM EST [facility] [place] [facility]10 RDW 15.5 11.5 - 15.5 % 08/30/2024 2:20 PM EST [facility] [place] [facility]10 PLT 306 140 - 400 K/uL 08/30/2024 2:20 PM EST [facility] 57[facility]10 MPV 10.5 6.6 - 11.1 fL 08/30/2024 2:20 PM EST [facility] [place] [facility]10 Blood Venous blood specimen / Unknown Venipuncture / Unknown 08/30/2024 12:57 PM EST 08/30/2024 12:57 PM EST us Karl Madrigal DO LAB BLOOD ORDERABLES Fi nal Result [facility] [place] [address] [place] [address] * (ABNORMAL) COMPREHENSIVE METABOLIC PANEL (08/30/2024 12:57 PM EST) BUN 33(H) 6 - 20 mg/dL 08/30/2024 2:21 PM EST [facility] [place] [facility]10 CREATININE 1.1 0.6 - 1.2 mg/dL 08/30/2024 2:21 PM EST [facility] [place] [facility]10 EGFR 68 >=60 mL/min 08/30/2024 2:21 PM EST [facility] [place] [facility] 57-10 Comment:eGFR is calculated b ased on the CKD-EPI 2020 equation. SODIUM 140 135 - 146 mmol/L 08/30/2024 2:21 PM EST [facility] [place] [facility]10 POTASSIUM 4.4 3.5 - 5.1 mmol/L 08/30/2024 2:21 PM EST [facility] [place] [facility]10 CHLORIDE 102 98 - 107 mmol/L 08/30/2024 2:21 PM EST [facility] [place] [facility]10 CO2 25 22 - 32 mmol/L 08/30/2024 2:21 PM EST [facility] [place] [facility] 57-10 ANION GAP 13 7 - 15 mmol/L 08/30/2024 2:21 PM EST [facility] [place] [facility] 57-10 GLUCOSE 176(H) 70 - 120 mg/dL 08/30/2024 2:21 PM EST [facility] [place] [facility] 57-10 Albumin 4.0 3.8 - 5.0 g/dL 08/30/2024 2:21 PM EST [facility] [place] 57[facility]10 AST 12 10 - 50 U/L 08/30/2024 2:21 PM EST [facility] [place] [facility] 57-10 Alkaline Phosphatase 207(H) 35 - 130 U/L 08/30/2024 2:21 PM EST [facility] [place] [facility] 57-10 Bilirubin, Total 0.4 <=1.2 mg/dL 08/30/2024 2:21 PM EST [facility] [place] [facility]10 CALCIUM 9.6 8.4 - 10.2 mg/dL 08/30/2024 2:21 PM EST [facility] [place] [facility]10 Protein 6.5 6.0 - 8.3 g/dL 08/30/2024 2:21 PM EST [facility] [place] [facility] 57-10 ALT 24 10 - 50 U/L 08/30/2024 2:21 PM EST [facility] [place] [facility] 57-10 Blood Venous blood specimen / Unknown Venipuncture / Unknown 08/30/2024 12:57 PM EST 08/30/2024 12:57 PM EST us Karl Madrigal DO LAB BLOOD ORDERABLES Fi nal Result [facility] [place] [facility] [place] [address] documented in this encounter Visit Diagnoses Diagnosis [employer] Other*[id number] ST elevation myocardial infarction (STEMI) of inferior wall (HCC) Acute myocardial infarction of other inferior wall, episode of care unspecified Dyslipidemia, goal LDL below 100 Other and unspecified hyperlipidemia Type 2 diabetes mellitus without complication, without long-term current use of insulin (HCC) BPH without obstruction/lower urinary tract symptoms Hypertrophy of prostate without urinary obstruction and other lower urinary tract symptoms (LUTS) documented in this encounter Advance Directives * [...] Power of Attor pato? No Care Teams Home Advisor Relationship Specialty Start Date End Date Wilmer Mckenzie MD [address] [place] [address] PCP - General Family Medicine 07/25/24 documented as of this encounter
--- OUTSIDE RECORDS SUMMARY | 2024-09-10 18:47 | External Medical Summary ---
Author Name Unknown Address Unknown Organization K01:[facility] [address] [facility] [address] Laboratory Report Ordering Provider Test Date Status MUSAJOSÉ LUIS 08/30/2024 12:57:05 Final Observation Date Value Abnormality Reference (Units ) Status PSA 08/30/2024 12:57:05 0.59 <4.10 (ng/ mL) Final Total PSA is within referenc e interval. Free PSA testing is not indicated. Performing Location [facility] [address] [facility] [address]
--- OUTSIDE RECORDS SUMMARY | 2024-09-10 18:47 | External Medical Summary | Summary of Care ---
Author Name Unknown Organization [facility] Address [address] [place] [address] Phone [phone] Care Team Providers Care Shift Leader Name Role Phone Wilmer Mckenzie MD Primary Care Provider Encounter Details Date Type Department Care Team (Late st Contact Info) Description 09/03/2024 Orders Only Outcomes Research Department [address] [place] [address] Danelle Nava CHRA [employer] Other*[id number] Allergies Active Allergy Reactions Criticality Noted Date Comments Sulfa Antibiotics Rash 10/08/2016 Severe, itching rash, arms and torso documented as of this encounter (statuses as of 09/03/2024) Medications NASIM SMITH ASPIRIN 81 MG PO CHEW daily Active [...] without long-term current use of insulin ([facility]) Inject 2 mg subcutaneously once a week [...] as of this encounter (statuses as of 09/03/2024) Active Problems Problem Noted Date Diagnosed Date Severe obesity with body mas s index (BMI) of 35.0 to 39.9 with serious comorbidity 08/02/2023 Benign hypertension with stage 3a chronic kidney disease 02/22/2022 Overview: Per CKD protocol Sacroiliitis 01/14/2022 Diabetes mellitus without complication Diabetes mellitus due to und erlying condition with stage 3a chronic kidney disease, without long-term current use of insulin 01/14/2022 Lumbar radiculopathy 01/14/2022 BPH without obstruction/lower urinary tract symp toms 01/14/2022 HTN, goal below 130/80 01/14/2022 MINA on CPAP 01/14/2022 Coronary artery disease invo lving eek coronary artery of eek heart without angina pectoris 04/24/2015 GERD (gastroesophageal reflux disease) 4 Dry cough 10/08/2013 Headache 09/24/2013 Overview (10/08/2015): ICD-10 update [address] inactive term [address] elevation myocardial infarction (STEMI) of in ferior wall 09/23/2013 CAD S/P percutaneous coronary angioplasty 2013 Essential hypertension with goal blood pressure less than 130/80 09/23/2013 Dyslipidemia, goal LDL below 70 09/23/2013 documented as of this encounter (statuses as of 09/03/2024) Resolved Problems Problem Noted Date Diagnosed Date Resolved Date Chronic kidney disease, stage 3a 02/22/2022 07/26/2022 Overview: Per CKD protocol Benign hypertension with CKD (chronic kidney disease) stage III 01/14/2022 02/25/2022 Overview: Per CKD protocol Coronary atherosclerosis of eek coronary artery 05/14/2014 04/24/2015 Right ventricular systolic dysfunction 05/14/2014 02/18/2016 Encounter for management of intra-aortic balloon pump 09/23/2013 04/24/2015 ADVANCE DIRECTIVE INFORMATION 03/14/2008 05/21/2024 Overview (03/14/2008): No, Advance Directive brochure offered , patient declined. documented as of this encounter (statuses as of 09/03/2024) Immunizations Name Administration Dates Next Due COVID-19 mRNA, LNP-s, No Pre serve, 2-Dose Series (Pfizer) 10/31/2020,10/10/2020 DTaP Dipth/Tet/Acell Pertussis (Infanrix), Peds 03/19/2014 Pneumococcal Conjugate Vacci ne, 20-valent ([id number]) 02/15/2023 Seasonal Influenza Vac., MDV , IM, [...] Entry Date Author No 09/23/2013 4:21 PM [place] Nia Robbins RN documented in this encounter Plan of Treatment Upcoming Encounters Date Type Department Care Team (Late st Contact Info) Description 09/04/2024 8:00 AM EST Office Visit Pharmacy, [facility] [address] [place] [address] [facility] [address] [place] [address] 09/11/2024 9:00 AM EST Office Visit Family Practice [facility] [address] [place] [address] Karl Madrigal, [address] [place] [address] 10/09/2024 3:00 PM EDT Office Visit Interventional Pain Center [facility] [address] [place] [phone] Pedro Lamar, DO [address] [place] [address] 11/07/2024 9:00 AM EDT Office Visit Nutrition & Weight Management, [facility] [address] [place] [address] Izabel Wilde PA-C [address] [place] [address] 11/21/2024 8:00 AM EDT Office Visit Cardiology, [facility] [address] [place] [address] Matilde Valerio PA-C [address] [place] [address] 02/04/2025 8:00 AM EDT Office Visit Family Practice [facility] [address] [place] [address] Karl Madrigal, DO [address] [place] [address] Scheduled Orders Name Type Priority Associated Diagnoses Orde r Schedule MYCODE SUBSEQUENT ADULT Lab Routine My[employer] Research Other*[id number] Every 6 Months for 2 Occurrences starting 09/03/2024 until 09/23/2025 Scheduled Procedures Name Priority Associated Diagnoses Date/Ti me COLONOSCOPY FLEXIBLE PROXIMA L DIAGNOSTIC Recall History of colonic polyps Health Maintenance Due Date Last Done Comments Adult Wellness Visit 2014 Depression Screening 01/30/2025 01/31/2024 GFR 02/27/2025 08/30/2024, 01/0 03/2025, 05/15/2024, Additional history exists HbA1c 02/27/2025 08/30/2024, 03/2025, 05/15/2024, Additional history exists Diabetic Eye Exam 04/04/2025 04/04/2024, , 03/30/2023, Additional history exists CKD PHOS USE SMARTSET 47636 07/26/2025/0 03/2025, 08/02/2023, 01/19/2023, Additional history exists Diabetic Foot Exam 08/02/2025 08/02/2024, 0 08/02/2023, 02/18/2022 Albumin/Creatinine Ratio 08/30/2025 025, 07/26/2024, 08/02/2023, Additional history exists CKD HGB USE SMARTSET 68441 08/30/202508/30, 08/30/2024, 07/26/2024, Additional history exists Colonoscopy 12/06/2025 12/06/2022, 12/06/2022 DTap/Tdap Vaccines (4 [...] on patient's age to complete this topic Meningitis B Vaccine (Bexsero/Trumemba) Aged Out No longer eligible based on patient's age to complete this topic documented as of this encounter Medical Devices Implanted Type Area Jewelry Repairer Device Identifier Shelf Expiration Date Model / Serial / Lot Lead Kit Trial [id number] 50cm - [id number] - [id number] Implanted:Qty: 1 on 09/15/2023 by Pedro Lamar, DO at [facility] N/A: Back [employer] : PAIN MGMT 08/02/2025 [id number] 50E0 / [id number] / Lead Kit Trial [id number] 50cm - [id number] - [id number] Implanted:Qty: 1 on 09/15/2023 by Pedro Lamar, DO at [facility] N/A: Back [employer] : PAIN MGMT 08/02/2025 [id number] 50E0 / [id number] / documented as of this encounter Visit Diagnoses Diagnosis [employer] Other*[id number] documented in this encounter Advance Directives * [...] Power of Attor pato? No Care Teams Shift Leader Relationship Specialty Start Date End Date Wilmer Mckenzie MD [address] [place] [address] PCP - General Family Medicine 07/25/24 documented as of this encounter
--- OUTSIDE RECORDS SUMMARY | 2024-09-10 18:47 | External Medical Summary | Summary of Care ---
Author Name Unknown Organization [facility] Address [address] [facility] [place] [address] Phone [phone] Care Team Providers Care Floor Layer Apprentice Name Role Phone Wilmer Mckenzie MD Primary Care Provider Reason for Visit * Reason Comments Dosage Adjustment In Person (Anticoag Cl inic) Pain Encounter Details Date Type Department Care Team (Late st Contact Info) Description 09/04/2024 8:00 AM EST Office Visit Pharm[facility], [facility] [address] [facility] [address] [facility] [address] Lumbar radiculopathy*; Dyslipidemia, goal LDL below 70; ST elevation myocardial infarction (STEMI) involving other coronary artery (HCC); Encounter for management of intra-aortic balloon pump Allergies Active Allergy Reactions Criticality Noted Date Comments Sulfa Antibiotics Rash 10/08/2016 Severe, itching rash, arms and torso documented as of this encounter (statuses as of 09/04/2024) Medications NASIM CHILDRENMateusz ASPIRIN 81 MG PO CHEW daily Active ONEJOAQUINA MCBRIDE MISC 10/25/19 19 Active Sildenafil Citrate 100 MG Oral Tablet TAKE 1 TABLET BY MOUTH ONCE DAILY NEEDED FOR SEXUAL ACTIVITY, TAKE 30 MINUTES TO 4 HOURS BEFORE ACTIVITY, DO NOT TAKE NITROGLYCERIN AFTER TAKING THIS MEDICATION 06/20/20 22 Active Tamsulosin HCl 0.4 MG Oral Capsule (Flomax) Take 1 Capsule by mouth in the morning. Active Nitroglycerin 0.4 MG Sublingual Tablet Sublingual (Nitrostat)Indic ations:Chest pain Place 1 Tablet under the tongue every 5 minutes as needed for Pain, Chest. Max dose 3 tablets in 15 minutes. Do not take within 48 hours of sildenafil. 25 Tablet 11 06/07/20 23 Active Additional Information Patient not taking.Reported on 08/02/2024 CPAP every night at bedtime. Active Ezetimibe 10 MG Oral Tablet (Zetia)Indicatio ns:Dyslipidemia, goal LDL below 70 Take 1 Tablet by mouth in the morning. 90 Tablet 3 09/22/19 24 Active Terazosin HCl 2 MG Oral CapsuleIndicatio ns:Essential hypertension with goal blood pressure less than 130/80 Take 1 Capsule by mouth at bedtime. 90 Capsule 3 11/14/19 24 Active Fluticasone Propionate 50 MCG/ACT Nasal Suspension (Flonase)Indicat ions:Non-seasona l allergic rhinitis due to pollen Administer 2 Sprays into each nostril in the morning. 48 g 3 01/31/20 24 Active Additional Information Patient not taking.Reported on 08/02/2024 Pantoprazole Sodium 40 MG Oral Tablet Delayed Release (Protonix)Indica tions:GERD (gastroesophagea l reflux disease) Take 1 Tablet by mouth in the morning. 90 Tablet 3 05/11/20 24 Active Ozempic (2 MG/DOSE) 8 MG/3ML Subcutaneous Solution Pen-injector (Semaglutide (2 MG/DOSE))Indicat ions:Diabetes mellitus due to underlying condition with stage [...] 24 Active dexAMETHasone 4 MG Oral Tablet (Decadron)Indica tions:Lumbar radiculopathy Take 2.5 Tablets by mouth 3 times a day as needed for Pain, Severe. 20 Tablet 3 07/31/19 25 Active Atorvastatin Calcium 80 MG Oral Tablet (Lipitor)Indicat ions:Dyslipidemi a, goal LDL below 70,ST elevation myocardial infarction (STEMI) involving other coronary artery (HCC),Encounter for management of intra-aortic balloon pump Take 1 Tablet by mouth in the morning. 90 Tablet 3 09/04/19 25 Active OneTouch Verio In Vitro Strip Use to test blood glucose once daily E11.9 100 Strip 5 09/04/19 25 Active Ketorolac Tromethamine 10 MG Oral Tablet (Toradol) Take 1 Tablet by mouth every 6 hours as needed for Pain, Severe. 20 Tablet 1 09/04/19 25 Active ONETOUCH VERIO STRP 10/25/19 19 025 Discontin ued(Refil l) Atorvastatin Calcium 80 MG Oral Tablet (Lipitor)Indicat ions:Dyslipidemi a, goal LDL below 70,ST elevation myocardial infarction (STEMI) involving other coronary artery (HCC),Encounter for management of intra-aortic balloon pump Take 1 Tablet by mouth in the morning. 90 Tablet 2 11/14/19 24 025 Discontin ued(Refil l) documented as of this encounter (statuses as of 09/04/2024) Active Problems Problem Noted Date Diagnosed Date [...] CPAP 01/14/2022 Coronary artery disease invo lving [place] coronary artery of [place] heart without angina pectoris 04/24/2015 GERD (gastroesophageal reflux disease) 4 Dry cough 10/08/2013 Headache 09/24/2013 Overview (10/08/2015): ICD-10 update of inactive term ST elevation myocardial infarction (STEMI) of in [facility] 09/23/2013 CAD S/P percutaneous coronary angioplasty 2013 Essential hypertension with goal blood pressure less than 130/80 09/23/2013 Dyslipidemia, goal LDL below 70 09/23/2013 documented as of this encounter (statuses as of 09/04/2024) Resolved Problems Problem Noted Date Diagnosed Date Resolved Date Chronic kidney disease, stage 3a 02/22/2022 07/26/2022 Overview: Per CKD protocol Benign hypertension with CKD (chronic kidney disease) stage III 01/14/2022 02/25/2022 Overview: Per CKD protocol Coronary atherosclerosis of [place] coronary artery 05/14/2014 04/24/2015 Right ventricular systolic dysfunction 05/14/2014 02/18/2016 Encounter for management of intra-aortic balloon pump 09/23/2013 04/24/2015 ADVANCE DIRECTIVE INFORMATION 03/14/2008 05/21/2024 Overview (03/14/2008): No, Advance Directive brochure offered , patient declined. documented as of this encounter (statuses as of 09/04/2024) Immunizations Name Administration Dates Next Due COVID-19 mRNA, LNP-s, No Pre serve, 2-Dose Series (Pfizer) 10/31/2020,10/10/2020 DTaP Dipth/Tet/Acell Pertussis (Infanrix), Peds 03/19/2014 Pneumococcal Conjugate Vacci ne, 20-valent ([id number]) 02/15/2023 Seasonal Influenza Vac., MDV , IM, [...] of Assessment Author No 09/23/2013 4:21 PM EDNia Green RN documented as of this encounter Mental Status * Because of a physical, mental, or emotional condition, do you have serious difficulty concentrating, remembering, or making decisions? (5 years old or older) Answer Entry Date Author No 09/23/2013 4:21 PM Nia Urban RN documented in this encounter Progress Notes * Shena Kathleen, [facility] - 09/04/2024 7:54 AM EST Images from the original note were not included. Medication Therapy Disease Management - Chronic Pain History of Presenting Illness Paolo Ruiz, identified by name and date of , is a 73 year old male presents to the Pain [facility] for return visit. Chief Complaint Patient presents with Dosage Adjustment In Person (Anticoag Clinic) Pain History Past Medications SA Opioids: Oxycodone, hydrocodone NSAIDs: Cnnot use due to CAD Muscle Relaxants: Multiple Anti-Depressants: Cymbalta Anti-Convulsants: Gabapentin, topiramate Other: Naltrexone Current Pain Medications Dexamethasone 10 mg TID prn Lyrica 150 mg BID Ketorolac 10 mg q6 hrs prn Interval History Notes he had back surgery, which has not improved his pain Notes had a hip injections for bursitis yesterday Notes is taking dexamethasone about 5 tablets at a time which helps Notes does not think lyrica is helping Notes pain is not controlled Activity/Exercise Limited due to back and hip pain Functional Goal(s) QOL History of Presenting Illness & Review of Systems Diagnosis: Low back and hip pain Chronicity: Chronic Onset: More than a 1 year ago Frequency: Daily Pain location: Lower back and hip Pain quality: Stabbing, achy and throbbing Radiates to: Both legs Pain is worse: When active Aggravated by: Activity Treatment(s) tried: Anticonvulsants, antidepressants, chiropractic manipulation, heat, home exercises, injections, ice, muscle relaxants, NSAIDs, opioids, physical therapy and surgery Medical History [x] Reviewed and updated in the EHR during the visit if checked Substance Use History [x] Reviewed and updated in the EHR during the visit if checked Objective Imaging History Controlled Substance Compliance Monitoring Total Score for Opioid Risk Assessment Tool (BRQ): 0-2 points (Low Risk) Total Score for CAGE-AID (04/11/2024): 0 points (Unlikely Problem) Daily MME: 0 PDMP Reviewed (04/11/2024): I have reviewed the patient's controlled substance dispensing history in the Prescription Drug Monitoring Program in compliance with the [facility] regulations. Most recent answers to PEG-3 scale: PEG-3 Synopsis Last Urine Toxicology Screening No results found for this or any previous visit. Last Serum Toxicology Screening No results found for: "DRUG ABUSE SCREEN 7", "SERUM", "DRUG ABUSE SCREEN 7, SERUM" Creatinine Clearance: Serum creatinine: 1.1 mg/dL 08/30/24 1257 Estimated creatinine clearance: 67.7 mL/min Creatinine Results: Recent Labs Units 08/30/24 1257 07/26/24 1146 05/15/24 0000 CREATININE - [facility] mg/dL 1.1 1.0 1.07 Hepatic Function (ALT): Recent Labs Units 08/30/24 1257 07/26/24 1146 01/23/24 0823 ALT - [facility] U/L 24 28 33 Comprehensive Metabolic Panel Results: Results for orders placed or performed in visit on 01/23/24 COMPREHENSIVE METABOLIC PANEL Result Value Ref Range BUN 21 (H) 6 - 20 mg/dL CREATININE 1.3 (H) 0.6 - 1.2 mg/dL EGFR 59 (L) >=60 mL/min SODIUM 140 135 - 146 mmol/L POTASSIUM 4.6 3.5 - 5.1 mmol/L CHLORIDE 104 98 - 107 mmol/L CO2 25 22 - 32 mmol/L ANION GAP 11 7 - 15 mmol/L GLUCOSE 95 70 - 120 mg/dL Albumin 4.3 3.8 - 5.0 g/dL AST 21 10 - 50 U/L Alkaline Phosphatase 148 (H) 35 - 130 U/L Bilirubin, Total 0.9 <=1.2 mg/dL CALCIUM 9.8 8.4 - 10.2 mg/dL Protein 6.9 6.0 - 8.3 g/dL ALT 33 10 - 50 U/L Assessment & Plan Patient aware MTM is a clinical pharmacist visit, with focus on medication options for current diagnoses referred by Primary Care Provider for review and optimization. The focus of this visit is: Medication optimization. Current regimen reviewed, patient is: Adherent to regimen. Treatment Options Continue current medications ,utilize ketorolac as needed for pain flares in his back and left side Treatment Concerns Continued lack of efficacy with medication and different modalities, recent pain flare with hospitalization Education Provided Patient educated on mechanism, time to efficacy and potential adverse effects of medication regimen Recommendations Continue current medications Consider weaning lyrica as no improvement May consider butrans as next step Paolo verbalized understanding of the plan. Contact clinic with any issues. 11/13/2024 I spent a total of 40-54 minutes (exact time 40 mins) on the date of service in preparation, delivery, and documentation of the care provided to Paolo Ruiz excluding any time spent in the performance of separately billed services or time spent by another provider/QHP. Shena Kathleen, Pharm D, [facility] Clinical Pharmacist 09/04/2024, 8:32 AM documented in this encounter Plan of Treatment Upcoming Encounters Date Type Department Care Team (Late st Contact Info) Description 09/11/2024 9:00 AM EST Office Visit Family Practice [facility] [address] [place] [address] Karl Madrigal, DO [address] [place] [address] 10/09/2024 3:00 PM EDT Office Visit Interventional Pain Center [facility] [address] [place] [phone] Pedro Lamar, DO [address] [place] [address] 11/07/2024 9:00 AM EDT Office Visit Nutrition & Weight Management, [facility] [address] [place] [address] Izabel Wilde PA-C [address] [place] [address] 11/13/2024 8:00 AM EDT Office Visit Pharmacy, [facility] [address] [place] [address] [facility] [address] [place] [address] 11/21/2024 8:00 AM EDT Office Visit Cardiology, [facility] [address] [place] [address] Matilde Valerio, WANG [address] [place] [address] 02/04/2025 8:00 AM EDT Office Visit Family Practice [facility] [address] [place] [address] Karl Madrigal DO [address] [place] [address] Scheduled Procedures Name Priority Associated Diagnoses Date/Ti me COLONOSCOPY FLEXIBLE PROXIMA L DIAGNOSTIC Recall History of colonic polyps Health Maintenance Due Date Last Done Comments Adult Wellness Visit 2014 Depression Screening 01/30/2025 01/31/2024 GFR 02/27/2025 08/30/2024, 03/2025, 05/15/2024, Additional history exists HbA1c 02/27/2025 08/30/2024, 03/2025, 05/15/2024, Additional history exists Diabetic Eye Exam 04/04/2025 04/04/2024, , 03/30/2023, Additional history exists CKD PHOS USE SMARTSET 29965 07/26/202503/2025, 08/02/2023, 01/19/2023, Additional history exists Diabetic Foot Exam 08/02/2025 08/02/2024, 0 08/02/2023, 02/18/2022 Albumin/Creatinine Ratio 08/30/20252 025, 07/26/2024, 08/02/2023, Additional history exists CKD HGB USE SMARTSET 85491 08/30/202508/30, 08/30/2024, 07/26/2024, Additional history exists Colonoscopy [...] this encounter Medical Devices Implanted Type Area Automatic Paint Sprayer Operator Device Identifier Shelf Expiration Date Model / Serial / Lot Lead Kit Trial [id number] 50cm - [id number] - [id number] Implanted:Qty: 1 on 09/15/2023 by Pedro Lamar DO at OR [facility] N/A: Back [facility] [employer] [facility] : PAIN MGMT 08/02/2025 [id number] 50E0 / [id number] / Lead Kit Trial [id number] 50cm - [id number] - [id number] Implanted:Qty: 1 on 09/15/2023 by Pedro Lamar DO at OR [facility] N/A: Back [employer] : PAIN MGMT 08/02/2025 [id number] 50E0 / [id number] / documented as of this encounter Visit Diagnoses Diagnosis Lumbar radiculopathy- Primary Thoracic or lumbosacral neuritis or radiculitis, unspecified Dyslipidemia, goal LDL below 70 Other and unspecified hyperlipidemia ST elevation myocardial infarction (STEMI) involving other coronary artery (HCC) Encounter for management of intra-aortic balloon pump Fitting and adjustment of other cardiac device documented in this encounter Advance Directives * [...] Power of Attor pato? No Care Teams Floor Layer Apprentice Relationship Specialty Start Date End Date Wilmer Mckenzie MD [address] [place] [address] PCP - General Family Medicine 07/25/24 documented as of this encounter
--- OUTSIDE RECORDS SUMMARY | 2024-09-10 18:47 | External Medical Summary ---
Author Name Unknown Address Unknown Organization [id number]:LABORATORY [facility] - [address] [place] [address] Laboratory Report Ordering Provider Test Date Status MASOUD KING 08/30/2024 12:57:05 Final Observation Date Value Abnormality Reference (Units ) Status MYCODE SPECIMEN-SST 08/30/2024 12:57:05 Freezing of extracted DNA, whole blood and/or serum. Final Performing Location LABORATORY C - [address] [place] [address]
--- OUTSIDE RECORDS SUMMARY | 2024-09-10 18:47 | External Medical Summary | Summary of Care ---
Author Name Unknown Organization [facility] Address [address] [facility] [address] Phone [phone] Care Team Providers Care Mortgage Operations Manager Name Role Phone Wilmer Mckenzie MD Primary Care Provider Reason for Visit * Reason Comments Outpatient Testing Encounter Details Date Type Department Care Team (Late st Contact Info) Description 08/30/2024 1:00 PM EST Laboratory Laboratory, [facility] [address] [place] [address] [facility] [address] [place] [address] [place] Other*[id number]; ST elevation myocardial infarction (STEMI) of inferior [...] CPAP 01/14/2022 Coronary artery disease invo lving [place] coronary artery of [place] heart without angina pectoris 04/24/2015 GERD (gastroesophageal [...] Overview: Per CKD protocol Coronary atherosclerosis of [place] coronary artery 05/14/2014 04/24/2015 Right ventricular systolic [...] Peds 03/19/2014 Pneumococcal Conjugate Vacci ne, 20-valent ([id number]) 02/15/2023 Seasonal Influenza Vac., MDV , IM, [...] 09/04/2024 8:00 AM EST Office Visit Pharmacy, [address] [place] [address] [facility] [address] [place], [place] [address] 09/11/2024 9:00 AM EST Office Visit [facility] [address] [place], [place] [address] Karl Madrigal, DO [address] [place] [address] 10/09/2024 3:00 PM EDT Office Visit Interventional Pain Center [facility] [address] [place] [phone] Pedro Lamar DO [address] [place] [phone] 11/07/2024 9:00 AM EDT Office Visit Nutrition & Weight Management, [facility] [address] [place] [address] Izabel Wilde PA-C [address] [place] [address] 11/21/2024 8:00 AM EDT Office Visit Cardiology, [facility] [address] [place] [address] Matilde Valerio PA-C [address] [place] [address] 02/04/2025 8:00 AM EDT Office Visit [facility] [address] [place] [address] Karl Madrigal, DO [address] [place] [address] Pending Results Name Type Priority Associated Diagnoses Date /Time MYCODE INITIAL ADULT Lab Routine [employer] Other*[id number] 08/30/2024 12:57 PM EST HEMOGLOBIN A1C Lab Routine Type 2 diabetes mellitus without complication, without long-term current use of insulin ([facility]) 08/30/2024 12:57 PM EST LIPID PANEL WITH DIRECT LDL IF TG IS HIGH Lab Routine Dyslipidemia, goal LDL below 100 08/30/2024 12:57 PM EST PSA WITH FREE PSA IF INDICATED Lab Routine BPH without obstruction/lower urinary tract symptoms 08/30/2024 12:57 PM EST MYCODE INITIAL ADULT-PINK Lab Routine [employer] Other*[id number] 08/30/2024 12:57 PM EST MYCODE SST1 Lab Routine [employer] Other*[id number] 08/30/2024 12:57 PM EST MYCODE SST2 Lab Routine [employer] Other*[id number] 08/30/2024 12:57 PM EST ALBUMIN / CREATININE RATIO, URINE Lab Routine Type 2 diabetes mellitus without complication, without long-term current use of insulin ([facility]) 08/30/2024 12:59 PM EST Scheduled Procedures Name [...] Additional history exists CKD HGB USE SMARTSET 64008 07/26/202508/30, 08/30/2024, 07/26/2024, Additional history exists CKD PHOS USE SMARTSET 67608 07/26/20250 03/2025, 08/02/2023, 01/19/2023, Additional history exists [...] this encounter Medical Devices Implanted Type Area Station Chief Device Identifier Shelf Expiration Date Model / Serial / Lot Lead Kit Trial [id number] 50cm - [id number] - [id number] Implanted:Qty: 1 on 09/15/2023 by Pedro Lamar DO at OR [facility] N/A: Back [employer] : PAIN MGMT 08/02/2025 [id number] 50E0 / [id number] / Lead Kit Trial [id number] 50cm - [id number] - [id number] Implanted:Qty: 1 on 09/15/2023 by Pedro Lamar DO at OR [facility] N/A: Back [employer] : PAIN MGMT 08/02/2025 [id number] 50E0 / [id number] / documented as of this encounter Procedures [...] ORDERABLES Fi nal Result Performing Organization Address City/[facility]/ZIP Co de Phone Number [facility] [place] [address] [facility] [place] [address] * DIFFERENTIAL, AUTOMATED (08/30/2024 12:57 PM EST) Blood Venous blood specimen / Unknown Venipuncture / Unknown 08/30/2024 12:57 PM EST 08/30/2024 12:57 PM EST Karl Madrigal DO LAB BLOOD ORDERABLES Fi nal Result Performing Organization Address [facility]/ZIP Co de Phone Number [facility] [phone] [facility] [place] [address] * (ABNORMAL) CBC (08/30/2024 12:57 PM EST) [facility] WBC 17.63(H) 4.00 - 10.80 K/uL 08/30/2024 [...] 15.5 % 08/30/2024 2:20 PM EST [facility] [place] [address] PLT 306 140 - 400 K/uL 08/30/2024 2:20 PM EST LAB[facility]ORY [facility] 57-10 MPV 10.5 6.6 - 11.1 fL 08/30/2024 2:20 PM EST [facility] [place] 57[facility]10 Blood Venous blood specimen / Unknown Venipuncture / Unknown 08/30/2024 12:57 PM EST 08/30/2024 12:57 PM EST us Karl Madrigal DO LAB BLOOD ORDERABLES Fi nal Result [facility] [place] [address] [place] [address] * (ABNORMAL) COMPREHENSIVE METABOLIC PANEL (08/30/2024 12:57 PM EST) BUN 33(H) 6 - 20 mg/dL 08/30/2024 2:21 PM EST [facility] [place] [facility] CREATININE 1.1 0.6 - 1.2 mg/dL 08/30/2024 2:21 PM EST [facility] [place] 57[facility]10 EGFR 68 >=60 mL/min 08/30/2024 2:21 PM EST LAB[facility] 57-10 Comment:eGFR is calculated b ased on the CKD-EPI 2020 equation. SODIUM 140 135 - 146 mmol/L 08/30/2024 2:21 PM EST [facility] [place] [facility]10 POTASSIUM 4.4 3.5 - 5.1 mmol/L 08/30/2024 2:21 PM EST [facility] [place] 57[facility]10 CHLORIDE 102 98 - 107 mmol/L 08/30/2024 2:21 PM EST [facility] [place] 57[facility]10 CO2 25 22 - 32 mmol/L 08/30/2024 2:21 PM EST [facility] 57-10 ANION GAP 13 7 - 15 mmol/L 08/30/2024 2:21 PM EST [facility] 57-10 GLUCOSE 176(H) 70 - 120 mg/dL 08/30/2024 2:21 PM EST [facility] 57-10 Albumin 4.0 3.8 - 5.0 g/dL 08/30/2024 2:21 PM EST LABORATORY [place] 57-10 AST 12 10 - 50 U/L 08/30/2024 2:21 PM EST [facility] 57-10 Alkaline Phosphatase 207(H) 35 - 130 U/L 08/30/2024 2:21 PM EST [facility] 57-10 Bilirubin, Total 0.4 <=1.2 mg/dL 08/30/2024 2:21 PM EST LABORATORY [place] 57-10 CALCIUM 9.6 8.4 - 10.2 mg/dL 08/30/2024 2:21 PM EST LABORATORY [place] 57-10 Protein 6.5 6.0 - 8.3 g/dL 08/30/2024 2:21 PM EST [facility] 57-10 ALT 24 10 - 50 U/L 08/30/2024 2:21 PM EST [facility] 57-10 Blood Venous blood specimen / Unknown Venipuncture / Unknown 08/30/2024 12:57 PM EST 08/30/2024 12:57 PM EST us Karl Madrigal DO LAB BLOOD ORDERABLES Fi nal Result [facility] [place] [address] [place] [address] documented in this encounter Visit Diagnoses Diagnosis [employer] Other*[id number] ST elevation myocardial infarction (STEMI) of inferior [...] Power of Attor pato? No Care Teams Mortgage Operations Manager Relationship Specialty Start Date End Date Wilmer Mckenzie MD [address] [place] [address] PCP - General Family Medicine 07/25/24 documented as of this encounter
--- OUTSIDE RECORDS SUMMARY | 2024-09-10 18:47 | External Medical Summary ---
Author Name Unknown Address Unknown Organization K01:LABORATORY [facility] - [address] [facility] [address] Laboratory Report Ordering Provider Test Date Status MUSAORDONEZ 08/30/2024 12:57:05 Final Observation Date Value Abnormality Reference (Units ) Status HbA1C 08/30/2024 12:57:05 7.2 Above high normal 4. 0-5.6 (%) Final The use of HbA1c to monitor glycemic status is based on normal hemoglobin and HbA composition. This test should not be used in patients with abnormal hemoglobin that affects the half life of the red blood cell or the in vivo glycation rates. Glucose, estimated average 08/30/2024 12:57:05 160 Above high normal <126 (mg/dL) Mariusz good Performing Location LABORATORY [facility] - [address] [facility] [address] [facility] [address]
--- OUTSIDE RECORDS SUMMARY | 2024-09-10 18:47 | External Medical Summary ---
Author Name Unknown Address Unknown Organization K0G:LABORATORY [facility] [place] [address] - [address] [place] [address] Laboratory Report Ordering Provider Test Date Status JOSÉ LUIS VIGIL 08/30/2024 12:57:05 Final Observation Date Value Abnormality Reference (Units ) Status WBC, Total 08/30/2024 12:57:05 17.63 Above high normal 4 .00-10.80 (K/uL) Final RBC 08/30/2024 12:57:05 4.77 4.50-5.25 (M/uL) Final Hemoglobin 08/30/2024 12:57:05 13.2 Below low normal 14 .0-16.8 (g/dL) Final HCT 08/30/2024 12:57:05 41.0 40.0-48.4 (%) Final MCV 08/30/2024 12:57:05 86.0 82.0-99.5 (fL) Final MCH 08/30/2024 12:57:05 27.7 27.0-34.0 (pg) Final MCHC 08/30/2024 12:57:05 32.2 32.0-36.0 (g/dL) Final RDW 08/30/2024 12:57:05 15.5 11.5-15.5 (%) Final Platelets 08/30/2024 12:57:05 306 140-400 (K /uL) Final MPV 08/30/2024 12:57:05 10.5 6.6-11.1 ( fL) Final Performing Location LABORATORY [facility] [place] 57[address] 0 - [address] [place] [address]
--- OUTSIDE RECORDS SUMMARY | 2024-09-10 18:47 | External Medical Summary ---
Author Name Unknown Address Unknown Organization [id number]:[place] [place] [address] [place] [address] Laboratory Report Ordering Provider Test Date Status MASOUD KING 08/30/2024 12:57:05 Final Observation Date Value Abnormality Reference (Units ) Status OportunistaESTEPHANIA SPECIMEN-LAV 08/30/2024 12:57:05 Freezing of extracted DNA, whole blood and/or serum. Final Performing Location [facility] [place] - [address] [place] [address]
--- OUTSIDE RECORDS SUMMARY | 2024-09-10 18:47 | External Medical Summary ---
Author Name Unknown Address Unknown Organization [id number]:[facility] [place] [facility] [place] [address] [address] Laboratory Report Ordering Provider Test Date Status JOSÉ LUIS VIGIL 08/30/2024 12:59:25 Final Normal: <30 mg/g creatinine< br/>High: 30-300 mg/g creatinine
Very High: >300 mg/g creatinine
Nephrotic: >2200 mg/g creatinine Observation Date Value Abnormality Reference (Units ) Status Albumin, Urine 08/30/2024 12:59:25 <1.20 (mg/dL) Final Creatinine, Urine 08/30/2024 12:59:25 69 (mg/dL) Final Albumin/Creatinine [Mass Ratio] in Urine 08/30/2024 12:59:25 <17 <30 (mg/g Creat) Final Performing Location [facility] [place] [address] [place] [address]
--- OUTSIDE RECORDS SUMMARY | 2024-09-10 18:47 | External Medical Summary ---
Author Name Unknown Address Unknown Organization K0G:[facility] - [address] [place] [address] Laboratory Report Ordering Provider Test Date Status JOSÉ LUIS VIGIL 08/30/2024 12:57:05 Final Observation Date Value Abnormality Reference (Units ) Status SYNC LEUKOCYTES IN BLOOD BY AUTOMATED COUNT 08/30/2024 12:57:05 17.63 Above high normal 4.00-10.80 (K/uL) Final Neutrophils/100 leukocytes in Blood by Manual count 08/30/2024 12:57:05 92.0 Above high normal 40.0-75.0 (%) Final Lymphocytes/100 leukocytes in Blood by Manual count 08/30/2024 12:57:05 5.0 Below low normal 18.0-42.0 (%) Final Monocytes/100 leukocytes in Blood by Manual count 08/30/2024 12:57:05 2.0 1.0-11.0 (%) Final Metamyelocytes/100 leukocytes in Blood by Manual count 08/30/2024 12:57:05 1.0 Above high normal <=0.0 (%) Final Neutrophils [#/volume] in Blood by Manual count 08/30/2024 12:57:05 16.22 Above high normal 1.80-7.70 (K/uL) Final Lymphocytes [#/volume] in Blood by Manual count 08/30/2024 12:57:05 0.88 Below low normal 1.00-4.80 (K/uL) Final Monocytes [#/volume] in Blood by Manual count 08/30/2024 12:57:05 0.35 0.00-1.10 (K/uL) Final Metamyelocytes [#/volume] in Blood by Manual count 08/30/2024 12:57:05 0.18 Above high normal <=0.00 (K/uL) Final Nucleated erythrocytes/100 leukocytes [Ratio] in Blood by Automated count 08/30/2024 12:57:05 Final Performing Location [facility] - [address] [place] [address]
--- OUTSIDE RECORDS SUMMARY | 2024-09-10 18:47 | External Medical Summary ---
Author Name Unknown Address Unknown Organization [id number]:[place] [place] [address] [place] [address] Laboratory Report Ordering Provider Test Date Status MASOUD KING 08/30/2024 12:57:05 Final Observation Date Value Abnormality Reference (Units ) Status MYCODE SPECIMEN-SST 08/30/2024 12:57:05 Freezing of extracted DNA, whole blood and/or serum. Final Performing Location LABORATORY [facility] - [address] [place] [address]
--- OUTSIDE RECORDS SUMMARY | 2024-09-10 18:47 | External Medical Summary ---
Author Name Unknown Address Unknown Organization [id number][place] [facility] [place] [address] [facility] [place] [address] Laboratory Report Ordering Provider Test Date Status JOSÉ LUIS VIGIL 08/30/2024 12:57:05 Final Observation Date Value Abnormality Reference (Units ) Status Triglyceride 08/30/2024 12:57:05 100 <=174 ( mg/dL) Final Triglyceride Reference Range s (mg/dL):
<150 Acceptable
150-174 Borderline high
175-499 High
>=500 Very high Cholesterol 08/30/2024 12:57:05 158 <200 (mg /dL) Final Total Cholesterol Reference Ranges (mg/dL):
<200 Desirable
200-239 Borderline high
>=240 High HDL 08/30/2024 12:57:05 52 >39 (mg/dL ) Final HDL Cholesterol Reference Ra nges (mg/dL):
>=60 High (Desirable)
<50 Low (Undesirable) For Females
<40 Low (Undesirable) For Males NON-HDL CHOLESTEROL 08/30/2024 12:57:05 106 <=159 (mg/dL) Final Non-HDL Cholesterol Referenc e Range (mg/dL):
<100 Target level for high risk ASCVD patient
<130 Optimal for general population
130-159 Near optimal for general population
160-189 Borderline High
190-219 High
>=220 Very High LDL, (calculated) 08/30/2024 12:57:05 86 <= 129 (mg/dL) Final LDL Cholesterol Reference Ra nges (mg/dL):
<70 Target level for high risk ASCVD patient
<100 Optimal for general population
100-129 Near optimal for general population
130-159 Borderline high
160-189 High
>=190 Very high Performing Location [facility] [facility] [place] [address] [facility] [address]
--- OUTSIDE RECORDS SUMMARY | 2024-09-10 18:47 | External Medical Summary ---
Author Name Unknown Address Unknown Organization K0G:[facility] [address] - [address] [place] [address] Laboratory Report Ordering Provider Test Date Status JOSÉ LUIS VIGIL 08/30/2024 12:57:05 Final Observation Date Value Abnormality Reference (Units ) Status BUN 08/30/2024 12:57:05 33 Above high normal 6-20 (mg/dL) Final Creatinine 08/30/2024 12:57:05 1.1 0.6-1.2 (mg/dL) Final Glomerular filtration rate/1.73 sq M.predicted [Volume Rate/Area] in Serum, Plasma or Blood by Creatinine-based formula (CKD-EPI) 08/30/2024 12:57:05 68 >=60 (mL/min) Final eGFR is calculated based on the CKD-EPI 2020 equation. Sodium 08/30/2024 12:57:05 140 135-146 (m mol/L) Final Potassium 08/30/2024 12:57:05 4.4 3.5-5.1 (m mol/L) Final Cl 08/30/2024 12:57:05 102 98-107 (mm ol/L) Final CO2 08/30/2024 12:57:05 25 22-32 (mmo l/L) Final Anion gap 08/30/2024 12:57:05 13 7-15 (mmol /L) Final Glucose 08/30/2024 12:57:05 176 Above high normal 70 -120 (mg/dL) Final Albumin 08/30/2024 12:57:05 4.0 3.8-5.0 (g /dL) Final AST (Aspartate aminotransferase) 08/30/2024 12:57:05 12 10-50 (U/L) Fin al Alk Phos 08/30/2024 12:57:05 207 Above high normal 35 -130 (U/L) Final Bilirubin, Total 08/30/2024 12:57:05 0.4 <=1 .2 (mg/dL) Final Calcium 08/30/2024 12:57:05 9.6 8.4-10.2 ( mg/dL) Final Protein 08/30/2024 12:57:05 6.5 6.0-8.3 (g /dL) Final ALT (Alanine aminotransferase) 08/30/2024 12:57:05 24 10-50 (U/L) Mariusz good Performing Location LABORATORY [facility] [address] - [address] [facility] [address]
--- NOTE | 2024-09-10 19:05 | Emergency Department Note ---
ED Visit Note I was consulted by the Advanced Practice Provider. I personally made/approved the management plan and take responsibility for the patient management. I performed a substantive portion of the visit. This includes the aspects of: [-I independently interpreted the following studies:][Chest x-ray does not show pneumothorax or pneumonia.] Patient presents with lower back pain and radiation to the right leg. No acute fracture by CT imaging. He does have a urinary infection with a white blood cell count elevation. His urinary infection could be causing his increasing discomfort. Patient did receive IV antibiotics. His spinal surgeon was contacted. He will be hospitalized for pain control, further workup/care. .
[2024-09-10] MEDS ORDERED: GLUCOSE 40% GEL 15 GM TUBE PO PRN (19:59)
[2024-09-10] MEDS ORDERED: DEXTROSE 50% 50 ML SYRINGE IV PRN (19:59)
[2024-09-10] MEDS ORDERED: GLUCOSE 10 TAB/TUBE PO PRN (19:59)
[2024-09-10] MEDS ORDERED: oxyCODONE HCL IR 5 MG TAB (IMMEDIATE RELEASE) PO PRN ×2 (19:59)
[2024-09-10] MEDS ORDERED: GLUCAGON FOR INJ 1 MG VIAL SQ PRN (19:59)
[2024-09-10] MEDS ORDERED: CARBOHYDRATES FOR HYPOGLYCEMIA PO PRN (19:59)
[2024-09-10] MEDS ORDERED: cefTRIAXone SODIUM 1,000 MG/50 ML BAG IV SCH (19:59)
[2024-09-10] MEDS ORDERED: NALOXONE HCL 0.4 MG/1 ML VIAL/CARP IV PRN (19:59)
[2024-09-10] MEDS ORDERED: ONDANSETRON INJ 2 MG/ML 2 ML VIAL IV PRN (19:59)
[2024-09-10] MEDS: ACETAMINOPHEN 500 MG TAB PO SCH (20:45)
[2024-09-10] MEDS: PREGABALIN 150 MG CAP PO SCH (20:45)
[2024-09-10] MEDS: INSULIN ASPART PER UNIT CHARGE SC SCH (21:10)
[2024-09-10] MEDS: dexAMETHasone 1 MG TAB PO SCH (21:12)
[2024-09-11] MEDS ORDERED: Nursing to Pharmacy Communication SCH ×2 (07:30→11:30)
[2024-09-11] MEDS: INSULIN ASPART PER UNIT CHARGE SC SCH ×2 (08:11→12:23)
[2024-09-11] MEDS: EZETIMIBE 10 MG TAB PO SCH (08:13)
[2024-09-11] MEDS: ASPIRIN 81 MG ECTAB PO SCH (08:13)
[2024-09-11] MEDS: ATORVASTATIN 40 MG TAB PO SCH (08:13)
[2024-09-11] MEDS: TERAZOSIN HCL 1 MG CAP PO SCH (08:13)
[2024-09-11] MEDS: TAMSULOSIN HCL 0.4 MG CAP PO SCH (08:13)
[2024-09-11] MEDS: PANTOprazole 40 MG TAB PO SCH (08:14)
[2024-09-11] MEDS: ATENOLOL 25 MG TABLET PO SCH (08:14)
[2024-09-11] MEDS: MoRPHine SULFATE 10 MG/ML CARP/VIAL IV PRN (08:20)
--- NOTE | 2024-09-11 09:54 | Orthopedic Consultation ---
Date of Consultation September 11, 2024 Assessment & Plan (1) Hip pain: I have an opportunity to review the CAT scan of his spine. I do not appreciate any gross neural compression. Clinically he presents very stable today. He is ambulating without evidence of gross antalgia. I recommended physical therapy. We could pursue an MRI if there is any further decline but I do not see any need at this point. History of Present Illness Reason for Consultation: Back and right leg pain Attending Physician: Sandoval Houser MD History of Present Illness This is a 74-year-old male known to me the status post lumbar fusion as well as right hip replacement. Patient presents the emergency room yesterday with severe back and right leg symptoms. This morning he is unable to accurately describe his patterns or precise location of his pain. He feels the medications have provided marked relief. He denies any radicular complaints at this time. Allergies Allergy/AdvReac Type Severity Reaction Status Date / Time Sulfa (Sulfonamide Allergy Mild Rash Verified 08/15/24 07:36 Antibiotics) Home Medications Medication Instructions Recorded Confirmed Type atorvastatin 80 mg tablet 80 mg PO QAM 03/13/19 09/10/24 History ezetimibe 10 mg tablet 10 mg PO QAM 04/12/19 09/10/24 History pantoprazole 40 mg tablet,delayed 40 mg PO QAM 04/12/19 09/10/24 History release empagliflozin 10 mg tablet 10 mg PO QAM 10/13/22 09/10/24 History (Jardiance) nitroglycerin 0.4 mg sublingual 0.4 mg sublingual UD PRN Chest Pain 11/30/22 09/10/24 History tablet (Nitrostat) aspirin 81 mg tablet,delayed 81 mg PO QAM 06/06/24 09/10/24 History release atenolol 25 mg tablet 25 mg PO QAM 06/06/24 09/10/24 History semaglutide 2 mg/dose (8 mg/3 mL) 2 mg subcut Q7D 06/06/24 09/10/24 History subcutaneous pen injector (Ozempic) tamsulosin 0.4 mg capsule 0.4 mg PO QAM 06/06/24 09/10/24 History terazosin 2 mg capsule 2 mg PO QAM 06/06/24 09/10/24 History dexamethasone 4 mg tablet 4 mg PO UD PRN Pain 07/30/24 09/10/24 History diclofenac sodium 1 % topical gel 2 g EXT Q8H PRN Pain 07/30/24 09/10/24 History (Voltaren Arthritis Pain) pregabalin 150 mg capsule 150 mg PO BID 07/30/24 09/10/24 History oxycodone 5 mg tablet 5 mg PO Q6H PRN pain #30 tabs 08/15/24 09/10/24 Rx tramadol 50 mg tablet 50 mg PO Q6H PRN pain, moderate 08/15/24 09/10/24 Rx #30 tabs Patient History Medical History Obesity, Class II, BMI 35-39.9 Nocturnal hypoxemia Per records Lumbar radiculopathy Dyslipidemia CAD (coronary artery disease) 2013 > stent x1 Ambulatory dysfunction R/t back pain BPH associated with nocturia Bladder cancer Hx "years ago" Continues to have follow-up cystos Diabetes mellitus, type 2 NIDDM History of colon polyps Sleep apnea CPAP (compliant) Myocardial infarction 2013 > stent x1 Follows with Dr. Alvarez Chronic back pain Nephrolithiasis Hx Hypertension Esophageal reflux Surgical History Nausea and vomiting after administration of anesthetic agent Single episode years ago History of lumbar spinal fusion History of carpal tunnel release of both wrists Hx of lithotripsy Multiple History of total right hip arthroplasty [facility], Dr. Iniguez (05/22/24) History of cataract surgery R/L History of colonoscopy History of cardiac cath 2013 > stent x1 History of cystoscopy with resection of bladder tumor H/O hernia repair Umbilical H/O arthroscopic knee surgery R/L H/O shoulder surgery Arthroscopic, right Hx of appendectomy ~age 10 History of lumbar surgery ~2016, L3-L5 Family History Mother Coronary heart disease Hypertension Nephrolithiasis Father Coronary heart disease Hypertension Social History Smoking Status: Never smoker Tobacco Type: Cigarettes Second Hand Exposure: Yes (hx growing up); Do You Dip or Chew Tobacco: No; Hx Alcohol Use: No Hx Substance Use: No Preferred Language: Greek Communication Ability: Effective [employer] Reset Required: No Beliefs That Will Affect Care: None marital status: Current Living Situation: Spouse current occupational status: retired Other Information That Helps Us Care for You: No Feels Safe at Home: Yes Safety Concerns: Feels Safe At This Time Assistive Devices: Cane, CPAP and Glasses Physical Exam Physical Exam: Patient was able to get out of bed without assistance. Incisions well-healed. Unable to elicit any discomfort to palpation of paravertebral musculature or SI joints. There is modest tenderness palpation of the trochanteric region on the right. He is constricted testing otherwise. Results & Data Vital Signs (Past 12 Hours) Vital Signs Temp Pulse Pulse Resp BP BP Pulse Ox 09/11/24 07:50 36.5 C 79 16 144/82 H 95 09/10/24 22:10 09/10/24 22:10 36.8 C 85 16 116/64 94 O2 Del Method 09/11/24 07:50 Room Air 09/10/24 22:10 Room Air, CPAP 09/10/24 22:10 Room Air
[2024-09-11] MEDS ORDERED: MoRPHine SULFATE 10 MG/0.5 ML UDP PO PRN (12:39)
[2024-09-11] MEDS ORDERED: ACETAMINOPHEN 1,000 MG/100 ML VIAL IV PRN (12:39)
--- NOTE | 2024-09-11 14:46 | Hospitalist Progress Note ---
Date of Service September 11, 2024 Assessment & Plan (1) Intractable back pain: Plan: -this has been an ongoing chronic issue, follows ups for spine pain outpatient -per patient, takes large amounts of oxycodone and percocets (2-4 pills at a time) at home for the pain, well over prescribed doses -patient is shaking on examination, mild tenderness to palpation of right hip -opioids are not guideline directed treatment for chronic pain syndromes -ortho spine recommending PT/OT Plan: -stop IV morphine, switch to toradol -start IV tylenol for pain -PT/OT ordered, if able to ambulate at baseline is medically stable for discharge home -continue decadron -can consider cyclobenzaprine and meloxicam on discharge given its moderate data for helping chronic lower back pain (2) Ambulatory dysfunction: Plan: -see above (3) Lumbosacral radiculopathy: Plan: -see above (4) Adjacent segment disease of lumbar spine with history of fusion procedure: Plan: -see above (5) S/P lumbar spine operation: Plan: -see above (6) UTI (urinary tract infection): Plan: -growing E. coli on culture Plan: -continue ceftriaxone -switch to ciprofloxacin on discharge (7) BPH associated with nocturia: Plan: -likely cause of UTI (8) Diabetes mellitus, type II: Plan: -monitor -sliding scale Plan Patient 74-year-old gentleman who can intractable back pain, hip pain and ambulatory dysfunction despite hip replacement and lumbar spine surgery. Requires hospital level care to manage his pain and evaluation by orthopedic spine. Feeding/fluids: carb consistent Analgesia: stop opiods, toradol, voltaren Sedation: na Thromboprophylaxis: scd Head up position: na Ulcer prophylaxis: start protonix given steroid and NSAID use Glycemic control: insulin protocol Spontaneous breathing trial: na Bowel care: miralax prn Indwelling catheter removal: na Deescalation of antibiotics: ceftriaxone for now I spent a total of 55 minutes in direct patient care, including [id number] time with the patient and/or family, reviewing medical records, ordering and reviewing diagnostic tests, and coordinating care with other healthcare providers. This time includes: history taking, physical examination, medical decision making, counseling, ECG interpretation, imaging interpretation, lab interpretation, orders, and education, excluding time spent in the performance of separately billed services. Admission and Anticipated Discharge Date Admission Date: September 10, 2024 Subjective Patient seen and examined at bedside. Patient is doing okay today. He is able to ambulate and sit with only some pain. He states oxycodone does not work for his pain and he only wants IV pain medication at this time. He states his urinary symptoms have resolved. Review of Systems Review of Systems: CONSTITUTIONAL: Patient denies fevers, chills, sweats and weight changes. EYES: Patient denies any visual symptoms. EARS, NOSE, AND THROAT: No difficulties with hearing. No symptoms of rhinitis or sore throat. CARDIOVASCULAR: Patient denies chest pains, palpitations, orthopnea and paroxysmal nocturnal dyspnea. RESPIRATORY: No dyspnea on exertion, no wheezing or cough. GI: No nausea, vomiting, diarrhea, constipation, abdominal pain, hematochezia or melena. : No urinary hesitancy or dribbling. No nocturia or urinary frequency. No abnormal urethral discharge. MUSCULOSKELETAL: right hip and back pain NEUROLOGIC: No chronic headaches, no seizures. Patient denies numbness, tingling or weakness. PSYCHIATRIC: Patient denies problems with mood disturbance. No problems with anxiety. ENDOCRINE: No excessive urination or excessive thirst. DERMATOLOGIC: Patient denies any rashes or skin changes. Physical Exam Physical Exam: Gen: A&O 3 NAD HEENT: NCAT, EOMI, not icteric. External ears normal. No rhinorrhea. Moist mucous membranes. Neck: Supple, full range of motion, no observable masses, No meningeal sign. Lungs: No Respiratory distress. CV: RRR, no edema. Abdomen: Soft, nondistended, No rebound tenderness. MSK: mild pain to palpation on right hip, per patient radiates to right knee Skin: No rashes, petechiae, lesions. Normal color per patient. Neuro: Normal Gait, Grossly intact. Slight shakes in arms bilaterally Psych: Appropriate for situation. Results & Data Results & Data Vital Signs (Past 12 Hours) Vital Signs Temp Pulse Resp BP Pulse Ox O2 Del Method 09/11/24 14:26 36.8 C 79 16 105/69 93 Room Air 09/11/24 07:50 36.5 C 79 16 144/82 H 95 Room Air Laboratory Results -personally reviewed, slightly elevated leukocytosis 13 2/2 steroids Medications Administered Acetaminophen (Acetaminophen 500 Mg Tab) 1,000 mg PO TID [facility] Stop: 10/10/24 20:59 Last Admin: 09/11/24 14:09 Dose: 1,000 mg Documented By: Admin: 09/11/24 08:11 Dose: 1,000 mg Documented By: Admin: 09/10/24 20:45 Dose: 1,000 mg Documented By: ZACHERY [facility]irin (Aspirin 81 Mg Ectab) [facility] [place]: 10/11/24 08:59 Last Admin: 09/11/24 08:13 Dose: 81 mg Documented By: CSE Atenolol (Atenolol 25 Mg Tablet) [facility] Stop: 10/11/24 08:59 Last Admin: 09/11/24 08:14 Dose: 25 mg Documented By: JACOB Atorvastatin Calcium (Atorvastatin 40 Mg Tab) 80 [facility] [place]: 10/11/24 08:59 Last Admin: 09/11/24 08:13 Dose: 80 mg Documented By: JACOB Dexamethasone (Dexamethasone 1 Mg Tab) 6 mg PO BID [facility] Stop: 10/10/24 20:59 Last Admin: 09/11/24 10:24 Dose: 6 mg Documented By: Admin: 09/10/24 21:12 Dose: 6 mg Documented By: ZACHERY Ezetimibe (Ezetimibe 10 Mg Tab) [facility] [place]: 10/11/24 08:59 Last Admin: 09/11/24 08:13 Dose: 10 mg Documented By: JACOB Insulin Aspart (Insulin Aspart Per Unit Charge) 0 units SC ACHS [facility] Stop: 10/11/24 11:29 Last Admin: 09/11/24 12:23 Dose: 7 units Documented By: CSE Co-signed By: FRANCISCO Miscellaneous (Empagliflozin 10 Mg Tab - Order Awaiting Action) 1 each N/A QS [facility] Stop: 10/11/24 00:00 Last Admin: 09/11/24 08:13 Dose: Not Given Documented By: Admin: 09/10/24 23:23 Dose: Not Given Documented By: VICKII Pantoprazole Sodium (Pantoprazole 40 Mg Tab) 40 [facility] [place]: 10/11/24 08:59 Last Admin: 09/11/24 08:14 Dose: 40 mg Documented By: JACOB Pregabalin (Pregabalin 150 Mg Cap) 150 mg PO TID [facility] Stop: 10/10/24 19:58 Last Admin: 09/11/24 14:10 Dose: 150 mg Documented By: Admin: 09/11/24 08:20 Dose: 150 mg Documented By: Admin: 09/10/24 22:23 Dose: Not Given Documented By: Admin: 09/10/24 20:45 Dose: 150 mg Documented By: LCD Tamsulosin HCl (Tamsulosin Hcl 0.4 Mg Cap) 0.4 mg [facility] [place]: 10/11/24 08:59 Last Admin: 09/11/24 08:13 Dose: 0.4 mg Documented By: CSE Terazosin HCl (Terazosin Hcl 1 Mg Cap) 2 [facility] [place]: 10/11/24 08:59 Last Admin: 09/11/24 08:13 Dose: 2 mg Documented By: CSE (6) UTI (urinary tract infection) Urinary tract infection type: acute cystitis Hematuria presence: without hematuria Qualified Code(s): N30.00 - Acute cystitis without hematuria (8) Diabetes mellitus, type II Diabetes mellitus fdc insulin use: without worldwide chief creative officer use Diabetes mellitus complication status: without complication Qualified Code(s): E11.9 - Type 2 diabetes mellitus without complications
[2024-09-11] MEDS: POLYETHYLENE (MIRALAX) 17 GM PACK PO PRN (15:38)
[2024-09-11] MEDS: KETOROLAC TROMETHAMINE 15 MG/ML VIAL IV PRN (15:38)
[2024-09-11] MEDS: cefTRIAXone SODIUM 2,000 MG/50 ML BAG IV SCH (16:37)
[2024-09-11] MEDS: DICLOFENAC SOD 1% GEL 100 GM TUBE EXT SCH (20:12)
[2024-09-11 20:41] VITALS: O2SAT 94
[2024-09-11] MEDS: KETOROLAC TROMETHAMINE 15 MG/ML VIAL IV SCH (21:26)
[2024-09-12 08:04] LABS: Hematocrit (blood only) 33.7 % (42.0-52.0); Hemoglobin 11.1 g/dl (14.0-18.0); Mean Corpuscular Hgb Conc 32.9 g/dL (32.0-36.0); Mean Platelet Volume 11.1 fL (9.4-12.4); Platelet Count 145 K/uL (130-400); RDW Coefficient of Variation 17.1 % (11.5-14.5); RDW Standard Deviation 50.2 fL (36.4-46.3); Red Blood Count 4.11 M/uL (4.70-6.10); White Blood Count 11.42 K/ul (4.8-10.8)
[2024-09-12 08:20] LABS: BUN Creatinine Ratio 42.2 (10-20); Calcium 7.9 mg/dl (8.6-10.3); Creatinine Clr Calc Pharmacy 62.9 ml/min; Potassium 4.7 mmol/L (3.5-5.1)
[2024-09-12 15:10] VITALS: BP 112/70; PULSE 69; RESP 18; TEMP 98.1
--- NOTE | 2024-09-12 18:10 | Discharge Summary ---
Discharge Summary Date of Service September 12, 2024 Principal Dx & Hospital Course #1 = Principal Diagnosis (1) Intractable back pain: -this has been an ongoing chronic issue, follows ups for spine pain outpatient -per patient, takes large amounts of oxycodone and percocets (2-4 pills at a time) at home for the pain, well over prescribed doses -patient is shaking on examination, mild tenderness to palpation of right hip -opioids are not guideline directed treatment for chronic pain syndromes -ortho spine recommending PT/OT -PT/OT recommending outpatient f/u Plan: -f/u with PT/OT outpatient -limited course of meloxicam, discussed risks given on blood thinner including increased bleeding and stomach pain, patient accepts risks -continue decadron for one week at home -sent home with limited course of PO dilaudid, to assist with increasing mobility, discussed safe use and risks and benefits with patient, who accepts these risks -sent home with miralax for bowel regiment (2) Ambulatory dysfunction: -see above (3) Lumbosacral radiculopathy: -see above (4) Adjacent segment disease of lumbar spine with history of fusion procedure: -see above (5) S/P lumbar spine operation: -see above (6) UTI (urinary tract infection): -growing E. coli on culture Plan: -continue ceftriaxone -switched to augmentin for discharge (7) BPH associated with nocturia: -likely cause of UTI (8) Diabetes mellitus, type II: -monitor -sliding scale Plan Patient 74-year-old gentleman who can intractable back pain, hip pain and ambulatory dysfunction despite hip replacement and lumbar spine surgery. Requires hospital level care to manage his pain and evaluation by orthopedic spine. Feeding/fluids: carb consistent Analgesia: stop opiods, toradol, voltaren Sedation: na Thromboprophylaxis: scd Head up position: na Ulcer prophylaxis: start protonix given steroid and NSAID use Glycemic control: insulin protocol Spontaneous breathing trial: na Bowel care: miralax prn Indwelling catheter removal: na Deescalation of antibiotics: ceftriaxone for now I spent a total of 55 minutes in direct patient care, including [id number] time with the patient and/or family, reviewing medical records, ordering and reviewing diagnostic tests, and coordinating care with other healthcare providers. This time includes: history taking, physical examination, medical decision making, counseling, ECG interpretation, imaging interpretation, lab i nterpretation, orders, and education, excluding time spent in the performance of separately billed services. Notes For Next Care Provider Patient is a 74-year-old gentleman who has undergone extensive lumbar spine surgery as well as recent hip surgery. ADmitted to medicine for worsening pain. On medicine, ortho spine consulted, recommended PT/OT. Pain control with decadron, toradol, voltaren cream. PT/OT recommended outpatient follow up. On 09/12/2024 patient medically ready for discharge home. Discharged with pain regiment, plan for outpatient PT/OT follow up, and follow up with ortho spine. Of note, patient ambulating well at discharge and feels pain is managable. Medication Changes From Visit -dilaudid, meloxicam, augmentin, miralax, decadron Admission HPI Per Admitting Provider Patient is a 74-year-old gentleman who has undergone extensive lumbar spine surgery as well as recent hip surgery. He continues to have significant jelly of pain in his pelvic area, lumbar area and lateral thigh/hip area. Came to the emergency room with this pain essentially at the point where he cannot ambulate without severe discomfort. In the emergency room required multiple doses of IV medications for any type of pain control. Patient not feel like he could return home. Imaging did not show any acute abnormalities other than what was supposedly expected to be seen postoperatively. Was referred for evaluation and care in the hospital so he could not get further specialty evaluation by orthopedic spine. Patient is been seen by Dr. Reyes and [facility] for his spine and hip respectively. Patient was actually [facility] a week ago. Thought he had a significant right hip bursitis and had an injection in the bursa last week it lasted a couple days but then pain returned and seem to even flare more so over the week. Also here in the emergency room, urinalysis concerning for possible UTI. Imaging shows some nonobstructing renal calculi but no evidence of pyelonephritis. Patient did not really even report significant urinary symptoms. He is more concerned about back and hip pain. Denies any fever or chills. No cough or cold symptoms. No chest pain or shortness of breath. Patient has also been to [facility] [place] since his back surgery the end of July. They stated that they would have done the same procedure as he had already received and recommended him to follow up locally here with Dr. Reyes. Discharge Exam Gen: A&O 3 NAD HEENT: NCAT, EOMI, not icteric. External ears normal. No rhinorrhea. Moist mucous membranes. Neck: Supple, full range of motion, no observable masses, No meningeal sign. Lungs: No Respiratory distress. CV: RRR, no edema. Abdomen: Soft, nondistended, No rebound tenderness. MSK: mild pain to palpation on right hip, per patient radiates to right knee, improved from prior Skin: No rashes, petechiae, lesions. Normal color per patient. Neuro: Normal Gait, Grossly intact. Slight shakes in arms bilaterally Psych: Appropriate for situation. Updated Medication List Medication Instructions Recorded Confirmed Type atorvastatin 80 mg tablet 80 mg PO QAM 03/13/19 09/10/24 History ezetimibe 10 mg tablet 10 mg PO QAM 04/12/19 09/10/24 History pantoprazole 40 mg tablet,delayed 40 mg PO QAM 04/12/19 09/10/24 History release empagliflozin 10 mg tablet 10 mg PO QAM 10/13/22 09/10/24 History (Jardiance) nitroglycerin 0.4 mg sublingual 0.4 mg sublingual UD PRN Chest Pain 11/30/22 09/10/24 History tablet (Nitrostat) aspirin 81 mg tablet,delayed 81 mg PO QAM 06/06/24 09/10/24 History release atenolol 25 mg tablet 25 mg PO QAM 06/06/24 09/10/24 History semaglutide 2 mg/dose (8 mg/3 mL) 2 mg subcut Q7D 06/06/24 09/10/24 History subcutaneous pen injector (Ozempic) tamsulosin 0.4 mg capsule 0.4 mg PO QAM 06/06/24 09/10/24 History terazosin 2 mg capsule 2 mg PO QAM 06/06/24 09/10/24 History diclofenac sodium 1 % topical gel 2 g EXT Q8H PRN Pain 07/30/24 09/10/24 History (Voltaren Arthritis Pain) pregabalin 150 mg capsule 150 mg PO BID 07/30/24 09/10/24 History oxycodone 5 mg tablet 5 mg PO Q6H PRN pain #30 tabs 08/15/24 09/10/24 Rx amoxicillin 500 mg-potassium 1 tab PO BID 5 days #10 tabs 09/12/24 Rx clavulanate 125 mg tablet (Augmentin) dexamethasone 1 mg tablet 4 mg (4 x 1 mg) PO BID 7 days #56 09/12/24 Rx tabs hydromorphone 2 mg tablet 2 mg PO Q6H PRN pain #42 tabs 09/12/24 Rx (Dilaudid) meloxicam 7.5 mg tablet 7.5 mg PO DAILY #14 tabs 09/12/24 Rx polyethylene glycol 3350 17 17 g PO DAILY 14 days #238 grams 09/12/24 Rx gram/dose oral powder (Miralax) Hospital Stay Data Consultations 09/10/24 18:09 ED Decision to Admit Stat 09/10/24 18:10 Consult Orthopedic Spine Surgery Routine Diagnostic Imagining Performed 09/10/24 14:46 CT hip RT wo con Stat CT lumbar spine wo con Stat CT thoracic spine wo con Stat 09/10/24 16:20 CT Abd and Pelvis [CT abd pelvis IV con only] Stat Pending Results Patient Have Any Pending Studies at Discharge: No Discharge Instructions Given to Patient (Per Discharging Provider) 1. Please pursue physical therapy when able to outside hospital, as this is primary treatment for your condition. 2. Please take medications as prescribed. 3. Please finish course of abx. Total Time Total Time Spent Total Time Spent (In Minutes): I spent a total of 55 minutes in direct patient care, including [id number] time with the patient and/or family, reviewing medical records, ordering and reviewing diagnostic tests, and coordinating care with other healthcare providers. This time includes: history taking, physical examination, medical decision making, counseling, ECG interpretation, imaging interpretation, lab interpretation, orders, and education, excluding time spent in the performance of separately billed services.
--- NOTE | 2024-09-13 10:40 | Communication Note ---
Date of Service: September 13, 2024 Patient called and notified on 09/13/2024 that Augmentin does not cover the bacteria that grew in his urine. UC ESBL on sensitive to macrobid orally Patient directed to stop taking Augmentin and start nitrofurantoin for 7 days. He is agreeable. Prescription sent to [facility] pharmacy electronically. Discussed w/ Dr. Houser who recently discharged the patient 09/12/24
== END 2024-09-12 15:59 | disposition home or self-care (01) | DRG 552 ==
LOC: ED 11:32 → SUATTDRO 18:33 → EDINP 18:33 → 3N 19:59

== ENCOUNTER 2025-03-21 11:54 | Inpatient (IN) ==
--- NOTE | 2025-03-21 13:11 | Emergency Department Note ---
Impression & Plan Deep vein thrombosis of right lower extremity ED Provider Note Provider: Fidel Blanco MD CHIEF COMPLAINT: Referred due to leg swelling DVT HISTORY OF PRESENT ILLNESS: Patient is a 74-year-old gentleman past medical history including chronic back pain and multiple spinal surgeries, type 2 diabetes, BPH, CAD, and hypertension presenting here referred from the office. Patient incidentally had a follow-up appointment at the [facility] today. Reports Tuesday started to have some soreness of his legs after working. Then developed particularly of the last day or so increase swelling prickly of the right leg and fullness that he noted this morning. Went to the outpatient clinic evaluated and had an ultrasound done that showed extensive DVT from his knee to his thigh by report. Denies significant chest pain or shortness of breath. States he had maybe a very superficial blood clot in his arm that got better on its own in the spring but no other history of blood clots. No recent travel. PAST MEDICAL HISTORY: As noted above MEDICATIONS: Reviewed home medications SOCIAL HISTORY: Non-smoker PHYSICAL EXAM: GENERAL: alert and oriented in no acute distress on stretcher Head: normocephalic and atraumatic EYES: No injection, discharge or icterus. NECK: Trachea midline. ENT: Mucous membranes pink and moist. LUNGS: Airway patent. No retractions. Breath sounds clear with good air entry bilaterally. HEART: Regular rate and rhythm. No chest wall tenderness ABDOMEN: Soft and non-tender, without guarding or rebound. SKIN: Acyanotic, warm, dry, without rashes EXTREMITIES: With 2+ right lower extremity swelling seems somewhat mildly tender without crepitus. Slight erythema diffusely. NEUROLOGICAL: No focal deficits. No aphasia. No facial droop or slurred speech. Ambulatory. EK bpm sinus rhythm with PAC. No acute ST segment elevation or depression with QTc of 408. CONTINUOUS CARDIAC MONITORING: was ordered and showed a heart rate of 70s-80s bpm in normal sinus rhythm Patient's laboratory studies and imaging reviewed. Differential includes DVT, musculoskeletal, infection, joint effusion, trauma, lymphedema, idiopathic, CHF, as well as other pathologies. IMPRESSION/MEDICAL DECISION MAKING: Reports of extensive DVT to the right lower extremity. Unfortunately do not see formal report. Will obtain own ultrasound. Do not believe clinically this represents phlegmasia cerulea dolens. He is not having significant shortness of breath or chest pain. Troponin blood work is sent. Hypercoag study ordered. Not on anticoagulation currently and discussed with him the need for anticoagulation. Discussed with Dr. Cartwright of radiology was able to review the images in the computer from the [employer] system. He reports that the DVT extends from the knee to the external iliac vein. While some limitations in windows, he does not see obvious evidence of internal iliac or IVC clot. Given this reported extensive nature will start the patient on IV heparin. And given the size will advise the patient to stay for further evaluation and monitoring in case there is any break off or further worsening. He was agreeable with this plan. He is also having some difficulty ambulating given the swelling with his legs and certainly does not need to fall while on anticoagulation. Hospitalist team was contacted. DIAGNOSIS: Right lower extremity DVT DISPOSITION: Hospitalist will evaluate Patient was agreeable with this plan. 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 Lumbar radiculopathy (Acute) Diabetes mellitus, type II Ambulatory dysfunction Lumbosacral radiculopathy Adjacent segment disease of lumbar spine with history of fusion procedure Scoliosis of lumbar region due to degenerative disease of spine in adult BPH associated with nocturia Encounter for pre-operative examination Nocturia GERD (gastroesophageal reflux disease) (Acute) Dyslipidemia CAD (coronary atherosclerotic disease) Impotence (Chronic) HTN (hypertension) (Chronic) Medical History Obesity, Class II, BMI 35-39.9 Nocturnal hypoxemia Per records Lumbar radiculopathy Dyslipidemia CAD (coronary artery disease) 2013 > stent x1 Ambulatory dysfunction R/t back pain BPH associated with nocturia Bladder cancer Hx "years ago" Continues to have follow-up cystos Diabetes mellitus, type 2 NIDDM History of colon polyps Sleep apnea CPAP (compliant) Myocardial infarction 2013 > stent x1 Follows with Dr. Alvarez Chronic back pain Nephrolithiasis Hx Hypertension Esophageal reflux Surgical History Nausea and vomiting after administration of anesthetic agent Single episode years ago History of lumbar spinal fusion History of carpal tunnel release of both wrists Hx of lithotripsy Multiple History of total right hip arthroplasty [facility], Dr. Iniguez (05/22/24) History of cataract surgery R/L History of colonoscopy History of cardiac cath 2014 > stent x1 History of cystoscopy with resection of bladder tumor H/O hernia repair Umbilical H/O arthroscopic knee surgery R/L H/O shoulder surgery Arthroscopic, right Hx of appendectomy ~age 10 History of lumbar surgery ~2016, L3-L5 Family History Mother Coronary heart disease Hypertension Nephrolithiasis Father Coronary heart disease Hypertension Social History Smoking Status: Never smoker Tobacco Type: Cigarettes Second Hand Exposure: Yes (hx growing up); Do You Dip or Chew Tobacco: No; Hx Alcohol Use: No Hx Substance Use: No Preferred Language: Indonesian Communication Ability: Effective Honey Processor Required: No Beliefs That Will Affect Care: None marital status: Current Living Situation: Spouse current occupational status: retired Feels Safe at Home: Yes Assistive Devices: Cane and Walker Allergies Allergies Allergy/AdvReac Type Severity Reaction Status Date / Time Sulfa (Sulfonamide Allergy Mild Rash Verified 02/28/25 07:58 Antibiotics) Home Meds Home Medications Medication Instructions Recorded Confirmed atorvastatin 80 mg tablet 80 mg PO QAM 03/13/19 03/21/25 ezetimibe 10 mg tablet 10 mg PO QAM 04/12/19 03/21/25 pantoprazole 40 mg tablet,delayed 40 mg PO QAM 04/12/19 03/21/25 release aspirin 81 mg tablet,delayed 81 mg PO QAM 06/06/24 03/21/25 release atenolol 25 mg tablet 25 mg PO QAM 06/06/24 03/21/25 tirzepatide (weight loss) 2.5 10 mg subcut WK 02/28/25 03/21/25 mg/0.5 mL subcutaneous pen injector (Zepbound) nitrofurantoin 100 mg PO BID 03/21/25 03/21/25 monohydrate/macrocrystals 100 mg capsule tamsulosin 0.4 mg PO DAILY 03/21/25 03/21/25 Results & Data (ED) Vital Signs Vital Signs - 24 hr 03/21/25 11:55 03/21/25 12:00 03/21/25 12:17 Temperature 36.4 C L Temperature Source Temporal Artery Scan Pulse Rate 75 71 Pulse Rate [Right Finger] 71 Pulse Rhythm Regular Pulse Strength Normal Respiratory Rate 16 20 Respiratory Effort / Characteristics Non-Labored Spontaneous Respiratory Depth Normal Blood Pressure 153/90 H Blood Pressure [Right Arm] 112/77 Blood Pressure Mean 111 Blood Pressure Mean [Right Arm] 88 Pulse Oximetry 95 96 Oxygen Delivery Method Room Air Sepsis Recent Fever Within 48 Hours No Sepsis New/Unexplained Change in Mental Status N/A Sepsis Action Taken by Nursing No Action Required 03/21/25 13:55 03/21/25 15:00 Temperature Temperature Source Pulse Rate Pulse Rate [Right Finger] 82 Pulse Rhythm Pulse Strength Respiratory Rate 18 20 Respiratory Effort / Characteristics Respiratory Depth Blood Pressure Blood Pressure [Right Arm] 125/63 128/76 Blood Pressure Mean Blood Pressure Mean [Right Arm] 83 93 Pulse Oximetry 96 95 Oxygen Delivery Method Sepsis Recent Fever Within 48 Hours Sepsis New/Unexplained Change in Mental Status Sepsis Action Taken by Nursing Laboratory Data 03/21/25 12:21 03/21/25 12:21 Lab Results 03/21/25 Range/Units 12:21 WBC 9.57 (4.8-10.8) K/ul RBC 4.47 L (4.70-6.10) M/uL Hgb 13.5 L (14.0-18.0) g/dl Hct 40.8 L (42.0-52.0) % MCV 91.3 (80.0-100.0) fL MCH 30.2 (25.0-34.0) pg MCHC 33.1 (32.0-36.0) g/dL RDW Std Deviation 52.3 H (36.4-46.3) fL RDW Coeff of Jose 15.7 H (11.5-14.5) % Plt Count 133 (130-400) K/uL MPV 10.6 (9.4-12.4) fL Immature Gran % (Auto) 0.4 % Neut % (Auto) 75.9 % Lymph % (Auto) 13.2 % Mercer % (Auto) 8.0 % Eos % (Auto) 2.3 % Baso % (Auto) 0.2 % Neut # (Auto) 7.26 H (1.40-6.50) K/uL Lymph # (Auto) 1.26 (1.20-3.40) K/uL Mercer # (Auto) 0.77 H (0.11-0.59) K/uL Eos # (Auto) 0.22 (0.00-0.50) K/uL Baso # (Auto) 0.02 (0.00-0.20) K/uL Immature Gran # (Auto) 0.04 (0.01-0.20) K/uL PT 10.4 (9.0-12.0) Seconds INR 1.0 (0.9-1.1) Sodium 138 (136-145) mmol/L Potassium 4.1 (3.5-5.1) mmol/L Chloride 105 (98-107) mmol/L Carbon Dioxide 25 (21-32) mmol/L Anion Gap 8 (3-11) BUN 19 (6-23) mg/dl Creatinine 0.95 (0.6-1.4) mg/dl Est Cr Clr Drug Dosing 78.6 ml/min eGFR 82.95 BUN/Creatinine Ratio 20.0 (10-20) Glucose 145 H (70-99(Fasting)) mg/dl Calcium 9.4 (8.6-10.3) mg/dl Magnesium 2.3 (1.7-2.4) mg/dl Total Bilirubin 2.0 H (0.2-1.0) mg/dl AST 23 (13-39) U/L ALT 22 (7-52) U/L Alkaline Phosphatase 98 (34-104) U/L Total Creatine Kinase 314 H (30-223) U/L Troponin I High Sens 10.9 (0-20) pg/ml Total Protein 7.0 (6.0-8.3) gm/dl Albumin 3.9 (3.4-5.0) gm/dl Globulin 3.1 (2.5-4.0) gm/dl Albumin/Globulin Ratio 1.3 (0.9-2) Administered Medications Heparin Sodium/Dextrose (Heparin 80756 Unit/500 Ml D5w) 25,000 units in 500 mls @ 30 mls/hr IV .[id number] LASHON; Protocol Stop: 04/20/25 14:29 Last Admin: 03/21/25 14:15 Dose: 1,500 units/hr, 30 mls/hr Documented By: KIMBERLY Co-signed By: OLMAN Discontinued Medications Heparin Sodium (Porcine) (Heparin Sod (Porcine) 1000 Unit/Ml) 1 units IV NOW ONE Stop: 03/21/25 14:18 Last Admin: 03/21/25 14:15 Dose: 6,000 units Documented By: KIMBERLY Co-signed By: OLMAN Heparin Sodium/Dextrose (Heparin Iv Adult Wt-Based Standard W/ Initial Bolus Protocol) 1 each IV NOW STA; Protocol Stop: 03/21/25 14:03 Last Admin: 03/21/25 14:21 Dose: 1 each Documented By: KIMBERLY Discharge Plan Visit Data Chief Complaint: Leg Injury/Pain Stated Complaint: BLOOD CLOT R LEG, REF BY DOC ED Provider: Fidel Blanco Discharge Problem: Deep vein thrombosis of right lower extremity Patient Disposition: Being Evaluated by Hospitalist Condition: Serious Forms Stand Alone Forms: My [facility] Prescriptions Prescriptions: No Action atorvastatin 80 mg tablet 80 mg PO QAM ezetimibe 10 mg tablet 10 mg PO QAM pantoprazole 40 mg tablet,delayed release (DR/EC) 40 mg PO QAM Zepbound 2.5 mg/0.5 mL pen injector 10 mg subcut WK aspirin 81 mg tablet,delayed release (DR/EC) 81 mg PO QAM atenolol 25 mg tablet 25 mg PO QAM tamsulosin 0.4 mg PO DAILY nitrofurantoin monohyd/m-cryst 100 mg capsule 100 mg PO BID Referrals Referrals: Karl Madrigal DO [Primary Care Provider] -
[2025-03-21 13:22] LABS: INR 1.0 (0.9-1.1); Prothrombin Time 10.4 Seconds (9.0-12.0)
[2025-03-21 13:34] LABS: Hematocrit (blood only) 40.8 % (42.0-52.0); Hemoglobin 13.5 g/dl (14.0-18.0); Immature Granulocytes # (auto) 0.04 K/uL (0.01-0.20); Immature Granulocytes % (auto) 0.4 %; Mean Corpuscular Hemoglobin 30.2 pg (25.0-34.0); Mean Corpuscular Volume 91.3 fL (80.0-100.0); Platelet Count 133 K/uL (130-400); RDW Standard Deviation 52.3 fL (36.4-46.3); Red Blood Count 4.47 M/uL (4.70-6.10); White Blood Count 9.57 K/ul (4.8-10.8)
[2025-03-21 13:35] LABS: Alanine Aminotransferase 22.0 U/L (7-52); Albumin Globulin Ratio 1.3 (0.9-2); Alkaline Phosphatase 98.0 U/L (34-104); Anion Gap 8.0 (3-11); Bilirubin,Total 2.0 mg/dl (0.2-1.0); Blood Urea Nitrogen 19.0 mg/dl (6-23); Calcium 9.4 mg/dl (8.6-10.3); Carbon Dioxide 25.0 mmol/L (21-32); Chloride 105.0 mmol/L (98-107); Creatine Kinase 314.0 U/L (30-223); Creatinine Clr Calc Pharmacy 78.6 ml/min; Globulin 3.1 gm/dl (2.5-4.0); Glucose 145.0 mg/dl (70-99(Fasting)); Magnesium 2.3 mg/dl (1.7-2.4); Potassium 4.1 mmol/L (3.5-5.1); Sodium 138.0 mmol/L (136-145); Total Protein 7.0 gm/dl (6.0-8.3)
--- NOTE | 2025-03-21 14:10 | History & Physical Report ---
Date of Service March 21, 2025 Assessment & Plan (1) Deep vein thrombosis of right lower extremity: Plan Patient is a 74y/o male with PMHx significant for CAD s/p inferior wall STEMI in 2014 where he received a CHARITO to the proximal and mid RCA with otherwise nonobstructive CAD, HTN, HLD, mildly dilated aortic root and ascending aorta, MINA on CPAP HS, DMII, GERD, BPH, history of malignant neoplasm of bladder s/p BCG completed in 2017 with no recurrences since that time, history of recurrent UTIs, R total hip arthroplasty in May 2024, chronic back pain with history of lumbosacral spine spondylosis with radiculopathy s/p L2-L3 decompression and fusion plus L3-L5 hardware removal in July 2024 and obesity who presented to the ED via referral by his PCP after he presented to their OP office with RLE swelling and pain x approximately 3 days and was found to have an extensive DVT in the RLE extending from the distal external iliac vein down to the distal SFT. Formal RLE venous Doppler US impression not yet completed in OP Epic records. ED provider discussed with reading radiologist, Dr. Wagner: "...it goes from the distal external iliac vein down to the distal SFT. Pop and calf vessels look open. Hard area to look by US, but what they showed of the IVC and other iliacs looked clear." #Acute RLE DVT Pt with LLE pain as well, primarily upon palpation of the posterior thigh region on exam Also noting some chest wall discomfort, primarily in the L anterior chest wall, with palpation on exam -Given the above additional complaints, will check both LLE venous Doppler US and chest CT PE protocol -If chest CT PE positive, will then check TTE IV heparin initiated in ED --> continue for now Hypercoagulable w/u completed in ED, f/u on results CK slightly bumped (likely due to immobility 2/2 pain, clot burden or ? statin use) --> will repeat in AM, check TSH in AM #HTN Continue BB #HLD #CAD s/p inferior wall STEMI in 2014 where he received a CHARITO to the proximal and mid RCA with otherwise nonobstructive CAD Continue ASA, statin and Zetia #Mildly dilated aortic root and ascending aorta Under observation, previously measuring 4cm per OP chart review #History of recurrent UTIs Follows with Dr. Deandre, [facility] Placed on 30-day course of Macrobid during previous visit --> 2 more doses left, continue #BPH Continue Flomax #DM type 2 Hold home regimen SSI protocol while inpatient, follow BSG checks ACHS Hgb A1c 6.8% as of Jul 2024 --> will repeat in AM #GERD Continue PPI #Anemia H/H overall stable but on lower side Will check routine anemia panel in AM DVT Prophylaxis: IV heparin, as per above Disposition: Admit to med/telemetry Patient seen in collaboration with Dr. Berry. Please see addendum. I spent a total of 62 minutes coordinating, documenting, and providing care for this patient excluding time spent in the performance of separately billed services or time spent by another provider/QHP. This included personally reviewing all current laboratories and imaging studies, medical reconciliation, outpatient chart review and discussion with specialists. This chart was completed in part utilizing Speech Voice Recognition Software. Grammatical errors, random word insertions, pronoun errors, and incomplete sentences are an occasional consequence of this system due to software limitations, ambient noise, and hardware issues. Any formal questions or concerns about the content, text, or information contained within the body of this dictation should be directly addressed to the provider for clarification. History of Present Illness Chief Complaint: Referred by PCP: OP US positive for RLE DVT Primary Care Provider: Karl Madrigal DO Patient is a 74y/o male with PMHx significant for CAD s/p inferior wall STEMI in 2014 where he received a CHARITO to the proximal and mid RCA with otherwise nonobstructive CAD, HTN, HLD, mildly dilated aortic root and ascending aorta, MINA on CPAP HS, DMII, GERD, BPH, history of malignant neoplasm of bladder s/p BCG completed in 2017 with no recurrences since that time, history of recurrent UTIs, R total hip arthroplasty in May 2024, chronic back pain with history of lumbosacral spine spondylosis with radiculopathy s/p L2-L3 decompression and fusion plus L3-L5 hardware removal in July 2024 and obesity who presented to the ED via referral by his PCP after he presented to their OP office with RLE swelling and pain x approximately 3 days and was found to have an extensive DVT in the RLE extending from the distal external iliac vein down to the distal SFT. History obtained from the patient, discussion with ED provider and associated chart review. Had previously been seen in [facility] ED back in September 2024 and diagnosed with a superficial thrombus within the left cephalic vein extending from the mid to distal forearm approximately 8cm in length. He had been prescribed a 2-week cour se of Eliquis 2.5 mg twice daily however admits to not ever taking this, as recommended by his PCP, as his symptoms resolved over the course of 2 days with symptomatic management including NSAIDs, warm compresses and elevation/compression. No other prior personal history of blood clots or blood clotting disorders. No family history of blood clots or blood clotting disorders. Admits to significant ambulatory dysfunction due to the pain and swelling in his RLE. Feels his RLE is "tight" and erythematous but not necessarily warm to palpation. Also mentions experiencing some pain in his LLE, primarily in the posterior thigh region. He did not have a LLE venous Doppler US completed by his PCP earlier today. No inciting trauma or injury prior his BLE pain beginning. No prior cigarette smoking history. Admits to smoking 1 to 2 cigars/year when his friends are visiting. Rare alcohol use. No recreational drug use. Allergies Allergy/AdvReac Type Severity Reaction Status Date / Time Sulfa (Sulfonamide Allergy Mild Rash Verified 02/28/25 07:58 Antibiotics) Home Medications Medication Instructions Recorded Confirmed Type atorvastatin 80 mg tablet 80 mg PO QAM 03/13/19 03/21/25 History ezetimibe 10 mg tablet 10 mg PO QAM 04/12/19 03/21/25 History pantoprazole 40 mg tablet,delayed 40 mg PO QAM 04/12/19 03/21/25 History release aspirin 81 mg tablet,delayed 81 mg PO QAM 06/06/24 03/21/25 History release atenolol 25 mg tablet 25 mg PO QAM 06/06/24 03/21/25 History tirzepatide (weight loss) 2.5 10 mg subcut WK 02/28/25 03/21/25 History mg/0.5 mL subcutaneous pen injector (Zepbound) nitrofurantoin 100 mg PO BID 03/21/25 03/21/25 History monohydrate/macrocrystals 100 mg capsule tamsulosin 0.4 mg PO DAILY 03/21/25 03/21/25 History Past Med/Surg History Problem List (Updated 03/21/25 @ 15:25 by Barbie Ruth PA-C) Deep vein thrombosis of right lower extremity UTI symptoms Hip pain (Acute) Intractable back pain (Acute) Acute blood loss anemia S/P lumbar spine operation S/P spinal surgery 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 Lumbar radiculopathy (Acute) Diabetes mellitus, type II Ambulatory dysfunction Lumbosacral radiculopathy Adjacent segment disease of lumbar spine with history of fusion procedure Scoliosis of lumbar region due to degenerative disease of spine in adult BPH associated with nocturia Encounter for pre-operative examination Nocturia GERD (gastroesophageal reflux disease) (Acute) Dyslipidemia CAD (coronary atherosclerotic disease) Impotence (Chronic) HTN (hypertension) (Chronic) Medical History Obesity, Class II, BMI 35-39.9 Nocturnal hypoxemia Per records Lumbar radiculopathy Dyslipidemia CAD (coronary artery disease) 2013 > stent x1 Ambulatory dysfunction R/t back pain BPH associated with nocturia Bladder cancer Hx "years ago" Continues to have follow-up cystos Diabetes mellitus, type 2 NIDDM History of colon polyps Sleep apnea CPAP (compliant) Myocardial infarction 2014 > stent x1 Follows with Dr. Alvarez Chronic back pain Nephrolithiasis Hx Hypertension Esophageal reflux Surgical History Nausea and vomiting after administration of anesthetic agent Single episode years ago History of lumbar spinal fusion History of carpal tunnel release of both wrists Hx of lithotripsy Multiple History of total right hip arthroplasty [facility], Dr. Iniguez (05/22/24) History of cataract surgery R/L History of colonoscopy History of cardiac cath 2014 > stent x1 History of cystoscopy with resection of bladder tumor H/O hernia repair Umbilical H/O arthroscopic knee surgery R/L H/O shoulder surgery Arthroscopic, right Hx of appendectomy ~age 10 History of lumbar surgery ~2016, L3-L5 Family History Mother Coronary heart disease Hypertension Nephrolithiasis Father Coronary heart disease Hypertension Social History Smoking Status: Never smoker Tobacco Type: Cigarettes Second Hand Exposure: Yes (hx growing up); Do You Dip or Chew Tobacco: No; Hx Alcohol Use: No Hx Substance Use: No Preferred Language: Divehi Communication Ability: Effective Reuse Technician Required: No Beliefs That Will Affect Care: None marital status: Current Living Situation: Spouse current occupational status: retired Feels Safe at Home: Yes Assistive Devices: Cane and Walker Review of Systems Review of Systems: At least ten systems reviewed and negative, except as noted in the HPI. Physical Exam Physical Exam: General: WD/WN, NAD, sitting up in bed, pleasant, conversing appropriately, A+Ox3 HEENT: Normocephalic, atraumatic, external ear and nose normal, oropharynx normal Respiratory: Normal respiratory effort, CTAB Cardiovascular: RRR, normal peripheral pulses, 1+ RLE edema Abdomen/GI: Normal bowel sounds, soft, nontender to palpation in all quadrants Extremities/Musculoskeletal: No cyanosis or clubbing, actively moves all extremities, RLE erythema/TTP (especially in R groin and posterior thigh regions), mild-mod TTP of LLE posterior thigh region as well but no superficial erythema or warmth to palpation Neurologic: No overt focal deficits, CN's II-XI not formally tested but appear grossly intact bilaterally Results & Data Results & Data Vital Signs (Past 12 Hours) Vital Signs Temp Pulse Pulse Resp BP BP Pulse Ox 03/21/25 12:17 71 03/21/25 12:00 36.4 C L 75 20 153/90 H 96 03/21/25 11:55 71 16 112/77 95 O2 Del Method 03/21/25 12:17 03/21/25 12:00 Room Air 03/21/25 11:55 Laboratory Results Short CBC 03/21/25 Range/Units 12:21 WBC 9.57 (4.8-10.8) K/ul Hgb 13.5 L (14.0-18.0) g/dl Hct 40.8 L (42.0-52.0) % Plt Count 133 (130-400) K/uL BMP 03/21/25 12:21 Sodium 138 Potassium 4.1 Chloride 105 Carbon Dioxide 25 BUN 19 Creatinine 0.95 Glucose 145 H Calcium 9.4 Cardiac Enzymes 03/21/25 Range/Units 12:21 Total Creatine Kinase 314 H (30-223) U/L Liver Function 03/21/25 Range/Units 12:21 Total Bilirubin 2.0 H (0.2-1.0) mg/dl AST 23 (13-39) U/L ALT 22 (7-52) U/L Alkaline Phosphatase 98 (34-104) U/L Albumin 3.9 (3.4-5.0) gm/dl Code Status & VTE Plan Code Status FULL CODE - As per discussion with the patient at bedside in the ED. Supervising Physician Co-Signing Physician Notes 74y/o male with PMH of CAD s/p inferior wall STEMI [2014, CHARITO to the proximal and mid RCA], CAD, HTN, HLD, mildly dilated aortic root and ascending aorta, MINA on CPAP HS, DMII, GERD, BPH, malignant neoplasm of bladder s/p BCG completed in 2017 with no recurrences since that time, recurrent UTIs, R total hip arthroplasty in May 2024, chronic back pain with history of lumbosacral spine spondylosis with radiculopathy s/p L2-L3 decompression and fusion plus L3- L5 hardware removal in July 2024 and obesity who presented to the ED via referral by his PCP after he presented to their OP office with RLE swelling and pain x approximately 3 days and was found to have DVT in the RLE extending from the distal external iliac vein down to the distal SFT. Pt states he has ble pain (more so on the rle) for few months now and always thought it was due to his chronic back pain issues. 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 He denies chest pain, sob, fever, cough, acute changes in bowel or bladder habits. labs wnl, hypercoagulability w/u has been sent. ED physician discussed the RLE US venous doppler done as OP w/ radiology, concern for DVT in the RLE extending from the distal external iliac vein down to the distal SFT. Will get LLE venous doppler (pt has lt thigh tender on exam) and CTA chest. c/w heparin drip, hematology eval as OP. 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 On exam: RLE erythematous/1+edema/warm/tender. LLe thigh tender, no edema or erythema. RA, Heart, Lung and abdominal exam fairly wnl. rest of the exam as above. I have seen and examined the patient and have discussed the case with the provider above. I agree with the assessment and plan as stated. Time spent independently: 25 min. (1) Deep vein thrombosis of right lower extremity Affected thrombotic vein of extremity: unspecified vein of extremity Chronicity: acute Qualified Code(s): I82.401 - Acute embolism and thrombosis of unspecified deep veins of right lower extremity
[2025-03-21] MEDS: HEPARIN 25000 UNIT/500 ML D5W 25,000 UNITS/500 ML BAG IV SCH (14:15)
[2025-03-21] MEDS: HEPARIN SOD (PORCINE) 1000 UNIT/ML IV ONE (14:15)
[2025-03-21] MEDS: Heparin IV Adult Wt-Based Standard w/ INITIAL Bolus Protocol IV STA (14:21)
--- NOTE | 2025-03-21 16:20 | Ultrasound Report ---
Clinical History: Pain Technique: Venous ultrasound evaluation was performed utilizing grayscale, color Doppler and wave form evaluation. Images were also obtained with and without compression Findings: The left common femoral, superficial femoral, popliteal, and visualized calf veins demonstrate normal anechoic lumens with full compressibility. Normal flow is seen on color Doppler images. Expected waveforms were produced with augmentation maneuvers Impression: No evidence of left leg deep venous thrombosis Electronically signed by Ari Bravo 03-21-2025 4:20 PM
[2025-03-21] MEDS: OPTIRAY 320 125ml IV ONE (16:29)
[2025-03-21] MEDS ORDERED: GLUCOSE 10 TAB/TUBE PO PRN (16:55)
[2025-03-21] MEDS ORDERED: ACETAMINOPHEN 325 MG TAB PO PRN (16:55)
[2025-03-21] MEDS ORDERED: CARBOHYDRATES FOR HYPOGLYCEMIA PO PRN (16:55)
[2025-03-21] MEDS ORDERED: POLYETHYLENE (MIRALAX) 17 GM PACK PO PRN (16:55)
[2025-03-21] MEDS ORDERED: DEXTROSE 50% 50 ML SYRINGE IV PRN (16:55)
[2025-03-21] MEDS ORDERED: GLUCAGON FOR INJ 1 MG VIAL SQ PRN (16:55)
[2025-03-21] MEDS ORDERED: ONDANSETRON INJ 2 MG/ML 2 ML VIAL IV PRN (16:55)
[2025-03-21] MEDS ORDERED: GLUCOSE 40% GEL 15 GM TUBE PO PRN (16:55)
[2025-03-21] MEDS ORDERED: MAGNESIUM HYDROXIDE SUSP 30 ML UDC PO PRN (16:55)
--- NOTE | 2025-03-21 17:16 | CT Scan Report ---
CT pulmonary angiogram with IV contrast History: Chest pain COMPARISON: None TECHNIQUE: CT angiography of the chest was performed without IV contrast followed by IV contrast, including 3D post processing CTA image reconstruction. Dose reduction techniques were achieved by using automatic exposure control and/or adjustment of mA and/or kV according to patient size and/or use of iterative reconstruction technique. FINDINGS: Diagnostic quality: Adequate There is a few, small subsegmental emboli, seen in the right lower and right middle lobe, and there is an embolus in the distal subsegmental left upper lobe artery. A thin bandlike area of filling defect is seen in the distal portion of the right main pulmonary artery, and is likely chronic. Heavy coronary calcifications. RV/LV ratio of approximately 1.2, suggesting right heart strain. There is no pericardial effusion. There are no abnormally enlarged hilar or mediastinal lymph nodes. The central tracheobronchial tree is clear. The lungs are clear. There is no pleural effusion. Limited visualized upper abdomen. No destructive osseous changes are seen. IMPRESSION: There is evidence of pulmonary embolism, as above, mostly small subsegmental emboli, as well as a thin linear filling defect in the distal right pulmonary artery, which is likely chronic. There is evidence of right heart strain, however. Findings discussed with Tori ALFARO, by Dr. Madrigal, at 5:15 PM, 03/21/2025. Electronically signed by Zhen Madrigal 03-21-2025 5:16 PM
[2025-03-21] MEDS: INSULIN ASPART PER UNIT CHARGE SC SCH (17:54)
[2025-03-21 20:48] LABS: ANTI-Xa, UFH(UnfractionatedHep 0.66 IU/ml (0.3-0.7)
[2025-03-21] MEDS: NITROFURANTOIN MONOHYDRATE 100 MG CAP PO SCH (21:40)
[2025-03-22 06:29] LABS: Hematocrit (blood only) 38.2 % (42.0-52.0); Hemoglobin 12.5 g/dl (14.0-18.0); Mean Corpuscular Hemoglobin 29.8 pg (25.0-34.0); Mean Corpuscular Volume 91.0 fL (80.0-100.0); Platelet Count 127 K/uL (130-400); RDW Standard Deviation 51.8 fL (36.4-46.3); Red Blood Count 4.20 M/uL (4.70-6.10); White Blood Count 8.42 K/ul (4.8-10.8)
[2025-03-22 06:38] LABS: Alanine Aminotransferase 18.0 U/L (7-52); Albumin Globulin Ratio 1.3 (0.9-2); Alkaline Phosphatase 85.0 U/L (34-104); Anion Gap 6.0 (3-11); Bilirubin,Total 1.8 mg/dl (0.2-1.0); Blood Urea Nitrogen 15.0 mg/dl (6-23); Calcium 8.8 mg/dl (8.6-10.3); Carbon Dioxide 27.0 mmol/L (21-32); Chloride 104.0 mmol/L (98-107); Creatine Kinase 157.0 U/L (30-223); Creatinine Clr Calc Pharmacy 75.4 ml/min; Globulin 2.7 gm/dl (2.5-4.0); Glucose 108.0 mg/dl (70-99(Fasting)); Iron 69.0 mcg/dl (35-175); Magnesium 2.2 mg/dl (1.7-2.4); Potassium 3.9 mmol/L (3.5-5.1); Sodium 137.0 mmol/L (136-145); Total Iron Binding Cap Calc 343.0 mcg/dl (250-450); Total Protein 6.2 gm/dl (6.0-8.3); Transferrin 245.0 mg/dl (200-360); Transferrin (FE) Percent Satur 20.0 % (20-50)
[2025-03-22 06:41] LABS: ANTI-Xa, UFH(UnfractionatedHep 0.67 IU/ml (0.3-0.7)
[2025-03-22 06:52] LABS: Thyroid Stimulating Hormone 3.828 uIu/ml (0.300-4.500)
[2025-03-22 06:58] LABS: Ferritin 69.2 ng/ml (8-388)
[2025-03-22 07:26] LABS: Hemoglobin A1C 6.2 % (4.5-5.6)
[2025-03-22] MEDS: ASPIRIN 81 MG ECTAB PO SCH (08:44)
[2025-03-22] MEDS: ATENOLOL 25 MG TABLET PO SCH (08:44)
[2025-03-22] MEDS: ATORVASTATIN 40 MG TAB PO SCH (08:44)
[2025-03-22] MEDS: TAMSULOSIN HCL 0.4 MG CAP PO SCH (08:45)
[2025-03-22] MEDS: EZETIMIBE 10 MG TAB PO SCH (08:45)
--- NOTE | 2025-03-22 16:38 | Hospitalist Progress Note ---
Date of Service March 22, 2025 Assessment & Plan (1) Deep vein thrombosis of right lower extremity: Plan Mr. Ruiz is a 74y/o male with PMHx significant for CAD s/p inferior wall STEMI s/p CHARITO proximal and mid RCA, HTN, HLD, mildly dilated aortic root and ascending aorta, MINA on CPAP HS, DMII, GERD, BPH,prior malignant neoplasm of bladder s/p BCG, R total hip arthroplasty, chronic back pain, lumbosacral spine spondylosis with radiculopathy s/p L2-L3 decompression and fusion plus L3-L5 hardware removal in July 2024 and obesity admitted for RLE swelling and found to have an extensive DVT in the RLE extending from the distal external iliac vein down to the distal SFT. Discussed with Vascular: no need for debulking Clincially improved throughout the day Plan to start Eliquis this evening, with possible discharge tomorrow #Acute RLE DVT #Acute pulmonary emboli Pt with RLE pain as well, primarily upon palpation of the posterior thigh region on exam CT with mostly small subsegmental emboli, as well as a thin linear filling defect in the distal right pulmonary artery, which is likely chronic. There is evidence of right heart strain, IV heparin initiated: transition to eliquis this evening -eliquis [facility] Hypercoagulable w/u completed in ED, f/u on results Likely discharge in am ECHO pending read #HTN Continue BB #HLD #CAD s/p inferior wall STEMI in 2014 where he received a CHARITO to the proximal and mid RCA with otherwise nonobstructive CAD Continue ASA, statin and Zetia #Mildly dilated aortic root and ascending aorta Under observation, previously measuring 4cm per OP chart review #History of recurrent UTIs Follows with Dr. Carrera, [facility] urology Placed on 30-day course of Macrobid during previous visit --> completed course while inpatient #BPH Continue Flomax #DM type 2 Hold home regimen SSI protocol while inpatient, follow BSG checks ACHS Hgb A1c 6.8% as of Jul 2024 -->6.2% this admission #GERD Continue PPI #Anemia H/H overall stable but on lower side DVT Prophylaxis: IV heparin, as per above, transition to eliquis, discharge in am Disposition: Admit to med/telemetry Admission and Anticipated Discharge Date Admission Date: March 21, 2025 Subjective Reports no PEREZ/SOB endorses chronic back pain, but denies chest pain and notes improved RLE pain Physical Exam Constitutional: WD/WN, vitals as above Respiratory: normal respiratory effort, lungs clear to auscultation Cardiovascular: rrr, RLE edema reportedly much improved from evening prior Results & Data Results & Data Vital Signs (Past 12 Hours) Vital Signs Temp Pulse Pulse Resp BP Pulse Ox O2 Del Method 03/22/25 15:49 36.7 C 78 18 134/83 94 Room Air 03/22/25 15:16 78 03/22/25 10:30 37.1 C 92 H 18 117/77 94 Room Air 03/22/25 07:50 Room Air 03/22/25 07:50 36.7 C 87 18 123/74 95 Room Air 03/22/25 06:56 68 Laboratory Results Short CBC 03/22/25 Range/Units 05:39 WBC 8.42 (4.8-10.8) K/ul Hgb 12.5 L (14.0-18.0) g/dl Hct 38.2 L (42.0-52.0) % Plt Count 127 L (130-400) K/uL BMP 03/22/25 05:39 Sodium 137 Potassium 3.9 Chloride 104 Carbon Dioxide 27 BUN 15 Creatinine 0.99 Glucose 108 H Calcium 8.8 Cardiac Enzymes 03/22/25 Range/Units 05:39 Total Creatine Kinase 157 (30-223) U/L Liver Function 03/22/25 Range/Units 05:39 Total Bilirubin 1.8 H (0.2-1.0) mg/dl AST 19 (13-39) U/L ALT 18 (7-52) U/L Alkaline Phosphatase 85 (34-104) U/L Albumin 3.5 (3.4-5.0) gm/dl Medications Administered Home Medications Medication Instructions Recorded Confirmed Last Taken atorvastatin 80 mg tablet 80 mg PO [facility] 03/13/19 03/21/25 08/14/24 04:00 ezetimibe 10 mg tablet 10 mg PO QA 04/12/19 03/21/25 08/15/24 04:00 pantoprazole 40 mg tablet,delayed 40 mg PO QA 04/12/19 03/21/25 08/15/24 04:00 release aspirin 81 mg tablet,delayed 81 mg PO QA 06/06/24 03/21/25 08/14/24 05:00 release atenolol 25 mg tablet 25 mg PO QAM 06/06/24 03/21/25 08/15/24 04:00 tirzepatide (weight loss) 2.5 10 mg subcut WK 02/28/25 03/21/25 Unknown mg/0.5 mL subcutaneous pen injector (Zepbound) nitrofurantoin 100 mg PO BID 03/21/25 03/21/25 Unknown monohydrate/macrocrystals 100 mg capsule tamsulosin 0.4 mg PO DAILY 03/21/25 03/21/25 Unknown apixaban 5 mg (74 tabs) tablets in 5 mg PO BID #74 ea 03/22/25 Unknown a dose pack (Transmit) Active Medications Generic Name Dose Route Start Last Admin Trade Name Freq PRN Reason Stop Dose Admin Aspirin 81 mg 03/22/25 09:00 03/22/25 08:44 Aspirin 81 Mg Ectab PO 04/21/25 08:59 81 mg QAM LASHON Administration Atenolol 25 mg 03/22/25 09:00 03/22/25 08:44 Atenolol 25 Mg Tablet PO 04/21/25 08:59 25 mg QAM LASHON Administration Atorvastatin Calcium 80 mg 03/22/25 09:00 03/22/25 08:44 Atorvastatin 40 Mg Tab PO 04/21/25 08:59 80 mg QAM LASHON Administration Ezetimibe 10 mg 03/22/25 09:00 03/22/25 08:45 Ezetimibe 10 Mg Tab PO 04/21/25 08:59 10 mg QAM LASHON Administration Heparin Sodium/Dextrose 25,000 units in 500 mls @ 30 mls/hr 03/21/25 14:30 03/22/25 07:04 Heparin 80922 Unit/500 Ml D5w IV 03/22/25 21:00 1,500 units/hr .[id number] LASHON 30 mls/hr Administration Protocol 1,500 UNITS/HR Insulin Aspart 0 units 03/21/25 16:55 03/22/25 12:49 Insulin Aspart Per Unit Charge SC 04/20/25 16:54 6 units ACHS LASHON Administration Pantoprazole Sodium 40 mg 03/22/25 09:00 03/22/25 08:44 Pantoprazole 40 Mg Tab PO 04/21/25 08:59 40 mg QAM LASHON Administration Tamsulosin HCl 0.4 mg 03/22/25 09:00 03/22/25 08:45 Tamsulosin Hcl 0.4 Mg Cap PO 04/21/25 08:59 0.4 mg DAILY LASHON Administration
--- NOTE | 2025-03-22 17:42 | Electrocardiogram Report ---
Test Reason : Blood Pressure : */* mmHG Vent. Rate : 71 BPM Atrial Rate : 71 BPM P-R Int : 162 ms QRS Dur : 86 ms QT Int : 376 ms P-R-T Axes : 26 12 17 degrees QTcB Int : 408 ms Sinus rhythm with Premature atrial complexes Low voltage QRS Borderline ECG When compared with ECG of 10-Sep-2024 12:38, No significant change was found Confirmed by Zhen Allen ([id number]) on 03/22/2025 5:42:18 PM Referred By: REFERRED SELF Confirmed By: Zhen Allen
[2025-03-22] MEDS: APIXABAN 5 MG TABLET PO SCH (21:07)
[2025-03-23 06:17] LABS: Hematocrit (blood only) 38.3 % (42.0-52.0); Hemoglobin 12.3 g/dl (14.0-18.0); Mean Corpuscular Hemoglobin 29.1 pg (25.0-34.0); Mean Corpuscular Volume 90.8 fL (80.0-100.0); Platelet Count 137 K/uL (130-400); RDW Standard Deviation 50.9 fL (36.4-46.3); Red Blood Count 4.22 M/uL (4.70-6.10); White Blood Count 8.56 K/ul (4.8-10.8)
[2025-03-23 06:31] LABS: Anion Gap 5.0 (3-11); Blood Urea Nitrogen 20.0 mg/dl (6-23); Calcium 8.8 mg/dl (8.6-10.3); Carbon Dioxide 25.0 mmol/L (21-32); Chloride 106.0 mmol/L (98-107); Creatinine Clr Calc Pharmacy 63.8 ml/min; Glucose 106.0 mg/dl (70-99(Fasting)); Potassium 4.1 mmol/L (3.5-5.1); Sodium 136.0 mmol/L (136-145)
[2025-03-23 06:36] LABS: ANTI-Xa, UFH(UnfractionatedHep 0.42 IU/ml (0.3-0.7)
[2025-03-23 08:08] VITALS: RESP 18; TEMP 98.2
[2025-03-23 16:11] VITALS: O2SAT 95
--- NOTE | 2025-03-23 17:59 | Discharge Summary ---
Date of Service March 23, 2025 Admission HPI Per Admitting Provider Patient is a 74y/o male with PMHx significant for CAD s/p inferior wall STEMI in 2014 where he received a CHARITO to the proximal and mid RCA with otherwise nonobstructive CAD, HTN, HLD, mildly dilated aortic root and ascending aorta, MINA on CPAP HS, DMII, GERD, BPH, history of malignant neoplasm of bladder s/p BCG completed in 2017 with no recurrences since that time, history of recurrent UTIs, R total hip arthroplasty in May 2024, chronic back pain with history of lumbosacral spine spondylosis with radiculopathy s/p L2-L3 decompression and fusion plus L3-L5 hardware removal in July 2024 and obesity who presented to the ED via referral by his PCP after he presented to their OP office with RLE swelling and pain x approximately 3 days and was found to have an extensive DVT in the RLE extending from the distal external iliac vein down to the distal SFT. History obtained from the patient, discussion with ED provider and associated chart review. Had previously been seen in [facility] ED back in September 2024 and diagnosed with a superficial thrombus within the left cephalic vein extending from the mid to distal forearm approximately 8cm in length. He had been prescribed a 2-week course of Eliquis 2.5 mg twice daily however admits to not ever taking this, as recommended by his PCP, as his symptoms resolved over the course of 2 days with symptomatic management including NSAIDs, warm compresses and elev ation/compression. No other prior personal history of blood clots or blood clotting disorders. No family history of blood clots or blood clotting disorders. Admits to significant ambulatory dysfunction due to the pain and swelling in his RLE. Feels his RLE is "tight" and erythematous but not necessarily warm to palpation. Also mentions experiencing some pain in his LLE, primarily in the posterior thigh region. He did not have a LLE venous Doppler US completed by his PCP earlier today. No inciting trauma or injury prior his BLE pain beginning. No prior cigarette smoking history. Admits to smoking 1 to 2 cigars/year when his friends are visiting. Rare alcohol use. No recreational drug use. Admission Exam Per Admitting Provider General: WD/WN, NAD, sitting up in bed, pleasant, conversing appropriately, A+Ox3 HEENT: Normocephalic, atraumatic, external ear and nose normal, oropharynx normal Respiratory: Normal respiratory effort, CTAB Cardiovascular: RRR, normal peripheral pulses, 1+ RLE edema Abdomen/GI: Normal bowel sounds, soft, nontender to palpation in all quadrants Extremities/Musculoskeletal: No cyanosis or clubbing, actively moves all extremities, RLE erythema/TTP (especially in R groin and posterior thigh regions), mild-mod TTP of LLE posterior thigh region as well but no superficial erythema or warmth to palpation Neurologic: No overt focal deficits, CN's II-XI not formally tested but appear grossly intact bilaterally Principal Diagnosis Acute pulmonary emboli/ DVT Discharge Exam General: WD/WN, in NAD HEENT: Normocephalic, atraumatic Respiratory: Normal respiratory effort, CTAB Cardiovascular: RRR, normal peripheral pulses, 1+ RLE edema Abdomen/GI: Normal bowel sounds, soft, nontender Extremities/Musculoskeletal: actively moves all extremities, + RLE edema Neurologic: awake, alert, no facial asymmetry, speech fluent, moves extremities Discharge Data Allergies Allergy/AdvReac Type Severity Reaction Status Date / Time Sulfa (Sulfonamide Allergy Mild Rash Verified 02/28/25 07:58 Antibiotics) Consultations 03/21/25 14:18 ED Decision to Admit Stat Ordered Studies 03/21/25 14:39 US venous doppler LE LT Stat Findings: The left common femoral, superficial femoral, popliteal, and visualized calf veins demonstrate normal anechoic lumens with full compressibility. Normal flow is seen on color Doppler images. Expected waveforms were produced with augmentation maneuvers Impression: No evidence of left leg deep venous thrombosis 03/21/25 15:06 CT angio chest PE protocol Stat FINDINGS: Diagnostic quality: Adequate There is a few, small subsegmental emboli, seen in the right lower and right middle lobe, and there is an embolus in the distal subsegmental left upper lobe artery. A thin bandlike area of filling defect is seen in the distal portion of the right main pulmonary artery, and is likely chronic. Heavy coronary calcifications. RV/LV ratio of approximately 1.2, suggesting right heart strain. There is no pericardial effusion. There are no abnormally enlarged hilar or mediastinal lymph nodes. The central tracheobronchial tree is clear. The lungs are clear. There is no pleural effusion. Limited visualized upper abdomen. No destructive osseous changes are seen. IMPRESSION: There is evidence of pulmonary embolism, as above, mostly small subsegmental emboli, as well as a thin linear filling defect in the distal right pulmonary artery, which is likely chronic. There is evidence of right heart strain, however. Hospital Course (1) Deep vein thrombosis of right lower extremity: Plan Mr. Ruiz is a 74y/o male with PMHx significant for CAD s/p inferior wall STEMI s/p CHARITO proximal and mid RCA, HTN, HLD, mildly dilated aortic root and ascending aorta, MINA on CPAP HS, DMII, GERD, BPH,prior malignant neoplasm of bladder s/p BCG, R total hip arthroplasty, chronic back pain, lumbosacral spine spondylosis with radiculopathy s/p L2-L3 decompression and fusion plus L3-L5 hardware removal in July 2024 and obesity admitted for RLE swelling and found to have an extensive DVT in the RLE extending from the distal external iliac vein down to the distal SFT. Discussed with Vascular: no need for debulking Clinically improved throughout the day Started on Eliquis last evening Overall pt feels well, LE edema is much improved. Pt denies any chest pain, shortness of breath, able to ambulate in the room. #Acute RLE DVT #Acute pulmonary emboli Pt with RLE pain as well, primarily upon palpation of the posterior thigh region on exam CT with mostly small subsegmental emboli, as well as a thin linear filling defect in the distal right pulmonary artery, which is likely chronic. There is evidence of right heart strain, IV heparin initiated: transition to eliquis this evening -eliquis covered and sent to [facility] Hypercoagulable w/u completed in ED, f/u on results ECHO obtained and discussed w/ cardiology over the phone - LV EF is normal, 50- 55%. RV is mild to moderately dilated. RV syst. function is qualitatively normal. Discussed ok to discharge. #HTN Continue BB #HLD #CAD s/p inferior wall STEMI in 2014 where he received a CHARITO to the proximal and mid RCA with otherwise nonobstructive CAD Continue ASA, statin and Zetia #Mildly dilated aortic root and ascending aorta Under observation, previously measuring 4cm per OP chart review #History of recurrent UTIs Follows with Dr. Carrera, [facility] urology Placed on course of Macrobid during previous visit --> completed course while inpatient #BPH Continue Flomax #DM type 2 Hold home regimen SSI protocol while inpatient, follow BSG checks ACHS Hgb A1c 6.8% as of Jul 2024 -->6.2% this admission #GERD Continue PPI #Anemia H/H overall stable but on lower side Total Time Total Time Spent Total Time Spent (In Minutes): 40 Discharge Plan Discharge Items Patient Disposition: Home - Self-Care Reason For Visit: RLE DVT Discharge Diagnosis: Acute pulmonary emboli/ DVT Condition on Discharge: Serious Activity: Per Instructions section Non-emergency contact: Primary Care Provider Call non-emergency contact if: you have any medication questions and your symptoms worsen Follow-up/Referrals: Karl Madrigal DO [Primary Care Provider] - 03/28/25 11:00 am (Date & Time 03/28/2025 11:00 AM Provider: Karl Madrigal DO [facility] [place] ) Diet: Carb Consistent or DM2 and Heart Healthy Addtl Attending Provider Instructions: Follow up with your primary care physician within 1 week. The appointment was scheduled for you for March 28, 2025. Take Eliquis 10 mg twice a day for total of 7 days, then take eliquis 5 mg twice a day. Pending Studies at Discharge: Yes Studies:: hypercoagulable work-up Stand-Alone Forms: My [facility], Smoking Cessation Medications and DC Order Prescriptions: New Eliquis 5 mg (74 tabs) tablets,dose pack 5 mg PO BID Qty: 74 0RF Rx Instructions: 10mg two times a day for 7 days then 5mg two times a day thereafter Continued atorvastatin 80 mg tablet 80 mg PO QAM ezetimibe 10 mg tablet 10 mg PO QAM pantoprazole 40 mg tablet,delayed release (DR/EC) 40 mg PO QAM Zepbound 2.5 mg/0.5 mL pen injector 10 mg subcut WK aspirin 81 mg tablet,delayed release (DR/EC) 81 mg PO QAM atenolol 25 mg tablet 25 mg PO QAM tamsulosin 0.4 mg PO DAILY Discontinued nitrofurantoin monohyd/m-cryst 100 mg capsule 100 mg PO BID Discharge Orders: Discharge Order (Routine); Ordered 03/23/25 Ordered By: Bharath Ortiz/Other Patient Handouts: Managing Type 2 Diabetes, DVT Dc Admission Data Admit Date/Time: 03/21/25 15:09 Attending Provider: Bharath Stark Admit Provider: Lorena Berry Primary Care Provider: Karl Madrigal Other Interventions: Discharge Summary Assessment (RN) Last Done: 03/23/25 18:10
[2025-03-23 18:12] VITALS: BP 134/83; PULSE 73
== END 2025-03-23 18:55 | disposition home or self-care (01) | DRG 299 ==
LOC: ED 11:54 → SUATTDRO 15:09 → 2W 15:09